=== PATIENT | female | born 1955 | race Caucasian/White ===

== ENCOUNTER → 2018-03-01 10:02 | Outpatient (CLI) | payer OTHER, MEDICAID, SELFPAY ==
--- NOTE | 2018-03-01 10:14 | DI.RAD.S_ITS ---
PROCEDURE: XR THORACIC SPINE 3V INDICATIONS: Pain. TECHNIQUE: AP, lateral, and parasagittal oblique views of the thoracic spine were acquired. COMPARISON: [facility], THORACIC SPINE 3 VIEWS, 09/03/2015, 8:50. FINDINGS: Midline sternotomy wires noted, as are surgical clips along the left cervical spine. There is calcification of the aortic arch. Redemonstrated multilevel mild compression fracture deformity is at the T7, T8, T9, T12, and L1 levels are similar in appearance to comparison exam of 09/03/2015. No new acute fractures are identified. Multilevel Schmorl's nodes are present. IMPRESSION: Multilevel mild compression fractures of the thoracic spine at the levels described above, which are stable in appearance when compared with exam of 09/03/15. Dictated by: Kirby Baum M.D. on 03/01/2018 at 10:57 Approved by: Kirby Baum M.D. on 03/01/2018 at 11:09
[2018-03-01 10:58] LABS: Alanine Aminotransferase 28 IU/L (9-52); Albumin 4.7 g/dL (3.5-5.0); Albumin Globulin Ratio 1.3 (1.0-2.8); Alkaline Phosphatase 94 U/L (38-126); Aspartate Aminotransferase 40 IU/L (14-36); BUN Creatinine Ratio 22.2 (6-22); Bilirubin Total 0.6 mg/dL (0.2-1.3); Blood Urea Nitrogen 20 mg/dL (7-17); Calcium 9.6 mg/dL (8.4-10.2); Carbon Dioxide 29 mmol/L (22-32); Chloride 99 mmol/L (98-107); Estimated Glomerular Filt Rate > 60.0 mL/min (>60); Globulin 3.7 g/dL (1.7-4.1); Glucose 101 mg/dL (80-110); HEMOLYSIS < 15 (0-50); Sodium 136 mmol/L (137-145); Total Protein 8.4 g/dL (6.3-8.2)
[2018-03-01 11:26] LABS: Thyroid Stimulating Hormone 1.38 uIU/mL (0.47-4.68)
== END ==
PROVIDERS: Family Provider Family Medicine; PCP Family Medicine; Visit Provider Family Medicine
DX: I48.91 Unspecified atrial fibrillation (principal); M85.80 Other specified disorders of bone density and structure, unspecified site
CPT/HCPCS: 36415; 72072; 80053; 84443

== ENCOUNTER → 2018-03-09 09:24 | Outpatient (CLI) | payer OTHER, MEDICAID, SELFPAY | PROVIDERS: Family Provider Family Medicine; PCP Family Medicine; Visit Provider Family Medicine | DX: M81.0 Age-related osteoporosis without current pathological fracture (principal); Z78.0 Asymptomatic menopausal state; Z82.62 Family history of osteoporosis; F17.200 Nicotine dependence, unspecified, uncomplicated | CPT/HCPCS: 77080 ==

== ENCOUNTER → 2018-05-25 09:48 | Outpatient (CLI) | payer OTHER, MEDICAID, SELFPAY ==
[2018-05-25 11:31] LABS: BUN Creatinine Ratio 18.6 (6-22); Blood Urea Nitrogen 13 mg/dL (7-17); Calcium 9.9 mg/dL (8.4-10.2); Carbon Dioxide 28 mmol/L (22-32); Chloride 101 mmol/L (98-107); Cholesterol 224 mg/dL (140-199); Estimated Glomerular Filt Rate > 60.0 mL/min (>60); Glucose 96 mg/dL (80-110); HDL Cholesterol 73 mg/dL (40-60); HEMOLYSIS < 15 (0-50); LDL Cholesterol Calculated 129 mg/dL (<100); Potassium 4.8 mmol/L (3.4-5.1); Sodium 142 mmol/L (137-145); Triglycerides 112 mg/dL (35-150)
== END ==
PROVIDERS: PCP Family Medicine; Visit Provider Internal Medicine Cardiovascular Disease
DX: E87.5 Hyperkalemia (principal); E78.2 Mixed hyperlipidemia
CPT/HCPCS: 36415; 80048; 80061; 82306

== ENCOUNTER → 2018-05-31 08:55 | Outpatient (CLI) | payer OTHER, MEDICAID, SELFPAY ==
[2018-05-31 09:13] LABS: INR 1.9 (0.9-1.3); Prothrombin Time 20.8 SECONDS (10.1-12.7)
== END ==
PROVIDERS: PCP Family Medicine; Visit Provider Family Medicine
DX: I48.91 Unspecified atrial fibrillation (principal); Z95.2 Presence of prosthetic heart valve
CPT/HCPCS: 36415; 85610

== ENCOUNTER → 2018-10-25 17:44 | Outpatient (CLI) | payer OTHER, MEDICAID, SELFPAY ==
--- NOTE | 2018-10-25 | DI.MRI.S_ITS ---
PROCEDURE: MR CERVICAL SPINE WO CON INDICATIONS: CERVICAL RADICULOPATHY TECHNIQUE: Noncontrast sagittal T1 spin echo and T2 fast spin echo, sagittal STIR, foraminal oblique sagittal T2 fast spin echo, and axial gradient echo or T2 fast spin echo through the cervical spine. COMPARISON: [facility], CT, PE STUDY (CTA CHEST), 05/09/2011, 9:54. [facility], RG, US THYROID, 08/08/2003, 10:01. [facility], MR, C-SPINE WITHOUT CONTRAST, 07/11/2012, 14:58. [facility] [place], CR, XR CERVICAL SPINE 2 OR 3 VIEWS, 07/19/2018, 16:34. FINDINGS: Image quality: Excellent. Alignment and Curvature: Loss of normal cervical lordosis. There is grade 1 anterolisthesis at C2-C3 and C3-C4, and grade 1 retrolisthesis of C5-C6 and C6-C7. Bone Marrow: Degenerative endplate signal changes are present at C3, C4, C5, C6 and C7. Spinal Cord: Visualized spinal cord has normal size and signal. No cerebellar tonsillar herniation. Paraspinous Soft Tissues: No paravertebral masses. Prevertebral soft tissues are normal in thickness. Enlarged right thyroid lobe with possible thyroid nodules. C2-C3: Preserved disc height. Moderate disc desiccation. There is mild posterior disc bulge. The central canal is patent. Mild bilateral foraminal stenosis. No significant change from last exam. C3-C4: Kavg-rp-thngardm loss of disc height. Moderate disc desiccation. There is diffuse posterior disc bulge and disc osteophyte complex. Bilateral moderate facet arthropathy. The central canal is mildly narrowed. Severe right and moderate left foraminal stenosis, increased from the last exam. C4-C5: Qfswlnhl-ay-pdptcp loss of disc height and disc desiccation. There is diffuse posterior disc bulge and disc osteophyte complex. Uncovertebral hypertrophy. Moderate left and mild right facet arthropathy. The central canal is lnehuhkr-uw-efctguvp narrowed. narrowed. Severe foraminal stenosis bilaterally. Increased central canal and foraminal stenosis impaired to the last exam. C5-C6: Severe loss of disc height and disc desiccation. There is diffuse posterior disc bulge and disc osteophyte complex. Uncovertebral hypertrophy. Mild bilateral facet and arthropathy. The central canal is severely narrowed. narrowed. Severe bilateral foraminal stenosis. Increased central canal and foraminal stenosis impaired to the last exam. C6-C7: Severe loss of disc height and disc desiccation. There is diffuse posterior disc bulge and disc osteophyte complex. Uncovertebral hypertrophy. Mild facet arthropathy bilaterally. The central canal is severely narrowed. narrowed. Severe bilateral foraminal stenosis. Increased central canal and foraminal stenosis impaired to the last exam. C7-T1: Normal appearance. IMPRESSION: 1. Multilevel degenerative disc disease and facet arthropathy in cervical spine as described. 2. Severe central canal stenosis at C5-C6 and C6-C7, faagdkie-ts-afylzv central canal stenosis at C4 and C5. 3. Multilevel foraminal stenoses as described, severe at C4-C5 bilaterally, C5-C6 bilaterally, and C6-C7 bilaterally. 4. Enlarged right thyroid lobe. Thyroid ultrasound is recommended for followup evaluation. Dictated by: Vince Mauro M.D. on 10/26/2018 at 9:34 Approved by: Vince Mauro M.D. on 10/26/2018 at 9:49
== END ==
PROVIDERS: Family Provider Family Medicine; PCP Family Medicine; Visit Provider Physician Assistant
DX: M50.11 Cervical disc disorder with radiculopathy, high cervical region (principal); M47.22 Other spondylosis with radiculopathy, cervical region; M48.02 Spinal stenosis, cervical region; E04.9 Nontoxic goiter, unspecified
CPT/HCPCS: 72141

== ENCOUNTER 2018-10-27 09:45 | Outpatient (RCR) | payer OTHER, MEDICAID, SELFPAY ==
--- NOTE | 2018-09-15 15:00 | PT.OIE ---
Current Diagnoses Stiffness of unspecified joint, not elsewhere classified (09/15/18) Spondylolisthesis, cervical region (09/15/18) Other spondylosis with radiculopathy, cervical region (09/15/18) Cervical disc disorder with myelopathy, unspecified cervical region (09/15/18) Muscle weakness (generalized) (09/15/18) Past Medical History (Last Updated 02/28/18 @ 20:27 by Kaity Thompson) Heart failure (Chronic ~05/18/11) Chicken pox (Resolved ~1958) Scabies (Resolved ~2015) Past Surgical History (Last Updated 02/28/18 @ 20:27 by Kaity Thompson) Anesthesia (Resolved) History of aortic valve replacement (05/18/11) Provider Visit Care Team Role Provider Type Gideon Maddox MD Family Provider Physician Primary Care Provider Specialty: Family Practice Address: [address] [place] [address], [id number] Email: [email or web address] Dorothy Askew MD Attending Provider Physician Specialty: Orthopedic Surgery Address: [address] [place] [address], [address] Email: [email or web address] Physical [facility] Initial Evaluation PT-OP-A Visit Information Start: 09/15/18 11:44 Freq: Status: Active Protocol: Document 09/15/18 10:30 DCW (Rec: 09/15/18 11:57 DC [id number]) Out-Patient Physical Therapy Visit Information Visit Information Visit Type Initial Evaluation Visit Start Time 10:30 Visit Stop Time 11:10 Total Visit Minutes 40 Visit Number 1 Number of CRYSTAL GAZER Visits 0 Evaluation Information Evaluation Date 09/15/18 PT-OP-B Current Condition Start: 09/15/18 11:44 Freq: Status: Active Protocol: Document 09/15/18 10:30 DCW (Rec: 09/15/18 11:57 DCW [id number]) Current Condition History of Current Condition Onset Date Multi-year history Current Complaints Severe cervical pain and stiffness History of Current Condition Pt is a 63 year old female presenting with a multi-year history of cervical spine pain . Pt reports she attempted Physical Therapy years ago, but notes that she was eventually told that there was nothing that they could do. Pt's neck pain results in decreased mobility, weakness, pain along her right medial scapula, near-constant headaches, and limitations to her daily life. Pt has, in the recent past, been treated for multiple stress/compression fractures in her spine, and has been diagnosed with a cervical spondylolisthesis. Additionally, pt reports she has been having recent anterior hip pain, and saw Dr Askew about it, who daniel fluid out of her joint and is requesting an MRI for her hip. Prior Treatments and Tests Treatment for multiple vertebral compression fractures Future Testing and Treatments Planned Upcoming hip MRI Prior Functional Status Baseline Function- ADL's Independent Baseline Function- Mobility Independent Current Functional Impairments (Reported) Functional Limitations- ADL's Pt reports she is only able to do one load of laundry compared to her normal three loads Pt requires assistance taking care of her gas stove, which she reports turns on my itself randomly PT-OP-C Subjective Start: 09/15/18 11:44 Freq: Status: Active Protocol: Document 09/15/18 10:30 DCW (Rec: 09/15/18 11:57 DCW [id number]) OP-PT Subjective Patient Comments Patient Comments My neck pain wakes me up like an alarm every night between 2:30 and 3:00. Patient Reported Progress Worse Patient Questionnaires Neck Disability Index NDI Score 34/50 = 68% Neck Disability Index Impairment 60 to 79% Impaired (Score 30- 39) Quick Dash- Upper Extremity Quick Dash UE Score 61.36 Quick Dash UE Impairment 60 to 79% Impaired (Score 60- 79) OP-PT Pain Assessment Pain Assessment Grid Paper Pain Assessment Grid Completed Yes Location Right Medial Scapula Intensity 8 Scale Used Numeric (1 - 10) Cervical Spine Pain Location Details Cervical Spine Intensity 8 Scale Used Numeric (1 - 10) PT-OP-F Manual Assessment Start: 09/15/18 11:44 Freq: Status: Active Protocol: Document 09/15/18 10:30 DCW (Rec: 09/15/18 14:56 DCW [id number]) Manual Assessments Soft Tissue Assessment Soft Tissue Mobility Assessment Moderate tone Cervical paraspinals and scalenes R>L, R Rhomboids Severe tone Suboccipitals and upper trap, R>L Joint Mobility Assessment Joint Mobility Assessment Hypomobility of P->A glide C3- 6 PT-OP-K Range of Motion Start: 09/15/18 11:44 Freq: Status: Active Protocol: Document 09/15/18 10:30 DCW (Rec: 09/15/18 14:56 DCW [id number]) Cervical Spine Range of Motion Cervical Spine Active Degrees Testing Position Sitting Flexion 25 Extension 13 Rotation Left 36 Rotation Right 44 Lateral Flexion Left 10 Lateral Flexion Right 10 ROM Limitations Soft Tissue Tightness Bony Restriction Muscle Tone Pain PT-OP-L Special Tests Start: 09/15/18 11:44 Freq: Status: Active Protocol: Document 09/15/18 10:30 DCW (Rec: 09/15/18 14:56 DCW [id number]) Special Tests Cervical Spine Special Tests Upper Limb Tension Test Test Results Negative Vertebral Artery Test Results Negative Traction Test Results It almost takes my headache away. Slump Test Results Negative Foraminal Compression Test Results Negative Alar Ligament Test Results Negative PT-OP-M Strength Start: 09/15/18 11:44 Freq: Status: Active Protocol: Document 09/15/18 10:30 DCW (Rec: 09/15/18 14:56 DCW [id number]) Cervical Spine Strength Cervical Spine Manual Muscle Testing Comments Pt able to hold chin tuck/head lift <2 seconds, 3+/5 PT-OP-Q Treatments Start: 09/15/18 11:44 Freq: Status: Active Protocol: Document 09/15/18 10:30 DCW (Rec: 09/15/18 14:56 DCW [id number]) Therapeutic Exercises Supine Exercises Serratus Punch Supine Exercise Name Supine Serratus punch Side bilateral Resistance 0# Chin Tuck/Head lift Supine Exercise Name Chin tuck/head lift Reps/Minutes to fatigue Standing Exercises Corner pec stretch Standing Exercise Name Corner pec stretch Side bilateral Reps/Minutes 35 hold PT-OP-T Assessment and Plan Start: 09/15/18 11:44 Freq: Status: Active Protocol: Document 09/15/18 10:30 DCW (Rec: 09/15/18 14:56 DCW [id number]) Physical Therapy Assessment Rehab Potential Rehabilitation Potential Good Evaluation Complexity Number of Personal Factors/Comorbidities 3 or More Number of Body Systems Impaired 3 Clinical Presentation at Evaluation Unstable Impairments Impairments Activity Tolerance Functional Activities Functional Mobility Pain Posture ROM Soft Tissue Mobility Strength Tone Other Concerns Barriers to Rehabilitation Hx [place] and valve replacement, Dizziness, HTN, Arthritis Goals Five Impairment Hypertonia Short Term Goal (STG) Pt to display moderate tone in bilateral upper traps and suboccipitals STG Duration 10/13/18 Data Manager Goal (LTG) Pt to display mild tone in bilateral upper traps, suboccipitals, scalenes, cervical paraspinals, and right rhomboids LTG Duration 11/13/18 Four Impairment Cervical weakness Short Term Goal (STG) Pt to hold chin tuck/head lift for 5 seconds with no pain STG Duration 10/13/18 Data Manager Goal (LTG) Pt to hold chin tuck/head lift for 15 seconds with no pain LTG Duration 11/13/18 Three Impairment Flexibility Short Term Goal (STG) Cervical flexion to improve from 25? to 40? Cervical Extension to improve from 13? to 25? STG Duration 10/13/18 Retirement Goal (LTG) Cervical Lateral Flexion to improve from 10? to 20? bilaterally LTG Duration 11/13/18 Two Impairment Pt unable to complete more than one load of laundry per day Data Manager Goal (LTG) Pt to return to 3 loads of laundry/day with no increased neck pain LTG Duration 11/13/18 One Impairment Pt does not have an appropriate home exercise program Short Term Goal (STG) Pt to be independent and complaint with an appropriate HEP STG Duration 10/13/18 Assessment Summary Assessment Pt presents with signs and symptoms consistent with cervical hypertonia, stiffness , weakness, and pain associated with cervical DJD/ DDD and Spondylolisthesis. 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 No special testing was able to recreate her ongoing symptoms, however she did display significant tenderness to palpation and hypertonia throughout her paraspinal and parascapular musculature. Pt should benefit from skilled therapy focusing on decreasing muscle tone, improving strength and ROM, STM, and pain-control modalities. Therapy including manual or mechanical traction may also assist in decreasing her headache frequency and severity. Physical Therapy Plan Frequency and Duration Frequency of Treatment 2x/Week Duration of Treatment 12 weeks Plan of Care Start Date 09/15/18 Plan of Care End Date 12/08/18 Therapeutic Interventions Therapeutic Interventions Aquatic Therapy Home Exercise Program Joint Mobilizations Manual Therapy Patient/Caregiver Education Self-Care/Home Management Soft Tissue Mobilization Taping Therapeutic Activities Therapeutic Exercises Modalities Cold Pack/Ice Massage Electric Stimulation Hot Packs Ultrasound Next Visit Focus/Plan Next Note Type Treatment Note Next Visit Plan STM, Cervical strengthening, Flexibility training
--- NOTE | 2018-09-15 15:01 | PT.OPPOC ---
Current Diagnoses Stiffness of unspecified joint, not elsewhere classified (09/15/18) Spondylolisthesis, cervical region (09/15/18) Other spondylosis with radiculopathy, cervical region (09/15/18) Cervical disc disorder with myelopathy, unspecified cervical region (09/15/18) Muscle weakness (generalized) (09/15/18) Provider Visit Care Team Role Provider Type Gideon Maddox MD Family Provider Physician Primary Care Provider Specialty: Family Practice Address: [address] [place] [address], [address] Email: [email or web address] Dorothy Askew MD Attending Provider Physician Specialty: Orthopedic Surgery Address: [address] [place] [address], [address] Email: [email or web address] Plan Of Care PT-OP-T Assessment and Plan Start: 09/15/18 11:44 Freq: Status: Active Protocol: Document 09/15/18 10:30 DCW (Rec: 09/15/18 14:56 DCW [id number]) Physical Therapy Assessment Rehab Potential Rehabilitation Potential Good Evaluation Complexity Number of Personal Factors/Comorbidities 3 or More Number of Body Systems Impaired 3 Clinical Presentation at Evaluation Unstable Impairments Impairments Activity Tolerance Functional Activities Functional Mobility Pain Posture ROM Soft Tissue Mobility Strength Tone Other Concerns Barriers to Rehabilitation Hx [place] and valve replacement, Dizziness, HTN, Arthritis Goals Five Impairment Hypertonia Short Term Goal (STG) Pt to display moderate tone in bilateral upper traps and suboccipitals STG Duration 10/13/18 Store Facility Technician Goal (LTG) Pt to display mild tone in bilateral upper traps, suboccipitals, scalenes, cervical paraspinals, and right rhomboids LTG Duration 11/13/18 Four Impairment Cervical weakness Short Term Goal (STG) Pt to hold chin tuck/head lift for 5 seconds with no pain STG Duration 10/13/18 Store Facility Technician Goal (LTG) Pt to hold chin tuck/head lift for 15 seconds with no pain LTG Duration 11/13/18 Three Impairment Flexibility Short Term Goal (STG) Cervical flexion to improve from 25? to 40? Cervical Extension to improve from 13? to 25? STG Duration 10/13/18 [facility] Goal (LTG) Cervical Lateral Flexion to improve from 10? to 20? bilaterally LTG Duration 11/13/18 Two Impairment Pt unable to complete more than one load of laundry per day Store Facility Technician Goal (LTG) Pt to return to 3 loads of laundry/day with no increased neck pain LTG Duration 11/13/18 One Impairment Pt does not have an appropriate home exercise program Short Term Goal (STG) Pt to be independent and complaint with an appropriate HEP STG Duration 10/13/18 Assessment Summary Assessment Pt presents with signs and symptoms consistent with cervical hypertonia, stiffness , weakness, and pain associated with cervical DJD/ DDD and Spondylolisthesis. 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 No special testing was able to recreate her ongoing symptoms, however she did display significant tenderness to palpation and hypertonia throughout her paraspinal and parascapular musculature. Pt should benefit from skilled therapy focusing on decreasing muscle tone, improving strength and ROM, STM, and pain-control modalities. Therapy including manual or mechanical traction may also assist in decreasing her headache frequency and severity. Physical Therapy Plan Frequency and Duration Frequency of Treatment 2x/Week Duration of Treatment 12 weeks Plan of Care Start Date 09/15/18 Plan of Care End Date 12/08/18 Therapeutic Interventions Therapeutic Interventions Aquatic Therapy Home Exercise Program Joint Mobilizations Manual Therapy Patient/Caregiver Education Self-Care/Home Management Soft Tissue Mobilization Taping Therapeutic Activities Therapeutic Exercises Modalities Cold Pack/Ice Massage Electric Stimulation Hot Packs Ultrasound Next Visit Focus/Plan Next Note Type Treatment Note Next Visit Plan STM, Cervical strengthening, Flexibility training Plan of Care Dates Plan of Care Start Date 09/15/18 Plan of Care End Date 12/08/18 Please Sign and Return: I have reviewed this Plan of Care and certify that the skilled therapy services above are required to meet the patient?s needs. Physician Signature Date Printed Name and Credentials Clinical Instructor Signature Printed Name and Credentials
--- NOTE | 2018-09-19 11:06 | PT.OTN ---
Current Diagnoses Spondylolisthesis, cervical region (09/19/18) Other spondylosis with radiculopathy, cervical region (09/19/18) Physical Therapy Treatment Note PT-OP-A Visit Information Start: 09/15/18 11:44 Freq: Status: Active Protocol: Document 09/19/18 10:30 DCW (Rec: 09/19/18 11:06 DCW [id number]) Out-Patient Physical Therapy Visit Information Visit Information Visit Type Initial Evaluation Visit Start Time 10:30 Visit Stop Time 11:15 Total Visit Minutes 45 Visit Number 2 Number of TAG CLERK Visits 0 Evaluation Information Evaluation Date 09/15/18 PT-OP-B Current Condition Start: 09/15/18 11:44 Freq: Status: Active Protocol: Document 09/15/18 10:30 DCW (Rec: 09/15/18 11:57 DCW [id number]) Current Condition History of Current Condition Onset Date Multi-year history Current Complaints Severe cervical pain and stiffness History of Current Condition Pt is a 63 year old female presenting with a multi-year history of cervical spine pain . Pt reports she attempted Physical Therapy years ago, but notes that she was eventually told that there was nothing that they could do. Pt's neck pain results in decreased mobility, weakness, pain along her right medial scapula, near-constant headaches, and limitations to her daily life. Pt has, in the recent past, been treated for multiple stress/compression fractures in her spine, and has been diagnosed with a cervical spondylolisthesis. Additionally, pt reports she has been having recent anterior hip pain, and saw Dr Askew about it, who daniel fluid out of her joint and is requesting an MRI for her hip. Prior Treatments and Tests Treatment for multiple vertebral compression fractures Future Testing and Treatments Planned Upcoming hip MRI Prior Functional Status Baseline Function- ADL's Independent Baseline Function- Mobility Independent Current Functional Impairments (Reported) Functional Limitations- ADL's Pt reports she is only able to do one load of laundry compared to her normal three loads Pt requires assistance taking care of her gas stove, which she reports turns on my itself randomly PT-OP-C Subjective Start: 09/15/18 11:44 Freq: Status: Active Protocol: Document 09/19/18 10:30 DCW (Rec: 09/19/18 11:06 DCW [id number]) OP-PT Subjective Patient Comments Patient Comments I've been able to do those exercises at home, to a certain point. Pt reports her pain is about a nine today. Patient Reported Progress Same PT-OP-F Manual Assessment Start: 09/15/18 11:44 Freq: Status: Active Protocol: Document 09/15/18 10:30 DCW (Rec: 09/15/18 14:56 DCW [id number]) Manual Assessments Soft Tissue Assessment Soft Tissue Mobility Assessment Moderate tone Cervical paraspinals and scalenes R>L, R Romboids Severe tone Suboccipitals and upper trap, R>L Joint Mobility Assessment Joint Mobility Assessment Hypomobility of P->A glide C3- 6 PT-OP-K Range of Motion Start: 09/15/18 11:44 Freq: Status: Active Protocol: Document 09/15/18 10:30 DCW (Rec: 09/15/18 14:56 DCW [id number]) Cervical Spine Range of Motion Cervical Spine Active Degrees Testing Position Sitting Flexion 25 Extension 13 Rotation Left 36 Rotation Right 44 Lateral Flexion Left 10 Lateral Flexion Right 10 ROM Limitations Soft Tissue Tightness Bony Restriction Muscle Tone Pain PT-OP-L Special Tests Start: 09/15/18 11:44 Freq: Status: Active Protocol: Document 09/15/18 10:30 DCW (Rec: 09/15/18 14:56 DCW [id number]) Special Tests Cervical Spine Special Tests Upper Limb Tension Test Test Results Negative Vertebral Artery Test Results Negative Traction Test Results It almost takes my headache away. Slump Test Results Negative Foraminal Compression Test Results Negative Alar Ligament Test Results Negative PT-OP-M Strength Start: 09/15/18 11:44 Freq: Status: Active Protocol: Document 09/15/18 10:30 DCW (Rec: 09/15/18 14:56 DCW [id number]) Cervical Spine Strength Cervical Spine Manual Muscle Testing Comments Pt able to hold chin tuck/head lift <2 seconds, 3+/5 PT-OP-Q Treatments Start: 09/15/18 11:44 Freq: Status: Active Protocol: Document 09/19/18 10:30 DCW (Rec: 09/19/18 11:06 DCW [id number]) Manual Therapy Treatment Soft Tissue Mobilization Suboccipitals Body Location B Suboccipitals Mobilization Type Strumming Sustained Pressure Trigger Point Release Upper Trap Body Location B Upper Trap Mobilization Type Myofascial Release Strumming Sustained Pressure Manual Traction Cervical Details Gentle Manual Traction Body Position Supine PT-OP-R Modalities Start: 09/15/18 11:44 Freq: Status: Active Protocol: Document 09/19/18 10:30 DCW (Rec: 09/19/18 11:06 DCW [id number]) Electric Stimulation Electric Stimulation Interferential Current (IFC) Body Location Cervical Spine Duration (Minutes) 15 Intensity 7 Patient Position Hooklying PT-OP-T Assessment and Plan Start: 09/15/18 11:44 Freq: Status: Active Protocol: Document 09/19/18 10:30 DCW (Rec: 09/19/18 11:06 DCW [id number]) Physical Therapy Assessment Impairments Impairments Activity Tolerance Functional Activities Functional Mobility Pain Posture ROM Soft Tissue Mobility Strength Tone Goals Five Impairment Hypertonia Short Term Goal (STG) Pt to display moderate tone in bilateral upper traps and suboccipitals STG Duration 10/13/18 Senior Care Goal (LTG) Pt to display mild tone in bilateral upper traps, suboccipitals, scalenes, cervical paraspinals, and right romboids LTG Duration 11/13/18 Four Impairment Cervical weakness Short Term Goal (STG) Pt to hold chin tuck/head lift for 5 seconds with no pain STG Duration 10/13/18 Jewelry Bench Worker Goal (LTG) Pt to hold chin tuck/head lift for 15 seconds with no pain LTG Duration 11/13/18 Three Impairment Flexibility Short Term Goal (STG) Cervical flexion to improve from 25? to 40? Cervical Extension to improve from 13? to 25? STG Duration 10/13/18 Jewelry Bench Worker Goal (LTG) Cervical Lateral Flexion to improve from 10? to 20? bilaterally LTG Duration 11/13/18 Two Impairment Pt unable to complete more than one load of laundry per day Senior Care Goal (LTG) Pt to return to 3 loads of laundry/day with no increased neck pain LTG Duration 11/13/18 One Impairment Pt does not have an appropriate home exercise program Short Term Goal (STG) Pt to be independent and complaint with an appropriate HEP STG Duration 10/13/18 Assessment Summary Assessment Pt was so tender and flared-up today that the focus was on gentle STM and traction, will attempt ROM and strengthening next visit when she is hopefully experiencing less pain. Physical Therapy Plan Frequency and Duration Frequency of Treatment 2x/Week Duration of Treatment 12 weeks Plan of Care Start Date 09/15/18 Plan of Care End Date 12/08/18 Therapeutic Interventions Therapeutic Interventions Aquatic Therapy Home Exercise Program Joint Mobilizations Manual Therapy Patient/Caregiver Education Self-Care/Home Management Soft Tissue Mobilization Taping Therapeutic Activities Therapeutic Exercises Modalities Cold Pack/Ice Massage Electric Stimulation Hot Packs Ultrasound Next Visit Focus/Plan Next Note Type Treatment Note Next Visit Plan STM, Cervical strengthening, Flexibility training
--- NOTE | 2018-09-22 10:29 | PT.OTN ---
Current Diagnoses Spondylolisthesis, cervical region (09/22/18) Other spondylosis with radiculopathy, cervical region (09/22/18) Physical Therapy Treatment Note PT-OP-A Visit Information Start: 09/15/18 11:44 Freq: Status: Active Protocol: Document 09/22/18 08:49 EA (Rec: 09/22/18 08:57 EA [id number]) Out-Patient Physical Therapy Visit Information Visit Information Visit Type Treatment Note Visit Start Time 08:15 Visit Stop Time 09:00 Visit Number 3 Number of IP ATTORNEY Visits 0 PT-OP-B Current Condition Start: 09/15/18 11:44 Freq: Status: Active Protocol: Document 09/15/18 10:30 DCW (Rec: 09/15/18 11:57 DCW [id number]) Current Condition History of Current Condition Onset Date Multi-year history Current Complaints Severe cervical pain and stiffness History of Current Condition Pt is a 63 year old female presenting with a multi-year history of cervical spine pain . Pt reports she attempted Physical Therapy years ago, but notes that she was eventually told that there was nothing that they could do. Pt's neck pain results in decreased mobility, weakness, pain along her right medial scapula, near-constant headaches, and limitations to her daily life. Pt has, in the recent past, been treated for multiple stress/compression fractures in her spine, and has been diagnosed with a cervical spondylolisthesis. Additionally, pt reports she has been having recent anterior hip pain, and saw Dr Askew about it, who daniel fluid out of her joint and is requesting an MRI for her hip. Prior Treatments and Tests Treatment for multiple vertebral compression fractures Future Testing and Treatments Planned Upcoming hip MRI Prior Functional Status Baseline Function- ADL's Independent Baseline Function- Mobility Independent Current Functional Impairments (Reported) Functional Limitations- ADL's Pt reports she is only able to do one load of laundry compared to her normal three loads Pt requires assistance taking care of her gas stove, which she reports turns on my itself randomly PT-OP-C Subjective Start: 09/15/18 11:44 Freq: Status: Active Protocol: Document 09/22/18 08:49 EA (Rec: 09/22/18 08:57 EA [id number]) OP-PT Subjective Patient Comments Patient Comments Pt reports much less pain today; states she would be able to tolerate gentle exercises. PT-OP-F Manual Assessment Start: 09/15/18 11:44 Freq: Status: Active Protocol: Document 09/15/18 10:30 DCW (Rec: 09/15/18 14:56 DCW [id number]) Manual Assessments Soft Tissue Assessment Soft Tissue Mobility Assessment Moderate tone Cervical paraspinals and scalenes R>L, R Romboids Severe tone Suboccipitals and upper trap, R>L Joint Mobility Assessment Joint Mobility Assessment Hypomobility of P->A glide C3- 6 PT-OP-K Range of Motion Start: 09/15/18 11:44 Freq: Status: Active Protocol: Document 09/15/18 10:30 DCW (Rec: 09/15/18 14:56 DCW [id number]) Cervical Spine Range of Motion Cervical Spine Active Degrees Testing Position Sitting Flexion 25 Extension 13 Rotation Left 36 Rotation Right 44 Lateral Flexion Left 10 Lateral Flexion Right 10 ROM Limitations Soft Tissue Tightness Bony Restriction Muscle Tone Pain PT-OP-L Special Tests Start: 09/15/18 11:44 Freq: Status: Active Protocol: Document 09/15/18 10:30 DCW (Rec: 09/15/18 14:56 DCW [id number]) Special Tests Cervical Spine Special Tests Upper Limb Tension Test Test Results Negative Vertebral Artery Test Results Negative Traction Test Results It almost takes my headache away. Slump Test Results Negative Foraminal Compression Test Results Negative Alar Ligament Test Results Negative PT-OP-M Strength Start: 09/15/18 11:44 Freq: Status: Active Protocol: Document 09/15/18 10:30 DCW (Rec: 09/15/18 14:56 DCW [id number]) Cervical Spine Strength Cervical Spine Manual Muscle Testing Comments Pt able to hold chin tuck/head lift <2 seconds, 3+/5 PT-OP-Q Treatments Start: 09/15/18 11:44 Freq: Status: Active Protocol: Document 09/22/18 08:49 EA (Rec: 09/22/18 08:57 EA [id number]) Therapeutic Exercises Supine Exercises 3 Supine Exercise Name Gentle passive stretch Reps/Minutes x 15 SH x 2 reps each sides 2 Supine Exercise Name gentle isometric to flexors, rotators, SF, extensors prior to gentle stretc 1 Supine Exercise Name AROM: cervical flexion, rotation, SF Reps/Minutes x 12 reps Chin Tuck/Head lift Supine Exercise Name Chin tuck/head lift Reps/Minutes to fatigue Manual Therapy Treatment Soft Tissue Mobilization Suboccipitals Body Location B Suboccipitals Mobilization Type Myofascial Release Sustained Pressure Trigger Point Release Upper Trap Body Location B Upper Trap Mobilization Type Myofascial Release Sustained Pressure Manual Traction Cervical Details Gentle Manual Traction Body Position Supine PT-OP-R Modalities Start: 09/15/18 11:44 Freq: Status: Active Protocol: Document 09/22/18 08:49 EA (Rec: 09/22/18 08:57 EA [id number]) Electric Stimulation Electric Stimulation Interferential Current (IFC) Body Location Cervical Spine Duration (Minutes) 15 Intensity 12 Patient Position Hooklying PT-OP-T Assessment and Plan Start: 09/15/18 11:44 Freq: Status: Active Protocol: Document 09/22/18 08:49 EA (Rec: 09/22/18 08:57 EA [id number]) Physical Therapy Assessment Assessment Summary Assessment Pt tolerated therex today with improved AROM and stretch range. Continue with current progression. Patient also recommended to increase hydration as she stated she only driks 2 cups of water a day which headache issue might be from lack of fluid intake. Physical Therapy Plan Next Visit Focus/Plan Next Note Type Treatment Note Next Visit Plan STM, Cervical strengthening, Flexibility training
--- NOTE | 2018-09-27 09:59 | PT.OTN ---
Current Diagnoses Spondylolisthesis, cervical region (09/27/18) Other spondylosis with radiculopathy, cervical region (09/27/18) Physical Therapy Treatment Note PT-OP-A Visit Information Start: 09/15/18 11:44 Freq: Status: Active Protocol: Document 09/27/18 09:00 GGD (Rec: 09/27/18 09:59 GGD [id number]) Out-Patient Physical Therapy Visit Information Visit Information Visit Type Treatment Note Visit Start Time 09:00 Visit Stop Time 09:45 Total Visit Minutes 45 Visit Number [address] INS[address]OR Visits 1 Evaluation Information Evaluation Date 09/15/18 PT-OP-B Current Condition Start: 09/15/18 11:44 Freq: Status: Active Protocol: Document 09/15/18 10:30 DCW (Rec: 09/15/18 11:57 DCW [id number]) Current Condition History of Current Condition Onset Date Multi-year history Current Complaints Severe cervical pain and stiffness History of Current Condition Pt is a 63 year old female presenting with a multi-year history of cervical spine pain . Pt reports she attempted Physical Therapy years ago, but notes that she was eventually told that there was nothing that they could do. Pt's neck pain results in decreased mobility, weakness, pain along her right medial scapula, near-constant headaches, and limitations to her daily life. Pt has, in the recent past, been treated for multiple stress/compression fractures in her spine, and has been diagnosed with a cervical spondylolisthesis. Additionally, pt reports she has been having recent anterior hip pain, and saw Dr Askew about it, who daniel fluid out of her joint and is requesting an MRI for her hip. Prior Treatments and Tests Treatment for multiple vertebral compression fractures Future Testing and Treatments Planned Upcoming hip MRI Prior Functional Status Baseline Function- ADL's Independent Baseline Function- Mobility Independent Current Functional Impairments (Reported) Functional Limitations- ADL's Pt reports she is only able to do one load of laundry compared to her normal three loads Pt requires assistance taking care of her gas stove, which she reports turns on my itself randomly PT-OP-C Subjective Start: 09/15/18 11:44 Freq: Status: Active Protocol: Document 09/27/18 09:00 GGD (Rec: 09/27/18 09:59 GGD [id number]) OP-PT Subjective Patient Comments Patient Comments Pt states that she had less pain and C/O headache after last visit. PT-OP-F Manual Assessment Start: 09/15/18 11:44 Freq: Status: Active Protocol: Document 09/15/18 10:30 DCW (Rec: 09/15/18 14:56 DCW [id number]) Manual Assessments Soft Tissue Assessment Soft Tissue Mobility Assessment Moderate tone Cervical paraspinals and scalenes R>L, R Romboids Severe tone Suboccipitals and upper trap, R>L Joint Mobility Assessment Joint Mobility Assessment Hypomobility of P->A glide C3- 6 PT-OP-K Range of Motion Start: 09/15/18 11:44 Freq: Status: Active Protocol: Document 09/15/18 10:30 DCW (Rec: 09/15/18 14:56 DCW [id number]) Cervical Spine Range of Motion Cervical Spine Active Degrees Testing Position Sitting Flexion 25 Extension 13 Rotation Left 36 Rotation Right 44 Lateral Flexion Left 10 Lateral Flexion Right 10 ROM Limitations Soft Tissue Tightness Bony Restriction Muscle Tone Pain PT-OP-L Special Tests Start: 09/15/18 11:44 Freq: Status: Active Protocol: Document 09/15/18 10:30 DCW (Rec: 09/15/18 14:56 DCW [id number]) Special Tests Cervical Spine Special Tests Upper Limb Tension Test Test Results Negative Vertebral Artery Test Results Negative Traction Test Results It almost takes my headache away. Slump Test Results Negative Foraminal Compression Test Results Negative Alar Ligament Test Results Negative PT-OP-M Strength Start: 09/15/18 11:44 Freq: Status: Active Protocol: Document 09/15/18 10:30 DCW (Rec: 09/15/18 14:56 DCW [id number]) Cervical Spine Strength Cervical Spine Manual Muscle Testing Comments Pt able to hold chin tuck/head lift <2 seconds, 3+/5 PT-OP-Q Treatments Start: 09/15/18 11:44 Freq: Status: Active Protocol: Document 09/27/18 09:00 GGD (Rec: 09/27/18 09:59 GGD [email or web address]) Therapeutic Exercises Supine Exercises 3 Supine Exercise Name Gentle passive stretch Reps/Minutes x 15 SH x 2 reps each sides 2 Supine Exercise Name gentle isometric to flexors, rotators, SF, extensors prior to gentle stretc 1 Supine Exercise Name AROM: cervical flexion, rotation, SF Reps/Minutes x 12 reps Chin Tuck/Head lift Supine Exercise Name Chin tuck/head lift Reps/Minutes to fatigue Manual Therapy Treatment Soft Tissue Mobilization Suboccipitals Body Location B Suboccipitals Mobilization Type Myofascial Release Sustained Pressure Trigger Point Release Upper Trap Body Location B Upper Trap Mobilization Type Myofascial Release Sustained Pressure Manual Traction Cervical Details Gentle Manual Traction Body Position Supine PT-OP-R Modalities Start: 09/15/18 11:44 Freq: Status: Active Protocol: Document 09/27/18 09:00 GGD (Rec: 09/27/18 09:59 GGD [email or web address]) Electric Stimulation Electric Stimulation Interferential Current (IFC) Body Location Cervical Spine Duration (Minutes) 15 Patient Position Hooklying PT-OP-T Assessment and Plan Start: 09/15/18 11:44 Freq: Status: Active Protocol: Document 09/27/18 09:00 GGD (Rec: 09/27/18 09:59 GGD [email or web address]) Physical Therapy Assessment Assessment Summary Assessment Pt need cues for exercise technique. Pt had decrease C/O pain with traction, but tender with STM. Physical Therapy Plan Frequency and Duration Frequency of Treatment 2x/Week Duration of Treatment 12 weeks Plan of Care Start Date 09/15/18 Plan of Care End Date 12/08/18 Next Visit Focus/Plan Next Note Type Treatment Note Next Visit Plan STM, Cervical strengthening, Flexibility training
--- NOTE | 2018-10-04 11:34 | PT.OTN ---
Current Diagnoses Spondylolisthesis, cervical region (10/04/18) Other spondylosis with radiculopathy, cervical region (10/04/18) Physical Therapy Treatment Note PT-OP-A Visit Information Start: 09/15/18 11:44 Freq: Status: Active Protocol: Document 10/04/18 09:45 HH (Rec: 10/04/18 11:34 HH [email or web address]) Out-Patient Physical Therapy Visit Information Visit Information Visit Type Treatment Note Visit Start Time 09:45 Visit Stop Time 10:30 Total Visit Minutes 45 Visit Number 5 Number of IT ACCOUNT MANAGER Visits 0 PT-OP-B Current Condition Start: 09/15/18 11:44 Freq: Status: Active Protocol: Document 09/15/18 10:30 DCW (Rec: 09/15/18 11:57 DCW [id number]) Current Condition History of Current Condition Onset Date Multi-year history Current Complaints Severe cervical pain and stiffness History of Current Condition Pt is a 63 year old female presenting with a multi-year history of cervical spine pain . Pt reports she attempted Physical Therapy years ago, but notes that she was eventually told that there was nothing that they could do. Pt's neck pain results in decreased mobility, weakness, pain along her right medial scapula, near-constant headaches, and limitations to her daily life. Pt has, in the recent past, been treated for multiple stress/compression fractures in her spine, and has been diagnosed with a cervical spondylolisthesis. Additionally, pt reports she has been having recent anterior hip pain, and saw Dr Askew about it, who daniel fluid out of her joint and is requesting an MRI for her hip. Prior Treatments and Tests Treatment for multiple vertebral compression fractures Future Testing and Treatments Planned Upcoming hip MRI Prior Functional Status Baseline Function- ADL's Independent Baseline Function- Mobility Independent Current Functional Impairments (Reported) Functional Limitations- ADL's Pt reports she is only able to do one load of laundry compared to her normal three loads Pt requires assistance taking care of her gas stove, which she reports turns on my itself randomly PT-OP-C Subjective Start: 09/15/18 11:44 Freq: Status: Active Protocol: Document 10/04/18 09:45 HH (Rec: 10/04/18 11:34 HH [email or web address]) OP-PT Subjective Patient Comments Patient Comments My pain has been waking me up at night. Turning my head to R or bending forward will cause pain at my R midback. PT-OP-F Manual Assessment Start: 09/15/18 11:44 Freq: Status: Active Protocol: Document 09/15/18 10:30 DCW (Rec: 09/15/18 14:56 DCW [id number]) Manual Assessments Soft Tissue Assessment Soft Tissue Mobility Assessment Moderate tone Cervical paraspinals and scalenes R>L, R Romboids Severe tone Suboccipitals and upper trap, R>L Joint Mobility Assessment Joint Mobility Assessment Hypomobility of P->A glide C3- 6 PT-OP-K Range of Motion Start: 09/15/18 11:44 Freq: Status: Active Protocol: Document 09/15/18 10:30 DCW (Rec: 09/15/18 14:56 DCW [id number]) Cervical Spine Range of Motion Cervical Spine Active Degrees Testing Position Sitting Flexion 25 Extension 13 Rotation Left 36 Rotation Right 44 Lateral Flexion Left 10 Lateral Flexion Right 10 ROM Limitations Soft Tissue Tightness Bony Restriction Muscle Tone Pain PT-OP-L Special Tests Start: 09/15/18 11:44 Freq: Status: Active Protocol: Document 09/15/18 10:30 DCW (Rec: 09/15/18 14:56 DCW [id number]) Special Tests Cervical Spine Special Tests Upper Limb Tension Test Test Results Negative Vertebral Artery Test Results Negative Traction Test Results It almost takes my headache away. Slump Test Results Negative Foraminal Compression Test Results Negative Alar Ligament Test Results Negative PT-OP-M Strength Start: 09/15/18 11:44 Freq: Status: Active Protocol: Document 09/15/18 10:30 DCW (Rec: 09/15/18 14:56 DCW [id number]) Cervical Spine Strength Cervical Spine Manual Muscle Testing Comments Pt able to hold chin tuck/head lift <2 seconds, 3+/5 PT-OP-Q Treatments Start: 09/15/18 11:44 Freq: Status: Active Protocol: Document 10/04/18 09:45 HH (Rec: 10/04/18 11:34 HH [email or web address]) Therapeutic Exercises Supine Exercises T/S extension on foam Equipment Used on foam Reps/Minutes 20 reps x 2 Comments at upper/ middle/ lower thoracic Sitting Exercises seated spinal distraction with lat pull down Equipment Used lat pull down machine Comments with inhalation and exhalation . scapular roll Comments foward and backward rolling seated t/s extension Equipment Used back against therapy ball Comments and foam roller after seated thoracic rotation Reps/Minutes 10 x2 Manual Therapy Treatment Soft Tissue Mobilization Suboccipitals Body Location B Suboccipitals Mobilization Type Myofascial Release Sustained Pressure Trigger Point Release Upper Trap Body Location B Upper Trap Mobilization Type Myofascial Release Sustained Pressure PT-OP-R Modalities Start: 09/15/18 11:44 Freq: Status: Active Protocol: Document 09/27/18 09:00 GGD (Rec: 09/27/18 09:59 GGD [email or web address]) Electric Stimulation Electric Stimulation Interferential Current (IFC) Body Location Cervical Spine Duration (Minutes) 15 Patient Position Hooklying PT-OP-T Assessment and Plan Start: 09/15/18 11:44 Freq: Status: Active Protocol: Document 10/04/18 09:45 HH (Rec: 10/04/18 11:34 HH [email or web address]) Physical Therapy Assessment Assessment Summary Assessment Pt reports reproduction of R mid pain during active R cervical flexion and rotation upon assessment. Pt denies pain during passive cervical ROM. She cont presents significant loss of thoracic mobility. Today's tx focused on thoracic mobility (ext and rotation) along with breathing techniques. Pt presented decreased R scapular mobility during scapular roll. New HEP given with scapular roll. Physical Therapy Plan Next Visit Focus/Plan Next Note Type Treatment Note Next Visit Plan STM, Cervical strengthening, Flexibility training at thoracic spine, segmental mobility and scapular mobility .
--- NOTE | 2018-10-07 09:58 | PT.OTN ---
Current Diagnoses Spondylolisthesis, cervical region (10/07/18) Other spondylosis with radiculopathy, cervical region (10/07/18) Physical Therapy Treatment Note PT-OP-A Visit Information Start: 09/15/18 11:44 Freq: Status: Active Protocol: Document 10/07/18 09:45 SA (Rec: 10/07/18 09:58 SA [email or web address]) Out-Patient Physical Therapy Visit Information Visit Information Visit Type Treatment Note Visit Start Time 07:30 Visit Stop Time 08:21 Total Visit Minutes 51 Visit Number 6 Number of FACILITY COORDINATOR Visits 1 PT-OP-B Current Condition Start: 09/15/18 11:44 Freq: Status: Active Protocol: Document 09/15/18 10:30 DCW (Rec: 09/15/18 11:57 DCW [id number]) Current Condition History of Current Condition Onset Date Multi-year history Current Complaints Severe cervical pain and stiffness History of Current Condition Pt is a 63 year old female presenting with a multi-year history of cervical spine pain . Pt reports she attempted Physical Therapy years ago, but notes that she was eventually told that there was nothing that they could do. Pt's neck pain results in decreased mobility, weakness, pain along her right medial scapula, near-constant headaches, and limitations to her daily life. Pt has, in the recent past, been treated for multiple stress/compression fractures in her spine, and has been diagnosed with a cervical spondylolisthesis. Additionally, pt reports she has been having recent anterior hip pain, and saw Dr Askew about it, who daniel fluid out of her joint and is requesting an MRI for her hip. Prior Treatments and Tests Treatment for multiple vertebral compression fractures Future Testing and Treatments Planned Upcoming hip MRI Prior Functional Status Baseline Function- ADL's Independent Baseline Function- Mobility Independent Current Functional Impairments (Reported) Functional Limitations- ADL's Pt reports she is only able to do one load of laundry compared to her normal three loads Pt requires assistance taking care of her gas stove, which she reports turns on my itself randomly PT-OP-C Subjective Start: 09/15/18 11:44 Freq: Status: Active Protocol: Document 10/07/18 09:45 SA (Rec: 10/07/18 09:58 SA [email or web address]) OP-PT Subjective Patient Comments Patient Comments Pt reports a muscle spasm in R interscap area that wakes her up at night. Daily chores are still difficult and cause pain. PT-OP-F Manual Assessment Start: 09/15/18 11:44 Freq: Status: Active Protocol: Document 09/15/18 10:30 DCW (Rec: 09/15/18 14:56 DCW [id number]) Manual Assessments Soft Tissue Assessment Soft Tissue Mobility Assessment Moderate tone Cervical paraspinals and scalenes R>L, R Romboids Severe tone Suboccipitals and upper trap, R>L Joint Mobility Assessment Joint Mobility Assessment Hypomobility of P->A glide C3- 6 PT-OP-K Range of Motion Start: 09/15/18 11:44 Freq: Status: Active Protocol: Document 09/15/18 10:30 DCW (Rec: 09/15/18 14:56 DCW [id number]) Cervical Spine Range of Motion Cervical Spine Active Degrees Testing Position Sitting Flexion 25 Extension 13 Rotation Left 36 Rotation Right 44 Lateral Flexion Left 10 Lateral Flexion Right 10 ROM Limitations Soft Tissue Tightness Bony Restriction Muscle Tone Pain PT-OP-L Special Tests Start: 09/15/18 11:44 Freq: Status: Active Protocol: Document 09/15/18 10:30 DCW (Rec: 09/15/18 14:56 DCW [id number]) Special Tests Cervical Spine Special Tests Upper Limb Tension Test Test Results Negative Vertebral Artery Test Results Negative Traction Test Results It almost takes my headache away. Slump Test Results Negative Foraminal Compression Test Results Negative Alar Ligament Test Results Negative PT-OP-M Strength Start: 09/15/18 11:44 Freq: Status: Active Protocol: Document 09/15/18 10:30 DCW (Rec: 09/15/18 14:56 DCW [id number]) Cervical Spine Strength Cervical Spine Manual Muscle Testing Comments Pt able to hold chin tuck/head lift <2 seconds, 3+/5 PT-OP-Q Treatments Start: 09/15/18 11:44 Freq: Status: Active Protocol: Document 10/07/18 09:45 SA (Rec: 10/07/18 09:58 SA [email or web address]) Therapeutic Exercises Supine Exercises T/S extension on foam Equipment Used on foam Reps/Minutes 30 x 2 Comments at upper/ middle/ lower thoracic 3 Supine Exercise Name Gentle passive stretch Reps/Minutes x 15 SH x 2 reps each sides 1 Supine Exercise Name AROM: cervical flexion, rotation, SF Reps/Minutes x 12 reps Chin Tuck/Head lift Supine Exercise Name Chin tuck/head lift Reps/Minutes to fatigue Sitting Exercises seated spinal distraction with lat pull down Resistance 1 plate Equipment Used lat pull down machine Comments with inhalation and exhalation . scapular roll Reps/Minutes 2 min Comments foward and backward rolling seated t/s extension Equipment Used back against therapy ball Comments and foam roller after seated thoracic rotation Reps/Minutes 10 x 2 Manual Therapy Treatment Soft Tissue Mobilization Suboccipitals Body Location B Suboccipitals Mobilization Type Myofascial Release Sustained Pressure Trigger Point Release Intensity/Depth Moderate Body Position Supine Upper Trap Body Location B Upper trap/ R interscap Mobilization Type Myofascial Release Sustained Pressure Intensity/Depth Moderate Body Position Supine Comments L side lying for Interscap work PT-OP-R Modalities Start: 09/15/18 11:44 Freq: Status: Active Protocol: Document 10/07/18 09:45 SA (Rec: 10/07/18 09:58 SA [email or web address]) Hot Pack/Cold Pack Treatment Hot Pack Location c-spine Patient Position Supine Treatment Duration (minutes) 10 PT-OP-T Assessment and Plan Start: 09/15/18 11:44 Freq: Status: Active Protocol: Document 10/07/18 09:45 SA (Rec: 10/07/18 09:58 SA [email or web address]) Physical Therapy Assessment Assessment Summary Assessment Manual release of interscapular muscle spasm on R side. PROM to c-spine with limitation for R rotation and side bend, passive stretching with both. Well tolerated. Physical Therapy Plan Next Visit Focus/Plan Next Note Type Treatment Note Next Visit Plan STM, Cervical strengthening, Flexibility training at thoracic spine, segmental mobility and scapular mobility .
--- NOTE | 2018-10-11 12:54 | PT.OTN ---
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 Pt reports she attempted Physical Therapy years ago, but notes that she was eventually told that there was nothing that they could do. Pt's neck pain results in decreased mobility, weakness, pain along her right medial scapula, near-constant headaches, and limitations to her daily life. Pt has, in the recent past, been treated for multiple stress/compression fractures in her spine, and has been diagnosed with a cervical spondylolisthesis. Additionally, pt reports she has been having recent anterior hip pain, and saw Dr Askew about it, who daniel fluid out of her joint and is requesting an MRI for her hip. Prior Treatments and Tests Treatment for multiple vertebral compression fractures Future Testing and Treatments Planned Upcoming hip MRI Prior Functional Status Baseline Function- ADL's Independent Baseline Function- Mobility Independent Current Functional Impairments (Reported) Functional Limitations- ADL's Pt reports she is only able to do one load of laundry compared to her normal three loads Pt requires assistance taking care of her gas stove, which she reports turns on my itself randomly PT-OP-C Subjective Start: 09/15/18 11:44 Freq: Status: Active Protocol: Document 10/11/18 09:45 HH (Rec: 10/11/18 10:29 HH [email or web address]) OP-PT Subjective Patient Comments Patient Comments Pt states she went to see and was prescribed muscle relaxant. Pt currently takes 2 muscle relaxant and 4 hydrocodone per day. She does not know the exact amount of dosage of hydrocodone. Pt reports her R shoulder pain still there on and off. PT-OP-F Manual Assessment Start: 09/15/18 11:44 Freq: Status: Active Protocol: Document 09/15/18 10:30 DCW (Rec: 09/15/18 14:56 DCW [id number]) Manual Assessments Soft Tissue Assessment Soft Tissue Mobility Assessment Moderate tone Cervical paraspinals and scalenes R>L, R Romboids Severe tone Suboccipitals and upper trap, R>L Joint Mobility Assessment Joint Mobility Assessment Hypomobility of P->A glide C3- 6 PT-OP-K Range of Motion Start: 09/15/18 11:44 Freq: Status: Active Protocol: Document 09/15/18 10:30 DCW (Rec: 09/15/18 14:56 DCW [id number]) Cervical Spine Range of Motion Cervical Spine Active Degrees Testing Position Sitting Flexion 25 Extension 13 Rotation Left 36 Rotation Right 44 Lateral Flexion Left 10 Lateral Flexion Right 10 ROM Limitations Soft Tissue Tightness Bony Restriction Muscle Tone Pain PT-OP-L Special Tests Start: 09/15/18 11:44 Freq: Status: Active Protocol: Document 09/15/18 10:30 DCW (Rec: 09/15/18 14:56 DCW [id number]) Special Tests Cervical Spine Special Tests Upper Limb Tension Test Test Results Negative Vertebral Artery Test Results Negative Traction Test Results It almost takes my headache away. Slump Test Results Negative Foraminal Compression Test Results Negative Alar Ligament Test Results Negative PT-OP-M Strength Start: 09/15/18 11:44 Freq: Status: Active Protocol: Document 09/15/18 10:30 DCW (Rec: 09/15/18 14:56 DCW [id number]) Cervical Spine Strength Cervical Spine Manual Muscle Testing Comments Pt able to hold chin tuck/head lift <2 seconds, 3+/5 PT-OP-Q Treatments Start: 09/15/18 11:44 Freq: Status: Active Protocol: Document 10/11/18 09:45 HH (Rec: 10/11/18 12:54 HH [email or web address]) Cardio Equipment Upper Body Ergometer (UBE) Duration (Minutes) 5 RPM 20 Therapeutic Exercises Standing Exercises CAR with 8 lbs DB hold Side bilateral Comments scap depression with cervical active ROM scap roll with 8 lbs DB Side bilateral standing overear press PVC Side bilateral Equipment Used PVC bar Comments shoulder press with PVC bar over ears standing PVC scap retraction and extension Side bilateral Equipment Used pvC bar standing PVC scap depression Side bilateral Equipment Used PVC bar Manual Therapy Treatment Soft Tissue Mobilization Suboccipitals Body Location B Suboccipitals Mobilization Type Myofascial Release Sustained Pressure Trigger Point Release Intensity/Depth Moderate Body Position Supine Upper Trap Body Location B Upper trap/ R interscap Mobilization Type Myofascial Release Sustained Pressure Intensity/Depth Moderate Body Position Supine PT-OP-R Modalities Start: 09/15/18 11:44 Freq: Status: Active Protocol: Document 10/07/18 09:45 SA (Rec: 10/07/18 09:58 SA [email or web address]) Hot Pack/Cold Pack Treatment Hot Pack Location c-spine Patient Position Supine Treatment Duration (minutes) 10 PT-OP-T Assessment and Plan Start: 09/15/18 11:44 Freq: Status: Active Protocol: Document 10/11/18 09:45 HH (Rec: 10/11/18 12:54 HH [email or web address]) Physical Therapy Assessment Assessment Summary Assessment Pt maximiliano tx very well today without c/o shoulder and neck pain. today's tx focused on cervical active ROM and scap mobility with 8lbs DB hold. pt states I feel loose and relax after tx session. Physical Therapy Plan Next Visit Focus/Plan Next Note Type Treatment Note Next Visit Plan STM, Cervical strengthening, Flexibility training at thoracic spine, segmental mobility and scapular mobility .
--- NOTE | 2018-10-13 17:12 | PT.OTN ---
Current Diagnoses Spondylolisthesis, cervical region (10/13/18) Other spondylosis with radiculopathy, cervical region (10/13/18) Physical Therapy Treatment Note PT-OP-A Visit Information Start: 09/15/18 11:44 Freq: Status: Active Protocol: Document 10/13/18 13:45 HH (Rec: 10/13/18 17:12 HH [email or web address]) Out-Patient Physical Therapy Visit Information Visit Information Visit Type Progress Note Visit Start Time 13:45 Visit Stop Time 14:30 Total Visit Minutes 45 Visit Number [address] COMMISSIONER Visits 0 PT-OP-B Current Condition Start: 09/15/18 11:44 Freq: Status: Active Protocol: Document 09/15/18 10:30 DCW (Rec: 09/15/18 11:57 DCW [id number]) Current Condition History of Current Condition Onset Date Multi-year history Current Complaints Severe cervical pain and stiffness History of Current Condition Pt is a 63 year old female presenting with a multi-year history of cervical spine pain . Pt reports she attempted Physical Therapy years ago, but notes that she was eventually told that there was nothing that they could do. Pt's neck pain results in decreased mobility, weakness, pain along her right medial scapula, near-constant headaches, and limitations to her daily life. Pt has, in the recent past, been treated for multiple stress/compression fractures in her spine, and has been diagnosed with a cervical spondylolisthesis. Additionally, pt reports she has been having recent anterior hip pain, and saw Dr Askew about it, who daniel fluid out of her joint and is requesting an MRI for her hip. Prior Treatments and Tests Treatment for multiple vertebral compression fractures Future Testing and Treatments Planned Upcoming hip MRI Prior Functional Status Baseline Function- ADL's Independent Baseline Function- Mobility Independent Current Functional Impairments (Reported) Functional Limitations- ADL's Pt reports she is only able to do one load of laundry compared to her normal three loads Pt requires assistance taking care of her gas stove, which she reports turns on my itself randomly PT-OP-C Subjective Start: 09/15/18 11:44 Freq: Status: Active Protocol: Document 10/13/18 13:45 HH (Rec: 10/13/18 17:12 HH [email or web address]) OP-PT Subjective Patient Comments Patient Comments Pt took 2 hydrocodone today. Pt stated she feels really good after last visit. But her back pain comes back after she is doing house cleaning yesterday, especially holding a load of laudry today. PT-OP-F Manual Assessment Start: 09/15/18 11:44 Freq: Status: Active Protocol: Document 09/15/18 10:30 DCW (Rec: 09/15/18 14:56 DCW [id number]) Manual Assessments Soft Tissue Assessment Soft Tissue Mobility Assessment Moderate tone Cervical paraspinals and scalenes R>L, R Romboids Severe tone Suboccipitals and upper trap, R>L Joint Mobility Assessment Joint Mobility Assessment Hypomobility of P->A glide C3- 6 PT-OP-K Range of Motion Start: 09/15/18 11:44 Freq: Status: Active Protocol: Document 09/15/18 10:30 DCW (Rec: 09/15/18 14:56 DCW [id number]) Cervical Spine Range of Motion Cervical Spine Active Degrees Testing Position Sitting Flexion 25 Extension 13 Rotation Left 36 Rotation Right 44 Lateral Flexion Left 10 Lateral Flexion Right 10 ROM Limitations Soft Tissue Tightness Bony Restriction Muscle Tone Pain PT-OP-L Special Tests Start: 09/15/18 11:44 Freq: Status: Active Protocol: Document 09/15/18 10:30 DCW (Rec: 09/15/18 14:56 DCW [id number]) Special Tests Cervical Spine Special Tests Upper Limb Tension Test Test Results Negative Vertebral Artery Test Results Negative Traction Test Results It almost takes my headache away. Slump Test Results Negative Foraminal Compression Test Results Negative Alar Ligament Test Results Negative PT-OP-M Strength Start: 09/15/18 11:44 Freq: Status: Active Protocol: Document 09/15/18 10:30 DCW (Rec: 09/15/18 14:56 DCW [id number]) Cervical Spine Strength Cervical Spine Manual Muscle Testing Comments Pt able to hold chin tuck/head lift <2 seconds, 3+/5 PT-OP-Q Treatments Start: 09/15/18 11:44 Freq: Status: Active Protocol: Document 10/13/18 13:45 HH (Rec: 10/13/18 17:12 HH [email or web address]) Therapeutic Exercises Supine Exercises Chin Tuck/Head lift Supine Exercise Name Chin tuck/head lift Reps/Minutes to fatigue Comments 15 secs Standing Exercises goblet squat hold with 10lbs ball Equipment Used 10lbs davidson ball Comments hold 15 secs x 2 DB deadlift Side bilateral Equipment Used 10lbs Comments cues for neutral spine DB bent over row Side bilateral Equipment Used 10lbs Reps/Minutes 10 x2 Comments cues for neutral spine CAR with 8 lbs DB hold Side bilateral Comments scap depression with cervical active ROM scap roll with 8 lbs DB Side bilateral Equipment Used 8lbs Manual Therapy Treatment Soft Tissue Mobilization Suboccipitals Body Location B Suboccipitals Mobilization Type Myofascial Release Sustained Pressure Trigger Point Release Intensity/Depth Moderate Body Position Supine Upper Trap Body Location B Upper trap/ R interscap Mobilization Type Myofascial Release Sustained Pressure Intensity/Depth Moderate Body Position Supine PT-OP-R Modalities Start: 09/15/18 11:44 Freq: Status: Active Protocol: Document 10/07/18 09:45 SA (Rec: 10/07/18 09:58 SA [email or web address]) Hot Pack/Cold Pack Treatment Hot Pack Location c-spine Patient Position Supine Treatment Duration (minutes) 10 PT-OP-T Assessment and Plan Start: 09/15/18 11:44 Freq: Status: Active Protocol: Document 10/13/18 13:45 HH (Rec: 10/13/18 17:12 HH [email or web address]) Physical Therapy Assessment Goals Five Short Term Goal (STG) goal met: reduced tone from upper trap noted 10/13/18 Group Home Goal (LTG) in progress LTG Duration 11/13/18 Four Group Home Goal (LTG) goal met: able to chin tuck hold 15 secs proceed to 30 secs LTG Duration 11/13/18 Three Short Term Goal (STG) goal met ; cervical flexion to 40. 10/13/18 Group Home Goal (LTG) cervical extension at 18 degrees 10/13 Two Tile Grader Goal (LTG) in progress: 1 load on at this point 10/13 LTG Duration 11/13/18 One Group Home Goal (LTG) goal met Progress Towards Goals Progress Towards Goals Slow Progress due to Activity Tolerance Progress Comments Pt currently takes multiple hydrocodone and other pain medication everyday which possibly mask progress result Assessment Summary Assessment Pt showed improvements overall since IE. Pt has improved muscle tone in upper trap and improved deep cervical flexors strength. Pt maximiliano tx very well today. Progressed to loading stage of her shoulders and back. Added bent over rows, deadlift and goblet squat hold to facilitate upper back strength . Physical Therapy Plan Next Visit Focus/Plan Next Note Type Treatment Note Next Visit Plan STM, Cervical strengthening, Flexibility training at thoracic spine, segmental mobility and scapular mobility .
--- NOTE | 2018-10-20 10:28 | PT.OTN ---
Current Diagnoses Spondylolisthesis, cervical region (10/20/18) Other spondylosis with radiculopathy, cervical region (10/20/18) Physical Therapy Treatment Note PT-OP-A Visit Information Start: 09/15/18 11:44 Freq: Status: Active Protocol: Document 10/20/18 09:45 DCW (Rec: 10/20/18 10:28 DCW [id number]) Out-Patient Physical Therapy Visit Information Visit Information Visit Type Treatment Note Visit Start Time 09:45 Visit Stop Time 10:35 Total Visit Minutes 50 Visit Number 9 Number of COMMUNITY RECREATION PROGRAMMER Visits 0 Evaluation Information Evaluation Date 09/15/18 PT-OP-B Current Condition Start: 09/15/18 11:44 Freq: Status: Active Protocol: Document 09/15/18 10:30 DCW (Rec: 09/15/18 11:57 DCW [id number]) Current Condition History of Current Condition Onset Date Multi-year history Current Complaints Severe cervical pain and stiffness History of Current Condition Pt is a 63 year old female presenting with a multi-year history of cervical spine pain . Pt reports she attempted Physical Therapy years ago, but notes that she was eventually told that there was nothing that they could do. Pt's neck pain results in decreased mobility, weakness, pain along her right medial scapula, near-constant headaches, and limitations to her daily life. Pt has, in the recent past, been treated for multiple stress/compression fractures in her spine, and has been diagnosed with a cervical spondylolisthesis. Additionally, pt reports she has been having recent anterior hip pain, and saw Dr Askew about it, who daniel fluid out of her joint and is requesting an MRI for her hip. Prior Treatments and Tests Treatment for multiple vertebral compression fractures Future Testing and Treatments Planned Upcoming hip MRI Prior Functional Status Baseline Function- ADL's Independent Baseline Function- Mobility Independent Current Functional Impairments (Reported) Functional Limitations- ADL's Pt reports she is only able to do one load of laundry compared to her normal three loads Pt requires assistance taking care of her gas stove, which she reports turns on my itself randomly PT-OP-C Subjective Start: 09/15/18 11:44 Freq: Status: Active Protocol: Document 10/20/18 09:45 DCW (Rec: 10/20/18 10:28 DCW [id number]) OP-PT Subjective Patient Comments Patient Comments Pt reports she will have an upcoming MRI for her neck, but thinks they want to wait until after I'm done with therapy. Notes that everything feels about the same, despite objective tests and measures last week showing improvement in strength, ROM, and muscle tone . PT-OP-F Manual Assessment Start: 09/15/18 11:44 Freq: Status: Active Protocol: Document 09/15/18 10:30 DCW (Rec: 09/15/18 14:56 DCW [id number]) Manual Assessments Soft Tissue Assessment Soft Tissue Mobility Assessment Moderate tone Cervical paraspinals and scalenes R>L, R Romboids Severe tone Suboccipitals and upper trap, R>L Joint Mobility Assessment Joint Mobility Assessment Hypomobility of P->A glide C3- 6 PT-OP-K Range of Motion Start: 09/15/18 11:44 Freq: Status: Active Protocol: Document 09/15/18 10:30 DCW (Rec: 09/15/18 14:56 DCW [id number]) Cervical Spine Range of Motion Cervical Spine Active Degrees Testing Position Sitting Flexion 25 Extension 13 Rotation Left 36 Rotation Right 44 Lateral Flexion Left 10 Lateral Flexion Right 10 ROM Limitations Soft Tissue Tightness Bony Restriction Muscle Tone Pain PT-OP-L Special Tests Start: 09/15/18 11:44 Freq: Status: Active Protocol: Document 09/15/18 10:30 DCW (Rec: 09/15/18 14:56 DCW [id number]) Special Tests Cervical Spine Special Tests Upper Limb Tension Test Test Results Negative Vertebral Artery Test Results Negative Traction Test Results It almost takes my headache away. Slump Test Results Negative Foraminal Compression Test Results Negative Alar Ligament Test Results Negative PT-OP-M Strength Start: 09/15/18 11:44 Freq: Status: Active Protocol: Document 09/15/18 10:30 DCW (Rec: 09/15/18 14:56 DCW [id number]) Cervical Spine Strength Cervical Spine Manual Muscle Testing Comments Pt able to hold chin tuck/head lift <2 seconds, 3+/5 PT-OP-Q Treatments Start: 09/15/18 11:44 Freq: Status: Active Protocol: Document 10/20/18 09:45 DCW (Rec: 10/20/18 10:28 DCW [id number]) Cardio Equipment Upper Body Ergometer (UBE) Duration (Minutes) 5 RPM 20 Therapeutic Exercises Supine Exercises 2 Supine Exercise Name Shoulder Flexion /c wand Comments keep c-spine in neutral Chin Tuck/Head lift Supine Exercise Name Chin tuck/head lift Reps/Minutes to fatigue Manual Therapy Treatment Soft Tissue Mobilization Suboccipitals Body Location B Suboccipitals Mobilization Type Myofascial Release Sustained Pressure Trigger Point Release Intensity/Depth Moderate Body Position Supine Upper Trap Body Location B Upper trap/ R interscap Mobilization Type Myofascial Release Sustained Pressure Intensity/Depth Moderate Body Position Supine Manual Traction Cervical Details Gentle Manual Traction Body Position Supine PT-OP-R Modalities Start: 09/15/18 11:44 Freq: Status: Active Protocol: Document 10/20/18 09:45 DCW (Rec: 10/20/18 10:28 DCW [id number]) Hot Pack/Cold Pack Treatment Hot Pack Location c-spine Patient Position Supine Treatment Duration (minutes) 10 PT-OP-T Assessment and Plan Start: 09/15/18 11:44 Freq: Status: Active Protocol: Document 10/20/18 09:45 DCW (Rec: 10/20/18 10:28 DCW [id number]) Physical Therapy Assessment Impairments Impairments Activity Tolerance Functional Activities Functional Mobility Pain Posture ROM Soft Tissue Mobility Strength Tone Assessment Summary Assessment Pt continues to show objective improvement while reporting no subjective improvement. Pain may be caused by inderlying structural issue, which may be better assessed following her upcoming MRI Physical Therapy Plan Next Visit Focus/Plan Next Note Type Treatment Note Next Visit Plan STM, Cervical strengthening, Flexibility training at thoracic spine, segmental mobility and scapular mobility .
--- NOTE | 2018-10-24 11:07 | PT.OTN ---
Current Diagnoses Spondylolisthesis, cervical region (10/24/18) Other spondylosis with radiculopathy, cervical region (10/24/18) Physical Therapy Treatment Note PT-OP-A Visit Information Start: 09/15/18 11:44 Freq: Status: Active Protocol: Document 10/24/18 10:20 EA (Rec: 10/24/18 10:27 EA [id number]) Out-Patient Physical Therapy Visit Information Visit Information Visit Type Treatment Note Visit Start Time 09:45 Visit Stop Time 10:40 Total Visit Minutes 55 Visit Number 10 Number of TUNNELLER Visits 0 PT-OP-B Current Condition Start: 09/15/18 11:44 Freq: Status: Active Protocol: Document 09/15/18 10:30 DCW (Rec: 09/15/18 11:57 DCW [id number]) Current Condition History of Current Condition Onset Date Multi-year history Current Complaints Severe cervical pain and stiffness History of Current Condition Pt is a 63 year old female presenting with a multi-year history of cervical spine pain . Pt reports she attempted Physical Therapy years ago, but notes that she was eventually told that there was nothing that they could do. Pt's neck pain results in decreased mobility, weakness, pain along her right medial scapula, near-constant headaches, and limitations to her daily life. Pt has, in the recent past, been treated for multiple stress/compression fractures in her spine, and has been diagnosed with a cervical spondylolisthesis. Additionally, pt reports she has been having recent anterior hip pain, and saw Dr Askew about it, who daniel fluid out of her joint and is requesting an MRI for her hip. Prior Treatments and Tests Treatment for multiple vertebral compression fractures Future Testing and Treatments Planned Upcoming hip MRI Prior Functional Status Baseline Function- ADL's Independent Baseline Function- Mobility Independent Current Functional Impairments (Reported) Functional Limitations- ADL's Pt reports she is only able to do one load of laundry compared to her normal three loads Pt requires assistance taking care of her gas stove, which she reports turns on my itself randomly PT-OP-C Subjective Start: 09/15/18 11:44 Freq: Status: Active Protocol: Document 10/24/18 10:20 EA (Rec: 10/24/18 10:27 EA [id number]) OP-PT Subjective Patient Comments Patient Comments Patient reports neck is feeling a bit better but mid scapular areas feels tight Is there any nerve running down there?. PT-OP-F Manual Assessment Start: 09/15/18 11:44 Freq: Status: Active Protocol: Document 09/15/18 10:30 DCW (Rec: 09/15/18 14:56 DCW [id number]) Manual Assessments Soft Tissue Assessment Soft Tissue Mobility Assessment Moderate tone Cervical paraspinals and scalenes R>L, R Romboids Severe tone Suboccipitals and upper trap, R>L Joint Mobility Assessment Joint Mobility Assessment Hypomobility of P->A glide C3- 6 PT-OP-K Range of Motion Start: 09/15/18 11:44 Freq: Status: Active Protocol: Document 09/15/18 10:30 DCW (Rec: 09/15/18 14:56 DCW [id number]) Cervical Spine Range of Motion Cervical Spine Active Degrees Testing Position Sitting Flexion 25 Extension 13 Rotation Left 36 Rotation Right 44 Lateral Flexion Left 10 Lateral Flexion Right 10 ROM Limitations Soft Tissue Tightness Bony Restriction Muscle Tone Pain PT-OP-L Special Tests Start: 09/15/18 11:44 Freq: Status: Active Protocol: Document 09/15/18 10:30 DCW (Rec: 09/15/18 14:56 DCW [id number]) Special Tests Cervical Spine Special Tests Upper Limb Tension Test Test Results Negative Vertebral Artery Test Results Negative Traction Test Results It almost takes my headache away. Slump Test Results Negative Foraminal Compression Test Results Negative Alar Ligament Test Results Negative PT-OP-M Strength Start: 09/15/18 11:44 Freq: Status: Active Protocol: Document 09/15/18 10:30 DCW (Rec: 09/15/18 14:56 DCW [id number]) Cervical Spine Strength Cervical Spine Manual Muscle Testing Comments Pt able to hold chin tuck/head lift <2 seconds, 3+/5 PT-OP-Q Treatments Start: 09/15/18 11:44 Freq: Status: Active Protocol: Document 10/24/18 10:20 EA (Rec: 10/24/18 10:27 EA [id number]) Therapeutic Exercises Supine Exercises T/S extension on foam Equipment Used on foam Reps/Minutes 30 x 2 Comments at upper/ middle/ lower thoracic 3 Supine Exercise Name Gentle passive stretch Reps/Minutes x 15 SH x 2 reps each sides 1 Supine Exercise Name AROM: cervical flexion, rotation, SF Reps/Minutes x 12 reps x 2 Chin Tuck/Head lift Supine Exercise Name Chin tuck/head lift Reps/Minutes to fatigue Manual Therapy Treatment Soft Tissue Mobilization Suboccipitals Body Location B Suboccipitals Mobilization Type Myofascial Release Sustained Pressure Trigger Point Release Intensity/Depth Moderate Body Position Supine Upper Trap Body Location B Upper trap/ R interscap Mobilization Type Myofascial Release Sustained Pressure Intensity/Depth Moderate Body Position Supine PT-OP-R Modalities Start: 09/15/18 11:44 Freq: Status: Active Protocol: Document 10/24/18 10:28 EA (Rec: 10/24/18 10:28 EA [id number]) Electric Stimulation Electric Stimulation Interferential Current (IFC) Body Location Cervical Spine Duration (Minutes) 15 Patient Position Hooklying PT-OP-T Assessment and Plan Start: 09/15/18 11:44 Freq: Status: Active Protocol: Document 10/24/18 10:20 EA (Rec: 10/24/18 10:27 EA [id number]) Physical Therapy Assessment Assessment Summary Assessment Patient shows near to full functional cervical ROM all planes in supine with little to no discomfort. Patient cont . progress. Physical Therapy Plan Next Visit Focus/Plan Next Note Type Treatment Note Next Visit Plan STM, Cervical strengthening, Flexibility training at thoracic spine, segmental mobility and scapular mobility .
--- NOTE | 2018-10-27 10:25 | PT.OTN ---
Current Diagnoses Spondylolisthesis, cervical region (10/27/18) Other spondylosis with radiculopathy, cervical region (10/27/18) Physical Therapy Treatment Note PT-OP-A Visit Information Start: 09/15/18 11:44 Freq: Status: Active Protocol: Document 10/27/18 09:45 DCW (Rec: 10/27/18 10:25 DCW [id number]) Out-Patient Physical Therapy Visit Information Visit Information Visit Type Treatment Note Visit Start Time 09:45 Visit Stop Time 10:35 Total Visit Minutes 50 Visit Number 11 Number of DRY WALL APPLICATOR Visits 0 Evaluation Information Evaluation Date 09/15/18 PT-OP-B Current Condition Start: 09/15/18 11:44 Freq: Status: Active Protocol: Document 09/15/18 10:30 DCW (Rec: 09/15/18 11:57 DCW [id number]) Current Condition History of Current Condition Onset Date Multi-year history Current Complaints Severe cervical pain and stiffness History of Current Condition Pt is a 63 year old female presenting with a multi-year history of cervical spine pain . Pt reports she attempted Physical Therapy years ago, but notes that she was eventually told that there was nothing that they could do. Pt's neck pain results in decreased mobility, weakness, pain along her right medial scapula, near-constant headaches, and limitations to her daily life. Pt has, in the recent past, been treated for multiple stress/compression fractures in her spine, and has been diagnosed with a cervical spondylolisthesis. Additionally, pt reports she has been having recent anterior hip pain, and saw Dr Askew about it, who daniel fluid out of her joint and is requesting an MRI for her hip. Prior Treatments and Tests Treatment for multiple vertebral compression fractures Future Testing and Treatments Planned Upcoming hip MRI Prior Functional Status Baseline Function- ADL's Independent Baseline Function- Mobility Independent Current Functional Impairments (Reported) Functional Limitations- ADL's Pt reports she is only able to do one load of laundry compared to her normal three loads Pt requires assistance taking care of her gas stove, which she reports turns on my itself randomly PT-OP-C Subjective Start: 09/15/18 11:44 Freq: Status: Active Protocol: Document 10/27/18 09:45 DCW (Rec: 10/27/18 10:25 DCW [id number]) OP-PT Subjective Patient Comments Patient Comments Pt reports that she feels a little better, but not much. PT-OP-F Manual Assessment Start: 09/15/18 11:44 Freq: Status: Active Protocol: Document 09/15/18 10:30 DCW (Rec: 09/15/18 14:56 DCW [id number]) Manual Assessments Soft Tissue Assessment Soft Tissue Mobility Assessment Moderate tone Cervical paraspinals and scalenes R>L, R Romboids Severe tone Suboccipitals and upper trap, R>L Joint Mobility Assessment Joint Mobility Assessment Hypomobility of P->A glide C3- 6 PT-OP-K Range of Motion Start: 09/15/18 11:44 Freq: Status: Active Protocol: Document 09/15/18 10:30 DCW (Rec: 09/15/18 14:56 DCW [id number]) Cervical Spine Range of Motion Cervical Spine Active Degrees Testing Position Sitting Flexion 25 Extension 13 Rotation Left 36 Rotation Right 44 Lateral Flexion Left 10 Lateral Flexion Right 10 ROM Limitations Soft Tissue Tightness Bony Restriction Muscle Tone Pain PT-OP-L Special Tests Start: 09/15/18 11:44 Freq: Status: Active Protocol: Document 09/15/18 10:30 DCW (Rec: 09/15/18 14:56 DCW [id number]) Special Tests Cervical Spine Special Tests Upper Limb Tension Test Test Results Negative Vertebral Artery Test Results Negative Traction Test Results It almost takes my headache away. Slump Test Results Negative Foraminal Compression Test Results Negative Alar Ligament Test Results Negative PT-OP-M Strength Start: 09/15/18 11:44 Freq: Status: Active Protocol: Document 09/15/18 10:30 DCW (Rec: 09/15/18 14:56 DCW [id number]) Cervical Spine Strength Cervical Spine Manual Muscle Testing Comments Pt able to hold chin tuck/head lift <2 seconds, 3+/5 PT-OP-Q Treatments Start: 09/15/18 11:44 Freq: Status: Active Protocol: Document 10/27/18 09:45 DCW (Rec: 10/27/18 10:25 DCW [id number]) Therapeutic Exercises Supine Exercises 2 Supine Exercise Name Shoulder Flexion /c wand Comments keep c-spine in neutral Chin Tuck/Head lift Supine Exercise Name Chin tuck/head lift Reps/Minutes to fatigue Manual Therapy Treatment Soft Tissue Mobilization Suboccipitals Body Location B Suboccipitals Mobilization Type Myofascial Release Sustained Pressure Trigger Point Release Intensity/Depth Moderate Body Position Supine Upper Trap Body Location B Upper trap/ R interscap Mobilization Type Myofascial Release Sustained Pressure Intensity/Depth Moderate Body Position Supine Manual Traction Cervical Details Gentle Manual Traction Body Position Supine PT-OP-R Modalities Start: 09/15/18 11:44 Freq: Status: Active Protocol: Document 10/27/18 09:45 DCW (Rec: 10/27/18 10:25 DCW [id number]) Electric Stimulation Electric Stimulation Interferential Current (IFC) Body Location Cervical Spine Duration (Minutes) 15 Patient Position Hooklying PT-OP-T Assessment and Plan Start: 09/15/18 11:44 Freq: Status: Active Protocol: Document 10/27/18 09:45 DCW (Rec: 10/27/18 10:25 DCW [id number]) Physical Therapy Assessment Impairments Impairments Activity Tolerance Functional Activities Functional Mobility Pain Posture ROM Soft Tissue Mobility Strength Tone Assessment Summary Assessment Pt reports she would like to hold further therapy until she is able to get into her PCP next week to discuss her recent cervical MRI, and also go to her visit with Dr Askew. Pt will call later to schedule more appointments as indicated. Physical Therapy Plan Next Visit Focus/Plan Next Note Type Treatment Note Next Visit Plan STM, Cervical strengthening, Flexibility training at thoracic spine, segmental mobility and scapular mobility .
--- NOTE | 2019-02-13 11:31 | PT.OPDS ---
Current Diagnoses Spondylolisthesis, cervical region (10/27/18) Other spondylosis with radiculopathy, cervical region (10/27/18) Provider Visit Care Team Role Provider Type Gideon Maddox MD Family Provider Physician Primary Care Provider Specialty: Family Practice Address: [address] [place] [address], [id number] Email: [email or web address] Dorothy Askew MD Attending Provider Physician Specialty: Orthopedic Surgery Address: [address] [place] [address], [id number] Email: [email or web address] Visit Number Visit Number 11 Discharge Summary PT-OP-B Current Condition Start: 09/15/18 11:44 Freq: Status: Active Protocol: Document 09/15/18 10:30 DCW (Rec: 09/15/18 11:57 DCW [id number]) Current Condition History of Current Condition Onset Date Multi-year history Current Complaints Severe cervical pain and stiffness History of Current Condition Pt is a 63 year old female presenting with a multi-year history of cervical spine pain . Pt reports she attempted Physical Therapy years ago, but notes that she was eventually told that there was nothing that they could do. Pt's neck pain results in decreased mobility, weakness, pain along her right medial scapula, near-constant headaches, and limitations to her daily life. Pt has, in the recent past, been treated for multiple stress/compression fractures in her spine, and has been diagnosed with a cervical spondylolisthesis. Additionally, pt reports she has been having recent anterior hip pain, and saw Dr Askew about it, who daniel fluid out of her joint and is requesting an MRI for her hip. Prior Treatments and Tests Treatment for multiple vertebral compression fractures Future Testing and Treatments Planned Upcoming hip MRI Prior Functional Status Baseline Function- ADL's Independent Baseline Function- Mobility Independent Current Functional Impairments (Reported) Functional Limitations- ADL's Pt reports she is only able to do one load of laundry compared to her normal three loads Pt requires assistance taking care of her gas stove, which she reports turns on my itself randomly PT-OP-C Subjective Start: 09/15/18 11:44 Freq: Status: Active Protocol: Document 10/27/18 09:45 DCW (Rec: 10/27/18 10:25 DCW [id number]) OP-PT Subjective Patient Comments Patient Comments Pt reports that she feels a little better, but not much. PT-OP-F Manual Assessment Start: 09/15/18 11:44 Freq: Status: Active Protocol: Document 09/15/18 10:30 DCW (Rec: 09/15/18 14:56 DCW [id number]) Manual Assessments Soft Tissue Assessment Soft Tissue Mobility Assessment Moderate tone Cervical paraspinals and scalenes R>L, R Romboids Severe tone Suboccipitals and upper trap, R>L Joint Mobility Assessment Joint Mobility Assessment Hypomobility of P->A glide C3- 6 PT-OP-K Range of Motion Start: 09/15/18 11:44 Freq: Status: Active Protocol: Document 09/15/18 10:30 DCW (Rec: 09/15/18 14:56 DCW [id number]) Cervical Spine Range of Motion Cervical Spine Active Degrees Testing Position Sitting Flexion 25 Extension 13 Rotation Left 36 Rotation Right 44 Lateral Flexion Left 10 Lateral Flexion Right 10 ROM Limitations Soft Tissue Tightness Bony Restriction Muscle Tone Pain PT-OP-L Special Tests Start: 09/15/18 11:44 Freq: Status: Active Protocol: Document 09/15/18 10:30 DCW (Rec: 09/15/18 14:56 DCW [id number]) Special Tests Cervical Spine Special Tests Upper Limb Tension Test Test Results Negative Vertebral Artery Test Results Negative Traction Test Results It almost takes my headache away. Slump Test Results Negative Foraminal Compression Test Results Negative Alar Ligament Test Results Negative PT-OP-M Strength Start: 09/15/18 11:44 Freq: Status: Active Protocol: Document 09/15/18 10:30 DCW (Rec: 09/15/18 14:56 DCW [id number]) Cervical Spine Strength Cervical Spine Manual Muscle Testing Comments Pt able to hold chin tuck/head lift <2 seconds, 3+/5 PT-OP-T Assessment and Plan Start: 09/15/18 11:44 Freq: Status: Active Protocol: Document 02/13/19 11:28 DCW (Rec: 02/13/19 11:31 DCW [id number]) Physical Therapy Assessment Impairments Impairments Activity Tolerance Functional Activities Functional Mobility Pain Posture ROM Soft Tissue Mobility Strength Tone Goals Five Short Term Goal (STG) goal met: reduced tone from upper trap noted 10/13/18 Gaming Associate Goal (LTG) in progress LTG Duration 11/13/18 Four Gaming Associate Goal (LTG) goal met: able to chin tuck hold 15 secs proceed to 30 secs LTG Duration 11/13/18 Three Short Term Goal (STG) goal met ; cervical flexion to 40. 10/13/18 Gaming Associate Goal (LTG) cervical extension at 18 degrees 10/13 Two Long-Term Goal (LTG) in progress: 1 load on at this point 10/13 LTG Duration 11/13/18 One Long-Term Goal (LTG) goal met Assessment Summary Assessment Pt had planned to see her physician following her last visit, and planned to call for more appointments if needed. Pt has not reached out for future visits, and has now not been seen in more than two months. Pt will be discharged from skilled therapy at this time. Physical Therapy Plan Discharge Physical Therapy Discharge Reasons No Longer Attending PT Next Visit Focus/Plan Next Note Type Discharge Summary
== END 2019-02-14 13:13 | disposition home or self-care (01) ==
LOC: PHYS 09:45
PROVIDERS: Family Provider Family Medicine; PCP Family Medicine; Visit Provider Orthopaedic Surgery
DX: M43.12 Spondylolisthesis, cervical region (principal); M47.22 Other spondylosis with radiculopathy, cervical region
CPT/HCPCS: 97014; 97032; 97110; 97140; 97162; 97530; G0283

== ENCOUNTER → 2018-10-31 07:49 | Outpatient (CLI) | payer OTHER, MEDICAID, SELFPAY ==
--- NOTE | 2018-10-31 | DI.MG.S_ITS ---
BILATERAL DIGITAL SCREENING MAMMOGRAM 3D/2D WITH CAD: 10/31/2018 CLINICAL: Routine screening. Comparison is made to exams dated: 08/25/2017 mammogram, 08/21/2015 mammogram, and 11/19/2010 mammogram - [facility]. The tissue of both breasts is heterogeneously dense. This may lower the sensitivity of mammography. Current study was also evaluated with a Computer Aided Detection (CAD) system. There are benign vascular calcifications in both breasts. No significant masses, calcifications, or other findings are seen in either breast. There has been no significant interval change. IMPRESSION: There is no mammographic evidence of malignancy. A 1 year screening mammogram is recommended. This exam was interpreted at Station ID: [id number]. NOTE: For mammograms, a report in lay terms will be sent to the patient. Approximately 15% of breast malignancies will not be visualized mammographically. In the management of a palpable breast mass, a negative mammogram must not discourage biopsy of a clinically suspicious lesion. Electronically Signed By: Kirby jhaveri/koko:10/31/2018 17:09:07 letter sent: Normal Exam ACR BI-RADS Category 2: Benign Finding(s) [id number]
== END ==
PROVIDERS: PCP Family Medicine; Visit Provider Family Medicine
DX: Z12.31 Encounter for screening mammogram for malignant neoplasm of breast (principal)
CPT/HCPCS: 77063; 77067

== ENCOUNTER → 2019-04-26 09:05 | Outpatient (CLI) | payer OTHER, MEDICAID, SELFPAY ==
--- NOTE | 2019-04-26 | DI.ECHO.S_ITS ---
[facility]---------+ [facility] +---------+ : : [address] : : : : [id number] : : : : Phone: [phone]+ Echocardiogram Report + + :Name: JUDY CELESTE Study Date: 04/26/2019 Height: 66 in : :[facility] Exam Location: [facility] Weight: 132 lb : : Gender: Female BSA: 1.7 m2 : :: 1955 Age: 64 yrs BP: 110/65 mmHg: :Reason For Study: MR : : Performed By: Stoney Jorgensen : :Referring: BELLA FLORES : + + Interpretation Summary The left ventricle is normal in size. The ejection fraction is estimated to be 60-65%. The right ventricle is normal size. Right ventricular systolic function is mild to moderately reduced. There is moderate to severe mitral regurgitation. Compared to the prior echo study, there has been an increase in the severity of mitral regurgitation. There is a mechanical aortic valve. The prosthetic aortic valve is well-seated. There is probable normal prosthetic aortic valve function. There is moderate tricuspid regurgitation. Compared to the prior echo exam, there has been an increase in TR severity. The right ventricular systolic pressure is estimated to be at least 32 mmHg based on an estimated right atrial pressure of 3 mm Hg. Moderate atherosclerotic plaque(s) in the aortic arch. Procedure: A two-dimensional transthoracic echocardiogram with color flow and Doppler was performed. The study quality was technically good. Comparison is made with the echocardiogram of 01/29/16. The patient was in atrial fibrillation with heart rates between 78-119 bpm during the exam. Left Ventricle: The left ventricle is normal in size. There is normal left ventricular wall thickness. There is no thrombus. The ejection fraction is estimated to be 60-65%. There are no focal wall motion abnormalities. E/E' med: 18.8. Right Ventricle: The right ventricle is normal size. Right ventricular systolic function is mild to moderately reduced. There has been no significant change since the previous study. Atria: Both atria are severely dilated. The left atrium has remained unchanged in size since the prior echo exam. The right atrium has mildly increased in size since the prior echo exam. The interatrial septum is intact with no evidence for an atrial septal defect. Mitral Valve: There is mild mitral annular calcification. The mitral valve leaflets are mildly calcified. There is a flat closure plane of the the mitral valve leaflets. There is moderate to severe mitral regurgitation. The mitral regurgitant jet is eccentrically directed. Compared to the prior echo study, there has been an increase in the severity of mitral regurgitation. Aortic Valve: There is a mechanical aortic valve. The prosthetic aortic valve is well-seated. There is probable normal prosthetic aortic valve function. There is trace aortic regurgitation. Tricuspid Valve: The tricuspid valve is normal. There is moderate tricuspid regurgitation. The right ventricular systolic pressure is estimated to be at least 32 mmHg based on an estimated right atrial pressure of 3 mm Hg. Compared to the prior echo exam, there has been an increase in TR severity. Pulmonic Valve: The pulmonic valve is not well seen, but is grossly normal. There is trace pulmonic regurgitation. Great Vessels: The aortic root is normal size. The dimensions of the ascending aorta are normal. Moderate atherosclerotic plaque(s) in the aortic arch. The pulmonary artery is normal size. The IVC is of normal diameter and collapses greater than 50% with a sniff. This suggests a low right atrial pressure of 3 mm Hg. Pericardium/ Pleura There is no pericardial effusion. There is no pleural effusion. MMode/2D Measurements & Calculations LVIDd: 4.9 cm LVOT diam: 2.1 cm LVIDs: 3.5 cm Ao root diam: 2.9 cm FS: 28.7 % asc Aorta Diam: 3.1 cm EPSS: 0.87 cm Ao Arch Diam (Prox Trans): 2.2 cm IVSd: 0.84 cm LVPWd: 0.83 cm LV ledbetter. diameter/BSA (cm/m^2): 2.9 LV sys. diameter/BSA (cm/m^2): 2.1 LA A2 area: 36.0 cm2 RA long axis: 6.0 cm LA A4 area: 27.4 cm2 RA area: 26.3 cm2 LA length (vol): 6.8 cm RA vol: 98.8 ml LA vol: 122.6 ml RA : 58.9 ml/m2 LA vol index: 73.1 ml/m2 IVC diam: 1.3 cm Doppler Measurements & Calculations Ao V2 max: 160.0 cm/sec LVOT Max Jose: 82.6 cm/sec Ao V2 mean: 118.2 cm/sec LV V1 max P.7 mmHg Ao max P.3 mmHg LV V1 VTI: 15.4 cm Ao mean P.1 mmHg GEOVANNY(I,D): 1.8 cm2 Ao V2 VTI: 29.1 cm GEOVANNY(V,D): 1.7 cm2 sev ratio: 0.53 GEOVANNY indexed to BSA (cm^2/m^2): 1.1 MV E max jose: 108.5 cm/sec TR max jose: 266.6 cm/sec MV A max jose: 2.8 cm/sec TR max P.5 mmHg MV E/A: 38.3 PA V2 max: 62.0 cm/sec Med Peak E' Jose: 5.8 cm/sec PA V2 mean: 45.1 cm/sec E/E' med: 18.8 PA mean P.89 mmHg Lat Peak E' Jose: 12.0 cm/sec PA pr(Accel): 54.0 mmHg E/E' lat: 9.0 PA Accel Time: 0.05 sec E/e' average: 13.9 MV dec time: 0.12 sec SV(LVOT): 51.9 ml Reading Physician:05:22 PM
[2019-04-26 10:49] LABS: Add Manual Diff / Slide Review NO; Basophils Absolute Auto 0 /uL (0-100); Basophils Percent Auto 0.9 % (0-2); Eosinophils Absolute Auto 0 /uL (0-450); Eosinophils Percent Auto 1.1 % (2-4); Hematocrit 34.6 % (36-46); Hemoglobin 11.7 g/dL (12.0-16.0); Lymphocytes Absolute Auto 800 /uL (1100-4500); Lymphocytes Percent Auto 23.7 % (25-40); Mean Corpuscular HGB Conc 33.9 % (30-36); Mean Corpuscular Hemoglobin 33.4 PG (26-34); Mean Corpuscular Volume 98.4 fL (80-100); Monocytes Absolute Auto 400 /uL (0-900); Monocytes Percent Auto 10.7 % (3-14); Neutrophils Absolute Auto 2200 /uL (1500-7000); Neutrophils Percent Auto 63.6 % (50-75); Platelet Count 219 X10^3/uL (150-400); Red Blood Cell Count 3.52 X10^6/uL (4.0-5.2); Red Cell Distribution Width 13.9 % (11.6-14.8); White Blood Cell Count 3.4 X10^3/uL (4.5-11.0)
[2019-04-26 11:03] LABS: Appearance Urine UA CLEAR; Bilirubin Urine UA NEGATIVE (NEGATIVE); Color Urine UA YELLOW; Glucose Urine UA NEGATIVE (Negative); Ketones Urine UA NEGATIVE (NEGATIVE); Leukocyte Esterase Urine UA NEGATIVE (NEGATIVE); Nitrite Urine UA NEGATIVE (Negative); Occult Blood Urine UA TRACE-LYSED (Negative); Protein Urine UA TRACE (Negative); Urobilinogen Urine UA 0.2 E.U./dL (0.2)
[2019-04-26 11:06] LABS: INR 2.6 (0.9-1.3)
[2019-04-26 11:24] LABS: Alanine Aminotransferase 19 IU/L (9-52); Albumin 4.6 g/dL (3.5-5.0); Albumin Globulin Ratio 1.2 (1.0-2.8); Alkaline Phosphatase 98 U/L (38-126); Aspartate Aminotransferase 48 IU/L (14-36); Bilirubin Total 0.6 mg/dL (0.2-1.3); Blood Urea Nitrogen 22 mg/dL (7-17); Calcium 9.6 mg/dL (8.4-10.2); Carbon Dioxide 27 mmol/L (22-32); Chloride 102 mmol/L (98-107); Cholesterol 256 mg/dL (140-199); Estimated Glomerular Filt Rate 50.2 mL/min (>60); Glucose 96 mg/dL (80-110); HDL Cholesterol 61 mg/dL (40-60); HEMOLYSIS < 15 (0-50); LDL Cholesterol Calculated 163 mg/dL (<100); Potassium 5.1 mmol/L (3.4-5.1); Sodium 137 mmol/L (137-145); Total Protein 8.6 g/dL (6.3-8.2); Triglycerides 158 mg/dL (35-150)
[2019-04-26 11:53] LABS: Thyroid Stimulating Hormone 0.69 uIU/mL (0.47-4.68)
[2019-04-26 12:00] LABS: RBC Urine 0-1/HPF (0-5/HPF); WBC Urine 1-5/HPF (0-5/HPF)
[2019-04-26 12:01] LABS: Bacteria Urine Occasional (0-1); Culture Indicated Urine Cult Not Indicated; Hyaline Casts Urine 0-1/LPF; Squamous Epithelial Cell Urine 5-10 /HPF (0-5/HPF)
[2019-04-26 12:44] LABS: Hemoglobin A1C% w Est Avg Glu 5.5 % (4.0-6.0)
== END ==
PROVIDERS: Family Provider Orthopaedic Surgery; PCP Family Medicine; Visit Provider Internal Medicine Cardiovascular Disease
DX: I08.1 Rheumatic disorders of both mitral and tricuspid valves (principal); I70.0 Atherosclerosis of aorta; I48.91 Unspecified atrial fibrillation; Z01.812 Encounter for preprocedural laboratory examination; Z95.2 Presence of prosthetic heart valve
CPT/HCPCS: 36415; 80053; 80061; 81001; 83036; 84443; 85025; 85610; 93306

== ENCOUNTER → 2019-05-19 08:00 | Outpatient (CLI) | payer OTHER, MEDICAID, SELFPAY ==
--- NOTE | 2019-05-19 08:02 | DI.RAD.S_ITS ---
PROCEDURE: FL BARIUM SWALLOW INDICATIONS: painful swollowing.cervical dysphagia.Hx stricture esophagus COMPARISON: None. FINDINGS: Function: There is akjy-xf-xdpytjln esophageal dysmotility with disloca tertiary contractions. Severe gastroesophageal reflux was elicited during examination. There is normal transit of a calibrated barium tablet through the esophagus into the stomach. Morphology: Air-contrast images demonstrate normal mucosal morphology. Single contrast views show no esophageal strictures, extrinsic mass effects, or diverticula. There is a small hernia. Limited images of the stomach demonstrate normal appearance. Note is made of sternotomy in the cardiac valve prosthesis. IMPRESSION: 1. Severe gastroesophageal reflux. 2. Icuq-zp-cjykxfwp esophageal dysmotility. 3. Small hiatal hernia. Dictated by: Vince Mauro M.D. on 05/19/2019 at 10:41 Approved by: Vince Mauro M.D. on 05/19/2019 at 10:43
== END ==
PROVIDERS: Family Provider Orthopaedic Surgery; PCP Family Medicine; Visit Provider Specialist
DX: R13.10 Dysphagia, unspecified (principal); K44.9 Diaphragmatic hernia without obstruction or gangrene; K21.9 Gastro-esophageal reflux disease without esophagitis; K22.8 Other specified diseases of esophagus
CPT/HCPCS: 74220

== ENCOUNTER 2019-06-08 06:50 | Day surgery (SDC) | payer OTHER, MEDICAID, SELFPAY ==
--- NOTE | 2019-06-08 | PATH_ITS ---
[facility] Accession Number: [id number] . 01 Material submitted: . PART A: gastrointestinal site - PROXIMAL STOMACH BIOPSY PART B: esophagus, E-G Junction - GE JUNCTION BIOPSY . 01 Clinical history: . EGD . 02 Diagnosis: A. Proximal Stomach Biopsy: Portions of gastric antral and body-type mucosa with chronic active gastritis. Intestinal metaplasia is present. Rare H. pylori organisms present by immunohistochemistry studies. Negative for dysplasia or malignancy. . B. GE Junction Biopsy: Squamocolumnar junctional mucosa with no diagnostic abnormality. Negative for intestinal metaplasia by Alcian blue stain; the control tissue stained appropriately. Negative for dysplasia or malignancy. MRV 06/14/2019 1016 Local . 02 Electronically signed: . Radha Durand MD, Pathologist NPI- [id number] . 01 Gross description: . Part A: PROXIMAL STOMACH BIOPSY: Received in formalin are 3 fragment(s) of li, soft tissue measuring 0.1 x 0.1 x 0.1 cm to 0.2 x 0.2 x 0.2 cm submitted entirely in 1 cassette(s) Part B: GE JUNCTION BIOPSY: Received in formalin are 3 fragment(s) of li, soft tissue measuring 0.1 x 0.1 x 0.1 cm to 0.3 x 0.2 x 0.2 cm submitted entirely in 1 cassette(s) /[facility] [place] 06/08/2019 1937 Local . 02 Pathologist provided ICD-10: K29.70 . 02 CPT . 235496, 102934, [id number], 488153 Performed at: [address], [place], [place] [id number] MD Gabe German MD Phone: [phone] Performed at: 02 [facility] [place] [address] [place] [id number] MD Mari Perez MD Phone: [phone]
[2019-06-08 07:16] VITALS: BP 122/89; PULSE 114; RESP 15; TEMP 36.3; O2SAT 98; BMI 22.1
--- NOTE | 2019-06-08 08:18 | PM.PREOP ---
Pre-operative Note Interval Note History & Physical reviewed/Exam performed by Physician: Yes Changes to H&P: No ASA Class (for procedural sedation): III
[2019-06-08] MEDS: METOPROLOL TARTRATE 5 MG/5 ML INJ IV (08:19)
[2019-06-08] MEDS: LIDOCAINE 4% SOLN 50 ML 20 ML TOP (08:22)
[2019-06-08] MEDS: MIDAZOLAM 5 MG/5 ML VIAL IV (08:28)
[2019-06-08] MEDS: fentaNYL 250 MCG/5 ML INJ IV (08:29)
--- NOTE | 2019-06-08 08:42 | PM.OP.ENDO ---
Operative Date/Time/Diagnoses Date of procedure: 06/08/19 Time of procedure: 08:42 Pre-op diagnosis: Dysphagia Post-op diagnosis: same (Small hiatal hernia. Schatzki ring. Cobblestoning of the proximal stomach) Procedure & Clinicians Study performed: EGD with cold biopsies Same procedure as scheduled: Yes Indications: Determine cause of dysphagia Surgeon: Carlos Eubanks Procedure Notes SCOAP/Timeout: Performed Procedure in detail: The patient had topical anesthetic applied to oropharynx. She was placed in left lateral decubitus position and underwent IV sedation directed by the surgeon consisting of fentanyl and Versed. A bite block was inserted and the scope was advanced through it into the esophagus. The esophagus was unremarkable. GE junction was noted at 35 cm from the incisors. The patient was noted to have a small hiatal hernia. There was also a Schatzki ring at but it did not appear to be causing significant narrowing.. The stomach insufflated well. There were no lesions seen in the body, antrum or at the incisura. The pyloric channel was widely patent. The duodenum was unremarkable to the 3rd part. The scope was brought back into the stomach and retroflexed. The proximal stomach remarkable for cobblestoning and thinning of the mucosa. Biopsies were taken of that area. It was a fairly broad band just beyond the GE junction extending toward the incisura. The scope was straightened and brought out through the esophagus again. Biopsies were taken of the Schatzki ring. No other lesions were seen. The scope was removed and the patient tolerated the procedure well. Scope withdrawal time: Not applicable Sedation minutes: 15 Findings: gastritis, hiatal hernia and other findings (Schatzki ring without narrowing) Specimen(s): other (Stomach and GE junction) Complications: none Post-procedure Recommendations: Start medication(s) (Proton pump inhibitor) Follow up: as needed Disposition: PACU
[2019-06-08 08:44] VITALS: BP 108/78; PULSE 100; RESP 20; TEMP 37.4; O2SAT 93
[2019-06-08 08:49] VITALS: BP 108/76; PULSE 108; RESP 19; O2SAT 93
[2019-06-08 08:57] VITALS: BP 133/94; PULSE 80; RESP 21; O2SAT 96
[2019-06-08 09:00] VITALS: BP 105/79; PULSE 69; RESP 16; TEMP 36.2; O2SAT 97
[2019-06-08 09:17] VITALS: BP 131/87; PULSE 116; RESP 17; TEMP 36.7; O2SAT 97
--- NOTE | 2019-06-08 09:25 | SUR.PHASEII ---
Patient brought to Phase II by Velasquez Ruvalcaba RN in stable condition after EGD procedure. Tolerated oral intake well. Pt instructed to resume her atenolol and coumadin today as she is in Afib with a HR in the 1 teens. All other VS stable. She was D/C'd to ED entrance via [facility] by volunteer
== END 2019-06-08 09:24 | disposition home or self-care (01) ==
PROVIDERS: Family Provider Orthopaedic Surgery; PCP Family Medicine; Visit Provider Specialist
PROC: 0DJ08ZZ Inspection of Upper Intestinal Tract, Via Natural or Artificial Opening Endoscopic (ICD-10-PCS; CPT 43235; principal; 2019-06-08 07:45)
DX: K29.50 Unspecified chronic gastritis without bleeding (principal); K44.9 Diaphragmatic hernia without obstruction or gangrene; K22.2 Esophageal obstruction; Z87.891 Personal history of nicotine dependence
CPT/HCPCS: 43239; 99152; J2250; J3010

== ENCOUNTER → 2019-08-05 10:11 | Outpatient (CLI) | payer OTHER, MEDICAID, SELFPAY ==
--- NOTE | 2019-08-05 10:14 | DI.RAD.S_ITS ---
PROCEDURE: XR WRIST RT MIN 3V INDICATIONS: Pain TECHNIQUE: 4 views of the wrist were acquired. COMPARISON: [facility], RG, XR WRIST 4V RIGHT, 02/15/2006, 9:56. [facility], CR, XR WRIST LT MIN 3V, 08/05/2019, 10:19. [facility], RG, XR WRIST 3V RIGHT, 06/04/2005, 10:14. FINDINGS: Bones: No fractures or dislocations. No suspicious bony lesions. Degenerative changes are seen throughout, which are most prominent involving the radial aspect of the carpus, particularly involving the 1st carpometacarpal joint. Mild widening of the scapholunate interspace is noted. Scaphoid view: No navicular fractures are seen. Soft tissues: No suspicious soft tissue calcifications. IMPRESSION: No acute abnormalities are seen. Degenerative changes are seen, particularly involving the 1st metacarpal joint. There is widening of the scapholunate interspace. A scapholunate ligament tear is suspected. If it would be helpful for clinical management decision making, please consider a dedicated wrist arthrogram for further evaluation (assuming that there is no contraindication). Dictated by: Cheko Barahona M.D. on 08/05/2019 at 10:57 Approved by: Cheko Barahona M.D. on 08/05/2019 at 10:59
--- NOTE | 2019-08-05 10:14 | DI.RAD.S_ITS ---
PROCEDURE: XR WRIST LT MIN 3V INDICATIONS: Pain TECHNIQUE: 4 views of the wrist were acquired. COMPARISON: [facility], CR, XR WRIST RT MIN 3V, 08/05/2019, 10:19. [facility], RG, XR WRIST 3V LEFT, 06/04/2005, 10:15. FINDINGS: Bones: No fractures or dislocations. No suspicious bony lesions. There are degenerative changes seen. These are most prominent involving the radial aspect of the carpus, with particular narrowing of the 1st metacarpal phalangeal joint, with subchondral sclerosis and osteophyte formation. Scaphoid view: No navicular fractures are seen. Soft tissues: No suspicious soft tissue calcifications. IMPRESSION: Degenerative changes are seen, which are most prominent involving the 1st carpometacarpal joint. Dictated by: Cheko Barahona M.D. on 08/05/2019 at 10:59 Approved by: Cheko Barahona M.D. on 08/05/2019 at 11:01
[2019-08-05 10:35] LABS: Add Manual Diff / Slide Review NO; Basophils Absolute Auto 100 /uL (0-100); Basophils Percent Auto 1.1 % (0-2); Eosinophils Absolute Auto 200 /uL (0-450); Eosinophils Percent Auto 3.5 % (2-4); Hematocrit 38.8 % (36-46); Hemoglobin 13.3 g/dL (12.0-16.0); Lymphocytes Absolute Auto 1200 /uL (1100-4500); Lymphocytes Percent Auto 25.2 % (25-40); Mean Corpuscular HGB Conc 34.2 % (30-36); Mean Corpuscular Hemoglobin 33.9 PG (26-34); Mean Corpuscular Volume 99.1 fL (80-100); Monocytes Absolute Auto 700 /uL (0-900); Neutrophils Absolute Auto 2600 /uL (1500-7000); Neutrophils Percent Auto 56.2 % (50-75); Platelet Count 245 X10^3/uL (150-400); Red Blood Cell Count 3.91 X10^6/uL (4.0-5.2); Red Cell Distribution Width 13.5 % (11.6-14.8); White Blood Cell Count 4.7 X10^3/uL (4.5-11.0)
[2019-08-05 10:56] LABS: Alanine Aminotransferase 24 IU/L (<35); Albumin 4.8 g/dL (3.5-5.0); Albumin Globulin Ratio 1.3 (1.0-2.8); Alkaline Phosphatase 99 U/L (38-126); Aspartate Aminotransferase 47 IU/L (14-36); BUN Creatinine Ratio 21.1 (6-22); Bilirubin Total 0.6 mg/dL (0.2-1.3); Blood Urea Nitrogen 19 mg/dL (7-17); Calcium 9.9 mg/dL (8.4-10.2); Carbon Dioxide 28 mmol/L (22-32); Chloride 103 mmol/L (98-107); Cholesterol 266 mg/dL (140-199); Estimated Glomerular Filt Rate > 60.0 mL/min (>60); Globulin 3.7 g/dL (1.7-4.1); Glucose 113 mg/dL (80-110); HDL Cholesterol 47 mg/dL (40-60); HEMOLYSIS < 15 (0-50); LDL Cholesterol Calculated 188 mg/dL (<100); Potassium 4.9 mmol/L (3.4-5.1); Sodium 139 mmol/L (137-145); Total Protein 8.5 g/dL (6.3-8.2); Triglycerides 156 mg/dL (35-150)
== END ==
PROVIDERS: Family Provider Orthopaedic Surgery; PCP Family Medicine; Visit Provider Orthopaedic Surgery
DX: Z01.812 Encounter for preprocedural laboratory examination (principal); R73.9 Hyperglycemia, unspecified; Z51.81 Encounter for therapeutic drug level monitoring; N39.0 Urinary tract infection, site not specified; M25.539 Pain in unspecified wrist; E78.2 Mixed hyperlipidemia
CPT/HCPCS: 36415; 73110; 80053; 80061; 85025

== ENCOUNTER 2019-09-22 11:44 | Day surgery (SDC) | payer OTHER, MEDICAID, SELFPAY ==
--- NOTE | 2019-09-22 13:04 | SUR.PREOP ---
1209 late entry Pt INR 3.4; Dr. Mccormack notified, said not to admit the patient and that he would come in and talk with her. [address] Mccormack spoke with patient/spouse and explained that the INR was too high and not worth the risk of injury to her. He explained also that the INR exposes her to risk of a cerebral bleed and that she needs to be seen to adjust it today. I called the PCP, he is not in the office today. Message left for the triage nurse and they asked that patient go to their waiting room for them to see her. Pt clothing returned. She was dressed and I made sure that she knew how to get to the dr office from here. Pt seems to understand the risk and need for follow-up.
== END 2019-09-22 12:40 | disposition home or self-care (01) ==
PROVIDERS: Family Provider Orthopaedic Surgery; PCP Family Medicine; Referring Provider Family Medicine; Visit Provider Surgery
DX: Z12.11 Encounter for screening for malignant neoplasm of colon (principal); Z53.09 Procedure and treatment not carried out because of other contraindication; R79.9 Abnormal finding of blood chemistry, unspecified
CPT/HCPCS: 45378

== ENCOUNTER → 2019-09-25 09:06 | Outpatient (CLI) | payer OTHER, MEDICAID, SELFPAY ==
[2019-09-25 09:52] LABS: Add Manual Diff / Slide Review NO; Basophils Absolute Auto 100 /uL (0-100); Basophils Percent Auto 1.1 % (0-2); Eosinophils Absolute Auto 0 /uL (0-450); Hematocrit 39.3 % (36-46); Hemoglobin 13.2 g/dL (12.0-16.0); Lymphocytes Absolute Auto 1000 /uL (1100-4500); Lymphocytes Percent Auto 21.8 % (25-40); Mean Corpuscular HGB Conc 33.7 % (30-36); Mean Corpuscular Hemoglobin 33.2 PG (26-34); Mean Corpuscular Volume 98.7 fL (80-100); Monocytes Absolute Auto 500 /uL (0-900); Monocytes Percent Auto 9.7 % (3-14); Neutrophils Absolute Auto 3100 /uL (1500-7000); Neutrophils Percent Auto 66.4 % (50-75); Platelet Count 250 X10^3/uL (150-400); Red Blood Cell Count 3.98 X10^6/uL (4.0-5.2); Red Cell Distribution Width 13.3 % (11.6-14.8); White Blood Cell Count 4.7 X10^3/uL (4.5-11.0)
[2019-09-25 10:11] LABS: Blood Urea Nitrogen 24 mg/dL (7-17); Calcium 10.2 mg/dL (8.4-10.2); Carbon Dioxide 29 mmol/L (22-32); Chloride 102 mmol/L (98-107); Cholesterol 208 mg/dL (140-199); Glucose 121 mg/dL (80-110); HDL Cholesterol 46 mg/dL (40-60); HEMOLYSIS < 15 (0-50); LDL Cholesterol Calculated 131 mg/dL (<100); Potassium 4.7 mmol/L (3.4-5.1); Sodium 140 mmol/L (137-145); Triglycerides 156 mg/dL (35-150)
== END ==
PROVIDERS: Family Provider Orthopaedic Surgery; PCP Family Medicine; Referring Provider Internal Medicine Cardiovascular Disease; Visit Provider Internal Medicine Cardiovascular Disease
DX: E78.5 Hyperlipidemia, unspecified (principal); M25.559 Pain in unspecified hip
CPT/HCPCS: 36415; 80048; 80061; 85025

== ENCOUNTER → 2019-09-26 10:57 | Outpatient (CLI) | payer OTHER, MEDICAID, SELFPAY ==
--- NOTE | 2019-09-26 10:58 | DI.US.S_ITS ---
PROCEDURE: US ABDOMEN COMPLETE INDICATIONS: SEVERE PAIN RLQ TECHNIQUE: Real-time scanning was performed of the abdominal and retroperitoneal organs, with image documentation. COMPARISON: [facility], CT, CT-IVP, 07/24/2011, 13:03. FINDINGS: Liver: Liver is normal in size and homogeneous in echotexture except at the fundus portion of the gallbladder where what appears to be a masslike structure is positioned measuring up to 1.6 x 1.4 x 2.2 cm.. Gallbladder: The gallbladder wall measures only 1.4 cm in thickness in the gallbladder appears mildly distorted by adjacent mass effect from what may be a peritoneal mass at the gallbladder fossa or a liver mass immediately adjacent. On review of a prior CT from 07/24/11 similar structure can be seen in that area, suggestive of this representing a benign process, etiology uncertain. Biliary ducts: Intrahepatic bile ducts are non-dilated. Extrahepatic bile duct caliber measures 5.5 mm. Normal is 6-7 mm or less in diameter, or 10 mm or less post-cholecystectomy. Pancreas: Visualized portions of the pancreas are sonographically normal. Spleen: Spleen is normal in size and homogeneous in echotexture. Kidneys: Kidneys are normal in size and echotexture. Right kidney measures 9.7 cm long; left kidney measures 9.6 cm long. No hydronephrosis or nephrolithiasis. No solid masses. Aorta: Visualized aorta is normal in caliber at less than 3 cm. Iliacs: Proximal common iliac arteries are normal in caliber at less than 2.5 cm. IVC: Intrahepatic inferior vena cava is patent. Miscellaneous: No free abdominal fluid. A normal or abnormal appendix could not be located. IMPRESSION: At the far anterior tip of the gallbladder margin there is a rounded mildly heterogeneous structure which appears to have been present on prior CT scanning on 07/24/11. This would argue towards benign etiology. If clinically desired this area could be further assessed by dedicated CT scanning to compare to the prior CT from 2010. Alternatively, this area could be further assessed in 3, 6 and 12 months by targeted single organ ultrasound to confirm stability of appearance over time. Dictated by: Nikos Reed M.D. on 09/26/2019 at 13:27 Approved by: Nikos Reed M.D. on 09/26/2019 at 13:35
--- NOTE | 2019-09-26 10:58 | DI.US.S_ITS ---
PROCEDURE: US PELVIC COMPLETE INDICATIONS: SEVERE PAIN RLQ TECHNIQUE: Real-time scanning was performed of the pelvic organs, with image documentation. Additional endovaginal scanning was necessary due to incomplete visualization of the adnexal and endometrial structures by transabdominal scanning. COMPARISON: None. FINDINGS: Transabdominal scanning: Limited scanning through the kidneys shows no hydronephrosis. No pathologic free abdominal or pelvic fluid. Endovaginal scanning: Uterus: Uterus is normal in size at 3.6 x 4.6 x 8.4 cm, anteverted. The endometrium measures 2.7 mm in combined thickness. Ovaries: Not seen IMPRESSION: Source of pelvic pain is not identified by ultrasound. Depending on the clinical status followup by CT scanning may become necessary. Dictated by: Nikos Reed M.D. on 09/26/2019 at 13:35 Approved by: Nikos Reed M.D. on 09/26/2019 at 13:36
== END ==
PROVIDERS: Family Provider Orthopaedic Surgery; PCP Family Medicine; Referring Provider Family Medicine; Visit Provider Family Medicine
DX: R10.31 Right lower quadrant pain; R10.2 Pelvic and perineal pain
CPT/HCPCS: 76700; 76830; 76856

== ENCOUNTER 2019-10-16 11:59 | Day surgery (SDC) | payer OTHER, MEDICAID, SELFPAY ==
--- NOTE | 2019-10-16 12:58 | P.HP_ITS ---
History of Present Illness History of Present Illness Date Patient Seen: 10/16/19 Time Patient Seen: 12:58 Chief complaint: [id number] SCREENING COLONOSCOPY Narrative: 64-year-old white female patient here for a screening colonoscopy she has chronic atrial fibrillation and has had a cardiac valve replacement and is on Coumadin we are rechecking her INR although several days ago was 1.4 and she is being bridged with Lovenox at this time she has no symptoms referable to colonic pathology no bleeding or melena Patient History Medical History Chicken pox (Resolved ~1958) Depression (Acute) Esophageal stricture (Acute) Heart failure (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 ~05/18/11) 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) Scabies (Resolved ~2015) Status post aortic valve replacement (Chronic) Surgical History Anesthesia (Resolved) History of aortic valve replacement (05/18/11) History of esophagogastroduodenoscopy (EGD) (Acute ~2019) Hx of tonsillectomy (Acute) Family & Social History Family History Father Cancer Mother Heart disease Hypertension High cholesterol Social History: household members significant other Tobacco & Substance use: Smoking Status Former smoker alcohol intake current alcohol intake frequency 0-2 drinks per day Substance Use Type does not use Meds Home Medications and Allergies Home Medications Medication Instructions Recorded Confirmed Type epinephrine 0.3 mg/0.3 mL 0.3 mg IM SEE INSTRUCTIONS #1 kit 03/01/18 10/05/19 Rx injection, auto-injector albuterol sulfate 90 mcg/actuation 1 puff INHALATION Q4-6H PRN #8 gram 12/22/18 10/05/19 Rx aerosol inhaler rosuvastatin 40 mg tablet 40 mg PO QDAY #90 tab 02/06/19 10/05/19 Rx lisinopril 10 mg tablet 5 mg PO BID #90 tab 02/14/19 10/05/19 Rx warfarin 2.5 mg tablet 2.5 mg PO DAILY #90 tab 04/06/19 10/05/19 Rx alendronate 70 mg tablet 70 mg PO QWEEK #14 tab 05/01/19 10/05/19 Rx atenolol 50 mg tablet See Rx Instructions .ROUTE 08/04/19 10/05/19 Rx .COMPLEX #180 tablet citalopram 20 mg tablet 40 mg PO DAILY #180 tab 09/13/19 10/05/19 Rx enoxaparin 60 mg/0.6 mL 60 mg SUBCUT Q12H #18 ml 09/13/19 10/05/19 Rx subcutaneous syringe cyclobenzaprine 10 mg tablet See Rx Instructions .ROUTE 09/28/19 10/05/19 Rx .COMPLEX #20 tablet oxycodone-acetaminophen 5 mg-325 See Rx Instructions .ROUTE 10/02/19 10/05/19 Rx mg tablet .COMPLEX #40 tablet aspirin 81 mg PO DAILY 10/11/19 10/11/19 History lorazepam 1 mg tablet See Rx Instructions .ROUTE 10/13/19 Rx .COMPLEX #90 tablet Allergies Allergy/AdvReac Type Severity Reaction Status Date / Time venom-honey bee Allergy Severe anaphlaxs Verified 10/16/19 12:47 [BEE VENOM (HONEY BEE)] Review of Systems Review of Systems ROS: Yes All systems reviewed with the patient and are negative except as otherwise documented Exam Narrative Exam Narrative: Asymptomatic female lying in bed with no complaints she is alert and oriented. Neck is without adenopathy Lungs are clear with no rales or wheezes Heart very irregular rhythm with a click at the aortic valve consistent with aortic valve replacement. Abdomen is soft with no organomegaly or tenderness no masses Rectal will be done at colonoscopy Assessment & Plan Assessment & Plan narrative: 64-year-old female asymptomatic here for a screening colonoscopy is on long-term Coumadin therapy which was stopped and she is bridged now with Lovenox. We will repeat her INR today prior to this procedure. She is also due to have a hip replacement next few days. She has no unanswered questions.
[2019-10-16 13:16] VITALS: BP 134/76; PULSE 103; RESP 18; TEMP 36.7; O2SAT 97; BMI 22.3
[2019-10-16] MEDS: SODIUM CHLORIDE 0.9% 1,000 ML 200 ML IV (13:35)
--- NOTE | 2019-10-16 15:09 | PM.OP.ENDO ---
Operative Date/Time/Diagnoses Date of procedure: 10/16/19 Time of procedure: 15:09 Pre-op diagnosis: Screening colonoscopy Post-op diagnosis: same Procedure & Clinicians Study performed: Colonoscopy was accomplished to the hepatic flexure and was discontinued because of patient hypotension Same procedure as scheduled: No (Normal colonoscopy was carried out to the hepatic flexure. ) Surgeon: Blaine Mccormack Procedure Notes SCOAP/Timeout: This was done Procedure in detail: The patient was properly identified during surgical pause the flexible fiberoptic colonoscope inserted transanally to the hepatic flexure. This patient has significant cardiac morbidities with an aortic valve and is on beta-blockers as well. She is being bridged with Lovenox as her Coumadin therapy was discontinued. She received a total of 4 mg of Versed and 150 micro g of fentanyl throughout the procedure. She became hypotensive and I was fearful of giving more medication as we approached the hepatic flexure. The exam to that point is entirely normal. She did require more medication but again I did not give more narcotic or Versed because of hypotension and 1 episode of desaturation to 84%. Given her cardiac history I abandoned the procedure at that point. Patient had no polyps no tumors no ulcerations from the anus to the hepatic flexure. Any for future endoscopy attempt should be done with the aid of an anesthesiologist. Scope withdrawal time: 8 Sedation minutes: 20 Specimen(s): none sent Complications: other (Hypotension) Impression: Normal colon to the hepatic flexure. If clinically indicated examination of the right colon should be done with the aid of an anesthesiologist. This patient has significant cardiac disabilities. Post-procedure Recommendations: Colonscopy in 10 years Disposition: PACU
[2019-10-16] MEDS: MIDAZOLAM 5 MG/5 ML VIAL IV (15:10)
[2019-10-16] MEDS: fentaNYL 250 MCG/5 ML INJ IV (15:11)
[2019-10-16 15:12] VITALS: BP 105/78; PULSE 97; RESP 20; TEMP 36.2; O2SAT 100
[2019-10-16 15:17] VITALS: BP 105/74; PULSE 99; RESP 16; O2SAT 100
[2019-10-16 15:23] VITALS: BP 104/74; PULSE 102; RESP 16; TEMP 36.7; O2SAT 99
[2019-10-16 15:30] VITALS: BP 120/87; PULSE 91; RESP 16; TEMP 36.6; O2SAT 97
--- NOTE | 2019-10-16 15:50 | SUR.PHASEII ---
1545 Stable, anxious to go home, denies light headedness, asymptomatic. Pleasant, no questions.
== END 2019-10-16 15:45 | disposition home or self-care (01) ==
PROVIDERS: Family Provider Orthopaedic Surgery; PCP Family Medicine; Referring Provider Surgery; Visit Provider Surgery
PROC: 0DJD8ZZ Inspection of Lower Intestinal Tract, Via Natural or Artificial Opening Endoscopic (ICD-10-PCS; CPT 45378; principal; 2019-10-16 13:45)
DX: Z12.11 Encounter for screening for malignant neoplasm of colon (principal); I95.9 Hypotension, unspecified; Z53.09 Procedure and treatment not carried out because of other contraindication
CPT/HCPCS: 45378; 99152; J2250; J3010

== ENCOUNTER 2019-10-19 05:52 | Inpatient (IN) | payer MEDICAID, SELFPAY ==
[2019-10-05 10:00] VITALS: BMI 23.7
[2019-10-19] VITALS (17 sets, daily range): BP systolic 97–147; BP diastolic 60–116; PULSE 84–115; RESP 12–20; TEMP 35.8–36.9; O2SAT 94–100; BMI 22.5
--- NOTE | 2019-10-19 | DI.RAD.S_ITS ---
PROCEDURE: XR HIP W PEL IF DONE RT 2V INDICATIONS: Total Hip TECHNIQUE: 3 intraoperative fluoroscopy images obtained. COMPARISON: [facility] [place], [place], XR PELVIS WITH LATERAL HIP RIGHT, 10/09/2019, 16:01. FINDINGS: Patient is status post right hip arthroplasty, with intraoperative device and subsequent hip prosthesis in expected positions. IMPRESSION: Right hip prosthesis in anatomic alignment. Dictated by: Vince Mauro M.D. on 10/19/2019 at 13:59 Approved by: Vince Mauro M.D. on 10/19/2019 at 14:00
--- NOTE | 2019-10-19 06:00 | DI.RAD.S_ITS ---
PROCEDURE: XR HIP W PEL IF DONE RT 2V INDICATIONS: post op right FABIAN TECHNIQUE: AP pelvis and lateral view of the right hip acquired. COMPARISON: [facility], [place], XR PELVIS WITH LATERAL HIP RIGHT, 10/09/2019, 16:01. [facility], CR, XR HIP W PEL IF DONE RT 2V, 10/19/2019, 10:22. FINDINGS: Bones: Patient is status post right hip arthroplasty, with hardware components in expected positions. The hip joint appears congruent. The visualized bony structures appear intact. There is [id number] left hip joint degeneration. Soft tissues: Overlying postoperative changes are noted. No suspicious soft tissue densities. IMPRESSION: Right hip prosthesis in anatomic alignment. Dictated by: Vince Mauro M.D. on 10/19/2019 at 13:57 Approved by: Vince Mauro M.D. on 10/19/2019 at 13:58
[2019-10-19] MEDS: VANCOMYCIN 1,000 MG/200 ML PIGGYBACK 200 MG IV ×2 (07:10→08:48)
[2019-10-19] MEDS: LACTATED RINGERS 1,000 ML 42 ML IV ×2 (07:10→10:33)
[2019-10-19] MEDS: PREGABALIN 75 MG CAPSULE PO (07:29)
[2019-10-19] MEDS: ACETAMINOPHEN 325 MG TABLET 975 MG PO (07:29)
[2019-10-19] MEDS: CELECOXIB 200 MG CAPSULE PO (07:29)
--- NOTE | 2019-10-19 07:44 | P.OP_ITS ---
Operative Date/Time/Diagnoses Date of procedure: 10/19/19 Time of procedure: 07:56 Pre-op diagnosis: right hip OA Post-op diagnosis: same Procedure & Clinicians Procedure: Right total hip arthroplasty anterior approach Same procedure as scheduled: Yes Indications: The patient has had progressively worsening right hip pain with radiographic changes consistent with arthritis. Non-operative management has failed and the patient has requested total hip replacement. The risks, benefits and alternatives to surgery were discussed with the patient prior to proceeding. Risks discussed included, but were not limited to, failure to relieve pain, leg length discrepancy, dislocation, stiffness, infection, nerve damage, deep venous thrombosis, pulmonary embolism, stroke, coma, heart attack, permanent paralysis and , as well as the potential need for eventual revision of the prosthetic. Surgeon: Dorothy Askew Rock Drill Operator: Esme Page Anesthesia Type: General and Spinal Operative Notes Findings: Severe right hip osteoarthritis, good stability, soft bone Closure Type: primary Specimen(s): none sent Prosthetic devices, grafts, tissues, transplants, or devices: Askew and Nephew 52 R3, size 7 anthology standard offset, -3 by 36 oxinium Estimated Blood Loss (mL): 250 Blood products transfused: none Procedure in detail: The patient was brought to the operating room. Patient was carefully positioned in the supine position. Time-out was performed and antibiotics were given. Anesthesia was induced. She was positioned in the on the table in order to allow hyperextension of the hip. The right lower extremity was prepped and draped in a standard sterile fashion. An anterior right hip incision was made 1 fingerbreadth lateral to the anterior superior iliac spine and extended distally towards the greater trochanter. Dissection was carried out through skin and subcutaneous tissues. The skin and subcutaneous tissues were carefully injected with Lidocaine with epi. Superficial hemostasis was achieved. The fascia over the tensor fascia federico was defined and incised with a knife. Two Allis clamps were used to grasp the fascia. Tensor fascia federico was retracted laterally. A gelpi retractor was placed. Dissection was carried out down along the neck. The circumflex vessels were carefully identified and cauterized with the Aqua Mantis. There was good visualization of the femoral neck. A Cobra was placed superior to the neck and the gluteus fibers were carefully stripped from that superior aspect of the capsule. A 2nd retractor was placed along the inferior aspect of the neck. The rectus insertion along the capsule was partially released. A 3rd retractor that was then gently placed over the rim of the acetabulum under the rectus. Capsule was carefully incised and released from the intertrochanteric line circumferentially superior to the mid sagittal line and inferiorly to the mid sagittal line until the lesser trochanter was palpable. A tag stitch was placed both in the superior and inferior limb of the capsular insertion. Along the acetabulum capsule was also released up to the mid sagittal 12:00 position. A portion of the labrum was resected. A saw was used to perform an osteotomy at the level of the intertrochanteric line and the junction of the superior femoral neck leaving approximately 1 finger breath of residual inferior neck above the lesser trochanter. A 2nd cut was made along the femoral neck at the base of the head and a napkin ring of neck was removed. Corkscrew was placed in the femoral head and the head was removed without difficulty. Retractors were then repositioned around the acetabulum. Residual labrum was resected and additional osteophytes were removed. A reamer that was 4 mm below the templated size was placed by hand in the acetabulum and it was reamed to centralize the acetabulum. It was then reamed up to 2 under the templated size and fluoroscopy was brought in to confirm the position of the reaming and depth of reaming. I reamed 1 under the anticipated size and touched the rim with line to line reaming. A trial cup was placed and noted that it was appropriately sized and fluoroscopy confirmed position and depth. The component was open and inserted without difficulty fluoroscopic imaging was used to confirm that the cup had been adequately seated and was well positioned. It was further stabilized with a single 6.5 mm screw. Neutral poly liner was placed. The cup was tested and noted to be stable. Attention was then directed to the femur. The femur was gently hyperextended additional capsular release was performed as needed in order to allow adequate visualization of the proximal femur with elevation of the femur. Patient was placed in a hyperextended slightly adducted position with maximum external rot ation. Box osteotome was used to check for any residual neck as well as sclerotic bone along the trochanter. Trout pepper was placed in the femur. Additional broaching was performed. Canal finder was used to determine the alignment of the canal and position. Size 1 broach was placed. The canal was then appropriately broached up to the templated size as long as there was adequate stability of the broach and serial advancement of the broach without excessive impingement. Specific attention was directed at avoiding varus attempting to direct the distal aspect of the broach more anteriorly and av oiding excessive anteversion. Trial reduction showed acceptable range of motion, good stability, no posterior impingement, catholic of leg length and appropriate lateral shuck. I also hyperflexed the hip and checked that there was no impingement anteriorly and there was good stability with flexion, adduction and internal rotation. Marcaine and Exparel were injected. The stem was placed without difficulty. Repeat trial reduction and x-ray showed acceptable overall position, length, and no evidence of the femoral fracture. Final head was placed. Wound was meticulously irrigated with normal saline. The hip was reduced and additional Exparel and Marcaine were injected. The capsule was closed with interrupted nonabsorbable sutures. The fascia of the tensor was closed with interrupted and running Vicryl. No drain was placed. Any tensor fascia federico muscle that appeared to be contused or injured which was a minimal amount was carefully resected. Capsule around the tensor was injected with Exparel and Marcaine. The skin was closed with barbed stitches for the subcutaneous tissue and skin. We also used surgical glue. The wound was dressed sterilely. Brief Betadine soak was also used and was meticulously irrigated with normal saline. Patient was transferred to recovery room in satisfactory condition. Complications: none Post-operative Condition: stable Disposition: Acute Care Plan for aftercare: The patient will be maintained on a standard total hip replacement protocol with weight bearing as tolerated and anterior hip precautions. The patient will receive Aspirin and sequential compression devices for DVT prophylaxis. The patient will be discharged home when safe for the home environment.
--- NOTE | 2019-10-19 07:44 | PM.PREOP ---
Pre-operative Note Interval Note History & Physical reviewed/Exam performed by Physician: Yes Changes to H&P: No
[2019-10-19] MEDS: CEFAZOLIN 2 GM/100 ML FROZ.PIGGY IV ×2 (08:08→17:03)
[2019-10-19] MEDS: TRANEXAMIC ACID 1,000 MG VIAL 1000 MG IV ×2 (08:35→10:51)
--- NOTE | 2019-10-19 08:43 | SUR.OPER ---
Supine on padded [place] table with bilateral legs secured in padded positioning boots and suspended in positioning spars, operative leg in traction per surgeon. Head on one pillow. Arm on non-operative side secured on padded armboard <90 degrees abduction. Arm on operative side padded and resting across chest then secured with tape over sheet. Padded perineal post in place per surgeon.
[2019-10-19] MEDS: BUPIVACAINE LIPOSOME 266 MG/20 ML VIAL INJ (10:54)
[2019-10-19] MEDS: BUPIVACAINE 0.25% W/ EPI 30 ML VIAL 60 ML INJ (10:54)
--- NOTE | 2019-10-19 11:59 | SUR.PHASEI ---
Report called to Constantine.
--- NOTE | 2019-10-19 12:21 | SUR.PHASEI ---
Patient transferred to the floor. VS stable. IV saline locked. RT hip dressing CDI. Spinal level at L5. +PP x2, toes pink, duskiness improved. Report given to Constantine. Belongings bag, glasses, walker with patient.
[2019-10-19] MEDS: LACTATED RINGERS 1,000 ML 125 ML IV ×2 (13:24→21:51)
[2019-10-19] MEDS: ACETAMINOPHEN 325 MG TABLET 650 MG PO ×2 (15:08→21:43)
--- NOTE | 2019-10-19 17:24 | PT.IIE ---
Current Diagnoses Unilateral primary osteoarthritis, right hip (10/19/19) Surgery Performed Operation Date: 10/19/19 07:45 Actual Procedures p Total Hip Arthroplasty/Anterior Approach(Right) - Dorothy Askew MD Surgical History (Last Reviewed 10/16/19 @ 12:59 by Blaine Mccormack MD) Anesthesia (Resolved) History of aortic valve replacement (05/18/11) History of esophagogastroduodenoscopy (EGD) (Acute ~2019) Hx of tonsillectomy (Acute) Medical History (Last Updated 10/19/19 @ 11:55 by Murray Ruvalcaba) Chicken pox (Resolved ~1958) COPD (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 disease) (Acute) Depression (Acute) Esophageal stricture (Acute) Heart failure (Chronic ~05/18/11) 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 able to make needs known. Mobility and Gait Indepdent with mobility at home and community. Pt has difficulty amb more than half a block before taking a rest break d/t hip pain. She also amb with an antalgic gait as well. Activities of Daily Living and IADL's independent for ADLs and mod I for IADLs. Pt's significant other Kenneth does driving for her. Social History Household Members significant other Living Arrangements House Number of Floors (Floors) One Floor Number of Stairs To Enter/Railing? 3 + 3 JAKI with L rail Home Environment Standard Height Toilet,Walk in Shower Home Equipment Front Wheel Walker,Straight Cane,Bedside Commode,Raised Toilet Seat Without Armrests Employment Status Unemployed Additional Social History Comment Pt lives with her significant other Kenneth and a medium sized dog in [place]. Kenneth is independent with mobility using a SPC but he has been assisting pt as needed such as driving her to grocery shopping and doctor appointment. Pt is scheduled to have outpatient PT at [facility]. M2 PT-IP Current Condition Start: 10/19/19 16:56 Freq: NEEDED Status: Active Protocol: Document 10/19/19 14:44 HH (Rec: 10/19/19 17:24 [email or web address]) Physical Therapy Current Condition Current Condition Evaluation Date 10/19/19 Treatment Diagnosis R FABIAN (anterior approach), difficulty in walking Onset Date 10/19/19 Precautions Anterior Hip Precautions No Hip Extension,No Hip External Rotation Weight Bearing Status Weight Bearing Status Weight Bear as Tolerated M3 PT-IP Subjective Start: 10/19/19 16:56 Freq: NEEDED Status: Active Protocol: Document 10/19/19 14:44 HH (Rec: 10/19/19 17:24 [email or web address]) Subjective Physical Therapy Visit Type Type Initial Evaluation Visit Start Time 14:44 Visit Stop Time 15:00 Total Visit Minutes 16 Notes Kenneth was at bedside upon PT arrival but left at the begining of the session Number of DRUM SAW OPERATOR Visits 0 Physical Therapy Visit Comments Patient Comments Im feeling pretty good Patient Goals To return home with Kenneth and participate outpatient PT Therapy Pain Assessment Pain When Pain Assessed During Mobility Pain Present Pain Present Pain Reported Location R hip Intensity 2 Scale Used Numeric (1 - 10) Description Aching Pain Management Techniques Timing of Activity with Medications M4 PT-IP Mobility and Gait Start: 10/19/19 16:56 Freq: NEEDED Status: Active Protocol: Document 10/19/19 14:44 HH (Rec: 10/19/19 17:24 [email or web address]) PT-Bed Mobility Assessment Supine to Sit Supine to Sit Contact Guard Assistance, Bedrails Scooting Scooting to Edge of Bed Standby Assistance PT-Transfer Assessment Sit to and From Stand Sit to and from Stand Contact Guard Assistance,Use of Upper Extremities Equipment Transfer Assistive Device Gait Belt,Front Wheeled Walker Orthotic/Prosthetic Devices or Brace: No Transfers Transfer Destination Bed,Chair Transfer Technique amb with FWW Transfer Ability Level of Assist Contact Guard Assistance,Use of Upper Extremities Comments Mobility Comments Pt was in bed upon PT arrival. Kenneth at bedside but he left right after PT session started . Pt's BP at 110s/ 60s and denied pain/ discomfort. Reviewed post op precautions prior to mobility. Able to perform ankle circles/ wiggle toes and leg press on R side with minmal discomfort. Pt completed supine to long sit by using L bedrail to pull up. She then pivot her RLE with LLE towards R side EOB. She c/ o slightly dizzy but symptoms resolved within 1 minute. She then stood up with mod B knee valgus from EOB with CGA and FWW. Pt was able to perform lateral weight shift with UE support on FWW. Pt then returned to chair safely with proper hand placements on chair armrests after amb in the hallway. she was able to recall post op precautions after. Call light placed within reach. Gait Assessment Gait Gait Assistance Required: Contact Guard Assist Distance (Feet) 130 Able to Maintain Weight Bearing Status Yes During Gait Assistive Devices Assistive Device Gait Belt,Front Wheeled Walker Orthotic/Prosthetic Devices or Brace: No Gait Deviations General Gait Pattern Antalgic,Decreased Stride Length,Decreased Feet Clearance,Step-to Gait Factors Limiting Gait Function Factors Limiting Gait Function Decreased Activity Tolerance, Decreased Strength,Limited Range of Motion,Pain,Poor Balance,Poor Safety Awareness Comments Gait Comments Pt amb from her bed to hallway and returned to chair for a total of approx. 130 ft with FWW and CGA. Pt tends to be quite impulsive and likes to just walk without following command. Pt was easily distracted and often kept her walker out of EDILBERTO and needed frequent reminders to keep it close. Educated pt to slow down her gait and focus on WB on RLE to facilitate proprioception. Stair Climbing Assessment Comments Stair Climbing Comments not assessed yet. PT-Balance Assessment Sitting Balance and Reactions Static Sitting Balance Ability Normal Dynamic Sitting Balance Ability Normal Standing Balance and Reactions Static Standing Balance Ability Normal Dynamic Standing Balance Ability Good Device Used FWW M5 PT-IP Objective Assessments Start: 10/19/19 16:56 Freq: NEEDED Status: Active Protocol: Document 10/19/19 14:44 (Rec: 10/19/19 17:24 [email or web address]) Orientation Orientation/Cognition Level of Alertness Alert Orientation Name,Age,Birthday,Month,Date, Year,Day of Week,Place, Situation Language Function Ability No Deficits Noted Safety Awareness Decreased Safety Awareness Memory Description No Deficits Noted Gross Range of Motion Upper Extremity ROM Assessment Within Functional Limits Lower Extremity ROM Assessment Right Impaired Strength Upper Extremity Strength Assessment Within Functional Limits Lower Extremity Strength Assessment Within Functional Limits Hip 4/5 Knee 4+/5 Sensation Assessment Sensation Gross Sensation WNL Light Touch Intact Proprioception (Position) Intact Muscle Tone Muscle Tone WNL Yes M6 PT-IP Treatment Start: 10/19/19 16:56 Freq: NEEDED Status: Active Protocol: Document 10/19/19 14:44 HH (Rec: 10/19/19 17:24 [email or web address]) Physical Therapy Treatment Exercises Exercises Quad Sets,Heel Slides Education Education Provided Precautions,Weight Bearing Status,Post-Op Packet,Safety M7 PT-IP Assessment and Plan Start: 10/19/19 16:56 Freq: NEEDED Status: Active Protocol: Document 10/19/19 14:44 HH (Rec: 10/19/19 17:24 [email or web address]) PT Summary Assessment and Plan Potential Rehabilitation Potential Excellent Status of Condition at Evaluation Stable Summary Impairments Pain,ROM,Strength,Balance,Bed Mobility,Transfers,Gait, Activity Tolerance Assessment Summary This is a low complexity evaluation for this 64yo female s/p POD #0 R FABIAN ( anterior approach) PLOF: independent without AD but unable to amb > 1/2 block due to R hip pain. independent with ADLs and modified independent for IADLs. CLOF: pt did fairly well with mobility with CGA and FWW, but she is somewhat impulsive and has decreased safety awareness and needed frequent reminder for walker management and post op precautions. However, will expect pt to be able to d/c home with significant other's Kenneth assistance and partipate outpatient PT to improve mobility and strength. Goals Bed Mobility Goal Standby Assistance Transfer Goal Standby Assistance,Front Wheeled Walker Gait Goal Standby Assistance,Front Wheel Walker Gait Distance 200 Other Goals 6 JAKI with L rail Days to Meet Goals 3 Frequency of Treatment Frequency Of Treatment Twice a Day Treatment Plan Physical Therapy Treatment Plan Bed Mobility Training,Transfer Training,Gait Training, Therapeutic Exercise,Balance Retraining,Post Op Education, Discharge Planning,Hot or Cold Pack,Neuromuscular Re-ed Other Recommendations and Next Treatment review precautions Focus mobility as need stair climbing Recommendations To Nursing Amount of Assist Needed 1 Person Assist Discharge Recommendations PT Discharge Recommendations Home with Assistance, Outpatient PT Transportation Needs at Discharge Private Vehicle
[2019-10-19] MEDS: DOCUSATE 100 MG CAPSULE PO (21:43)
[2019-10-19] MEDS: ASPIRIN EC 81 MG TABLET PO (21:44)
[2019-10-19] MEDS: LORazepam 1 MG TABLET 2 MG PO (21:47)
[2019-10-19] MEDS: atenoloL 50 MG TABLET PO (21:50)
[2019-10-20] MEDS: CEFAZOLIN 2 GM/100 ML FROZ.PIGGY IV (00:01)
[2019-10-20 05:00] VITALS: BP 122/53; PULSE 98; RESP 16; TEMP 36.3; O2SAT 97
[2019-10-20] MEDS: OXYCODONE IR 5 MG TABLET 10 MG PO ×3 (05:22→14:04)
[2019-10-20 06:07] LABS: Hematocrit 26.5 % (36-46); Hemoglobin 8.8 g/dL (12.0-16.0)
[2019-10-20 08:10] VITALS: BP 130/79; PULSE 111; RESP 16; TEMP 36.6; O2SAT 96
--- NOTE | 2019-10-20 08:48 | PM.PNPO.1 ---
Subjective Subjective Date Patient Seen: 10/20/19 Time Patient Seen: 08:30 Interval history: POD #1 s/p RTHA w Dr. Askew. H/H 8.8/26.5 BP 93/66 BP 116 (during my assessment of vitals). No acute events overnight. Patient complains of moderate pain in R hip. Voiding without difficulty or assistance. Has not mobilized with PT. Denies fever, chills, shortness of breath, dry cough, chest pain, dizziness, nausea, vomiting. Exam Vital Signs (past 8 hours): - 10/20/19 05:00 Temperature 97.3 F L Pulse Rate 98 H Respiratory Rate 16 Blood Pressure 122/53 L Pulse Oximetry 97 Oxygen Delivery Method Room Air Oxygen Flow Rate 0 Narrative Exam Narrative: 64 year old female is sitting comfortably in chair, in no apparent distress. A&Ox3. Dressing CDI. Able to actively dorsiflex/plantar flex BL. Calves warm, soft, compressible, non tender to palpation BL. Sensory function grossly intact to light touch in LE BL. Dorsalis pedis 2+ BL. Objective Labs Result Diagrams: 10/20/19 05:44 Labs: Laboratory Results - last 24 hr 10/20/19 05:44 Hgb 8.8 L Hct 26.5 L Assessment & Plan Post-op Postoperative Procedures: Procedures Operation Date: 10/19/19 07:45 Actual Procedures Side Surgeon p Total Hip Arthroplasty/Anterior Approach Right Dorothy Vernell Askew MD Postoperative day: 1 Postoperative status: doing well Postoperative plan: routine post-op care Postoperative plan narrative: DVT Prophylaxis - per self propelled hot mix roller operator, restart lovenox 1mg per kg with coumadin once patient is surgically stable. monitor hemodynamics. avoid major fluid shift. Discontinue lovenox when INR >2.0. Continue ASA and SCDs H/H 8.8/26.5 BP 93/66 BP 116 - have not restarted lovenox and coumadin If patient is symptomatic and hypotensive with PT - initiate 500 mL bolus. If BP non-responsive, initiate second 500 mL bolus Continue current pain management Mobilize with PT Discharge home likely in next 24-48 hours Time Spent With Patient Time with patient: less than 15 minutes Quality VTE Deep Vein Thrombosis/Pulmonary Embolism Present on Admission: No
--- NOTE | 2019-10-20 09:17 | CM.DANOTE ---
DCP Assessment: EMR reviewed: Patient is a 64 yr old female who was admitted for Rt FABIAN preformed by Dr. Askew. Patients PCP is Dr. Maddox. CM/RN met with patient at the bedside and explained role. patient was alert and oriented at time of CM/RN visit. Patient at base line is Independent with all ADL's but significant other Kenneth does the driving and most of the grocery shopping. patient lives with her significant other Kenneth in a single level home with 3 stairs to get into the home. Patient has FWW, Cane and an elevated toilet seat at home. I: [facility] and Medicaid Plan: D/C home with significant other with OP PT. No identified D/C planning needs noted at this time. Cm department will follow to assist with any new D/C planning needs that may arise. Meghana Askew RN Discharge Planning/Care Management CM Discharge Assessment Start: 10/20/19 09:15 Freq: Status: Active Protocol: Document 10/20/19 09:16 HS (Rec: 10/20/19 09:17 HS [id number]) Discharge Planning Assessment Assigned Costume Cutter Meghana Askew RN DPOA/Assigned Designee Name Kenneth Jurado (significant other ) Contact Information [phone] Advance Directives? No History Provided By Patient,Medical Record Has Patient been admitted in last 30 No days? Prior Living Arrangements House Household Members significant other Type of transporation used prior to Relies on Others admit Independent with ADL's Yes Is patient alert and oriented? Yes Caregiver for Another No DME Already Rented / Owned Bath Bench,Elevated Toilet Seat,FWW / Walker,Cane Patient/Family Preference OP PT Therapy Barriers to Discharge No Discharge Plan Home Referrals Initiated None needed Whiteboard Updated in Patient Room with Yes name and ext. # of Costume Cutter Review Status In Process Next Review Type Continued Stay Review Pre-Anesthesia Assessment Start: 10/05/19 10:00 Freq: Status: Complete Protocol: Document 10/05/19 10:00 CAB (Rec: 10/05/19 10:18 CAB [id number]) Pre-Anesthesia Assessment PAC Comment 10/18/19-Pt called with medication questions, voice slight slurred, required repeated instructions (hx of etoh abuse). Advised to take atenolol, citalopram, inhaler only dos. Pt states she stopped warfarin, asa 8 days ago and started lovenox injections. Patient Information Reviewed Via Phone Assessment Assessment Completed With Patient Diagnostic Results BMP/CMP,CBC,EKG,Urinalysis Comment Labs @ [facility] 09/25/19, EKG @ PCP office scanned to record Primary Care Provider Gideon Maddox Medical Clearance Received Yes Seen Specialist in Last 12 Months Yes Specialist Seen Vehicle Fare Collector,Orthopedist Comment PCP clearance scanned to record Primary Language Nepali Patient Advocate Required No Height 166.37 cm Weight 65.771 kg Body Mass Index (BMI) 23.7 Dentition Type Full- Upper & Lower Barriers to Learning None Hx Anesthesia Reactions No Hx Family Anesthesia Reaction No Hx Malignant Hyperthermia No Hx Blood Transfusions No Hx Blood Transfusion Reaction No Anesthesia Review Requested Yes: Previously reviewed by Anesthesia, ok to proceed alcohol intake current alcohol intake frequency 0-2 drinks per day Smoking Status Former smoker Has it been 2 weeks or less since No patient quit smoking how long ago did patient quit smoking Quit 2 months, pt denies need for nicotine patch during inpt stay Substance Use Type does not use Pain Present Pain Reported Musculoskeletal Symptoms Abnormal Gait,Back Pain, Difficulty Walking,Joint Pain, Joint Stiffness History of Falling (Recent or History of Yes ) Patient is completely paralyzed or No completely immobile Prosthesis or Orthotic Device Front Wheel Walker Mental Status Oriented to own ability Is patient on oxygen? No Does patient have RIGGS/SOB Yes Hx Sleep Apnea No CPAP/BIPAP use not prescribed Currently Taking a Beta Faviola Yes: Atenolol Hx Chest Pain Yes Hx SOB Yes Hx Syncope or Dizziness Yes Anti-Coagulant Therapy Yes: Warfarin-PCP note 09/13/19 advises to hold 7 days prior, Lovenox bridge Has a Vehicle Fare Collector Yes: Dr. [id number] Cardiac Testing Echo @ 04/26/19 EF 60-65% Hx Pacemaker/ICD No Pacemaker Rep Required? No Cardiac Clearance Received Yes Comment Cardiac records scanned to record Diet Type At Home Regular dysphagia No Urinary Catheter Present No Hx Urinary Self Catheterization No Diabetes No HgbA1C 5.5 Date 04/26/19 Patient No Lactating No Hx Drug Resistant Organism No Presence of External or Internal Medical Yes: mechanical aortic valve Devices Earl exposure No Have you had any close contact with No someone diagnosed with NOVEL CORONAVIRUS ? Have you traveled outside the [facility] in the last 30 days? Marital Status Lives With significant other Prior Living Arrangements House Number of Floors (Floors) One Floor Support System Child/Children,Significant Other Does the Patient Have Assistance After Yes Surgery Patient Discharge Plan Description Return Home Comment Pt advised 1 night length of stay per surgeon Feels Safe in Current Environment Yes Been Physically Hurt or Threatened By a No Person in Current Environment Do you have thoughts of harming yourself None or others? Are you currently considering suicide? No Do you have a plan to hurt yourself or No Plan others? Do You Have Any Spiritual Beliefs That No May Affect Your HC Choices? Do You Have Any Cultural Practices That No May Affect Your HC Choices? Comment Anabaptism Who Can We Speak to About Patient's Care Family, friends Identifying Code for Release of Patient Declines to issue Information Health Care Proxy/Next of Kin Kenneth Jurado (S.O.) Health Care Proxy Emergency Contact Name Kenneth Jurado (S.O.) Emergency Contact Advance Directives? No Power of Tools Administrator No PAC Instructions Do not shave/clip surgical site,Durable medical equipment ,Medications to take/avoid, Nasal antibiotic,No ETOH/ petroleum product on skin DOS, NPO,Post-op transportation,Pre -surgical wash,Sensory aids, Sturdy shoes/comfortable clothes,Do not bring valuables and remove jewelry
[2019-10-20] MEDS: atenoloL 50 MG TABLET PO (09:54)
[2019-10-20] MEDS: ASPIRIN EC 81 MG TABLET PO (09:54)
[2019-10-20] MEDS: ACETAMINOPHEN 325 MG TABLET 650 MG PO ×2 (09:54→14:04)
[2019-10-20] MEDS: CITALOPRAM 20 MG TABLET 40 MG PO (09:55)
[2019-10-20 10:00] VITALS: BP 103/55; PULSE 108
[2019-10-20] MEDS: DOCUSATE 100 MG CAPSULE PO (10:00)
[2019-10-20] MEDS: LORazepam 1 MG TABLET PO (10:04)
--- NOTE | 2019-10-20 10:21 | PT.IPTN ---
Current Diagnoses Unilateral primary osteoarthritis, right hip (10/19/19) Surgery Performed Operation Date: 10/19/19 07:45 Actual Procedures p Total Hip Arthroplasty/Anterior Approach(Right) - Dorothy Askew MD Physical Therapy Treatment Note M2 PT-IP Current Condition Start: 10/19/19 16:56 Freq: NEEDED Status: Active Protocol: Document 10/19/19 14:44 HH (Rec: 10/19/19 17:24 [email or web address]) Physical Therapy Current Condition Current Condition Evaluation Date 10/19/19 Treatment Diagnosis R FABIAN (anterior approach), difficulty in walking Onset Date 10/19/19 Precautions Anterior Hip Precautions No Hip Extension,No Hip External Rotation Weight Bearing Status Weight Bearing Status Weight Bear as Tolerated M3 PT-IP Subjective Start: 10/19/19 16:56 Freq: NEEDED Status: Active Protocol: Document 10/20/19 09:06 HH (Rec: 10/20/19 10:21 [id number]) Subjective Physical Therapy Visit Type Type Treatment Note Visit Start Time 09:06 Visit Stop Time 09:30 Total Visit Minutes 24 Notes Per RN, pt experiencing symptomatic hypotension at 90s /50s. Proceed with PT with cautious Number of OPERATOR AND TRUCK DRIVER Visits 0 Physical Therapy Visit Comments Patient Comments My hip is sore today. Therapy Pain Assessment Pain When Pain Assessed During Mobility Pain Present Pain Present Pain Reported Location R hip Intensity 4 Scale Used Numeric (1 - 10) Description Aching Pain Management Techniques Timing of Activity with Medications M4 PT-IP Mobility and Gait Start: 10/19/19 16:56 Freq: NEEDED Status: Active Protocol: Document 10/20/19 09:06 HH (Rec: 10/20/19 10:21 [id number]) PT-Transfer Assessment Sit to and From Stand Sit to and from Stand Standby Assistance,Use of Upper Extremities Equipment Transfer Assistive Device Gait Belt,Front Wheeled Walker Orthotic/Prosthetic Devices or Brace: No Transfers Transfer Destination Chair Transfer Technique amb with FWW Transfer Ability Level of Assist Standby Assistance,Use of Upper Extremities Comments Mobility Comments Pt was up in chair upon PT arrival. BP at 102/ 59. Pt reports increased R hip pain since last night but agreeable to mobilize with PT. Pt recalled 1/2 post op precautions. Pt then stood up with SBA and FWW. She then amb to the end of [employer] for stair climbing and returned to chair. She was able to sit down with good descend control. BP at 142/76 possibly d/t increase in hip pain but tolerable as she stated. Pt rested in chair comfortably with legs elevated and call light placed within reach. Gait Assessment Gait Gait Assistance Required: Standby Assistance Distance (Feet) 280 Able to Maintain Weight Bearing Status Yes During Gait Assistive Devices Assistive Device Gait Belt,Front Wheeled Walker Orthotic/Prosthetic Devices or Brace: No Gait Deviations General Gait Pattern Antalgic,Decreased Stride Length,Decreased Feet Clearance,Step-to Gait Factors Limiting Gait Function Factors Limiting Gait Function Decreased Activity Tolerance, Decreased Strength,Limited Range of Motion,Pain,Poor Balance,Poor Safety Awareness Comments Gait Comments Pt amb approx 280 ft in the hallway with SBA FWW. Noticed pt amb with mild R circumduction who stated she feels like R leg is longer than left. Explained to pt that it is possible since her chronic compensatory gait pattern prior to sx. Pt overall did well for amb but she does need cues to slowdown for turns since she tends to unable to keep her walker close. Pt did not show any signs of LOB. Stair Climbing Assessment Evaluation Level of Assist On Stairs Standby Assistance Devices Stair Climbing Assistive Devices Front Wheel Walker,Left Railing Technique/Endurance Stair Climbing Direction Ascend and Descend Stair Climbing Technique Step to Step Number of Steps Climbed 3 Stair Climbing Set # Repetitions (reps) 2 Comments Stair Climbing Comments pt led with LLE for descend and RLE for descend. Overall safely demonstrated the use of L rail. PT-Balance Assessment Sitting Balance and Reactions Static Sitting Balance Ability Normal Dynamic Sitting Balance Ability Normal Standing Balance and Reactions Static Standing Balance Ability Normal Dynamic Standing Balance Ability Good Device Used FWW M5 PT-IP Objective Assessments Start: 10/19/19 16:56 Freq: NEEDED Status: Active Protocol: Document 10/19/19 14:44 HH (Rec: 10/19/19 17:24 HH [email or web address]) Orientation Orientation/Cognition Level of Alertness Alert Orientation Name,Age,Birthday,Month,Date, Year,Day of Week,Place, Situation Language Function Ability No Deficits Noted Safety Awareness Decreased Safety Awareness Memory Description No Deficits Noted Gross Range of Motion Upper Extremity ROM Assessment Within Functional Limits Lower Extremity ROM Assessment Right Impaired Strength Upper Extremity Strength Assessment Within Functional Limits Lower Extremity Strength Assessment Within Functional Limits Hip 4/5 Knee 4+/5 Sensation Assessment Sensation Gross Sensation WNL Light Touch Intact Proprioception (Position) Intact Muscle Tone Muscle Tone WNL Yes M6 PT-IP Treatment Start: 10/19/19 16:56 Freq: NEEDED Status: Active Protocol: Document 10/19/19 14:44 HH (Rec: 10/19/19 17:24 HH [email or web address]) Physical Therapy Treatment Exercises Exercises Quad Sets,Heel Slides Education Education Provided Precautions,Weight Bearing Status,Post-Op Packet,Safety M7 PT-IP Assessment and Plan Start: 10/19/19 16:56 Freq: NEEDED Status: Active Protocol: Document 10/20/19 09:06 HH (Rec: 10/20/19 10:21 HH [id number]) PT Summary Assessment and Plan Potential Rehabilitation Potential Excellent Status of Condition at Evaluation Stable Summary Impairments Pain,ROM,Strength,Balance,Bed Mobility,Transfers,Gait, Activity Tolerance Assessment Summary Pt shows improved amb distance , ability to climb stairs and overall transfers ability. She does need cues to slow down occasionally. Provided written handout for postop instructions. Pt does have elevated BP after amb and will cont monitor. Pt's mobility is safe to d/c home at this point but pt will cont to benefit from skilled therapy to improve her activity tolerance and strength. Goals Bed Mobility Goal Standby Assistance Transfer Goal Standby Assistance,Front Wheeled Walker Gait Goal Standby Assistance,Front Wheel Walker Gait Distance 200 Other Goals 6 JAKI with L rail SBA/CGA Days to Meet Goals 3 Frequency of Treatment Frequency Of Treatment Twice a Day Treatment Plan Physical Therapy Treatment Plan Bed Mobility Training,Transfer Training,Gait Training, Therapeutic Exercise,Balance Retraining,Post Op Education, Discharge Planning,Hot or Cold Pack,Neuromuscular Re-ed Other Recommendations and Next Treatment cont review precautions Focus remind pt to slow down mobility as need stair climbing Recommendations To Nursing Amount of Assist Needed Standby Assistance Discharge Recommendations PT Discharge Recommendations Home with Assistance, Outpatient PT Transportation Needs at Discharge Private Vehicle
--- NOTE | 2019-10-20 11:05 | PC.NURSE ---
Patient up to chair and working with PT. A/Ox3, saline locked, right hip dsg is CDI, no redness streaking or heat noted, sensation intact in the RLE, pulses noted equal bilaterally, cap refil <2, pain controlled with PRN oxy 10mg. Patient is hypotensive but asymptomatic. Denies dizziness, nausea, lightheadedness, or change in vision. Lung sounds diminished bilaterally, patient denies feeling SOB, or increased WOB, RR is WNL at rest. Patient instructed to continue using her IS, patient demonstrated use at this time. Patient requested that her prescribed Coumadin be schedule for 1600, this RN called pharmacy to confirm change. Encouraged patient to continue drinking water, patient is receptive. Will continue to monitor BP and monitor for s/s of hypotension.
[2019-10-20 11:25] VITALS: BP 94/72; PULSE 104; RESP 16; TEMP 36.9; O2SAT 97
[2019-10-20] MEDS: SODIUM CHLORIDE 0.9% 500 ML 1000 ML IV (11:30)
--- NOTE | 2019-10-20 14:19 | PC.NURSE ---
Addendum entered by Janae Liang R.N. 10/20/19 14:25: Patient instructed on Lovenox 60 mg BID starting 10/20 for two days. Patient receptive to teaching. Called prescribed Lovenox order into [place] pharmacy. Spoke with pharmacist, patient should have doses of previously prescribed 30 mg per pharmacist. Pharmacist will fill the 60mg prescription. Original Note: Patient tolerated earlier 500ml NS bolus well. Blood pressure returned to 113/74. Patient denies dizziness, fatigue, lightheadedness. Patient eager to discharge. Patient given discharge instructions with significant other bedside. Patient verbalized understanding of given material. Patient wheeled out via wheelchair with the assistance of the INCOME TAX ADMINISTRATOR.
== END 2019-10-20 14:22 | disposition home or self-care (01) | DRG 470 ==
PROVIDERS: Admitting Provider Orthopaedic Surgery; Family Provider Orthopaedic Surgery; PCP Family Medicine; Referring Provider Orthopaedic Surgery; Visit Provider Orthopaedic Surgery
PROC: 0SR906Z Replacement of Right Hip Joint with Oxidized Zirconium on Polyethylene Synthetic Substitute, Open Approach (ICD-10-PCS; CPT 27130; principal; 2019-10-19 07:45)
DX: M16.11 Unilateral primary osteoarthritis, right hip (principal); I48.20 Chronic atrial fibrillation, unspecified; I95.9 Hypotension, unspecified; J44.9 Chronic obstructive pulmonary disease, unspecified; Z79.01 Long term (current) use of anticoagulants; F32.9 Major depressive disorder, single episode, unspecified; Z95.2 Presence of prosthetic heart valve; E78.5 Hyperlipidemia, unspecified; Z87.891 Personal history of nicotine dependence
CPT/HCPCS: 36415; 73502; 76000; 85014; 85018; 94760; 94762; 97116; 97161; 97530; C1776; C9290; J0690; J1100; J2250; J2274; J2405; J2704; J3010

== ENCOUNTER 2019-10-31 13:45 | Outpatient (RCR) | payer OTHER, MEDICAID, SELFPAY ==
--- NOTE | 2019-10-17 16:27 | PT.OIE ---
Past Medical History (Last Updated 10/16/19 @ 14:02 by Lolly Trammell RN) Chicken pox (Resolved ~1958) COPD (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 disease) (Acute) Depression (Acute) Esophageal stricture (Acute) Heart failure (Chronic ~05/18/11) long-term current use of anticoagulant therapy (Acute) Scabies (Resolved ~2015) Status post aortic valve replacement (Chronic) Past Surgical History (Last Reviewed 10/16/19 @ 12:59 by Blaine Mccormack MD) Anesthesia (Resolved) History of aortic valve replacement (05/18/11) History of esophagogastroduodenoscopy (EGD) (Acute ~2019) Hx of tonsillectomy (Acute) Visit Care Team Role Provider Type Gideon Maddox MD Primary Care Provider Physician Specialty: Family Practice Address: [address] [place] [address], [id number] Email: [email or web address] Dorothy Askew MD Attending Provider Physician Family Provider Referring Provider Specialty: Orthopedic Surgery Address: [address] [place] [address], [id number] Email: [email or web address] Initial Evaluation PT-OP-A Visit Information Start: 10/17/19 12:56 Freq: Status: Active Protocol: Document 10/17/19 15:20 HH (Rec: 10/17/19 16:27 [email or web address]) Out-Patient Physical Therapy Visit Information Visit Information Visit Type Initial Evaluation Visit Start Time 15:20 Visit Stop Time 16:00 Total Visit Minutes 40 Visit Number 09/01 Number of STAND UP COMEDIAN Visits 0 Evaluation Information Evaluation Date 10/17/19 Precautions Precautions bruise easily CHF PT-OP-B Current Condition Start: 10/17/19 12:56 Freq: Status: Active Protocol: Document 10/17/19 15:20 HH (Rec: 10/17/19 16:27 [email or web address]) Current Condition History of Current Condition Onset Date many years ago Current Complaints B hip pain R>L, scheduled for RTHA (ant approach) History of Current Condition Pt is a 64 yo female scheduled for R FABIAN (anterior approach) at [facility] on [address] Dorothy Askew. Pt reports she has chronic hip pain bilaterally R>L. She primarily has difficulty in walking and stair climbing. She could only tolerate no more than half a block and climbing stairs tends to increase her pinching pain. She stated walking with her foot turned out tends to decrease her symptoms. Pt has 3 + 3 JAKI with L rail to enter front home entrance and her will be able to assist as tolerate upon d/c from hospital. Prior Treatments and Tests Pt had physical therapy for her low back. Treatment Goals Patient/Caregiver Goals 1. to understand post op precautions 2. to be able to walk >3 blocks without discomfort 3. to climb stairs with step over pattern Current Functional Impairments (Reported) Functional Limitations- Mobility/Gait increased time taken for sit to stand limited amb distance up to 1/2 block Functional Limitations- Other Pt has shower seat, BSC and raised toilet seat at home. PT-OP-C Subjective Start: 10/17/19 12:56 Freq: Status: Active Protocol: Document 10/17/19 15:20 (Rec: 10/17/19 16:27 [email or web address]) OP-PT Subjective Patient Comments Patient Comments 'I cant wait to have my surgery done. Patient Questionnaires Lower Extremity Functional Scale LEFS Score 16 LEFS Impairment 80 to 99% Impaired (Score 1-16 ) PT-OP-D Balance Start: 10/17/19 12:56 Freq: Status: Active Protocol: Document 10/17/19 15:20 (Rec: 10/17/19 16:27 [email or web address]) Balance Tests Single Limb Standing Single Limb- Right 0 Single Limb- Left 5 PT-OP-E Functional Tests Start: 10/17/19 12:56 Freq: Status: Active Protocol: Document 10/17/19 15:20 HH (Rec: 10/17/19 16:27 [email or web address]) Functional Tests Five Times Sit to Stand Test Score 26 Comments seconds PT-OP-G Mobility & Gait Start: 10/17/19 12:56 Freq: Status: Active Protocol: Document 10/17/19 15:20 (Rec: 10/17/19 16:27 [email or web address]) OP Gait Assessment Gait Deviations General Gait Pattern Antalgic,Decreased Stride Length,Decreased Feet Clearance Factors Limiting Gait Function Factors Limiting Gait Function Decreased Activity Tolerance, Decreased Strength,Limited Range of Motion,Pain,Poor Balance Comments Gait Comments decreased time taken spent on loading response on RLE and early heel raise noted during preswing. Stair Climbing Evaluation Devices Stair Climbing Assistive Devices Left Railing Technique/Endurance Stair Climbing Direction Ascend and Descend Stair Climbing Technique Step to Step PT-OP-H Neuro Start: 10/17/19 12:56 Freq: Status: Active Protocol: Document 10/17/19 15:20 HH (Rec: 10/17/19 16:27 [email or web address]) Deep Tendon Reflex & Clonus Assessment Deep Tendon Reflex Bilateral Achilles Deep Tendon Reflex 2+ Normal Bilateral Patellar Deep Tendon Reflex 2+ Normal PT-OP-K Range of Motion Start: 10/17/19 12:56 Freq: Status: Active Protocol: Document 10/17/19 15:20 HH (Rec: 10/17/19 16:27 [email or web address]) Hip Goniometric Range of Motion Hip Right Active Hip ROM WFL No Testing Position Supine Flexion w/Knee Flexed 100 Extension 0 Abduction 20 Internal Rotation 25 External Rotation 15 Left Active Hip ROM WFL Yes Testing Position Supine Flexion w/Knee Flexed 100 Extension 5 Abduction 25 Internal Rotation 30 External Rotation 45 Hip ROM Limitations Hip ROM Limitations Pain Comments pain noted with hip ER and IR and end range of hip flexion PT-OP-M Strength Start: 10/17/19 12:56 Freq: Status: Active Protocol: Document 10/17/19 15:20 HH (Rec: 10/17/19 16:27 [email or web address]) Hip Strength Hip Manual Muscle Testing Left Flexion (L2) 4+ Good+ Extension (S1) 4+ Good+ Abduction 4+ Good+ Adduction 4+ Good+ External Rotation 4+ Good+ Internal Rotation 4+ Good+ Right Flexion (L2) 4 Good Extension (S1) 4 Good Abduction 4- Good- Adduction 4 Good External Rotation 4- Good- Internal Rotation 4- Good- Reason Not Measured Pain PT-OP-Q Treatments Start: 10/17/19 12:56 Freq: Status: Active Protocol: Document 10/17/19 15:20 HH (Rec: 10/17/19 16:27 [email or web address]) Self-Care/Home Management Treatment Education Patient Education Body Mechanics,Safety Other Education Adjusted pt's handles of the personal FWW up to wrist level step to pattern with R LE while using FWW step to pattern by leading with L LE for ascend; leading with RLE for descend. education of post op precautions (avoid hip extension and external rotation) using gait belt to pivot RLE for getting OOB PT-OP-T Assessment and Plan Start: 10/17/19 12:56 Freq: Status: Active Protocol: Document 10/17/19 15:20 HH (Rec: 10/17/19 16:27 HH [email or web address]) Physical Therapy Assessment Goals 5 STS Impairment 5 times STS =26s Short Term Goal (STG) Pt will improve her B hip strength so she could finish 5 times STS to <20 seconds STG Duration 4 weeks Fpc Goal (LTG) Pt will improve her B hip strength so she could finish 5 times STS to <15 seconds LTG Duration 8 weeks activity tolerance Impairment unable to maximiliano walking > half of a block Short Term Goal (STG) Pt will be able to amb > 2 blocks before taking a rest break. STG Duration 4 weeks Fpc Goal (LTG) pt will be able to amb >4 blocks with pain no more than 2/10 so she could tolerate grocery shopping/ walking in community with . LTG Duration 8 weeks LEFS Impairment pt scores 16 for LEFS Short Term Goal (STG) Pt will score >32 (40-59% impairment) on LEFS to improve her quality of life STG Duration 4 weeks Microstrategy Bi Developer Goal (LTG) Pt will score >48 (20-39% impairment) on LEFS to improve her quality of life with minimal pain LTG Duration 8 weeks Assessment Summary Assessment This is a low complexity evaluation for this 64yo female who presented to clinic today for pre-op rehab. Pt is scheduled to have R FABIAN ( anterior approach) on 10/19/19. Pt has significant limited R hip ROM, strength which affect her gait mechanics and stair climbing ability. Pt's 5 times STS = 26 s which is below average. This session focused on education on postop precautions, gait training with FWW and stair climbing with L rail to maixmize her post op outcome. Pt will benefit from skilled therapy after her hip replacement to improve her overall mobility and strength, so she could return to her walking routine with minimal discomfort. Physical Therapy Plan Frequency and Duration Frequency of Treatment 2x/Week Duration of Treatment 8 weeks Plan of Care Start Date 10/17/19 Plan of Care End Date 12/16/19 Therapeutic Interventions Therapeutic Interventions Balance Training,Gait Training ,Home Exercise Program,Joint Mobilizations,Manual Therapy, Neuromuscular Re-education, Patient/Caregiver Education, Self-Care/Home Management,Soft Tissue Mobilization,Taping, Therapeutic Activities, Therapeutic Exercises Modalities Cold Pack/Ice Massage,Electric Stimulation,Hot Packs Next Visit Focus/Plan Next Note Type Re-Evaluation Next Visit Plan check ROM, strength, gait mechanics post op precautions print out home exercises.
--- NOTE | 2019-10-17 16:28 | PT.OPPOC ---
Physical, Occupational & Speech Therapy At [facility] Visit Care Team Role Provider Type Gideon aMddox MD Primary Care Provider Physician Specialty: Family Practice Address: [address] [place] [address], [phone] Email: [email or web address] Dorothy Askew MD Attending Provider Physician Family Provider Referring Provider Specialty: Orthopedic Surgery Address: [address] [place] [address], [address] Email: [email or web address] Plan Of Care PT-OP-T Assessment and Plan Start: 10/17/19 12:56 Freq: Status: Active Protocol: Document 10/17/19 15:20 HH (Rec: 10/17/19 16:27 HH [email or web address]) Physical Therapy Assessment Goals 5 STS Impairment 5 times STS =26s Short Term Goal (STG) Pt will improve her B hip strength so she could finish 5 times STS to <20 seconds STG Duration 4 weeks Entertainment Manager Goal (LTG) Pt will improve her B hip strength so she could finish 5 times STS to <15 seconds LTG Duration 8 weeks activity tolerance Impairment unable to maximiliano walking > half of a block Short Term Goal (STG) Pt will be able to amb > 2 blocks before taking a rest break. STG Duration 4 weeks Entertainment Manager Goal (LTG) pt will be able to amb >4 blocks with pain no more than 2/10 so she could tolerate grocery shopping/ walking in community with . LTG Duration 8 weeks LEFS Impairment pt scores 16 for LEFS Short Term Goal (STG) Pt will score >32 (40-59% impairment) on LEFS to improve her quality of life STG Duration 4 weeks Care Home Goal (LTG) Pt will score >48 (20-39% impairment) on LEFS to improve her quality of life with minimal pain LTG Duration 8 weeks Assessment Summary Assessment This is a low complexity evaluation for this 64yo female who presented to clinic today for pre-op rehab. Pt is scheduled to have R FABIAN ( anterior approach) on 10/19/19. Pt has significant limited R hip ROM, strength which affect her gait mechanics and stair climbing ability. Pt's 5 times STS = 26 s which is below average. This session focused on education on postop precautions, gait training with FWW and stair climbing with L kirstin to maixmize her post op outcome. Pt will benefit from skilled therapy after her hip replacement to improve her overall mobility and strength, so she could return to her walking routine with minimal discomfort. Physical Therapy Plan Frequency and Duration Frequency of Treatment 2x/Week Duration of Treatment 8 weeks Plan of Care Start Date 10/17/19 Plan of Care End Date 12/16/19 Therapeutic Interventions Therapeutic Interventions Balance Training,Gait Training ,Home Exercise Program,Joint Mobilizations,Manual Therapy, Neuromuscular Re-education, Patient/Caregiver Education, Self-Care/Home Management,Soft Tissue Mobilization,Taping, Therapeutic Activities, Therapeutic Exercises Modalities Cold Pack/Ice Massage,Electric Stimulation,Hot Packs Next Visit Focus/Plan Next Note Type Re-Evaluation Next Visit Plan check ROM, strength, gait mechanics post op precautions print out home exercises. Plan of Care Dates Plan of Care Start Date 10/17/19 Plan of Care End Date 12/16/19 Electronically Signed by: Orlando Jang PT 10/17/19 8026 Please Sign and Return: I have reviewed this Plan of Care and certify that the skilled therapy services above are required to meet the patient?s needs. Physician Signature Date Printed Name and Credentials Clinical Instructor Signature Printed Name and Credentials
--- NOTE | 2019-10-24 16:16 | PT.OTRE ---
Past Medical History (Last Updated 10/19/19 @ 11:55 by Murray Ruvalcaba) Chicken pox (Resolved ~1958) COPD (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 disease) (Acute) Depression (Acute) Esophageal stricture (Acute) Heart failure (Chronic ~05/18/11) FPC current use of anticoagulant therapy (Acute) Scabies (Resolved ~2015) Status post aortic valve replacement (Chronic) Surgical History (Last Reviewed 10/16/19 @ 12:59 by Blaine Mccormack MD) Anesthesia (Resolved) History of aortic valve replacement (05/18/11) History of esophagogastroduodenoscopy (EGD) (Acute ~2019) Hx of tonsillectomy (Acute) Visit Care Team Role Provider Type Gideon Maddox MD Primary Care Provider Physician Specialty: Family Practice Address: [address] [place] [address], [id number] Email: [email or web address] Dorothy Askew MD Attending Provider Physician Family Provider Referring Provider Specialty: Orthopedic Surgery Address: [address] [place] [address], [id number] Email: [email or web address] Physical Therapy Re-Evaluation PT-OP-A Visit Information Start: 10/17/19 12:56 Freq: Status: Active Protocol: Document 10/24/19 15:15 HH (Rec: 10/24/19 16:15 HH [email or web address]) Out-Patient Physical Therapy Visit Information Visit Information Visit Type Re-Evaluation Visit Start Time 15:15 Visit Stop Time 15:58 Total Visit Minutes 43 Visit Number 2 Number of SKIN DRIER Visits 0 PT-OP-B Current Condition Start: 10/17/19 12:56 Freq: Status: Active Protocol: Document 10/17/19 15:20 HH (Rec: 10/17/19 16:27 HH [email or web address]) Current Condition History of Current Condition Onset Date many years ago Current Complaints B hip pain R>L, scheduled for RTHA (ant approach) History of Current Condition Pt is a 64 yo female scheduled for R FABIAN (anterior approach) at [facility] on [address] Dorothy Askew. Pt reports she has chronic hip pain bilaterally R>L. She primarily has difficulty in walking and stair climbing. She could only tolerate no more than half a block and climbing stairs tends to increase her pinching pain. She stated walking with her foot turned out tends to decrease her symptoms. Pt has 3 + 3 JAKI with L rail to enter front home entrance and her will be able to assist as tolerate upon d/c from hospital. Prior Treatments and Tests Pt had physical therapy for her low back. Treatment Goals Patient/Caregiver Goals 1. to understand post op precautions 2. to be able to walk >3 blocks without discomfort 3. to climb stairs with step over pattern Current Functional Impairments (Reported) Functional Limitations- Mobility/Gait increased time taken for sit to stand limited amb distance up to 1/2 block Functional Limitations- Other Pt has shower seat, BSC and raised toilet seat at home. PT-OP-C Subjective Start: 10/17/19 12:56 Freq: Status: Active Protocol: Document 10/24/19 15:15 HH (Rec: 10/24/19 16:15 [email or web address]) OP-PT Subjective Patient Comments Patient Comments Im getting better and i almost forgot to use my walker this morning. Patient Reported Progress Improving PT-OP-D Balance Start: 10/17/19 12:56 Freq: Status: Active Protocol: Document 10/17/19 15:20 HH (Rec: 10/17/19 16:27 [email or web address]) Balance Tests Single Limb Standing Single Limb- Right 0 Single Limb- Left 5 PT-OP-E Functional Tests Start: 10/17/19 12:56 Freq: Status: Active Protocol: Document 10/17/19 15:20 HH (Rec: 10/17/19 16:27 [email or web address]) Functional Tests Five Times Sit to Stand Test Score 26 Comments seconds PT-OP-G Mobility & Gait Start: 10/17/19 12:56 Freq: Status: Active Protocol: Document 10/24/19 15:15 HH (Rec: 10/24/19 16:15 [email or web address]) OP Mobility Evaluation Transfers Sit to Stand pt uses staggered stance with extended R leg and trunk lean to left for transfers. OP Gait Assessment Gait Gait Assistance Required: Independent Assistive Devices Assistive Device Front Wheeled Walker Gait Deviations General Gait Pattern Antalgic,Decreased Stride Length,Decreased Feet Clearance Factors Limiting Gait Function Factors Limiting Gait Function Decreased Activity Tolerance, Limited Range of Motion,Pain, Poor Balance Comments Gait Comments Pt amb with stiff R leg during swing phase which lacks of knee flexion and noticed R early heel rise for preswing. PT-OP-H Neuro Start: 10/17/19 12:56 Freq: Status: Active Protocol: Document 10/17/19 15:20 HH (Rec: 10/17/19 16:27 HH [email or web address]) Deep Tendon Reflex & Clonus Assessment Deep Tendon Reflex Bilateral Achilles Deep Tendon Reflex 2+ Normal Bilateral Patellar Deep Tendon Reflex 2+ Normal PT-OP-K Range of Motion Start: 10/17/19 12:56 Freq: Status: Active Protocol: Document 10/24/19 15:15 HH (Rec: 10/24/19 16:15 HH [email or web address]) Hip Goniometric Range of Motion Hip Measured in Degrees Right Active Hip ROM WFL No Testing Position Supine Flexion w/Knee Flexed 107 Extension 0 Abduction 25 Internal Rotation 30 External Rotation 25 Hip ROM Limitations Hip ROM Limitations Muscle Weakness,Pain Comments muscle guarding also noted with passive ROM PT-OP-M Strength Start: 10/17/19 12:56 Freq: Status: Active Protocol: Document 10/24/19 15:15 HH (Rec: 10/24/19 16:15 HH [email or web address]) Hip Strength Hip Manual Muscle Testing Right Flexion (L2) 4- Good- Extension (S1) 4 Good Abduction 4- Good- Adduction 4 Good External Rotation 4- Good- Internal Rotation 4- Good- Reason Not Measured Pain PT-OP-Q Treatments Start: 10/17/19 12:56 Freq: Status: Active Protocol: Document 10/24/19 15:15 HH (Rec: 10/24/19 16:15 HH [email or web address]) Cardio Equipment Recumbent Stepper (Sci-Fit) Duration (Minutes) 6 Resistance 1 Therapeutic Exercises Sitting Exercises sit to stand Side bilateral Equipment Used grab bar Reps/Minutes 5 x 2 Comments cues to prevent staggered stance from RLE Standing Exercises hurdles Standing Exercise Name focused on R swing phase with knee flexion Side bilateral Equipment Used hurdles in flattened position Reps/Minutes 8 mins high knee walk Standing Exercise Name 2 UE support on //bar if needed Side bilateral Reps/Minutes 6 mins Comments no pain noted marching in place Standing Exercise Name 1UE support on grab bar Side bilateral Reps/Minutes 6 mins Manual Therapy Treatment Soft Tissue Mobilization R hip abds\ Mobilization Type Rolling,Sustained Pressure, Trigger Point Release Intensity/Depth Moderate Body Position Sidelying Comments with rolling pin. Noted tenderness PT-OP-T Assessment and Plan Start: 10/17/19 12:56 Freq: Status: Active Protocol: Document 10/24/19 15:15 HH (Rec: 10/24/19 16:15 HH [email or web address]) Physical Therapy Assessment Goals 5 STS Impairment 5 times STS =26s Short Term Goal (STG) Pt will improve her B hip strength so she could finish 5 times STS to <20 seconds STG Duration 4 weeks Concrete Saw Operator Goal (LTG) Pt will improve her B hip strength so she could finish 5 times STS to <15 seconds LTG Duration 8 weeks activity tolerance Impairment unable to maximiliano walking > half of a block Short Term Goal (STG) Pt will be able to amb > 2 blocks before taking a rest break. STG Duration 4 weeks Concrete Saw Operator Goal (LTG) pt will be able to amb >4 blocks with pain no more than 2/10 so she could tolerate grocery shopping/ walking in community with . LTG Duration 8 weeks LEFS Impairment pt scores 16 for LEFS Short Term Goal (STG) Pt will score >32 (40-59% impairment) on LEFS to improve her quality of life STG Duration 4 weeks Mcfp Goal (LTG) Pt will score >48 (20-39% impairment) on LEFS to improve her quality of life with minimal pain LTG Duration 8 weeks Assessment Summary Assessment Reassessment today after her R FABIAN on 10/19/19. Pt improves very well but cont to have difficulty remembering post precautions. Reviewed with her again today. Pt does has R leg weakness who tends to use staggered stance for transfers . Tx focused on gait training since pt amb with a stiff R leg with decreased knee flexion during swing phase. added marching in place and sit to stand for HEP today. Physical Therapy Plan Next Visit Focus/Plan Next Note Type Treatment Note Next Visit Plan leg press hip stabilization biking/ stepper as maximiliano single leg balance ex and gait training
--- NOTE | 2019-10-24 16:21 | PT.OTN ---
Physical Therapy Treatment Note PT-OP-A Visit Information Start: 10/17/19 12:56 Freq: Status: Active Protocol: Document 10/24/19 15:15 HH (Rec: 10/24/19 16:15 [email or web address]) Out-Patient Physical Therapy Visit Information Visit Information Visit Type Progress Note Visit Note post op reassessment today Visit Start Time 15:15 Visit Stop Time 15:58 Total Visit Minutes 43 Visit Number 10/02 Number of TIRE VULCANIZER Visits 0 PT-OP-B Current Condition Start: 10/17/19 12:56 Freq: Status: Active Protocol: Document 10/17/19 15:20 HH (Rec: 10/17/19 16:27 [email or web address]) Current Condition History of Current Condition Onset Date many years ago Current Complaints B hip pain R>L, scheduled for RTHA (ant approach) History of Current Condition Pt is a 64 yo female scheduled for R FABIAN (anterior approach) at [facility] on [address] Dorothy Askew. Pt reports she has chronic hip pain bilaterally R>L. She primarily has difficulty in walking and stair climbing. She could only tolerate no more than half a block and climbing stairs tends to increase her pinching pain. She stated walking with her foot turned out tends to decrease her symptoms. Pt has 3 + 3 JAKI with L rail to enter front home entrance and her will be able to assist as tolerate upon d/c from hospital. Prior Treatments and Tests Pt had physical therapy for her low back. Treatment Goals Patient/Caregiver Goals 1. to understand post op precautions 2. to be able to walk >3 blocks without discomfort 3. to climb stairs with step over pattern Current Functional Impairments (Reported) Functional Limitations- Mobility/Gait increased time taken for sit to stand limited amb distance up to 1/2 block Functional Limitations- Other Pt has shower seat, BSC and raised toilet seat at home. PT-OP-C Subjective Start: 10/17/19 12:56 Freq: Status: Active Protocol: Document 10/24/19 15:15 HH (Rec: 10/24/19 16:15 [email or web address]) OP-PT Subjective Patient Comments Patient Comments Im getting better and i almost forgot to use my walker this morning. Patient Reported Progress Improving PT-OP-D Balance Start: 10/17/19 12:56 Freq: Status: Active Protocol: Document 10/17/19 15:20 HH (Rec: 10/17/19 16:27 [email or web address]) Balance Tests Single Limb Standing Single Limb- Right 0 Single Limb- Left 5 PT-OP-E Functional Tests Start: 10/17/19 12:56 Freq: Status: Active Protocol: Document 10/17/19 15:20 HH (Rec: 10/17/19 16:27 [email or web address]) Functional Tests Five Times Sit to Stand Test Score 26 Comments seconds PT-OP-G Mobility & Gait Start: 10/17/19 12:56 Freq: Status: Active Protocol: Document 10/24/19 15:15 HH (Rec: 10/24/19 16:15 [email or web address]) OP Mobility Evaluation Transfers Sit to Stand pt uses staggered stance with extended R leg and trunk lean to left for transfers. OP Gait Assessment Gait Gait Assistance Required: Independent Assistive Devices Assistive Device Front Wheeled Walker Gait Deviations General Gait Pattern Antalgic,Decreased Stride Length,Decreased Feet Clearance Factors Limiting Gait Function Factors Limiting Gait Function Decreased Activity Tolerance, Limited Range of Motion,Pain, Poor Balance Comments Gait Comments Pt amb with stiff R leg during swing phase which lacks of knee flexion and noticed R early heel rise for preswing. PT-OP-H Neuro Start: 10/17/19 12:56 Freq: Status: Active Protocol: Document 10/17/19 15:20 HH (Rec: 10/17/19 16:27 [email or web address]) Deep Tendon Reflex & Clonus Assessment Deep Tendon Reflex Bilateral Achilles Deep Tendon Reflex 2+ Normal Bilateral Patellar Deep Tendon Reflex 2+ Normal PT-OP-K Range of Motion Start: 10/17/19 12:56 Freq: Status: Active Protocol: Document 10/24/19 15:15 HH (Rec: 10/24/19 16:15 HH [email or web address]) Hip Goniometric Range of Motion Hip Right Active Hip ROM WFL No Testing Position Supine Flexion w/Knee Flexed 107 Extension 0 Abduction 25 Internal Rotation 30 External Rotation 25 Hip ROM Limitations Hip ROM Limitations Muscle Weakness,Pain Comments muscle guarding also noted with passive ROM PT-OP-M Strength Start: 10/17/19 12:56 Freq: Status: Active Protocol: Document 10/24/19 15:15 HH (Rec: 10/24/19 16:15 [email or web address]) Hip Strength Hip Manual Muscle Testing Right Flexion (L2) 4- Good- Extension (S1) 4 Good Abduction 4- Good- Adduction 4 Good External Rotation 4- Good- Internal Rotation 4- Good- Reason Not Measured Pain PT-OP-Q Treatments Start: 10/17/19 12:56 Freq: Status: Active Protocol: Document 10/24/19 15:15 (Rec: 10/24/19 16:15 [email or web address]) Cardio Equipment Recumbent Stepper (Sci-Fit) Duration (Minutes) 6 Resistance 1 Therapeutic Exercises Sitting Exercises sit to stand Side bilateral Equipment Used grab bar Reps/Minutes 5 x 2 Comments cues to prevent staggered stance from RLE Standing Exercises hurdles Standing Exercise Name focused on R swing phase with knee flexion Side bilateral Equipment Used hurdles in flattened position Reps/Minutes 8 mins high knee walk Standing Exercise Name 2 UE support on //bar if needed Side bilateral Reps/Minutes 6 mins Comments no pain noted marching in place Standing Exercise Name 1UE support on grab bar Side bilateral Reps/Minutes 6 mins Manual Therapy Treatment Soft Tissue Mobilization R hip abds\ Mobilization Type Rolling,Sustained Pressure, Trigger Point Release Intensity/Depth Moderate Body Position Sidelying Comments with rolling pin. Noted tenderness PT-OP-T Assessment and Plan Start: 10/17/19 12:56 Freq: Status: Active Protocol: Document 10/24/19 15:15 (Rec: 10/24/19 16:15 [email or web address]) Physical Therapy Assessment Goals 5 STS Impairment 5 times STS =26s Short Term Goal (STG) Pt will improve her B hip strength so she could finish 5 times STS to <20 seconds STG Duration 4 weeks Sales Manager [employer] Goal (LTG) Pt will improve her B hip strength so she could finish 5 times STS to <15 seconds LTG Duration 8 weeks activity tolerance Impairment unable to maximiliano walking > half of a block Short Term Goal (STG) Pt will be able to amb > 2 blocks before taking a rest break. STG Duration 4 weeks Senior Living Goal (LTG) pt will be able to amb >4 blocks with pain no more than 2/10 so she could tolerate grocery shopping/ walking in community with . LTG Duration 8 weeks LEFS Impairment pt scores 16 for LEFS Short Term Goal (STG) Pt will score >32 (40-59% impairment) on LEFS to improve her quality of life STG Duration 4 weeks Senior Living Goal (LTG) Pt will score >48 (20-39% impairment) on LEFS to improve her quality of life with minimal pain LTG Duration 8 weeks Assessment Summary Assessment Post op reassessment today after her R FABIAN on 10/19/19. Pt improves very well especially ROM but cont to have difficulty remembering post op precautions. Reviewed with her again today. Pt does has R leg weakness who tends to use staggered stance for transfers. Tx focused on gait training since pt amb with a stiff R leg with decreased knee flexion during swing phase. Added marching in place and sit to stand for HEP today. Physical Therapy Plan Next Visit Focus/Plan Next Note Type Treatment Note Next Visit Plan leg press hip stabilization biking/ stepper as maximiliano single leg balance ex and gait training
--- NOTE | 2019-10-26 15:52 | PT.OTN ---
Physical Therapy Treatment Note PT-OP-A Visit Information Start: 10/17/19 12:56 Freq: Status: Active Protocol: Document 10/26/19 15:05 (Rec: 10/26/19 15:52 [id number]) Out-Patient Physical Therapy Visit Information Visit Information Visit Type Treatment Note Visit Start Time 15:06 Visit Stop Time 15:50 Total Visit Minutes 44 Visit Number 10/30 Number of KENNEL MANAGER DOG TRACK Visits 0 PT-OP-B Current Condition Start: 10/17/19 12:56 Freq: Status: Active Protocol: Document 10/17/19 15:20 HH (Rec: 10/17/19 16:27 [email or web address]) Current Condition History of Current Condition Onset Date many years ago Current Complaints B hip pain R>L, scheduled for RTHA (ant approach) History of Current Condition Pt is a 64 yo female scheduled for R FABIAN (anterior approach) at [facility] on [address] Dorothy Askew. Pt reports she has chronic hip pain bilaterally R>L. She primarily has difficulty in walking and stair climbing. She could only tolerate no more than half a block and climbing stairs tends to increase her pinching pain. She stated walking with her foot turned out tends to decrease her symptoms. Pt has 3 + 3 JAKI with L rail to enter front home entrance and her will be able to assist as tolerate upon d/c from hospital. Prior Treatments and Tests Pt had physical therapy for her low back. Treatment Goals Patient/Caregiver Goals 1. to understand post op precautions 2. to be able to walk >3 blocks without discomfort 3. to climb stairs with step over pattern Current Functional Impairments (Reported) Functional Limitations- Mobility/Gait increased time taken for sit to stand limited amb distance up to 1/2 block Functional Limitations- Other Pt has shower seat, BSC and raised toilet seat at home. PT-OP-C Subjective Start: 10/17/19 12:56 Freq: Status: Active Protocol: Document 10/26/19 15:05 (Rec: 10/26/19 15:52 [id number]) OP-PT Subjective Patient Comments Patient Comments I walked a lot today with my walker and i got quite tired. PT-OP-D Balance Start: 10/17/19 12:56 Freq: Status: Active Protocol: Document 10/17/19 15:20 HH (Rec: 10/17/19 16:27 [email or web address]) Balance Tests Single Limb Standing Single Limb- Right 0 Single Limb- Left 5 PT-OP-E Functional Tests Start: 10/17/19 12:56 Freq: Status: Active Protocol: Document 10/17/19 15:20 HH (Rec: 10/17/19 16:27 [email or web address]) Functional Tests Five Times Sit to Stand Test Score 26 Comments seconds PT-OP-G Mobility & Gait Start: 10/17/19 12:56 Freq: Status: Active Protocol: Document 10/24/19 15:15 HH (Rec: 10/24/19 16:15 [email or web address]) OP Mobility Evaluation Transfers Sit to Stand pt uses staggered stance with extended R leg and trunk lean to left for transfers. OP Gait Assessment Gait Gait Assistance Required: Independent Assistive Devices Assistive Device Front Wheeled Walker Gait Deviations General Gait Pattern Antalgic,Decreased Stride Length,Decreased Feet Clearance Factors Limiting Gait Function Factors Limiting Gait Function Decreased Activity Tolerance, Limited Range of Motion,Pain, Poor Balance Comments Gait Comments Pt amb with stiff R leg during swing phase which lacks of knee flexion and noticed R early heel rise for preswing. PT-OP-H Neuro Start: 10/17/19 12:56 Freq: Status: Active Protocol: Document 10/17/19 15:20 HH (Rec: 10/17/19 16:27 [email or web address]) Deep Tendon Reflex & Clonus Assessment Deep Tendon Reflex Bilateral Achilles Deep Tendon Reflex 2+ Normal Bilateral Patellar Deep Tendon Reflex 2+ Normal PT-OP-K Range of Motion Start: 10/17/19 12:56 Freq: Status: Active Protocol: Document 10/24/19 15:15 HH (Rec: 10/24/19 16:15 [email or web address]) Hip Goniometric Range of Motion Hip Right Active Hip ROM WFL No Testing Position Supine Flexion w/Knee Flexed 107 Extension 0 Abduction 25 Internal Rotation 30 External Rotation 25 Hip ROM Limitations Hip ROM Limitations Muscle Weakness,Pain Comments muscle guarding also noted with passive ROM PT-OP-M Strength Start: 10/17/19 12:56 Freq: Status: Active Protocol: Document 10/24/19 15:15 HH (Rec: 10/24/19 16:15 [email or web address]) Hip Strength Hip Manual Muscle Testing Right Flexion (L2) 4- Good- Extension (S1) 4 Good Abduction 4- Good- Adduction 4 Good External Rotation 4- Good- Internal Rotation 4- Good- Reason Not Measured Pain PT-OP-Q Treatments Start: 10/17/19 12:56 Freq: Status: Active Protocol: Document 10/26/19 15:05 (Rec: 10/26/19 15:52 [id number]) Cardio Equipment Recumbent Stepper (Sci-Fit) Duration (Minutes) 6 Resistance 1 Therapeutic Exercises Supine Exercises bridging Side bilateral Reps/Minutes 8 x 2 supine heel slide Supine Exercise Name with towel underneath Side right Reps/Minutes 15 r x2 Comments cues on preventing valgus moement Sitting Exercises sit to stand Side bilateral Equipment Used grab bar Reps/Minutes 6 x 3 Comments cues to prevent staggered stance from RLE Standing Exercises high knee walk Standing Exercise Name 2 UE support on //bar if needed Side bilateral Reps/Minutes 6 mins Comments no pain noted Gait Training Gait Activity ground level Description high knee walking Device Used none but gait belt Level of Assistance CGA Surface ground level Comments 1 loop of clinic facilitate feet clearance and knee flexion Manual Therapy Treatment Soft Tissue Mobilization R hip abds\ Mobilization Type Rolling,Sustained Pressure, Trigger Point Release Intensity/Depth Moderate Body Position Sidelying Comments with rolling pin. Noted tenderness PT-OP-T Assessment and Plan Start: 10/17/19 12:56 Freq: Status: Active Protocol: Document 10/26/19 15:05 (Rec: 10/26/19 15:52 [id number]) Physical Therapy Assessment Goals 5 STS Impairment 5 times STS =26s Short Term Goal (STG) Pt will improve her B hip strength so she could finish 5 times STS to <20 seconds STG Duration 4 weeks Sex Offender Treatment Professional Goal (LTG) Pt will improve her B hip strength so she could finish 5 times STS to <15 seconds LTG Duration 8 weeks activity tolerance Impairment unable to maximiliano walking > half of a block Short Term Goal (STG) Pt will be able to amb > 2 blocks before taking a rest break. STG Duration 4 weeks Sex Offender Treatment Professional Goal (LTG) pt will be able to amb >4 blocks with pain no more than 2/10 so she could tolerate grocery shopping/ walking in community with . LTG Duration 8 weeks LEFS Impairment pt scores 16 for LEFS Short Term Goal (STG) Pt will score >32 (40-59% impairment) on LEFS to improve her quality of life STG Duration 4 weeks Sex Offender Treatment Professional Goal (LTG) Pt will score >48 (20-39% impairment) on LEFS to improve her quality of life with minimal pain LTG Duration 8 weeks Assessment Summary Assessment Pt reports of fatigue today after long walk but She did maximiliano tx well today which focused on light strengthening , ROM Ex and gait training. Educated pt to focus on high knee walking at home to facilitate feet clearance and knee flexion.
--- NOTE | 2019-10-31 14:29 | PT.OTN ---
Current Diagnoses Unilateral primary osteoarthritis, right hip (10/31/19) Physical Therapy Treatment Note PT-OP-A Visit Information Start: 10/17/19 12:56 Freq: Status: Active Protocol: Document 10/31/19 14:15 HH (Rec: 10/31/19 14:29 [email or web address]) Out-Patient Physical Therapy Visit Information Visit Information Visit Type Treatment Note Visit Start Time 13:16 Visit Stop Time 14:00 Total Visit Minutes 44 Visit Number 11/30 Number of MANUFACTURERS SERVICE REPRESENTATIVE Visits 0 PT-OP-B Current Condition Start: 10/17/19 12:56 Freq: Status: Active Protocol: Document 10/17/19 15:20 HH (Rec: 10/17/19 16:27 HH [email or web address]) Current Condition History of Current Condition Onset Date many years ago Current Complaints B hip pain R>L, scheduled for RTHA (ant approach) History of Current Condition Pt is a 64 yo female scheduled for R FABIAN (anterior approach) at [facility] on [address] Dorothy Askew. Pt reports she has chronic hip pain bilaterally R>L. She primarily has difficulty in walking and stair climbing. She could only tolerate no more than half a block and climbing stairs tends to increase her pinching pain. She stated walking with her foot turned out tends to decrease her symptoms. Pt has 3 + 3 JAKI with L rail to enter front home entrance and her will be able to assist as tolerate upon d/c from hospital. Prior Treatments and Tests Pt had physical therapy for her low back. Treatment Goals Patient/Caregiver Goals 1. to understand post op precautions 2. to be able to walk >3 blocks without discomfort 3. to climb stairs with step over pattern Current Functional Impairments (Reported) Functional Limitations- Mobility/Gait increased time taken for sit to stand limited amb distance up to 1/2 block Functional Limitations- Other Pt has shower seat, BSC and raised toilet seat at home. PT-OP-C Subjective Start: 10/17/19 12:56 Freq: Status: Active Protocol: Document 10/31/19 14:15 HH (Rec: 10/31/19 14:29 HH [email or web address]) OP-PT Subjective Patient Comments Patient Comments Im doing a lot better but rolling in bed is still difficult for me. Patient Reported Progress Improving PT-OP-D Balance Start: 10/17/19 12:56 Freq: Status: Active Protocol: Document 10/17/19 15:20 HH (Rec: 10/17/19 16:27 [email or web address]) Balance Tests Single Limb Standing Single Limb- Right 0 Single Limb- Left 5 PT-OP-E Functional Tests Start: 10/17/19 12:56 Freq: Status: Active Protocol: Document 10/17/19 15:20 HH (Rec: 10/17/19 16:27 [email or web address]) Functional Tests Five Times Sit to Stand Test Score 26 Comments seconds PT-OP-G Mobility & Gait Start: 10/17/19 12:56 Freq: Status: Active Protocol: Document 10/24/19 15:15 HH (Rec: 10/24/19 16:15 [email or web address]) OP Mobility Evaluation Transfers Sit to Stand pt uses staggered stance with extended R leg and trunk lean to left for transfers. OP Gait Assessment Gait Gait Assistance Required: Independent Assistive Devices Assistive Device Front Wheeled Walker Gait Deviations General Gait Pattern Antalgic,Decreased Stride Length,Decreased Feet Clearance Factors Limiting Gait Function Factors Limiting Gait Function Decreased Activity Tolerance, Limited Range of Motion,Pain, Poor Balance Comments Gait Comments Pt amb with stiff R leg during swing phase which lacks of knee flexion and noticed R early heel rise for preswing. PT-OP-H Neuro Start: 10/17/19 12:56 Freq: Status: Active Protocol: Document 10/17/19 15:20 HH (Rec: 10/17/19 16:27 [email or web address]) Deep Tendon Reflex & Clonus Assessment Deep Tendon Reflex Bilateral Achilles Deep Tendon Reflex 2+ Normal Bilateral Patellar Deep Tendon Reflex 2+ Normal PT-OP-K Range of Motion Start: 10/17/19 12:56 Freq: Status: Active Protocol: Document 10/24/19 15:15 HH (Rec: 10/24/19 16:15 [email or web address]) Hip Goniometric Range of Motion Hip Right Active Hip ROM WFL No Testing Position Supine Flexion w/Knee Flexed 107 Extension 0 Abduction 25 Internal Rotation 30 External Rotation 25 Hip ROM Limitations Hip ROM Limitations Muscle Weakness,Pain Comments muscle guarding also noted with passive ROM PT-OP-M Strength Start: 10/17/19 12:56 Freq: Status: Active Protocol: Document 10/24/19 15:15 HH (Rec: 10/24/19 16:15 [email or web address]) Hip Strength Hip Manual Muscle Testing Right Flexion (L2) 4- Good- Extension (S1) 4 Good Abduction 4- Good- Adduction 4 Good External Rotation 4- Good- Internal Rotation 4- Good- Reason Not Measured Pain PT-OP-Q Treatments Start: 10/17/19 12:56 Freq: Status: Active Protocol: Document 10/31/19 14:15 (Rec: 10/31/19 14:29 [email or web address]) Cardio Equipment Recumbent Stepper (Sci-Fit) Duration (Minutes) 8 Resistance 5 Other 2 30 secs break in between Therapeutic Exercises Supine Exercises supine hip abduction Side right Reps/Minutes 10x2 Comments towel underneath ankle SLR Side bilateral Reps/Minutes 8 x2 supine heel slide Supine Exercise Name with towel underneath Side right Reps/Minutes 15 r x2 Comments cues on preventing valgus moement Sidelying Exercises clamshell Side right Reps/Minutes 8 x2 Sitting Exercises sit to stand Side bilateral Equipment Used grab bar Reps/Minutes 6 x 3 Comments cues to prevent staggered stance from RLE Standing Exercises step up Side right Equipment Used 1 UE on rail Reps/Minutes 8 x2 tandem walk Standing Exercise Name focus on heel toe gait Side bilateral Equipment Used 1 UE on grab bar Reps/Minutes 10 ft x 8 high knee walk Standing Exercise Name 2 UE support on //bar if needed Side bilateral Reps/Minutes 6 mins Comments no pain noted marching in place Standing Exercise Name 1UE support on grab bar Side bilateral Reps/Minutes 6 mins PT-OP-T Assessment and Plan Start: 10/17/19 12:56 Freq: Status: Active Protocol: Document 10/31/19 14:15 (Rec: 10/31/19 14:29 [email or web address]) Physical Therapy Assessment Goals 5 STS Impairment 5 times STS =26s Short Term Goal (STG) Pt will improve her B hip strength so she could finish 5 times STS to <20 seconds STG Duration 4 weeks Preparation Department Supervisor Goal (LTG) Pt will improve her B hip strength so she could finish 5 times STS to <15 seconds LTG Duration 8 weeks activity tolerance Impairment unable to maximiliano walking > half of a block Short Term Goal (STG) Pt will be able to amb > 2 blocks before taking a rest break. STG Duration 4 weeks Preparation Department Supervisor Goal (LTG) pt will be able to amb >4 blocks with pain no more than 2/10 so she could tolerate grocery shopping/ walking in community with . LTG Duration 8 weeks LEFS Impairment pt scores 16 for LEFS Short Term Goal (STG) Pt will score >32 (40-59% impairment) on LEFS to improve her quality of life STG Duration 4 weeks Preparation Department Supervisor Goal (LTG) Pt will score >48 (20-39% impairment) on LEFS to improve her quality of life with minimal pain LTG Duration 8 weeks Assessment Summary Assessment Pt cont to improve with improved gait pattern without using AD. However, this clinic will be closed from 10/31 until further notice d/t outbreak of coronavirus. Spent most of this session to educate new HEP and exercise progression. Her HEP involves supine hip ROM, sit to stand, SLS, heel toe walk and high knee walk, along with step up. Dis with pt to progress her ex as maximiliano. Will f/u with pt in 2-4 weeks. Physical Therapy Plan Hold Physical Therapy Reason For Hold this clinic will be closed from 10/31 until further notice d/t outbreak of coronavirus. Next Visit Focus/Plan Next Note Type Treatment Note Next Visit Plan leg press hip stabilization biking/ stepper as maximiliano single leg balance ex and gait training
--- NOTE | 2019-12-11 15:19 | PT-OP ANOTE ---
This PT clinic has been closed since 10/31 d/t coronavirus pademic. Contacted pt via phone 12/06/19, pt would like to continue therapy service to strengthen her hip and optimize her gait patten since pt reports she cont to have hip instability during amb. Reminded pt will have to follow CDC guidelines to wear mask, wash hands frequently and maintain social distancing during visits.
--- NOTE | 2020-04-11 15:53 | PT.OPDS ---
Current Diagnoses Unilateral primary osteoarthritis, right hip (10/31/19) Visit Care Team Role Provider Type Gideon Maddox MD Primary Care Provider Physician Specialty: Family Practice Address: [address] [place] [address], [id number] Email: [email or web address] Dorothy Askew MD Attending Provider Physician Family Provider Referring Provider Specialty: Orthopedic Surgery Address: [address] [place] [address], [id number] Email: [email or web address] Visit Number Visit Number 11/30 PT-OP-T Assessment and Plan Start: 10/17/19 12:56 Freq: Status: Active Protocol: Document 04/11/20 15:53 (Rec: 04/11/20 15:53 [id number]) Physical Therapy Plan Discharge Physical Therapy Discharge Reasons Patient Request Discharge Comments Pt called in in December and stated that she was moving out of town and requested to d/c from PT
== END 2020-04-16 10:47 ==
LOC: PHYS 13:45
PROVIDERS: Family Provider Orthopaedic Surgery; PCP Family Medicine; Referring Provider Orthopaedic Surgery; Visit Provider Orthopaedic Surgery
DX: M16.11 Unilateral primary osteoarthritis, right hip (principal)
CPT/HCPCS: 97110; 97116; 97140; 97161; 97535

== ENCOUNTER 2019-11-19 08:34 | Emergency (ER) | payer OTHER, MEDICAID, SELFPAY ==
[2019-10-19 12:05] VITALS: BMI 22.5
[2019-11-19 08:44] VITALS: BP 144/93; PULSE 98; RESP 16; TEMP 37.1; O2SAT 99; BMI 22.6
--- NOTE | 2019-11-19 08:46 | DI.RAD.S_ITS ---
PROCEDURE: XR FEMUR RT MIN 2V INDICATIONS: felt/heard a snap TECHNIQUE: 2 views of the femur were acquired. COMPARISON: [facility], CR, XR HIP W PEL IF DONE RT 2V, 11/19/2019, 8:41. [facility], CR, XR HIP W PEL IF DONE RT 2V, 10/19/2019, 11:34. [facility], CR, XR HIP W PEL IF DONE RT 2V, 10/19/2019, 10:22. FINDINGS: Bones: No fractures or dislocations. No suspicious bony lesions. Right hip arthroplasty hardware is seen. No findings of hardware failure or hardware loosening are seen. Soft tissues: No suspicious soft tissue calcifications or masses. Atherosclerotic calcification is noted. IMPRESSION: Normal plain films, without findings of hardware failure, fractures, or dislocations. Dictated by: Cheko Barahona M.D. on 11/19/2019 at 8:03 Approved by: Cheko Barahona M.D. on 11/19/2019 at 8:04
--- NOTE | 2019-11-19 08:47 | DI.RAD.S_ITS ---
PROCEDURE: XR HIP W PEL IF DONE RT 2V INDICATIONS: felt heard a snap TECHNIQUE: AP pelvis with lateral view(s) of the right hip(s). COMPARISON: [facility], CR, XR HIP W PEL IF DONE RT 2V, 10/19/2019, 10:22. [facility], CR, XR FEMUR RT MIN 2V, 11/19/2019, 8:41. [facility], CR, XR HIP W PEL IF DONE RT 2V, 10/19/2019, 11:34. FINDINGS: Bones: Right hip arthroplasty hardware is seen. The arthroplasty hardware is unchanged in configuration and appearance compared to the prior examination. No findings of hardware failure or hardware loosening are seen. No fractures or dislocations can be seen. Moderate degenerative change is seen the contralateral left hip. Note is made of osteitis pubis, which is not considered to be frankly abnormal in a woman of this age. Soft tissues: The visualized bowel gas pattern is normal. No suspicious soft tissue calcifications. IMPRESSION: No acute abnormality is seen by plain film. Unremarkable right hip arthroplasty. Dictated by: Cheko Barahona M.D. on 11/19/2019 at 8:01 Approved by: Cheko Barahona M.D. on 11/19/2019 at 8:03
--- NOTE | 2019-11-19 08:59 | ED_ITS ---
HPI - Extremity Injury (Lower) General Chief Complaint: Extremity Injury, Lower Stated Complaint: rt hip replaced 10/18/rt thigh pain x2 days Time Seen by Provider: 11/19/19 08:46 Source: patient Mode of arrival: Wheelchair Limitations: no limitations History of Present Illness HPI Narrative: 64-year-old female proximally 4 weeks ago underwent a right total hip arthroplasty. States she has been using a walker. Yesterday she started use a cane. As she was walking with a cane she felt/heard a ?pop? in her right leg down towards her knee. Since then she has had increasing pain. Has been able to walk however has been very difficult for her. She came in today because she was concerned about fracture Related Data Home Medications Medication Instructions Recorded Confirmed aspirin 81 mg PO DAILY 10/11/19 10/26/19 rosuvastatin [Crestor] 40 mg PO BEDTIME 10/16/19 10/26/19 Previous Rx's Medication Instructions Recorded epinephrine 0.3 mg/0.3 mL 0.3 mg IM SEE INSTRUCTIONS #1 kit 03/01/18 injection, auto-injector albuterol sulfate 90 mcg/actuation 1 puff INHALATION Q4-6H PRN #8 gram 12/22/18 aerosol inhaler lisinopril 10 mg tablet 5 mg PO BID #90 tab 02/14/19 warfarin 2.5 mg tablet 2.5 mg PO DAILY #90 tab 04/06/19 alendronate 70 mg tablet 70 mg PO QWEEK #14 tab 05/01/19 citalopram 20 mg tablet 40 mg PO DAILY #180 tab 09/13/19 lorazepam 1 mg tablet See Rx Instructions .ROUTE 10/13/19 .COMPLEX #90 tablet cyclobenzaprine 10 mg tablet See Rx Instructions .ROUTE 10/16/19 .COMPLEX #40 tab enoxaparin [Lovenox] 60 mg SUBCUT Q12H #2.4 ml 10/20/19 oxycodone-acetaminophen 5 mg-325 1 - 2 tab PO Q6H PRN #40 tab 11/10/19 mg tablet atenolol 50 mg tablet 50 mg PO BID #180 tab 11/13/19 Allergies Allergy/AdvReac Type Severity Reaction Status Date / Time venom-honey bee Allergy Severe anaphlaxs Verified 11/19/19 08:44 [BEE VENOM (HONEY BEE)] Review of Systems Constitutional Constitutional: Denies fever(s) and Denies frequent falls Musculoskeletal Musculoskeletal: Denies tingling Comments: Right leg pain Integumentary/Breasts Skin/Breast: Denies lesions and Denies rash Neurologic Neurologic: Denies frequent falls and Denies tingling Hematologic/Lymphatic Hematologic/Lymphatic: Denies easy bleeding and Denies easy bruising Patient History Medical History Chicken pox (Resolved ~1958) COPD (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 disease) (Acute) Depression (Acute) Esophageal stricture (Acute) Heart failure (Chronic ~05/18/11) 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 (Acute) Scabies (Resolved ~2015) Status post aortic valve replacement (Chronic) Surgical History Anesthesia (Resolved) History of aortic valve replacement (05/18/11) History of esophagogastroduodenoscopy (EGD) (Acute ~2019) Hx of tonsillectomy (Acute) Social History household members: significant other Smoking Status: Former smoker alcohol intake: current substance use type: does not use Smoking Status: Former smoker alcohol intake frequency: 0-2 drinks per day Substance Use Type: does not use Exam Initial Vital Signs Initial Vital Signs: Vital Signs Temperature 98.7 F 11/19/19 08:44 Pulse Rate 98 H 11/19/19 08:44 Respiratory Rate 16 11/19/19 08:44 Blood Pressure 144/93 H 11/19/19 08:44 Pulse Oximetry 99 11/19/19 08:44 Const General: cooperative and comfortable Limitations: mental status not altered HENHI Head: normal to inspection and normocephalic Resp Effort & Inspection: normal respiratory effort Skin Lesions: no lesions Rashes: no rashes Neuro General: alert and awake Cognition: normal cognition Speech: speech normal Extrem Other: Patient able do a straight leg raise. ACL MCL PCL and LCL all intact with functional testing. She is tender to palpation on bilateral hamstrings which she states reproduces the pain which brought her in to the emergency department right hip unremarkable. Right ankle unremarkable. Course Orders Ordered: ED Orders 11/19/19 08:46 XR femur RT min 2V Stat 11/19/19 08:47 XR hip w pel if done RT 2V Stat Vital Signs Vital signs: Vital Signs - 8 hr 11/19/19 08:44 Temperature 98.7 F Pulse Rate 98 H Respiratory Rate 16 Blood Pressure 144/93 H Pulse Oximetry 99 MDM - Extremity Injury (Lower) Imaging Data Extremity x-ray #1: Radiologist's Impression: [address] [address] XRay Report Signed Patient: Vonnie Conklin [facility]#: [id number] : [id number]:[id number] Age/Sex: 64 / FDate of Service: 11/19/19 Loc: ED Accession Number: [id number] Procedure: XR hip w pel if done RT 2V Ordering Provider: Bill Haro D.O. PROCEDURE: XR HIP W PEL IF DONE RT 2V INDICATIONS: felt heard a snap TECHNIQUE: AP pelvis with lateral view(s) of the right hip(s). COMPARISON: [facility], CR, XR HIP W PEL IF DONE RT 2V, 10/19/2019, 10:22. [facility], CR, XR FEMUR RT MIN 2V, 11/19/2019, 8:41. [facility], CR, XR HIP W PEL IF DONE RT 2V, 10/19/2019, 11:34. FINDINGS: Bones: Right hip arthroplasty hardware is seen. The arthroplasty hardware is unchanged in configuration and appearance compared to the prior examination. No findings of hardware failure or hardware loosening are seen. No fractures or dislocations can be seen. Moderate degenerative change is seen the contralateral left hip. Note is made of osteitis pubis, which is not considered to be frankly abnormal in a woman of this age. Soft tissues: The visualized bowel gas pattern is normal. No suspicious soft tissue calcifications. IMPRESSION: No acute abnormality is seen by plain film. Unremarkable right hip arthroplasty. Dictated by: Cheko Barahona M.D. on 11/19/2019 at 8:01 Approved by: Cheko Barahona M.D. on 11/19/2019 at 8:03 Extremity x-ray #2: Radiologist's Impression: [address] [address] XRay Report Signed Patient: Vonnie Conklin MMR#: [id number] : 6Acct:[id number] Age/Sex: 64 / FDate of Service: 11/19/19 Loc: ED Accession Number: [id number] Procedure: XR femur RT min 2V Ordering Provider: Bill Haro D.O. PROCEDURE: XR FEMUR RT MIN 2V INDICATIONS: felt/heard a snap TECHNIQUE: 2 views of the femur were acquired. COMPARISON: [facility], CR, XR HIP W PEL IF DONE RT 2V, 11/19/2019, 8:41. [facility], CR, XR HIP W PEL IF DONE RT 2V, 10/19/2019, 11:34. [facility], CR, XR HIP W PEL IF DONE RT 2V, 10/19/2019, 10:22. FINDINGS: Bones: No fractures or dislocations. No suspicious bony lesions. Right hip arthroplasty hardware is seen. No findings of hardware failure or hardware loosening are seen. Soft tissues: No suspicious soft tissue calcifications or masses. Atherosclerotic calcification is noted. IMPRESSION: Normal plain films, without findings of hardware failure, fractures, or dislocations. Dictated by: Cheko Barahona M.D. on 11/19/2019 at 8:03 Approved by: Cheko Barahona M.D. on 11/19/2019 at 8:04 MDM Narrative Medical decision making narrative: No fractures on the x-rays. Neurovascularly intact. Able to reproduce the pain by palpating both hamstrings on her right lower extremity. I do suspect this is the cause of her symptoms. Informed her that she could continue all of the postoperative instructions given to her by her surgeon. Hold on further workup for now. Patient was given return precautions and follow-up instructions. She expressed understanding and agreement plan. Discharge Plan Departure Patient Disposition: Home Clinical Impression: Acute leg pain Qualifiers: Laterality: right Qualified Code(s): M79.604 - Pain in right leg Hamstring injury Qualifiers: Encounter type: initial encounter Laterality: right Qualified Code(s): S76.301A - Unspecified injury of muscle, fascia and tendon of the posterior muscle group at thigh level, right thigh, initial encounter Instructions: How To Perform RICE (Rest, Ice, Compress, Elevate) Activity Restrictions/Additional Instructions: There were no fractures on the x-ray. You can continue to follow all of the postoperative instructions given to you by your orthopedic surgeon. You can walk on your leg. Contact your primary provider for follow-up. Return to the emergency department for any new or worsening symptoms Prescriptions: No Action albuterol sulfate 90 mcg/actuation HFA aerosol inhaler 1 puff INHALATION Q4-6H PRN (Reason: shortness of breath or wheezing) Qty: 8 RF: 1 lisinopril 10 mg tablet 5 mg PO BID Qty: 90 RF: 3 warfarin [Coumadin] 2.5 mg tablet 2.5 mg PO DAILY Qty: 90 RF: 1 alendronate [Fosamax] 70 mg tablet 70 mg PO QWEEK Qty: 14 RF: 5 lorazepam 1 mg tablet See Rx Instructions .ROUTE .COMPLEX Qty: 90 RF: 1 cyclobenzaprine 10 mg tablet See Rx Instructions .ROUTE .COMPLEX Qty: 40 RF: 5 oxycodone-acetaminophen 5-325 mg tablet 1 - 2 tab PO Q6H PRN (Reason: pain) Qty: 40 RF: 0 atenolol 50 mg tablet 50 mg PO BID Qty: 180 RF: 3 epinephrine [EpiPen 2-Shane] 0.3 mg/0.3 mL auto-injector 0.3 mg IM SEE INSTRUCTIONS Qty: 1 RF: 3 citalopram 20 mg tablet 40 mg PO DAILY Qty: 180 RF: 3 aspirin 81 mg Tablet,Delayed Release (Dr/Ec) 81 mg PO DAILY RF: 0 enoxaparin [Lovenox] 60 mg/0.6 mL syringe 60 mg SUBCUT Q12H Qty: 2.4 RF: 0 rosuvastatin [Crestor] 40 mg tablet 40 mg PO BEDTIME RF: 0 Referrals: Gideon Maddox MD [Primary Care Provider] -
== END 2019-11-19 09:34 | disposition home or self-care (01) ==
PROVIDERS: Emergency Provider Emergency Medicine; Family Provider Orthopaedic Surgery; PCP Family Medicine
DX: S76.801A Unspecified injury of other specified muscles, fascia and tendons at thigh level, right thigh, initial encounter (principal); X50.9XXA Other and unspecified overexertion or strenuous movements or postures, initial encounter; Y93.01 Activity, walking, marching and hiking; Z96.641 Presence of right artificial hip joint
CPT/HCPCS: 73502; 73552; 99281; 99283

== ENCOUNTER 2019-12-16 09:02 | Emergency (ER) | payer OTHER, MEDICAID, SELFPAY ==
[2019-10-19 12:05] VITALS: BMI 22.5
[2019-12-16 09:20] VITALS: BP 151/96; PULSE 108; RESP 16; TEMP 36.2; O2SAT 97
--- NOTE | 2019-12-16 09:25 | ED.EPISTAXIS ---
HPI - Epistaxis General Chief complaint: Nasal Problem Stated complaint: bloody nose x3 hours on Warfarin Time Seen by Provider: 12/16/19 09:14 History of Present Illness HPI Narrative: CC: Nose Bleed HPI: The patient is a 64-year-old female with a history of aortic valve replacement on Coumadin anticoagulation. The patient woke up this morning at approximately 7:00 a.m. in the morning with a nose bleed primarily out of her left naris. She has had some blood down the posterior pharynx. She admits to having hypertension but denies being diabetic or having a heart attack. She has had congestive heart failure and COPD. She denies any fall or injury. Her last nosebleed was approximately 1 week ago which was a small bleed that stopped on its own. She periodically smoke cigarettes rarely drinks alcohol but does not use any marijuana. She denies any headache or facial pain. The bleeding did not stop so she came into the emergency department. Related Data Home Medications Medication Instructions Recorded Confirmed aspirin 81 mg PO DAILY 10/11/19 12/01/19 rosuvastatin [Crestor] 40 mg PO BEDTIME 10/16/19 12/01/19 Previous Rx's Medication Instructions Recorded albuterol sulfate 90 mcg/actuation 1 puff INHALATION Q4-6H PRN #8 gram 12/22/18 aerosol inhaler lisinopril 10 mg tablet 5 mg PO BID #90 tab 02/14/19 alendronate 70 mg tablet 70 mg PO QWEEK #14 tab 05/01/19 citalopram 20 mg tablet 40 mg PO DAILY #180 tab 09/13/19 atenolol 50 mg tablet 50 mg PO BID #180 tab 11/13/19 warfarin 2.5 mg tablet 2.5 mg PO DAILY #90 tab 11/20/19 cyclobenzaprine 10 mg tablet See Rx Instructions .ROUTE 11/27/19 .COMPLEX #40 tab epinephrine 0.3 mg/0.3 mL See Rx Instructions .ROUTE 12/01/19 injection, auto-injector .COMPLEX #2 each lorazepam 1 mg tablet See Rx Instructions .ROUTE 12/12/19 .COMPLEX #90 tablet oxycodone-acetaminophen 7.5 mg-325 1 tab PO Q6H PRN #60 tab 12/12/19 mg tablet Allergies Allergy/AdvReac Type Severity Reaction Status Date / Time venom-honey bee Allergy Severe anaphlaxs Verified 12/16/19 09:55 [BEE VENOM (HONEY BEE)] nickel Allergy Intermediate Rash Verified 12/16/19 09:55 Review of Systems Review of Systems Narrative: REVIEW OF SYSTEMS: CONSTITUTIONAL: No fever chills or sweats NEUROLOGICAL: No headache numbness tingling paresthesias and seizures or paresis EENT: Nose bleed on Coumadin. 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) Scabies (Resolved ~2015) Status post aortic valve replacement (Chronic) Surgical History Anesthesia (Resolved) History of aortic valve replacement (05/18/11) History of esophagogastroduodenoscopy (EGD) (Acute ~2019) Hx of tonsillectomy (Acute) Family History Father Cancer Mother Heart disease Hypertension High cholesterol Social History household members: significant other Smoking Status: Former smoker alcohol intake: current substance use type: does not use Smoking Status: Former smoker alcohol intake frequency: 0-2 drinks per day Substance Use Type: does not use Exam Narrative Exam Narrative: PHYSICAL EXAM: CONSTITUTIONAL: Awake, Alert, Oriented, Coherent, Cooperative in NAD. Patient is holding her nose. She is bleeding out of both nares but primarily out of the left naris. There is blood in the posterior pharynx HEAD: AT/NC EENT: PERRL, FROM of eyes, no discharge, MOUTH:Oral mucosa is moist and pink, posterior pharynx is without erythema or exudate. Blood in the posterior pharynx from her nosebleed NECK: Supple, no obvious JVD, Trachea is midline without stridor, no palpable LN. SPINE: Palpationof the cervical, Thoracic, Lumbar or Sacral spine reveals no gross deformity or tenderness. No CVA tenderness. THORAX: No deformity, retractions, chest wall tenderness. LUNGS: Clear, symmetrical breath sounds without respiratory distress. HEART: Normal heart tones, regular rhythm and rate without murmur. ABDOMEN: Soft, non-tender, normal bowel sounds without guarding, rebound, rigidity or palpable mass. SKIN: No rash, bruising, petechiae or purpura. NEURO: Awake, alert, oriented, conversive, cranial nerves II-XII are symmetrical , moves all 4 extremities and is ambulatory. Initial Vital Signs Initial Vital Signs: Vital Signs Temperature 97.1 F L 12/16/19 09:20 Pulse Rate 108 H 12/16/19 09:20 Respiratory Rate 16 12/16/19 09:20 Blood Pressure 151/96 H 12/16/19 09:20 Pulse Oximetry 97 12/16/19 09:20 Course Course Course Narrative: 0930: Both nares were sprayed with Afrin. 0940 the patient is still bleeding. Will pack the nose with a rhinorocket. 0945 2 cc of 4% topical lidocaine was injected into the patient's left naris for and topical anesthesia. A rhino rocket soaked in Afrin and 4% topical lidocaine was inserted into the left naris and inflated to stop the bleeding. The bleeding appeared to stop. Laboratory chemistries INR and protime hemoglobin remain pending. 1040: No active bleeding no blood in the posterior pharynx patient tolerating the rhino rocket. The patient's hemoglobin was 11.4 hematocrit 33.4 protime 29.9 seconds INR 2.6. INR is therapeutic the patient was informed to hold tonemile's Coumadin order and she will be discharged home leave in the rhino rocket in place for 48 72 hours the patient needs to be recheck in 48-72 hours return if she has worsening pain discomfort or continued bleeding. She is to follow-up with Dr. Phan ENT. Orders Ordered: Discontinued Medications Lidocaine HCl (Lidocaine Hcl) 20 ml TOP NOW ONE Stop: 12/16/19 09:25 Last Admin: 12/16/19 09:34 Dose: 20 ml Documented by: ADRIAN Oxymetazoline HCl (Afrin) 2 sprays NASAL NOW ONE Stop: 12/16/19 09:15 Last Admin: 12/16/19 09:33 Dose: 2 sprays Documented by: ADRIAN Vital Signs Vital signs: Vital Signs - 8 hr 12/16/19 09:20 Temperature 97.1 F L Pulse Rate 108 H Respiratory Rate 16 Blood Pressure 151/96 H Pulse Oximetry 97 MDM - Epistaxis Lab Data Result diagrams: 12/16/19 09:39 Labs: Lab Results 12/16/19 12/16/19 Range/Units 09:39 09:39 WBC 5.7 (4.5-11.0) X10^3/uL RBC 3.33 L (4.0-5.2) X10^6/uL Hgb 11.4 L (12.0-16.0) g/dL Hct 33.4 L (36-46) % MCV 100.2 H (80-100) fL MCH 34.1 H (26-34) PG MCHC 34.0 (30-36) % RDW 14.9 H (11.6-14.8) % Plt Count 255 (150-400) X10^3/uL Neut % (Auto) 79.1 H (50-75) % Lymph % (Auto) 9.1 L (25-40) % Charlotte % (Auto) 10.2 (3-14) % Eos % (Auto) 0.9 L (2-4) % Baso % (Auto) 0.7 (0-2) % Neut # (Auto) 4500 (7045-3378) /uL Lymph # (Auto) 500 L (2765-1400) /uL Charlotte # (Auto) 600 (0-900) /uL Eos # (Auto) 100 (0-450) /uL Baso # (Auto) 0 (0-100) /uL PT 29.9 H (10.1-12.7) SECONDS INR 2.6 H (0.9-1.3) Discharge Plan Departure Patient Disposition: Home Clinical Impression: Epistaxis Discharge Date/Time: 12/16/19 11:18 Instructions: DI for Nosebleed Activity Restrictions/Additional Instructions: 1. Hold tonight's dose of Coumadin., resume your Coumadin tomorrow. 2. Leave the rhino rocket in place for the next 48-72 hours. If you develop trouble with a rhino rocket with increased pain or discomfort return to the emergency department. If you start bleeding around it return to the emergency department. If you develop any fever chills or sweats return to the emergency department. If he develops troubles breathing 3. Follow-up with your primary care physician and be re-evaluated in the next 48-72 hours. 4. You can follow-up with the ENT physician Dr. Phan. Prescriptions: No Action albuterol sulfate 90 mcg/actuation HFA aerosol inhaler 1 puff INHALATION Q4-6H PRN (Reason: shortness of breath or wheezing) Qty: 8 RF: 1 lisinopril 10 mg tablet 5 mg PO BID Qty: 90 RF: 3 alendronate [Fosamax] 70 mg tablet 70 mg PO QWEEK Qty: 14 RF: 5 atenolol 50 mg tablet 50 mg PO BID Qty: 180 RF: 3 warfarin [Coumadin] 2.5 mg tablet 2.5 mg PO DAILY Qty: 90 RF: 1 cyclobenzaprine 10 mg tablet See Rx Instructions .ROUTE .COMPLEX Qty: 40 RF: 5 epinephrine 0.3 mg/0.3 mL auto-injector See Rx Instructions .ROUTE .COMPLEX Qty: 2 RF: 4 oxycodone-acetaminophen 7.5-325 mg tablet 1 tab PO Q6H PRN (Reason: pain) Qty: 60 RF: 0 lorazepam 1 mg tablet See Rx Instructions .ROUTE .COMPLEX Qty: 90 RF: 1 citalopram 20 mg tablet 40 mg PO DAILY Qty: 180 RF: 3 aspirin 81 mg Tablet,Delayed Release (Dr/Ec) 81 mg PO DAILY RF: 0 rosuvastatin [Crestor] 40 mg tablet 40 mg PO BEDTIME RF: 0 Referrals: Gideon Maddox MD [Primary Care Provider] - Izaiah Phan MD [Physician] - (left nares epistaxis, anterior on coumadin, therapeutic INR)
[2019-12-16] MEDS: OXYMETAZOLINE NASAL SPRAY 30 ML 2 SPRAYS NASAL (09:33)
[2019-12-16] MEDS: LIDOCAINE 4% SOLN 50 ML 20 ML TOP (09:34)
[2019-12-16 09:44] LABS: Add Manual Diff / Slide Review NO; Basophils Absolute Auto 0 /uL (0-100); Basophils Percent Auto 0.7 % (0-2); Eosinophils Absolute Auto 100 /uL (0-450); Eosinophils Percent Auto 0.9 % (2-4); Hematocrit 33.4 % (36-46); Hemoglobin 11.4 g/dL (12.0-16.0); Lymphocytes Absolute Auto 500 /uL (1100-4500); Lymphocytes Percent Auto 9.1 % (25-40); Mean Corpuscular Hemoglobin 34.1 PG (26-34); Mean Corpuscular Volume 100.2 fL (80-100); Monocytes Absolute Auto 600 /uL (0-900); Monocytes Percent Auto 10.2 % (3-14); Neutrophils Absolute Auto 4500 /uL (1500-7000); Neutrophils Percent Auto 79.1 % (50-75); Platelet Count 255 X10^3/uL (150-400); Red Blood Cell Count 3.33 X10^6/uL (4.0-5.2); Red Cell Distribution Width 14.9 % (11.6-14.8); White Blood Cell Count 5.7 X10^3/uL (4.5-11.0)
[2019-12-16 09:50] LABS: INR 2.6 (0.9-1.3); Prothrombin Time 29.9 SECONDS (10.1-12.7)
[2019-12-16 11:01] VITALS: PULSE 98; RESP 16; O2SAT 98
[2019-12-16 11:17] VITALS: BP 111/70; PULSE 80; RESP 16; O2SAT 98
== END 2019-12-16 11:18 | disposition home or self-care (01) ==
PROVIDERS: Emergency Provider Emergency Medicine; Family Provider Orthopaedic Surgery; PCP Family Medicine
DX: R04.0 Epistaxis (principal); Z79.01 Long term (current) use of anticoagulants
CPT/HCPCS: 30903; 36415; 85025; 85610; 99282; 99283

== ENCOUNTER 2019-12-17 07:54 | Emergency (ER) | payer OTHER, MEDICAID, SELFPAY ==
[2019-10-19 12:05] VITALS: BMI 22.5
[2019-12-17 08:09] VITALS: BP 164/83; PULSE 103; RESP 16; TEMP 36.4; O2SAT 98; BMI 23.3
--- NOTE | 2019-12-17 08:37 | ED_ITS ---
HPI - Recheck/Abnormal Lab/Rx General Chief Complaint: Recheck/Abnormal Lab/Rx Stated Complaint: puffy eyes/pain/swollen face Source: patient Mode of arrival: Family Vehicle Limitations: no limitations History of Present Illness HPI narrative: CC: puffy eyes HPI: The patient is a 64-year-old female who presented yesterday with a nose bleed while on Coumadin. Her INR was therapeutic. The patient had an anterior nosebleed. Rhino rocket was inserted. The patient today comes into the emergency department because she complains that her left side of her face is swollen and tender with a headache. The bleeding has stopped. She has had no fever chills or sweats nausea or vomiting. She has had no change in vision. The patient is arm demanding that the rhino rocket be removed. Today it is appears to be uncomfortable. Related Data Home Medications Medication Instructions Recorded Confirmed aspirin 81 mg PO DAILY 10/11/19 12/01/19 rosuvastatin [Crestor] 40 mg PO BEDTIME 10/16/19 12/01/19 Previous Rx's Medication Instructions Recorded albuterol sulfate 90 mcg/actuation 1 puff INHALATION Q4-6H PRN #8 gram 12/22/18 aerosol inhaler lisinopril 10 mg tablet 5 mg PO BID #90 tab 02/14/19 alendronate 70 mg tablet 70 mg PO QWEEK #14 tab 05/01/19 citalopram 20 mg tablet 40 mg PO DAILY #180 tab 09/13/19 atenolol 50 mg tablet 50 mg PO BID #180 tab 11/13/19 warfarin 2.5 mg tablet 2.5 mg PO DAILY #90 tab 11/20/19 cyclobenzaprine 10 mg tablet See Rx Instructions .ROUTE 11/27/19 .COMPLEX #40 tab epinephrine 0.3 mg/0.3 mL See Rx Instructions .ROUTE 12/01/19 injection, auto-injector .COMPLEX #2 each lorazepam 1 mg tablet See Rx Instructions .ROUTE 12/12/19 .COMPLEX #90 tablet oxycodone-acetaminophen 7.5 mg-325 1 tab PO Q6H PRN #60 tab 12/12/19 mg tablet amoxicillin-pot clavulanate 1 tab PO Q12H #10 tab 12/17/19 [Augmentin] Allergies Allergy/AdvReac Type Severity Reaction Status Date / Time venom-honey bee Allergy Severe anaphlaxs Verified 12/16/19 09:55 [BEE VENOM (HONEY BEE)] nickel Allergy Intermediate Rash Verified 12/16/19 09:55 Review of Systems Review of Systems Narrative: Her review of systems were all negative except for those mentioned in the history of present illness. Patient History Social History household members: significant other Smoking Status: Former smoker alcohol intake: current substance use type: does not use Smoking Status: Former smoker alcohol intake frequency: 0-2 drinks per day Substance Use Type: does not use Exam Narrative Exam Narrative: PHYSICAL EXAM: CONSTITUTIONAL: Awake, Alert, Oriented, Coherent, Cooperative in NAD. Does not appear toxic or ill. HEAD: AT/NC EENT: PERRL, FROM of eyes, no discharge, no nystagmus. There is no significant periorbital soft tissue swelling erythema or warmth. The patient has full range of motion of her eyes. There is no bulbar or palpebral conjunctival injection. The patient has no significant appreciable swelling of her face. She is tender to palpation over her lateral nose and maxillary sinus. There is no facial asymmetry. There is no active bleeding from her nose. NOSE:No epistaxis or nasal drainage MOUTH:Oral mucosa is moist and pink, posterior pharynx is without erythema,r exudate or bleeding.. NECK: Supple, no obvious JVD, Trachea is midline without stridor, no palpable LN. LUNGS: Clear, symmetrical breath sounds without respiratory distress. HEART: Normal heart tones, regular rhythm and rate without murmur. ABDOMEN: Soft, non-tender, normal bowel sounds without guarding, rebound, rigidity or palpable mass. NEURO: Awake, alert, oriented, conversive, cranial nerves II-XII are symmetrical , moves all 4 extremities and is ambulatory. Initial Vital Signs Initial Vital Signs: Vital Signs Temperature 97.6 F 12/17/19 08:09 Pulse Rate 103 H 12/17/19 08:09 Respiratory Rate 16 12/17/19 08:09 Blood Pressure 164/83 H 12/17/19 08:09 Pulse Oximetry 98 12/17/19 08:09 Course Orders Ordered: Discontinued Medications Acetaminophen (Tylenol) 975 mg PO NOW ONE Stop: 12/17/19 08:56 Last Admin: 12/17/19 09:25 Dose: 975 mg Documented by: ASHLEY Amoxicillin/Clavulanate Potassium (Augmentin 875-125 Mg) 1 tab PO NOW ONE Stop: 12/17/19 08:56 Last Admin: 12/17/19 09:25 Dose: 1 tab Documented by: ASHLEY Vital Signs Vital signs: Vital Signs - 8 hr 12/17/19 08:09 Temperature 97.6 F Pulse Rate 103 H Respiratory Rate 16 Blood Pressure 164/83 H Pulse Oximetry 98 Discharge Plan Departure Patient Disposition: Home Clinical Impression: Facial pain, Sinus pain, Tenderness over maxillary sinus Discharge Date/Time: 12/17/19 10:05 Instructions: DI for Sinusitis Activity Restrictions/Additional Instructions: 1. If your nose starts to bleed again, take a cotton ball and roll it into a cigar shape, coated with a very thin film of Vaseline and as instructed place that against your nasal septum and with a screwing motion screw the Contin p lugged straight to the back of your nose and not upwards as much as she can and fill the anterior nares all the way to the anterior edge of your nares. Hold it for 60 minutes to help stop the bleeding. Leave it in place as long as tolerated. If you are bleeding around it or profuse bleeding you need to return to the emergency department. If you develop dizziness lightheadedness you need to return to the emergency department. Normal bleeding stops in 20 minutes but while you are on Coumadin we have you hold it for 2-3 times at that time. And the bleeding should stop. If it does not you need to return to the emergency department. 2. Since you are on Coumadin you need to take Tylenol for your pain and discomfort, 500 mg every 4 hours or 1 g every 6 hours. 3. Sometimes the rhino rockets and nasal packing obstructs the sinus drainage and people developed mild sinusitis and facial pain. Take the Augmentin as prescribed for the next 5 days. 4. Follow-up with your primary care physician to be re-evaluated in 48-72 hours if not improved. Prescriptions: New amoxicillin-pot clavulanate [Augmentin] 875-125 mg tablet 1 tab PO Q12H Qty: 10 RF: 0 No Action albuterol sulfate 90 mcg/actuation HFA aerosol inhaler 1 puff INHALATION Q4-6H PRN (Reason: shortness of breath or wheezing) Qty: 8 RF: 1 lisinopril 10 mg tablet 5 mg PO BID Qty: 90 RF: 3 alendronate [Fosamax] 70 mg tablet 70 mg PO QWEEK Qty: 14 RF: 5 atenolol 50 mg tablet 50 mg PO BID Qty: 180 RF: 3 warfarin [Coumadin] 2.5 mg tablet 2.5 mg PO DAILY Qty: 90 RF: 1 cyclobenzaprine 10 mg tablet See Rx Instructions .ROUTE .COMPLEX Qty: 40 RF: 5 epinephrine 0.3 mg/0.3 mL auto-injector See Rx Instructions .ROUTE .COMPLEX Qty: 2 RF: 4 oxycodone-acetaminophen 7.5-325 mg tablet 1 tab PO Q6H PRN (Reason: pain) Qty: 60 RF: 0 lorazepam 1 mg tablet See Rx Instructions .ROUTE .COMPLEX Qty: 90 RF: 1 citalopram 20 mg tablet 40 mg PO DAILY Qty: 180 RF: 3 aspirin 81 mg Tablet,Delayed Release (Dr/Ec) 81 mg PO DAILY RF: 0 rosuvastatin [Crestor] 40 mg tablet 40 mg PO BEDTIME RF: 0 Referrals: Gideon Maddox MD [Primary Care Provider] -
--- NOTE | 2019-12-17 08:56 | PC.NURSE ---
Dr. Covarrubias just took Rhino rocket out. will watch patient and then ambulate her.
[2019-12-17] MEDS: ACETAMINOPHEN 325 MG TABLET 975 MG PO (09:25)
[2019-12-17] MEDS: AMOXICILLIN/CLAV 875/125 MG 1 TAB PO (09:25)
[2019-12-17 10:04] VITALS: BP 151/107; PULSE 107; RESP 16; O2SAT 98
[2019-12-17 10:05] VITALS: BP 151/107; PULSE 107; RESP 18; O2SAT 98
== END 2019-12-17 10:05 | disposition home or self-care (01) ==
PROVIDERS: Emergency Provider Emergency Medicine; Family Provider Orthopaedic Surgery; PCP Family Medicine
DX: J01.90 Acute sinusitis, unspecified (principal); Z87.891 Personal history of nicotine dependence
CPT/HCPCS: 99283

== ENCOUNTER 2020-04-11 12:20 | Inpatient (IN) | payer MEDICAID, OTHER, SELFPAY ==
[2020-04-10 12:34] VITALS: BMI 22.5
[2020-04-11] VITALS (17 sets, daily range): BP systolic 103–143; BP diastolic 60–95; PULSE 86–119; RESP 18–35; TEMP 36.3–37.4; O2SAT 92–99; BMI 21.7
--- NOTE | 2020-04-11 13:23 | DI.CT.S_ITS ---
PROCEDURE: CT ABDOMEN PELVIS W CON INDICATIONS: RLQ pain TECHNIQUE: After the administration of intravenous contrast, 5 mm thick sections acquired from the diaphragm to the symphysis. 5 mm coronal and sagittal reformats were acquired. For radiation dose reduction, the following was used: automated exposure control, adjustment of mA and/or kV according to patient size. COMPARISON: None. FINDINGS: Image quality: Excellent. ABDOMEN: Lung bases: Lung bases are clear. Heart size is normal. Small hiatal hernia. Solid organs: Liver is normal in size and enhancement. Gallbladder is not significantly distended. Suspect for phrygian cap versus gallstone. Biliary system is non dilated. Pancreas enhances normally. Spleen is normal in size and enhancement. No adrenal nodules. Kidneys demonstrate normal size and enhancement, without hydronephrosis. Peritoneum and bowel: Appendix is dilated measuring up to 1.2 cm, (4/24). The appendiceal wall is thickened. There is moderate periappendiceal fat stranding. There is trace free fluid. No extraluminal gas is seen. Right lower quadrant ileum demonstrating mild thickening without dilatation. No small bowel obstruction. Somewhat prominent stool in the colon. No ascites. Nodes and vessels: No retroperitoneal or mesenteric adenopathy by size criteria. Aorta and inferior vena cava are normal in size. Moderate calcified atherosclerotic plaque. Miscellaneous: No ventral hernias. PELVIS: Genitourinary: Bladder is unremarkable. Uterus is unremarkable. No free fluid in the pelvis. Miscellaneous: No inguinal hernias or adenopathy. Bones: No suspicious bony lesions. Right hip total arthroplasty. No vertebral body compression fractures. Mild anterior listhesis of L4 on L5. Thoracolumbar spine Schmorl's nodes. IMPRESSION: Acute appendicitis, moderate severity. No rupture demonstrated. Trace reactive fluid. Dictated by: Jose Reynolds M.D. on 04/11/2020 at 13:39 Approved by: Jose Reynolds M.D. on 04/11/2020 at 13:47
--- NOTE | 2020-04-11 13:36 | ED_ITS ---
HPI - Abdominal Pain <Dee MoreiraITALIA - Last Filed: 04/11/20 19:42> General Chief Complaint: Abdominal Pain Stated Complaint: right side abdominal pain Time Seen by Provider: 04/11/20 13:10 Source: patient Mode of arrival: Ambulatory Limitations: no limitations History of Present Illness HPI narrative: 65yo female who has a history of aortic valve replacement, currently taking warfarin, and right-sided hip replacement, presents to the ED for right-sided abdominal pain over the past week. Patient states she was seen in the clinic and referred to the ED due to worsening pain. Patient denies any fevers, chills, nausea, vomiting, diarrhea, chest pain, shortness of breath, or any other concerns. She denies any history of abdominal issues or surgeries. Report was taken from clinic from, HALINA Wetzel. Related Data Home Medications Medication Instructions Recorded Confirmed aspirin 81 mg PO DAILY 10/11/19 04/11/20 Previous Rx's Medication Instructions Recorded lisinopril 10 mg tablet 5 mg PO BID #90 tab 02/14/19 alendronate 70 mg tablet 70 mg PO QWEEK #14 tab 05/01/19 citalopram 20 mg tablet 40 mg PO DAILY #180 tab 09/13/19 atenolol 50 mg tablet 50 mg PO BID #180 tab 11/13/19 warfarin 2.5 mg tablet 2.5 mg PO DAILY #90 tab 11/20/19 epinephrine 0.3 mg/0.3 mL See Rx Instructions .ROUTE 12/01/19 injection, auto-injector .COMPLEX #2 each rosuvastatin 40 mg tablet 40 mg PO BEDTIME #90 tab 02/15/20 cefuroxime axetil 500 mg tablet 500 mg PO BID #28 tab 02/21/20 lorazepam 1 mg tablet See Rx Instructions .ROUTE 02/21/20 .COMPLEX #90 tablet cyclobenzaprine 10 mg tablet See Rx Instructions .ROUTE 03/05/20 .COMPLEX #40 tab albuterol sulfate 90 mcg/actuation 1 puff INHALATION Q4-6H PRN #8 gram 03/11/20 aerosol inhaler bupropion HCl 150 mg tablet,12 hr 150 mg PO QAM #30 each 03/12/20 sustained-release oxycodone-acetaminophen 7.5 mg-325 See Rx Instructions .ROUTE 04/03/20 mg tablet .COMPLEX #60 tablet Allergies Allergy/AdvReac Type Severity Reaction Status Date / Time venom-honey bee Allergy Severe anaphlaxs Verified 04/11/20 11:21 [BEE VENOM (HONEY BEE)] nickel Allergy Intermediate Rash Verified 04/11/20 11:21 Review of Systems <ITALIA Field - Last Filed: 04/11/20 19:42> Review of Systems Narrative: REVIEW OF SYSTEMS: GENERAL: Denies fever. HENT: No head trauma. EYES: No loss of vision, double vision, eye pain, or irritation. CARDIOVASCULAR: No chest pain. RESPIRATORY: No shortness of breath or cough. GASTROINTESTINAL: Complains of abdominal pain, see HPI GENITOURINARY: No flank pain, urinary incontinence, hesitancy, frequency, or dysuria. [No vaginal discharge or dyspareunia. MUSCULOSKELETAL: No pain, weakness, or trauma. INTEGUMENTARY: No rash, lesions, or pruritus. NEURO: No numbness or tingling. PSYCH: No behavior or mood changes. 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) Scabies (Resolved ~2015) Status post aortic valve replacement (Chronic ~05/2011) Surgical History Anesthesia (Resolved) History of aortic valve replacement (05/18/11) History of esophagogastroduodenoscopy (EGD) (Acute ~2019) Hx of tonsillectomy (Acute) Family History Father Cancer Mother Heart disease Hypertension High cholesterol Social History household members: significant other Smoking Status: Former smoker alcohol intake: current substance use type: does not use Smoking Status: Former smoker alcohol intake frequency: 0-2 drinks per day Substance Use Type: does not use Exam <ITALIA Field - Last Filed: 04/11/20 19:42> Initial Vital Signs Initial Vital Signs: Vital Signs Blood Pressure 103/73 04/11/20 13:01 PHYSICAL EXAMINATION: GENERAL: Well groomed, alert, and cooperative. Answers questions promptly and appropriately. Vital signs noted. HENT: Normocephalic, atraumatic. Hearing intact. Oral mucosa is pink and moist. EYES: Conjunctiva pink, sclera white, no periorbital swelling. CARDIOVASCULAR: S1 and S2 sounds normal. Regular rate and rhythm, no murmurs, clicks, or bruits. No pedal edema. RESPIRATORY: Normal respiratory rate, trachea midline, airway patent. No stridor, nasal flaring or accessory muscle use. Lungs are clear in all ernst without wheeze, rhonchi, or crackles. GASTROINTESTINAL: Bowel sounds normoactive. Abdomen is soft, right lower quadrant and left upper quadrant abdominal tenderness. No organomegaly, no palpable masses. GENITALURINARY: No flank tenderness. MUSCULOSKELETAL: Normal gait and coordination. Equal tone and mass bilaterally. EXTREMITIES: CMS intact, no pedal edema. SKIN: Warm, dry, soft, appropriate color for ethnicity. No lesions, rashes, or wounds to visualized areas. NEURO: Alert and Oriented X 3. Good coordination. No ataxia, or sensory deficits, or cognitive issues. PSYCH: Appropriate affect and mood. <Med Reyes MD - Last Filed: 04/13/20 07:52> Initial Vital Signs Initial Vital Signs: Vital Signs Blood Pressure 103/73 04/11/20 13:01 Course <ITALIA Field - Last Filed: 04/11/20 19:42> Course Course Narrative: Initially, patient denies any pain medication. A few hours later, patient requesting pain medication. Patient given morphine and ondansetron which improved pain. Orders Ordered: Acetaminophen (Tylenol) 650 mg PO Q6HR ANGELINA Last Admin: 04/13/20 05:19 Dose: 650 mg Documented by: Admin: 04/13/20 00:10 Dose: 650 mg Documented by: Admin: 04/12/20 16:59 Dose: 650 mg Documented by: Admin: 04/12/20 12:49 Dose: 650 mg Documented by: Admin: 04/12/20 05:39 Dose: 650 mg Documented by: Admin: 04/11/20 23:53 Dose: 650 mg Documented by: Admin: 04/11/20 19:45 Dose: 650 mg Documented by: MING Albuterol (Ventolin) 2.5 mg INH [id number] PRN PRN Reason: Shortness Of Breath Atenolol (Tenormin) 50 mg PO BID [facility] Last Admin: 04/12/20 20:30 Dose: 50 mg Documented by: Admin: 04/12/20 09:03 Dose: 50 mg Documented by: Admin: 04/11/20 19:46 Dose: 50 mg Documented by: MING Bupropion HCl (Wellbutrin Sr) 150 mg PO DAILY [facility] Citalopram Hydrobromide (Celexa) 40 mg PO DAILY [facility] Last Admin: 04/12/20 09:01 Dose: 40 mg Documented by: NEELIMA Sodium Chloride (Normal Saline 0.9%) 1,000 mls @ 100 mls/hr IV CONT [facility] Last Admin: 04/13/20 02:03 Dose: 100 mls/hr Documented by: Infusion: 04/13/20 00:41 Dose: 100 mls/hr Documented by: Admin: 04/12/20 14:41 Dose: 100 mls/hr Documented by: Infusion: 04/12/20 13:02 Dose: 100 mls/hr Documented by: Admin: 04/12/20 03:02 Dose: 100 mls/hr Documented by: Infusion: 04/12/20 03:02 Dose: 100 mls/hr Documented by: Infusion: 04/11/20 19:30 Dose: 100 mls/hr Documented by: Infusion: 04/11/20 19:14 Dose: 0 mls/hr Documented by: Admin: 04/11/20 18:35 Dose: 100 mls/hr Documented by: ASHLEY Piperacillin/Tazobactam/Dextrose (Zosyn) 3.375 gm in 50 mls @ 100 mls/hr IV Q8H [facility] Last Infusion: 04/13/20 00:45 Dose: 0 mls/hr Documented by: Admin: 04/13/20 00:10 Dose: 100 mls/hr Documented by: Infusion: 04/12/20 17:29 Dose: 100 mls/hr Documented by: Admin: 04/12/20 16:58 Dose: 100 mls/hr Documented by: Infusion: 04/12/20 12:49 Dose: 0 mls/hr Documented by: Admin: 04/12/20 09:01 Dose: 100 mls/hr Documented by: Infusion: 04/12/20 01:10 Dose: 0 mls/hr Documented by: Admin: 04/12/20 00:38 Dose: 100 mls/hr Documented by: Admin: 04/11/20 19:34 Dose: Not Given Documented by: MING Naloxone HCl (Narcan) 0.2 mg IV Q2MIN PRN PRN Reason: Opiate Reversal Ondansetron HCl (Zofran) 4 mg IV Q8HR PRN PRN Reason: Nausea And Vomiting Oxycodone HCl (Percolone) 5 mg PO Q6HR PRN PRN Reason: Pain, Moderate (4-6) Last Admin: 04/13/20 05:19 Dose: 5 mg Documented by: Admin: 04/12/20 20:33 Dose: 5 mg Documented by: Admin: 04/11/20 19:45 Dose: 5 mg Documented by: MING Rosuvastatin Calcium (Crestor) 40 mg PO BEDTIME [facility] Last Admin: 04/12/20 20:30 Dose: 40 mg Documented by: SWAPNA Discontinued Medications Sodium Chloride (Normal Saline 0.9%) 1,000 mls @ 1,000 mls/hr IV BOLUS ONE Stop: 04/11/20 16:18 Last Infusion: 04/11/20 18:34 Dose: 0 mls/hr Documented by: Admin: 04/11/20 15:47 Dose: 1,000 mls/hr Documented by: ASHLEY Piperacillin/Tazobactam/Dextrose (Zosyn) 3.375 gm in 50 mls @ 100 mls/hr IV NOW ONE Stop: 04/11/20 15:58 Last Infusion: 04/11/20 16:21 Dose: 0 mls/hr Documented by: Admin: 04/11/20 15:47 Dose: 100 mls/hr Documented by: ASHLEY Phytonadione 5 mg/ Dextrose 50.5 mls @ 101 mls/hr IV NOW ONE Stop: 04/12/20 19:44 Last Admin: 04/12/20 19:30 Dose: 101 mls/hr Documented by: SWAPNA Morphine Sulfate (Morphine) 4 mg IV NOW ONE Stop: 04/11/20 17:09 Last Admin: 04/11/20 17:26 Dose: 4 mg Documented by: ASHLEY Ondansetron HCl (Zofran) 4 mg IV NOW ONE Stop: 04/11/20 17:09 Last Admin: 04/11/20 17:46 Dose: 4 mg Documented by: ASHLEY Phytonadione (Vitamin K) 1 mg IM NOW ONE Stop: 04/11/20 17:32 Last Admin: 04/11/20 18:34 Dose: 1 mg Documented by: ASHLEY Phytonadione (Vitamin K) 1 mg IM NOW ONE Stop: 04/12/20 08:24 Last Admin: 04/12/20 09:01 Dose: 1 mg Documented by: NEELIMA Phytonadione (Vitamin K1) 5 mg SUBCUT PRN PRN PRN Reason: if INR > 2.2 Stop: 04/12/20 23:00 Consultations Consultation #1: 1600: I spoke with Dr. Larios who presented to the emergency department to evaluate patient. Request admit to medicine with surgical consult. 1628: I spoke to Dr. Alicea, who requests admit to surgery with medicine consult. 1635: Dr. Larios accepts. Vital Signs Vital signs: Vital Signs - 8 hr 04/11/20 13:01 04/11/20 13:02 04/11/20 13:05 Temperature 99.3 F Pulse Rate 110 H 97 H Respiratory Rate 18 Blood Pressure 103/73 103/73 Pulse Oximetry 99 97 04/11/20 15:13 04/11/20 15:30 Temperature Pulse Rate 106 H 119 H Respiratory Rate 19 20 Blood Pressure 139/82 139/89 Pulse Oximetry 98 99 <Med Reyes MD - Last Filed: 04/13/20 07:52> Orders Ordered: Acetaminophen (Tylenol) 650 mg PO Q6HR [facility] Last Admin: 04/13/20 05:19 Dose: 650 mg Documented by: Admin: 04/13/20 00:10 Dose: 650 mg Documented by: Admin: 04/12/20 16:59 Dose: 650 mg Documented by: Admin: 04/12/20 12:49 Dose: 650 mg Documented by: Admin: 04/12/20 05:39 Dose: 650 mg Documented by: Admin: 04/11/20 23:53 Dose: 650 mg Documented by: Admin: 04/11/20 19:45 Dose: 650 mg Documented by: MING Albuterol (Ventolin) 2.5 mg INH [id number] PRN PRN Reason: Shortness Of Breath Atenolol (Tenormin) 50 mg PO BID [facility] Last Admin: 04/12/20 20:30 Dose: 50 mg Documented by: Admin: 04/12/20 09:03 Dose: 50 mg Documented by: Admin: 04/11/20 19:46 Dose: 50 mg Documented by: MING Bupropion HCl (Wellbutrin Sr) 150 mg PO DAILY [facility] Citalopram Hydrobromide (Celexa) 40 mg PO DAILY [facility] Last Admin: 04/12/20 09:01 Dose: 40 mg Documented by: NEELIMA Sodium Chloride (Normal Saline 0.9%) 1,000 mls @ 100 mls/hr IV CONT [facility] Last Admin: 04/13/20 02:03 Dose: 100 mls/hr Documented by: Infusion: 04/13/20 00:41 Dose: 100 mls/hr Documented by: Admin: 04/12/20 14:41 Dose: 100 mls/hr Documented by: Infusion: 04/12/20 13:02 Dose: 100 mls/hr Documented by: Admin: 04/12/20 03:02 Dose: 100 mls/hr Documented by: Infusion: 04/12/20 03:02 Dose: 100 mls/hr Documented by: Infusion: 04/11/20 19:30 Dose: 100 mls/hr Documented by: Infusion: 04/11/20 19:14 Dose: 0 mls/hr Documented by: Admin: 04/11/20 18:35 Dose: 100 mls/hr Documented by: ASHLEY Piperacillin/Tazobactam/Dextrose (Zosyn) 3.375 gm in 50 mls @ 100 mls/hr IV Q8H [facility] Last Infusion: 04/13/20 00:45 Dose: 0 mls/hr Documented by: Admin: 04/13/20 00:10 Dose: 100 mls/hr Documented by: Infusion: 04/12/20 17:29 Dose: 100 mls/hr Documented by: Admin: 04/12/20 16:58 Dose: 100 mls/hr Documented by: Infusion: 04/12/20 12:49 Dose: 0 mls/hr Documented by: Admin: 04/12/20 09:01 Dose: 100 mls/hr Documented by: Infusion: 04/12/20 01:10 Dose: 0 mls/hr Documented by: Admin: 04/12/20 00:38 Dose: 100 mls/hr Documented by: Admin: 04/11/20 19:34 Dose: Not Given Documented by: MING Naloxone HCl (Narcan) 0.2 mg IV Q2MIN PRN PRN Reason: Opiate Reversal Ondansetron HCl (Zofran) 4 mg IV Q8HR PRN PRN Reason: Nausea And Vomiting Oxycodone HCl (Percolone) 5 mg PO Q6HR PRN PRN Reason: Pain, Moderate (4-6) Last Admin: 04/13/20 05:19 Dose: 5 mg Documented by: Admin: 04/12/20 20:33 Dose: 5 mg Documented by: Admin: 04/11/20 19:45 Dose: 5 mg Documented by: MING Rosuvastatin Calcium (Crestor) 40 mg PO BEDTIME [facility] Last Admin: 04/12/20 20:30 Dose: 40 mg Documented by: SWAPNA Discontinued Medications Sodium Chloride (Normal Saline 0.9%) 1,000 mls @ 1,000 mls/hr IV BOLUS ONE Stop: 04/11/20 16:18 Last Infusion: 04/11/20 18:34 Dose: 0 mls/hr Documented by: Admin: 04/11/20 15:47 Dose: 1,000 mls/hr Documented by: ASHLEY Piperacillin/Tazobactam/Dextrose (Zosyn) 3.375 gm in 50 mls @ 100 mls/hr IV NOW ONE Stop: 04/11/20 15:58 Last Infusion: 04/11/20 16:21 Dose: 0 mls/hr Documented by: Admin: 04/11/20 15:47 Dose: 100 mls/hr Documented by: ASHLEY Phytonadione 5 mg/ Dextrose 50.5 mls @ 101 mls/hr IV NOW ONE Stop: 04/12/20 19:44 Last Admin: 04/12/20 19:30 Dose: 101 mls/hr Documented by: SWAPNA Morphine Sulfate (Morphine) 4 mg IV NOW ONE Stop: 04/11/20 17:09 Last Admin: 04/11/20 17:26 Dose: 4 mg Documented by: ASHLEY Ondansetron HCl (Zofran) 4 mg IV NOW ONE Stop: 04/11/20 17:09 Last Admin: 04/11/20 17:46 Dose: 4 mg Documented by: ASHLEY Phytonadione (Vitamin K) 1 mg IM NOW ONE Stop: 04/11/20 17:32 Last Admin: 04/11/20 18:34 Dose: 1 mg Documented by: ASHLEY Phytonadione (Vitamin K) 1 mg IM NOW ONE Stop: 04/12/20 08:24 Last Admin: 04/12/20 09:01 Dose: 1 mg Documented by: NEELIMA Phytonadione (Vitamin K1) 5 mg SUBCUT PRN PRN PRN Reason: if INR > 2.2 Stop: 04/12/20 23:00 Vital Signs Vital signs: Vital Signs - 8 hr 04/11/20 13:01 04/11/20 13:02 04/11/20 13:05 Temperature 99.3 F Pulse Rate 110 H 97 H Respiratory Rate 18 Blood Pressure 103/73 103/73 Pulse Oximetry 99 97 04/11/20 15:13 04/11/20 15:30 Temperature Pulse Rate 106 H 119 H Respiratory Rate 19 20 Blood Pressure 139/82 139/89 Pulse Oximetry 98 99 MDM - Abdominal Pain <ITALIA Field - Last Filed: 04/11/20 19:42> Medical Records Attestation: I reviewed the patient's medical records. Lab Data Attestation: I reviewed the patient's lab results. Result diagrams: 04/13/20 05:05 04/13/20 05:05 Labs: Lab Results 04/11/20 04/11/20 04/11/20 Range/Units 14:00 14:00 14:00 WBC 9.8 (4.5-11.0) X10^3/uL RBC 3.43 L (4.0-5.2) X10^6/uL Hgb 11.1 L (12.0-16.0) g/dL Hct 33.8 L (36-46) % MCV 98.7 (80-100) fL MCH 32.5 (26-34) PG MCHC 33.0 (30-36) % RDW 16.0 H (11.6-14.8) % Plt Count 190 (150-400) X10^3/uL Neut % (Auto) 79.1 H (50-75) % Lymph % (Auto) 8.3 L (25-40) % [place] % (Auto) 11.8 (3-14) % Eos % (Auto) 0.3 L (2-4) % Baso % (Auto) 0.5 (0-2) % Neut # (Auto) 7700 H (2721-8080) /uL Lymph # (Auto) 800 L (2338-7110) /uL [place] # (Auto) 1200 H (0-900) /uL Eos # (Auto) 0 (0-450) /uL Baso # (Auto) 0 (0-100) /uL PT 41.8 H (10.1-12.7) SECONDS INR 3.7 H (0.9-1.3) APTT 38 H (26.4-36.2) SECONDS Sodium 134 L (137-145) mmol/L Potassium 4.1 (3.4-5.1) mmol/L Chloride 99 (98-107) mmol/L Carbon Dioxide 26 (22-32) mmol/L BUN 12 (7-17) mg/dL Creatinine 0.78 (0.52-1.04) mg/dL Estimated GFR > 60.0 (>60) mL/min BUN/Creatinine Ratio 15.4 (6-22) Glucose 93 (80-110) mg/dL Calcium 9.1 (8.4-10.2) mg/dL Total Bilirubin 0.7 (0.2-1.3) mg/dL AST 31 (14-36) IU/L ALT 20 (<35) IU/L Alkaline Phosphatase 89 (38-126) U/L Total Protein 8.0 (6.3-8.2) g/dL Albumin 4.3 (3.5-5.0) g/dL Globulin 3.7 (1.7-4.1) g/dL Albumin/Globulin Ratio 1.2 (1.0-2.8) Lipase 115 (23-300) U/L Imaging Data CT scan - abdomen/pelvis: Radiologist's Impression: [address] [address] [address] Scan Report Signed Patient: Vonnie Conklin MMR#: [id number] : 6Acct:[id number] Age/Sex: 65 / FDate of Service: 04/11/20 Loc: ED Accession Number: [id number] Procedure: CT abdomen pelvis w con Ordering Provider: Dee Moreira PROCEDURE: CT ABDOMEN PELVIS W CON INDICATIONS: RLQ pain TECHNIQUE: After the administration of intravenous contrast, 5 mm thick sections acquired from the diaphragm to the symphysis. 5 mm coronal and sagittal reformats were acquired. For radiation dose reduction, the following was used: automated exposure control, adjustment of mA and/or kV according to patient size. COMPARISON: None. FINDINGS: Image quality: Excellent. ABDOMEN: Lung bases: Lung bases are clear. Heart size is normal. Small hiatal hernia. Solid organs: Liver is normal in size and enhancement. Gallbladder is not significantly distended. Suspect for phrygian cap versus gallstone. Biliary system is non dilated. Pancreas enhances normally. Spleen is normal in size and enhancement. No adrenal nodules. Kidneys demonstrate normal size and enhancement, without hydronephrosis. Peritoneum and bowel: Appendix is dilated measuring up to 1.2 cm, (11/30). The appendiceal wall is thickened. There is moderate periappendiceal fat stranding. There is trace free fluid. No extraluminal gas is seen. Right lower quadrant ileum demonstrating mild thickening without dilatation. No small bowel obstruction. Somewhat prominent stool in the colon. No ascites. Nodes and vessels: No retroperitoneal or mesenteric adenopathy by size criteria. Aorta and inferior vena cava are normal in size. Moderate calcified atherosclerotic plaque. Miscellaneous: No ventral hernias. PELVIS: Genitourinary: Bladder is unremarkable. Uterus is unremarkable. No free fluid in the pelvis. Miscellaneous: No inguinal hernias or adenopathy. Bones: No suspicious bony lesions. Right hip total arthroplasty. No vertebral body compression fractures. Mild anterior listhesis of L4 on L5. Thoracolumbar spine Schmorl's nodes. IMPRESSION: Acute appendicitis, moderate severity. No rupture demonstrated. Trace reactive fluid. Dictated by: Jose Reynolds M.D. on 04/11/2020 at 13:39 Approved by: Jose Reynolds M.D. on 04/11/2020 at 13:47 ECG Data Interpretation: 1523: AFib, rate 119, QTC 506. No ST elevation or depression, no T-wave inversion. Some artifact noted in V5 and V6. Discussed this with Dr. Reyes who agrees that this does not appear to be ST depressions. RBBB present. Findings are similar to EKG present on 05/11/11. EKG also viewed y Dr. Reyes. MDM Narrative Medical decision making narrative: 65-year-old female with history of aortic valve replacement and AFib, presents emergency department for right lower quadrant pain over the past week. History and examination concerning for appendicitis, CT was ordered which shows acute appendicitis. Patient is hemodynamically stable, initially without an elevated heart rate, her rate has increased over the past few hours in the emergency department stay but did not show under signs of sepsis such as a fever. Fluid was given and antibiotics were given after consult with Dr. Larios. Patient was admitted to surgery for further care and evaluation. Patient agreed to admission. <Med Reyes MD - Last Filed: 04/13/20 07:52> Lab Data Labs: Lab Results 04/11/20 04/11/20 04/11/20 Range/Units 14:00 14:00 14:00 WBC 9.8 (4.5-11.0) X10^3/uL RBC 3.43 L (4.0-5.2) X10^6/uL Hgb 11.1 L (12.0-16.0) g/dL Hct 33.8 L (36-46) % MCV 98.7 (80-100) fL MCH 32.5 (26-34) PG MCHC 33.0 (30-36) % RDW 16.0 H (11.6-14.8) % Plt Count 190 (150-400) X10^3/uL Neut % (Auto) 79.1 H (50-75) % Lymph % (Auto) 8.3 L (25-40) % [place] % (Auto) 11.8 (3-14) % Eos % (Auto) 0.3 L (2-4) % Baso % (Auto) 0.5 (0-2) % Neut # (Auto) 7700 H (3158-1520) /uL Lymph # (Auto) 800 L (7463-1408) /uL [place] # (Auto) 1200 H (0-900) /uL Eos # (Auto) 0 (0-450) /uL Baso # (Auto) 0 (0-100) /uL PT 41.8 H (10.1-12.7) SECONDS INR 3.7 H (0.9-1.3) APTT 38 H (26.4-36.2) SECONDS Sodium 134 L (137-145) mmol/L Potassium 4.1 (3.4-5.1) mmol/L Chloride 99 (98-107) mmol/L Carbon Dioxide 26 (22-32) mmol/L BUN 12 (7-17) mg/dL Creatinine 0.78 (0.52-1.04) mg/dL Estimated GFR > 60.0 (>60) mL/min BUN/Creatinine Ratio 15.4 (6-22) Glucose 93 (80-110) mg/dL Calcium 9.1 (8.4-10.2) mg/dL Total Bilirubin 0.7 (0.2-1.3) mg/dL AST 31 (14-36) IU/L ALT 20 (<35) IU/L Alkaline Phosphatase 89 (38-126) U/L Total Protein 8.0 (6.3-8.2) g/dL Albumin 4.3 (3.5-5.0) g/dL Globulin 3.7 (1.7-4.1) g/dL Albumin/Globulin Ratio 1.2 (1.0-2.8) Lipase 115 (23-300) U/L Discharge Plan Departure Patient Disposition: Admitted as Observation Clinical Impression: Acute appendicitis Qualifiers: Acute appendicitis type: with generalized peritonitis Appendicitis gangrene presence: without gangrene Appendicitis perforation presence: with perforation Appendicitis abscess presence: without abscess Qualified Code(s): K35.20 - Acute appendicitis with generalized peritonitis, without abscess Discharge Date/Time: 04/11/20 19:20 Referrals: Gideon Maddox MD [Primary Care Provider] - Admit Date/Time: 04/11/20 15:39 Admit Provider: Maldonado Larios <Med Reyes MD - Last Filed: 04/13/20 07:52> Cosign ED Attending Cosignature Attestation: I was immediately available in the department for consultation. This documentation has been reviewed and I agree with assessment and plan. Supervised by Med Reyes MD
[2020-04-11 14:11] LABS: Add Manual Diff / Slide Review NO; Basophils Absolute Auto 0 /uL (0-100); Basophils Percent Auto 0.5 % (0-2); Eosinophils Absolute Auto 0 /uL (0-450); Eosinophils Percent Auto 0.3 % (2-4); Hematocrit 33.8 % (36-46); Hemoglobin 11.1 g/dL (12.0-16.0); Lymphocytes Absolute Auto 800 /uL (1100-4500); Lymphocytes Percent Auto 8.3 % (25-40); Mean Corpuscular Hemoglobin 32.5 PG (26-34); Mean Corpuscular Volume 98.7 fL (80-100); Monocytes Absolute Auto 1200 /uL (0-900); Monocytes Percent Auto 11.8 % (3-14); Neutrophils Absolute Auto 7700 /uL (1500-7000); Neutrophils Percent Auto 79.1 % (50-75); Platelet Count 190 X10^3/uL (150-400); Red Blood Cell Count 3.43 X10^6/uL (4.0-5.2); White Blood Cell Count 9.8 X10^3/uL (4.5-11.0)
[2020-04-11 14:26] LABS: Alanine Aminotransferase 20 IU/L (<35); Albumin 4.3 g/dL (3.5-5.0); Albumin Globulin Ratio 1.2 (1.0-2.8); Alkaline Phosphatase 89 U/L (38-126); Aspartate Aminotransferase 31 IU/L (14-36); BUN Creatinine Ratio 15.4 (6-22); Bilirubin Total 0.7 mg/dL (0.2-1.3); Blood Urea Nitrogen 12 mg/dL (7-17); Calcium 9.1 mg/dL (8.4-10.2); Carbon Dioxide 26 mmol/L (22-32); Chloride 99 mmol/L (98-107); Estimated Glomerular Filt Rate > 60.0 mL/min (>60); Globulin 3.7 g/dL (1.7-4.1); Glucose 93 mg/dL (80-110); HEMOLYSIS 18 (0-50); Lipase 115 U/L (23-300); Potassium 4.1 mmol/L (3.4-5.1); Sodium 134 mmol/L (137-145)
[2020-04-11 15:39] LABS: INR 3.7 (0.9-1.3); Prothrombin Time 41.8 SECONDS (10.1-12.7)
[2020-04-11 15:42] LABS: PTT Partial Thromboplastin Tim 38 SECONDS (26.4-36.2)
[2020-04-11] MEDS: PIPERACILLIN-TAZO 3.375 GM/50 ML FROZ.PIGGY IV (15:47)
[2020-04-11] MEDS: SODIUM CHLORIDE 0.9% 1,000 ML 1000 ML IV (15:47)
--- NOTE | 2020-04-11 17:13 | PM.HP.1 ---
History of Present Illness History of Present Illness Date Patient Seen: 04/11/20 Time Patient Seen: 17:14 Chief complaint: right side abdominal pain Narrative: 65-year-old female seen in consultation for acute appendicitis. And she has had 5 days of vague abdominal pain today becoming more focused in the right lower quadrant. Associated nausea no emesis or fever. CT demonstrates acute appendicitis trace free fluid no abscess, WBC 10. She received Zosyn in the emergency room. Medical history is significant for mechanical aortic valve replacement, mitral regurgitation, congestive heart failure, atrial fibrillation, substance abuse, COPD. No major abdominal surgical history, remote left inguinal hernia repair. 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) Scabies (Resolved ~2015) Status post aortic valve replacement (Chronic ~05/2011) Surgical History Anesthesia (Resolved) History of aortic valve replacement (05/18/11) History of esophagogastroduodenoscopy (EGD) (Acute ~2019) Hx of tonsillectomy (Acute) Family & Social History Family History Father Cancer Mother Heart disease Hypertension High cholesterol Social History: household members significant other Safety & Behavioral: Feels Safe in Current Yes Environment Been Physically Hurt or No Threatened By a Person Tobacco & Substance use: Smoking Status Former smoker alcohol intake current alcohol intake frequency 0-2 drinks per day Substance Use Type does not use Meds Home Medications and Allergies Home Medications Medication Instructions Recorded Confirmed Type lisinopril 10 mg tablet 5 mg PO BID #90 tab 02/14/19 04/11/20 Rx alendronate 70 mg tablet 70 mg PO QWEEK #14 tab 05/01/19 04/11/20 Rx citalopram 20 mg tablet 40 mg PO DAILY #180 tab 09/13/19 04/11/20 Rx aspirin 81 mg PO DAILY 10/11/19 04/11/20 History atenolol 50 mg tablet 50 mg PO BID #180 tab 11/13/19 04/11/20 Rx warfarin 2.5 mg tablet 2.5 mg PO DAILY #90 tab 11/20/19 04/11/20 Rx epinephrine 0.3 mg/0.3 mL See Rx Instructions .ROUTE 12/01/19 04/11/20 Rx injection, auto-injector .COMPLEX #2 each rosuvastatin 40 mg tablet 40 mg PO BEDTIME #90 tab 02/15/20 04/11/20 Rx cefuroxime axetil 500 mg tablet 500 mg PO BID #28 tab 02/21/20 04/11/20 Rx lorazepam 1 mg tablet See Rx Instructions .ROUTE 02/21/20 04/11/20 Rx .COMPLEX #90 tablet cyclobenzaprine 10 mg tablet See Rx Instructions .ROUTE 03/05/20 04/11/20 Rx .COMPLEX #40 tab albuterol sulfate 90 mcg/actuation 1 puff INHALATION Q4-6H PRN #8 gram 03/11/20 04/11/20 Rx aerosol inhaler bupropion HCl 150 mg tablet,12 hr 150 mg PO QAM #30 each 03/12/20 04/11/20 Rx sustained-release oxycodone-acetaminophen 7.5 mg-325 See Rx Instructions .ROUTE 04/03/20 04/11/20 Rx mg tablet .COMPLEX #60 tablet Allergies Allergy/AdvReac Type Severity Reaction Status Date / Time venom-honey bee Allergy Severe anaphlaxs Verified 04/11/20 11:21 [BEE VENOM (HONEY BEE)] nickel Allergy Intermediate Rash Verified 04/11/20 11:21 Review of Systems Review of Systems Narrative: A 10 point review of systems is negative except as noted in the HPI Exam Vital Signs (past 8 hours): - 04/11/20 13:01 04/11/20 13:02 04/11/20 13:05 Temperature 99.3 F Pulse Rate 110 H 97 H Respiratory Rate 18 Blood Pressure 103/73 103/73 Pulse Oximetry 99 97 04/11/20 15:13 Temperature Pulse Rate 106 H Respiratory Rate 19 Blood Pressure 139/82 Pulse Oximetry 98 Oxygen Delivery Method Room Air Narrative Exam Narrative: General-no acute distress, thin female HEENT-moist mucous membranes, no scleral icterus Neck-supple, no lymphadenopathy Chest- non labored respirations Abdomen-tender right lower quadrant with palpation no douglas peritonitis. Extremities-warm, well perfused Neurological-alert and oriented, no focal deficits Objective Labs Result Diagrams: 04/11/20 14:00 04/11/20 14:00 Labs: Laboratory Results - last 24 hr 04/11/20 04/11/20 04/11/20 14:00 14:00 14:00 WBC 9.8 RBC 3.43 L Hgb 11.1 L Hct 33.8 L MCV 98.7 MCH 32.5 MCHC 33.0 RDW 16.0 H Plt Count 190 Neut % (Auto) 79.1 H Lymph % (Auto) 8.3 L [place] % (Auto) 11.8 Eos % (Auto) 0.3 L Baso % (Auto) 0.5 Neut # (Auto) 7700 H Lymph # (Auto) 800 L [place] # (Auto) 1200 H Eos # (Auto) 0 Baso # (Auto) 0 PT 41.8 H INR 3.7 H APTT 38 H Sodium 134 L Potassium 4.1 Chloride 99 Carbon Dioxide 26 BUN 12 Creatinine 0.78 Estimated GFR > 60.0 BUN/Creatinine Ratio 15.4 Glucose 93 Calcium 9.1 Total Bilirubin 0.7 AST 31 ALT 20 Alkaline Phosphatase 89 Total Protein 8.0 Albumin 4.3 Globulin 3.7 Albumin/Globulin Ratio 1.2 Lipase 115 Assessment & Plan Assessment and plan (1) Acute appendicitis: Qualifiers: Acute appendicitis type: with generalized peritonitis Appendicitis abscess presence: without abscess Appendicitis gangrene presence: without gangrene Appendicitis perforation presence: with perforation Qualified Code(s): K35.20 - Acute appendicitis with generalized peritonitis, without abscess Status: Acute Assessment & Plan narrative: 65-year-old female with COPD,mechanical aortic valve placement admitted to the hospital with acute appendicitis. I reviewed her CT demonstrates acute appendicitis there is no abscess is a small amount of free fluid, WBC 10. She is anticoagulated with warfarin for the mechanical valve INR 3.7 at admission. She will require normalization her INR prior to surgery. Medicine recommendations regarding her anticoagulation are appreciated. -NPO IV fluids -Zosyn -Appendectomy when INR is normal -SCDs
--- NOTE | 2020-04-11 17:17 | PM.CN ---
History of Present Illness Consult details Date Patient Seen: 04/11/20 Time Patient Seen: 17:19 Chief complaint: right side abdominal pain Reason for consult: Medical management Requesting provider: Maldonado Larios Narrative: 65-year-old female with mechanical aortic valve who presented to the [facility] Emergency Room with several days of right-sided lower abdominal pain. She was seen in the clinic and sent to the ER for evaluation. In the ER she is found to have acute appendicitis and was admitted to surgery for surgical intervention. However her vitals and assessment were relatively benign. Patient is chronically anticoagulated with warfarin because of her mechanical aortic valve as well as chronic atrial fibrillation. INR is range is 3.7. I am consulted to help manage her anticoagulation around timing for surgery. At the current time it appears she likely be stable to allow for anticoagulation to be appropriately addressed Meds Home Medications and Allergies Home Medications Medication Instructions Recorded Confirmed Type lisinopril 10 mg tablet 5 mg PO BID #90 tab 02/14/19 04/11/20 Rx alendronate 70 mg tablet 70 mg PO QWEEK #14 tab 05/01/19 04/11/20 Rx citalopram 20 mg tablet 40 mg PO DAILY #180 tab 09/13/19 04/11/20 Rx aspirin 81 mg PO DAILY 10/11/19 04/11/20 History atenolol 50 mg tablet 50 mg PO BID #180 tab 11/13/19 04/11/20 Rx warfarin 2.5 mg tablet 2.5 mg PO DAILY #90 tab 11/20/19 04/11/20 Rx epinephrine 0.3 mg/0.3 mL See Rx Instructions .ROUTE 12/01/19 04/11/20 Rx injection, auto-injector .COMPLEX #2 each rosuvastatin 40 mg tablet 40 mg PO BEDTIME #90 tab 02/15/20 04/11/20 Rx cefuroxime axetil 500 mg tablet 500 mg PO BID #28 tab 02/21/20 04/11/20 Rx lorazepam 1 mg tablet See Rx Instructions .ROUTE 02/21/20 04/11/20 Rx .COMPLEX #90 tablet cyclobenzaprine 10 mg tablet See Rx Instructions .ROUTE 03/05/20 04/11/20 Rx .COMPLEX #40 tab albuterol sulfate 90 mcg/actuation 1 puff INHALATION Q4-6H PRN #8 gram 03/11/20 04/11/20 Rx aerosol inhaler bupropion HCl 150 mg tablet,12 hr 150 mg PO QAM #30 each 03/12/20 04/11/20 Rx sustained-release oxycodone-acetaminophen 7.5 mg-325 See Rx Instructions .ROUTE 04/03/20 04/11/20 Rx mg tablet .COMPLEX #60 tablet Allergies Allergy/AdvReac Type Severity Reaction Status Date / Time venom-honey bee Allergy Severe anaphlaxs Verified 04/11/20 11:21 [BEE VENOM (HONEY BEE)] nickel Allergy Intermediate Rash Verified 04/11/20 11:21 Review of Systems Review of Systems ROS: Yes All systems reviewed with the patient and are negative except as otherwise documented Exam Vital Signs (past 8 hours): - 04/11/20 13:01 04/11/20 13:02 04/11/20 13:05 Temperature 99.3 F Pulse Rate 110 H 97 H Respiratory Rate 18 Blood Pressure 103/73 103/73 Pulse Oximetry 99 97 04/11/20 15:13 Temperature Pulse Rate 106 H Respiratory Rate 19 Blood Pressure 139/82 Pulse Oximetry 98 Oxygen Delivery Method Room Air Objective Imaging CT scan - abdomen: Radiologist's impression: [place] [address] CT Scan Report Signed Patient: Vonnie Conklin [facility]#: [id number] : 6Acct:[id number] Age/Sex: 65 / FDate of Service: 04/11/20 Loc: ED Accession Number: [id number] Procedure: CT abdomen pelvis w con Ordering Provider: Dee Moreira PROCEDURE: CT ABDOMEN PELVIS W CON INDICATIONS: RLQ pain TECHNIQUE: After the administration of intravenous contrast, 5 mm thick sections acquired from the diaphragm to the symphysis. 5 mm coronal and sagittal reformats were acquired. For radiation dose reduction, the following was used: automated exposure control, adjustment of mA and/or kV according to patient size. COMPARISON: None. FINDINGS: Image quality: Excellent. ABDOMEN: Lung bases: Lung bases are clear. Heart size is normal. Small hiatal hernia. Solid organs: Liver is normal in size and enhancement. Gallbladder is not significantly distended. Suspect for phrygian cap versus gallstone. Biliary system is non dilated. Pancreas enhances normally. Spleen is normal in size and enhancement. No adrenal nodules. Kidneys demonstrate normal size and enhancement, without hydronephrosis. Peritoneum and bowel: Appendix is dilated measuring up to 1.2 cm, (/). The appendiceal wall is thickened. There is moderate periappendiceal fat stranding. There is trace free fluid. No extraluminal gas is seen. Right lower quadrant ileum demonstrating mild thickening without dilatation. No small bowel obstruction. Somewhat prominent stool in the colon. No ascites. Nodes and vessels: No retroperitoneal or mesenteric adenopathy by size criteria. Aorta and inferior vena cava are normal in size. Moderate calcified atherosclerotic plaque. Miscellaneous: No ventral hernias. PELVIS: Genitourinary: Bladder is unremarkable. Uterus is unremarkable. No free fluid in the pelvis. Miscellaneous: No inguinal hernias or adenopathy. Bones: No suspicious bony lesions. Right hip total arthroplasty. No vertebral body compression fractures. Mild anterior listhesis of L4 on L5. Thoracolumbar spine Schmorl's nodes. IMPRESSION: Acute appendicitis, moderate severity. No rupture demonstrated. Trace reactive fluid. Labs Result Diagrams: 04/11/20 14:00 04/11/20 14:00 Labs: Laboratory Results - last 24 hr 04/11/20 04/11/20 04/11/20 14:00 14:00 14:00 WBC 9.8 RBC 3.43 L Hgb 11.1 L Hct 33.8 L MCV 98.7 MCH 32.5 MCHC 33.0 RDW 16.0 H Plt Count 190 Neut % (Auto) 79.1 H Lymph % (Auto) 8.3 L [place] % (Auto) 11.8 Eos % (Auto) 0.3 L Baso % (Auto) 0.5 Neut # (Auto) 7700 H Lymph # (Auto) 800 L [place] # (Auto) 1200 H Eos # (Auto) 0 Baso # (Auto) 0 PT 41.8 H INR 3.7 H APTT 38 H Sodium 134 L Potassium 4.1 Chloride 99 Carbon Dioxide 26 BUN 12 Creatinine 0.78 Estimated GFR > 60.0 BUN/Creatinine Ratio 15.4 Glucose 93 Calcium 9.1 Total Bilirubin 0.7 AST 31 ALT 20 Alkaline Phosphatase 89 Total Protein 8.0 Albumin 4.3 Globulin 3.7 Albumin/Globulin Ratio 1.2 Lipase 115 Assessment & Plan Assessment & Plan narrative: 1. Acute appendicitis-surgical intervention as per Dr. Larios. He anticipate she could probably defer and wait on surgery until the or potentially even the 13 of April. She has been admitted and placed on appropriate antibiotic therapy 2. Chronic anticoagulation-patient does need to be bridged with her anticoagulation given her mechanical aortic valve which would place her at high risk to be off her anticoagulation for any extended period of time. I suggest we reverse her warfarin with parental vitamin K, and when INR reaches a lower level say less than 2.5 institute Lovenox therapy at 1.5 milligrams/kilogram q.12 hours. This can be safely discontinued 8 or 10 hours prior to surgery with likely no impact on surgery. Per Dr. Larios he believes this will be an appropriate intervention on within appropriate time frame. Alternately she could be placed on unfractionated heparin drip which can be discontinued at any time, with more rapid resolution of anticoagulation effect. 3. Chronic atrial fibrillation-patient on atenolol orally as well as the anticoagulation of course. She may need some assistance with rate control and I would continue giving her atenolol with small sips of water while waiting for anticoagulation issues to be settled. If need be intermittent IV metoprolol could also be used for rate control and ultimately of course a continuous IV infusion of esmolol or more commonly diltiazem could be employed for rate control as well. Most likely should do just fine with intermittent IV metoprolol, 5 mg Q 4-8 hours depending on response until she is able take orals again more routinely in the perioperative period. 4. Depression-I would also continue patient's citalopram while we await correction of her anticoagulation. The minimal amount of time that she is off this medication would minimize side effects or issues. 5. Patient's other medical problems including her osteoporosis for which she is on Fosamax as well as her hypertension hyperlipidemia can be treated once she has safely undergone surgery. For now her oral medication should be held and they can be resumed postoperatively as per surgery. 6. Chronic opiate dependence-patient chronically is on oxycodone/acetaminophen 7.5/325, receiving 60 of these tablets every month. Her opiate requirements in the perioperative period for pain management will also likely be higher than average because of this. I would rely on use of parental pain medication until she is postop. 7. Patient with history of congestive heart failure although she most recently on echocardiography had normal left ventricular function. She appears to be euvolemic at this time. Monitor fluid volumes in the perioperative period with this history in mind. Dr. Maddox is patient's usual PCP and he will return to be able to follow the patient beginning tomorrow, the 12 of April. He is actually on-call through the long weekend and will see her as well.
[2020-04-11] MEDS: MORPHINE 4 MG/ML INJ IV (17:26)
[2020-04-11] MEDS: ONDANSETRON 4 MG/2 ML INJ IV (17:46)
[2020-04-11 18:13] LABS: COVID19 -Nasal RAPID Negative (Negative)
[2020-04-11] MEDS: PHYTONADIONE 1 MG/0.5 ML SYRINGE IM (18:34)
[2020-04-11] MEDS: SODIUM CHLORIDE 0.9% 1,000 ML 100 ML IV (18:35)
[2020-04-11] MEDS: ACETAMINOPHEN 325 MG TABLET 650 MG PO ×2 (19:45→23:53)
[2020-04-11] MEDS: OXYCODONE IR 5 MG TABLET PO (19:45)
[2020-04-11] MEDS: atenoloL 50 MG TABLET PO (19:46)
--- NOTE | 2020-04-11 20:02 | PC.NURSE ---
Addendum entered by Alycia Arana R.N. 04/11/20 22:15: Resting quietly in bed with eyes closed without signs of distress or discomfort. Original Note: Pt to room [facility] awake, alert, conversant. Unsteady gait with cane use. Bed alarm set and pt instructed not to attempt out of bed without calling for staff assistance. Discussed NPO status with pt and oral swabs were provided. Admits to right lower abdomen pain 5/10. Medicated as per emar. IV fluids infusing as ordered to right antecubital iv site without difficulty.
--- NOTE | 2020-04-11 23:40 | PC.NURSE ---
2341 -Pt had been see in the clinic on 04/11. Medications reviewed and confirmed per clinic note. Pt sleeping, unable at this time to confirm dose last taken. Medication list confirmed as per clinic notes.
[2020-04-12] VITALS (7 sets, daily range): BP systolic 109–134; BP diastolic 63–94; PULSE 78–96; RESP 16–21; TEMP 36.1–36.6; O2SAT 94–100
[2020-04-12] MEDS: PIPERACILLIN-TAZO 3.375 GM/50 ML FROZ.PIGGY IV ×3 (00:38→16:58)
--- NOTE | 2020-04-12 01:00 | PC.NURSE ---
Patient seen and assessed at 0005. Is oriented except to age. Breath sounds diminished throughout with RA sat of 95%. HR irregularly irregular; hx of afib. Denies nausea. BT present and abdomen is soft but tender; denies pain. Has voided and denies dysuria, frequency or urgency. Is able to move self in bed. 1 assist + cane when out of bed due to weakness/unsteadiness and patient has had recent fall. Fall risk score is high and bed alarm is activated.
[2020-04-12] MEDS: SODIUM CHLORIDE 0.9% 1,000 ML 100 ML IV ×2 (03:02→14:41)
[2020-04-12 05:12] LABS: INR 2.7 (0.9-1.3); Prothrombin Time 30.8 SECONDS (10.1-12.7)
[2020-04-12 05:18] LABS: Alanine Aminotransferase 13 IU/L (<35); Albumin 3.1 g/dL (3.5-5.0); Alkaline Phosphatase 64 U/L (38-126); Aspartate Aminotransferase 24 IU/L (14-36); BUN Creatinine Ratio 16.7 (6-22); Bilirubin Total 0.8 mg/dL (0.2-1.3); Blood Urea Nitrogen 13 mg/dL (7-17); Calcium 7.9 mg/dL (8.4-10.2); Carbon Dioxide 25 mmol/L (22-32); Chloride 109 mmol/L (98-107); Estimated Glomerular Filt Rate > 60.0 mL/min (>60); Globulin 3.1 g/dL (1.7-4.1); Glucose 69 mg/dL (80-110); HEMOLYSIS 26 (0-50); Potassium 4.2 mmol/L (3.4-5.1); Sodium 136 mmol/L (137-145); Total Protein 6.2 g/dL (6.3-8.2)
[2020-04-12] MEDS: ACETAMINOPHEN 325 MG TABLET 650 MG PO ×3 (05:39→16:59)
--- NOTE | 2020-04-12 08:28 | P.PN_ITS ---
Subjective Subjective Date Patient Seen: 04/12/20 Time Patient Seen: 08:29 Interval history: Acute appendicitis. Acute appendicitis patient admitted for yesterday through the ER. She she has been sick for a few days. Evaluation was felt that she was not an emergent appendectomy but admitted for same. Issue at hand is her anticoagulation getting her to a appropriate level to add be an appropriate candidate for surgery. Meanwhile patient denies any nausea no fever no chills. No palpitations. Still has pain right lower quadrant but does seem to be a bit better than yesterday. No change in bowel or bladder. Exam Vital Signs (past 8 hours): - 04/12/20 04:40 Temperature 97.8 F Pulse Rate 95 H Respiratory Rate 18 Blood Pressure 109/63 Pulse Oximetry 94 Oxygen Delivery Method Room Air Oxygen Flow Rate 0 Narrative Exam Narrative: Patient is resting quietly in her bed appears to be asleep but easily aroused and awakened and conversant. She appears in no distress. Lungs are entirely clear. Cardiac exam irregular irregular rhythm at approximately 100. She has no edema. Abdominal exam she has decreased bowel sounds. She has moderately tender right lower quadrant there is no rebound no masses Objective Labs Result Diagrams: 04/11/20 14:00 04/12/20 04:30 Labs: Laboratory Results - last 24 hr 04/11/20 04/11/20 04/11/20 14:00 14:00 14:00 WBC 9.8 RBC 3.43 L Hgb 11.1 L Hct 33.8 L MCV 98.7 MCH 32.5 MCHC 33.0 RDW 16.0 H Plt Count 190 Neut % (Auto) 79.1 H Lymph % (Auto) 8.3 L [place] % (Auto) 11.8 Eos % (Auto) 0.3 L Baso % (Auto) 0.5 Neut # (Auto) 7700 H Lymph # (Auto) 800 L [place] # (Auto) 1200 H Eos # (Auto) 0 Baso # (Auto) 0 PT 41.8 H INR 3.7 H APTT 38 H Sodium 134 L Potassium 4.1 Chloride 99 Carbon Dioxide 26 BUN 12 Creatinine 0.78 Estimated GFR > 60.0 BUN/Creatinine Ratio 15.4 Glucose 93 Calcium 9.1 Total Bilirubin 0.7 AST 31 ALT 20 Alkaline Phosphatase 89 Total Protein 8.0 Albumin 4.3 Globulin 3.7 Albumin/Globulin Ratio 1.2 Lipase 115 COVID-19 PCR 04/11/20 04/12/20 04/12/20 17:15 04:30 04:30 WBC RBC Hgb Hct MCV MCH MCHC RDW Plt Count Neut % (Auto) Lymph % (Auto) [place] % (Auto) Eos % (Auto) Baso % (Auto) Neut # (Auto) Lymph # (Auto) [place] # (Auto) Eos # (Auto) Baso # (Auto) PT 30.8 H D INR 2.7 H APTT Sodium 136 L Potassium 4.2 Chloride 109 H Carbon Dioxide 25 BUN 13 Creatinine 0.78 Estimated GFR > 60.0 BUN/Creatinine Ratio 16.7 Glucose 69 L Calcium 7.9 L Total Bilirubin 0.8 AST 24 ALT 13 Alkaline Phosphatase 64 Total Protein 6.2 L Albumin 3.1 L Globulin 3.1 Albumin/Globulin Ratio 1.0 Lipase COVID-19 PCR Negative Labs reviewed as above INR 2.7 Assessment & Plan Assessment & Plan narrative: 1. Acute appendicitis the does not appear to be perforated rupture. Minimal amount of fluid around the appendix. Patient appears clinically stable referral to the appendicitis. She will require appendectomy sometime in the near future appeared 2. Anticoagulation her INR this morning is 2.7 will give another injection 1 mg of vitamin K. unclear exactly what INR would be acceptable to Dr. Larios for a surgical intervention. 3. Continuous telemetry for atrial fibrillation. 4. Pre-existing atrial fib appears adequately control with a heart rate of approximately 100. 5. Postoperatively will receive Lovenox and warfarin INR to be followed as an outpatient at as she has been doing in the past. 6. No evidence for CHF. 7. Hypertension stable Quality VTE Deep Vein Thrombosis/Pulmonary Embolism Present on Admission: No
[2020-04-12] MEDS: CITALOPRAM 20 MG TABLET 40 MG PO (09:01)
[2020-04-12] MEDS: PHYTONADIONE 1 MG/0.5 ML SYRINGE IM (09:01)
[2020-04-12] MEDS: atenoloL 50 MG TABLET PO ×2 (09:03→20:30)
--- NOTE | 2020-04-12 12:28 | PC.NURSE ---
Assess- Patient states that she is comfortable at this time. She does have some r.lower quadrant pain, on palpation of abdomen. Patient took her medication and vit k injection given to her l.deltoid. She will most likely go for her appe after her INR is below 2.7. Patient is comfortable at this time. Due for some po tylenol soon.
--- NOTE | 2020-04-12 13:59 | P.PN_ITS ---
Subjective Subjective Date Patient Seen: 04/12/20 Time Patient Seen: 13:59 Interval history: No acute events overnight. Pt denies nausea, denies fevers. Reports ongoing focal right lower quadrant pain. Exam Vital Signs (past 8 hours): - 04/12/20 08:20 04/12/20 11:22 Temperature 96.9 F L 97.1 F L Pulse Rate 84 78 Respiratory Rate 16 18 Blood Pressure 115/72 109/76 Pulse Oximetry 97 98 Oxygen Delivery Method Room Air Oxygen Flow Rate 0 Narrative Exam Narrative: GENERAL: Alert, comfortable. Appears stated age. Answers questions promptly and appropriately. Vital signs noted. HENT: Normocephalic, atraumatic. Hearing intact. EYES: Conjunctiva pink, sclera white, no periorbital swelling. CARDIOVASCULAR: Regular rate. No pedal edema. RESPIRATORY: Non-tachypneic, breathing comfortably on room air. GASTROINTESTINAL: Abdomen soft and non-distended; focal tenderness to palpation in the right lower quadrant, negative Rovsing sign GENITALURINARY: No flank tenderness. MUSCULOSKELETAL: Equal tone and mass bilaterally. SKIN: Warm, dry, soft, appropriate color for ethnicity. No other lesions, rashes, or wounds. NEURO: Alert and Oriented X 3. No gross sensory deficits, or cognitive issues. PSYCH: Appropriate affect and mood. Objective Labs Result Diagrams: 04/11/20 14:00 04/12/20 04:30 Labs: Laboratory Results - last 24 hr 04/11/20 04/11/20 04/11/20 14:00 14:00 14:00 WBC 9.8 RBC 3.43 L Hgb 11.1 L Hct 33.8 L MCV 98.7 MCH 32.5 MCHC 33.0 RDW 16.0 H Plt Count 190 Neut % (Auto) 79.1 H Lymph % (Auto) 8.3 L [place] % (Auto) 11.8 Eos % (Auto) 0.3 L Baso % (Auto) 0.5 Neut # (Auto) 7700 H Lymph # (Auto) 800 L [place] # (Auto) 1200 H Eos # (Auto) 0 Baso # (Auto) 0 PT 41.8 H INR 3.7 H APTT 38 H Sodium 134 L Potassium 4.1 Chloride 99 Carbon Dioxide 26 BUN 12 Creatinine 0.78 Estimated GFR > 60.0 BUN/Creatinine Ratio 15.4 Glucose 93 Calcium 9.1 Total Bilirubin 0.7 AST 31 ALT 20 Alkaline Phosphatase 89 Total Protein 8.0 Albumin 4.3 Globulin 3.7 Albumin/Globulin Ratio 1.2 Lipase 115 COVID-19 PCR 04/11/20 04/12/20 04/12/20 17:15 04:30 04:30 WBC RBC Hgb Hct MCV MCH MCHC RDW Plt Count Neut % (Auto) Lymph % (Auto) [place] % (Auto) Eos % (Auto) Baso % (Auto) Neut # (Auto) Lymph # (Auto) [place] # (Auto) Eos # (Auto) Baso # (Auto) PT 30.8 H D INR 2.7 H APTT Sodium 136 L Potassium 4.2 Chloride 109 H Carbon Dioxide 25 BUN 13 Creatinine 0.78 Estimated GFR > 60.0 BUN/Creatinine Ratio 16.7 Glucose 69 L Calcium 7.9 L Total Bilirubin 0.8 AST 24 ALT 13 Alkaline Phosphatase 64 Total Protein 6.2 L Albumin 3.1 L Globulin 3.1 Albumin/Globulin Ratio 1.0 Lipase COVID-19 PCR Negative Assessment & Plan Assessment and plan (1) Chronic atrial fibrillation: Status: Acute (2) Mitral regurgitation: Problem details: Moderate severe echo April 2019 Status: Chronic (3) Acute appendicitis: Qualifiers: Acute appendicitis type: with generalized peritonitis Appendicitis abscess presence: without abscess Appendicitis gangrene presence: without gangrene Appendicitis perforation presence: with perforation Qualified Code(s): K35.20 - Acute appendicitis with generalized peritonitis, without abscess Status: Acute (4) shelter current use of anticoagulant therapy: Status: Chronic (5) Status post aortic valve replacement: Problem details: 21mm [place] Status: Chronic Assessment & Plan narrative: This is the 65-year-old woman with a history of anticoagulation on Coumadin, aortic valve replacement with a metal [place] valve, and acute appendicitis. Per the prior recommendations, we will wait for her INR to come down prior to appendectomy. Right now she seems to feel okay, appears nontoxic, and is on antibiotics. Her INR is 2.7. She has received vitamin K. we will plan on appendectomy tomorrow assuming her INR is closer to 1.5 by then. Plan: P.o. clear liquids today NPO after midnight Plan for appendectomy tomorrow Recheck INR in the morning Continue IV Zosyn Encourage ambulation COVID-19 COVID-19 status: Negative Result date/Date tested (Pos, Neg/Pending): 04/11/20 Time Spent With Patient Time with patient: 15-24 minutes Quality VTE Deep Vein Thrombosis/Pulmonary Embolism Present on Admission: No
--- NOTE | 2020-04-12 14:28 | CM.IDA ---
Initial DCP Assessment Note Patient is a 65 yo female, resident of [place]. Patient presents w/severe and persistent abd pain. h/o aortic valve replacement and right sided hip replacement General surgery has been consulted and patient has been tentatively scheduled for an appendectomy tomorrow, as long as INR is in therapeutic range. Met w/patient to introduce role. patient lives w/ SO in [place] and is indp at baseline, uses a cane to assist w/ambulation. patient explains today that she does not foresee any needs from this SHIP MANAGER. SHIP MANAGER will follow closely to address any DC needs or concerns that arise. CARO Lai Discharge Planning/Care Management CM Discharge Assessment Start: 04/12/20 14:25 Freq: Status: Active Protocol: Document 04/12/20 14:26 RODY (Rec: 04/12/20 14:28 RODY [id number]) Discharge Planning Assessment Assigned Assembly Manager CARO French DPOA/Assigned Designee Name Kenneth Jurado, bushra Advance Directives? No History Provided By Patient,Medical Record Prior Living Arrangements House Household Members significant other Type of transporation used prior to Drives own vehicle admit Independent with ADL's Yes Is patient alert and oriented? Yes Barriers to Discharge No Comment Not at this time, patient plans to DC home w/partner for assistance Discharge Plan Home Referrals Initiated None needed Additional Comment At this time Review Status In Process
--- NOTE | 2020-04-12 14:53 | DIET.PN ---
Dietary Progress Note Assessment: 65y F admitted for right sided abdominal pain found to have acute appendicitis awaiting anticoagulation reversal before heading to OR. Pt is on clear liquid diet. Pts weight hx vacillates between 49-65kg since 2017 per [facility] records with weight gain of ~5kg during start of pandemic and is coming down now to prepandemic range. Pt would do well to receive ONS Ensure after procedure as BMI on low/normal side. HT: 167.6cm WT: 61kg UBW: 49-65kg BMI: 21.7 Interventions: Recc ONS Ensure daily during hospital stay Diet Order: clears awaiting OR
[2020-04-12 18:36] LABS: Prothrombin Time 22.3 SECONDS (10.1-12.7)
[2020-04-12] MEDS: PHYTONADIONE (VIT K1) 5 MG in DEXTROSE 5 % IN WATER 50 ML 101 ML IV (19:30)
[2020-04-12] MEDS: ROSUVASTATIN 10 MG TABLET 40 MG PO (20:30)
[2020-04-12] MEDS: OXYCODONE IR 5 MG TABLET PO (20:33)
--- NOTE | 2020-04-12 22:43 | PC.NURSE ---
Pt is A and O x 4, VSS. NPO p 0000. INR = 2.0. Pt rated px 4-8/10 this shift, good relief from 5 mg oxycodone. A fib on tele HR irregular, irregular 60-99. Able to sleep and denies nausea.
[2020-04-13] VITALS (19 sets, daily range): BP systolic 101–146; BP diastolic 64–103; PULSE 81–102; RESP 12–20; TEMP 36.3–37.2; O2SAT 94–99; BMI 21.7
--- NOTE | 2020-04-13 | PATH_ITS ---
[facility] Accession Number: [id number] . 01 Material submitted: . appendix - APPENDIX . 01 Clinical history: . RIGHT SIDE ABDOMINAL PAIN . 02 Diagnosis: Appendix, Appendectomy: Acute and gangrenous appendicitis with serositis. MRV 04/18/2020 1347 Local . 02 Electronically signed: . Radha Durand MD, Pathologist NPI- [id number] . 01 Gross description: . Received in formalin, labeled with the patient's name, MRN and appendix, is a 5.1 cm in length by 0.1 cm in diameter intact appendix with an attached 3.7 x 2.0 x 0.8 cm mesoappendix. The serosal surface is li-white with adherent white-li exudate. The appendix is serially sectioned to reveal a pinpoint lumen filled with fecal material. The wall thickness measures up to 0.5 cm. No discrete lesions are identified. Machine Welder sections are submitted as follows: . A1: proximal margin (inked blue) and field marketing representative midsections of appendix. A2: distal tip of appendix, bisected. ([facility] [place]10 [id number]) /MRV 04/17/2020 1338 Local . 02 Pathologist provided ICD-10: K35.20 . 02 CPT . 469434 Performed at: 01 [facility] Located within [facility] [address], [place], [place] [id number] MD Gabe German MD Phone: [phone] Performed at: 02 [facility] [place] [address] [place], [place] [id number] MD Mari Perez MD Phone: [phone]
[2020-04-13] MEDS: ACETAMINOPHEN 325 MG TABLET 650 MG PO ×3 (00:10→18:06)
[2020-04-13] MEDS: PIPERACILLIN-TAZO 3.375 GM/50 ML FROZ.PIGGY IV ×4 (00:10→16:23)
[2020-04-13] MEDS: SODIUM CHLORIDE 0.9% 1,000 ML 100 ML IV ×2 (02:03→12:21)
--- NOTE | 2020-04-13 02:27 | PC.NURSE ---
Addendum entered by Amisha Tarango R.N. 04/13/20 05:22: Patient states RLQ pain is 5/10 and sharp. Is currently NPO so Dr Fontaine contacted as only pain medications ordered are po. states okay to give po pain meds with sips water. Medicated with scheduled Tylenol as well as Oxycodone Original Note: Seen and assessed at 0018. Is alert and oriented. Breath sounds CTA with RA sat of 99%. HR irregular with hx of afib and telemetry reading was afib CVR. Denies nausea. BT hypoactive; abdomen tender to palpation over RLQ. Denies dysuria, frequency or urgency with urination. Moves self in bed. Assisted to bathroom due to weakness; uses cane and 1 assist.; Denies pain. Wearing bilateral calf SCD's. NPO for surgery in a.m. Fall risk score is high and bed alarm is activated.
[2020-04-13] MEDS: OXYCODONE IR 5 MG TABLET PO (05:19)
[2020-04-13 05:46] LABS: Add Manual Diff / Slide Review NO; Basophils Absolute Auto 0 /uL (0-100); Basophils Percent Auto 0.9 % (0-2); Eosinophils Absolute Auto 100 /uL (0-450); Eosinophils Percent Auto 3.1 % (2-4); Hemoglobin 9.9 g/dL (12.0-16.0); INR 1.5 (0.9-1.3); Lymphocytes Absolute Auto 700 /uL (1100-4500); Lymphocytes Percent Auto 15.8 % (25-40); Mean Corpuscular Hemoglobin 32.9 PG (26-34); Mean Corpuscular Volume 99.8 fL (80-100); Monocytes Absolute Auto 700 /uL (0-900); Monocytes Percent Auto 15.1 % (3-14); Neutrophils Absolute Auto 2900 /uL (1500-7000); Neutrophils Percent Auto 65.1 % (50-75); Platelet Count 178 X10^3/uL (150-400); Prothrombin Time 16.9 SECONDS (10.1-12.7); Red Blood Cell Count 3.01 X10^6/uL (4.0-5.2); Red Cell Distribution Width 16.4 % (11.6-14.8); White Blood Cell Count 4.5 X10^3/uL (4.5-11.0)
[2020-04-13 05:52] LABS: BUN Creatinine Ratio 14.3 (6-22); Blood Urea Nitrogen 12 mg/dL (7-17); Calcium 7.8 mg/dL (8.4-10.2); Carbon Dioxide 25 mmol/L (22-32); Chloride 111 mmol/L (98-107); Estimated Glomerular Filt Rate > 60.0 mL/min (>60); Glucose 75 mg/dL (80-110); HEMOLYSIS < 15 (0-50); Potassium 4.2 mmol/L (3.4-5.1); Sodium 139 mmol/L (137-145)
--- NOTE | 2020-04-13 09:12 | P.PN_ITS ---
Subjective Subjective Date Patient Seen: 04/13/20 Time Patient Seen: 09:12 Interval history: Appendicitis Patient continues to have right lower quadrant pain. No nausea no vomiting. He she has had no bowel movement for 3 days. No urinary changes. Medications as she has been getting for pain is been adequate. Exam Vital Signs (past 8 hours): - 04/13/20 04:36 04/13/20 08:07 04/13/20 08:44 Temperature 97.7 F 98.2 F Pulse Rate 83 95 H Respiratory Rate 18 19 Blood Pressure 138/91 H 140/100 H Pulse Oximetry 99 97 97 Oxygen Delivery Method Room Air Oxygen Flow Rate 0 Narrative Exam Narrative: Is resting quietly in hospital bed appears in no distress. He still has fair amount of tenderness in right lower quadrant bowel sounds decrease INR this morning is 1.5 Objective Labs Result Diagrams: 04/13/20 05:05 04/13/20 05:05 Labs: Laboratory Results - last 24 hr 04/12/20 04/13/20 04/13/20 18:18 05:05 05:05 WBC 4.5 D RBC 3.01 L Hgb 9.9 L Hct 30.0 L MCV 99.8 MCH 32.9 MCHC 33.0 RDW 16.4 H Plt Count 178 Neut % (Auto) 65.1 Lymph % (Auto) 15.8 L [place] % (Auto) 15.1 H Eos % (Auto) 3.1 Baso % (Auto) 0.9 Neut # (Auto) 2900 Lymph # (Auto) 700 L [place] # (Auto) 700 Eos # (Auto) 100 Baso # (Auto) 0 PT 22.3 H D 16.9 H D INR 2.0 H 1.5 H Sodium Potassium Chloride Carbon Dioxide BUN Creatinine Estimated GFR BUN/Creatinine Ratio Glucose Calcium 04/13/20 05:05 WBC RBC Hgb Hct MCV MCH MCHC RDW Plt Count Neut % (Auto) Lymph % (Auto) [place] % (Auto) Eos % (Auto) Baso % (Auto) Neut # (Auto) Lymph # (Auto) [place] # (Auto) Eos # (Auto) Baso # (Auto) PT INR Sodium 139 Potassium 4.2 Chloride 111 H Carbon Dioxide 25 BUN 12 Creatinine 0.84 Estimated GFR > 60.0 BUN/Creatinine Ratio 14.3 Glucose 75 L Calcium 7.8 L INR 1.5 noted. Hemoglobin of 9.9 is noted. May need to have further evaluation as an outpatient Assessment & Plan Assessment & Plan narrative: 1. Acute appendicitis anticipating a surgical intervention today tomorrow. 2. Chronic atrial fibrillation. 3. Chronic anticoagulation she she has INR 1.5.. She will be starting on Lovenox and warfarin presumably be on Lovenox for problem bowel weaker so. 4. Remainder medical problems are stable. Quality VTE Deep Vein Thrombosis/Pulmonary Embolism Present on Admission: No
[2020-04-13] MEDS: CITALOPRAM 20 MG TABLET 40 MG PO (09:25)
[2020-04-13] MEDS: buPROPion SR 150 MG TAB PO (09:25)
--- NOTE | 2020-04-13 09:35 | PC.NURSE ---
Day shift: Per Dr Jenkins ([id number])ok to give Pt her morning PO meds.
[2020-04-13] MEDS: atenoloL 50 MG TABLET PO ×2 (09:40→21:31)
--- NOTE | 2020-04-13 10:26 | PM.PREOP ---
Pre-operative Note COVID-19 COVID-19 status: Negative Interval Note History & Physical reviewed/Exam performed by Physician: Yes Changes to H&P: Yes H&P completed within 30 days and has changed as indicated here:: Patient remains diffusely tender but soft. She does have guarding in the right lower abdomen. Will proceed to the operating room. I have discussed the operation with her. I intend to try laparoscopic removal of her appendix. If that is not possible to do safely we will perform an open procedure. Risks of bleeding infection cardiac or lung problems were all discussed with her. Hernia discussed. All questions were answered. Explained to her that she will probably be here several more days at least. INR is 1.5.
--- NOTE | 2020-04-13 14:41 | PC.NURSE ---
Day shift: Pt off AC unit at this time for procedure. extrusion manager made aware (Franny VIZCAINO). Pt off tele and SL.
--- NOTE | 2020-04-13 16:18 | SUR.OPER ---
Supine on padded OR bed, head on pillow, arm padded and tucked at side, legs uncrossed, safety belt at thigh, tape over blanket over lower legs .
[2020-04-13] MEDS: BUPIVACAINE 0.5% (PF) VIAL 30 ML INJ (16:22)
--- NOTE | 2020-04-13 17:23 | P.OP_ITS ---
Operative Date/Time/Diagnoses Date of procedure: 04/13/20 Time of procedure: 17:24 Pre-op diagnosis: Acute appendicitis with probable perforation Post-op diagnosis: same (Acute appendicitis with perforation) Procedure & Clinicians Procedure: Laparoscopic appendectomy Same procedure as scheduled: Yes Indications: Abnormal CT scan with white blood cell count elevation and tenderness right lower quadrant Surgeon: Carlos Eubanks Click Yes if Unassisted: Yes Anesthesia Type: General Operative Notes Findings: It appeared to be an a inflamed appendix with perforation sealed off by surrounding structures. No abscess noted. Closure Type: primary Specimen(s): other (Appendix) Prosthetic devices, grafts, tissues, transplants, or devices: None Applied: catheter (Simmons catheter inserted preop in removed postop) Estimated Blood Loss (mL): 10 Blood products transfused: none Procedure in detail: The patient is placed supine on the operating room table underwent general endotracheal anesthesia. She was prepped and draped in the usual fashion. Local anesthetic was infiltrated beneath the umbilicus and a curvilinear incision was made. It was carried down under direct vision in the peritoneal cavity. Stay sutures of 0 Vicry were placed in the fasci. A 12 mm port was inserted and the abdomen was insufflated. Two additional ports were placed. These were both 5 mm ports. One was placed between the pubis and umbilicus and the other in the left lower quadrant. There is a right lower quadrant had extensive adhesions of the cecum and small bowel to 1 another along with the right tube involved in the inflammatory process. Using principally blunt dissection and some minor sharp dissection the cecum was freed and the appendix identified. Using blunt dissection it was from the attachments to small bowel and fat and the tube. The mesentery was divided using cautery and the base cleared. An 0 PDS loop was placed at the base of the appendix and cinched down. A clamp was placed across the appendix distal to this and using cautery and laparoscopic scissors the appendix was transected. It was immediately placed in a bag without spillage. The bag was removed without difficulty through the umbilical port. the right lower quadrant was irrigated and suctioned free of fluid. The pelvis was copiously irrigated and suctioned free of fluid. There was no ongoing bleeding. There had been minimal blood loss during the dissection operation. The ports were all removed. The stay sutures at the umbilicus were tied and a 2 0 PDS was placed between and higher prior to tying the sutures. The subcu was irrigated all 3 incisions. Skin was closed with 4 0 Vicryl subcuticular stitches in all locations. Local anesthetic had been infiltrated prior to skin closure. Steri-Strips and Band- Aids were applied. Patient tolerated the procedure well. She was extubated and taken recovery room good condition. Complications: none Post-operative Condition: stable Disposition: PACU Plan for aftercare: Back to acute care. Patient will require anticoagulation prior to discharge.
--- NOTE | 2020-04-13 18:01 | SUR.PHASEI ---
pt transferred to acute care floor in stable condition, vss. Bedside report given to CHARIS Rain upon arrival to room. Pt alert and orientated x3 upon arrival to room. Transferred care of pt to AC RN at that time.
[2020-04-13] MEDS: HYDROMORPHONE 0.5 MG INJ IV (18:05)
[2020-04-13] MEDS: LACTATED RINGERS 1,000 ML 84 ML IV (18:06)
[2020-04-13] MEDS: ROSUVASTATIN 10 MG TABLET 40 MG PO (21:30)
[2020-04-13] MEDS: GABAPENTIN 300 MG CAPSULE PO (21:30)
[2020-04-13] MEDS: OXYCODONE/ACETAMINOPHEN 5/325 TABLET 2 TAB PO (21:35)
[2020-04-13] MEDS: ENOXAPARIN 40 MG/0.4 ML SYRINGE SUBCUT (21:43)
--- NOTE | 2020-04-13 22:26 | PC.NURSE ---
Pt returned to unit, sleepy rating pain 8/10. She slept for an hour then tolerated broth, apple juice and tea. She voided qs clear yellow and denied nausea and dizziness.
[2020-04-14] VITALS (9 sets, daily range): BP systolic 99–136; BP diastolic 59–100; PULSE 74–109; RESP 14–20; TEMP 36.2–36.8; O2SAT 96–99
[2020-04-14] MEDS: ACETAMINOPHEN 325 MG TABLET 650 MG PO ×2 (00:21→06:01)
[2020-04-14] MEDS: PIPERACILLIN-TAZO 3.375 GM/50 ML FROZ.PIGGY IV ×3 (00:22→15:56)
[2020-04-14 05:32] LABS: Add Manual Diff / Slide Review NO; Basophils Absolute Auto 0 /uL (0-100); Basophils Percent Auto 0.2 % (0-2); Eosinophils Absolute Auto 0 /uL (0-450); Hematocrit 33.3 % (36-46); Hemoglobin 10.8 g/dL (12.0-16.0); Lymphocytes Absolute Auto 600 /uL (1100-4500); Lymphocytes Percent Auto 12.6 % (25-40); Mean Corpuscular HGB Conc 32.3 % (30-36); Monocytes Absolute Auto 400 /uL (0-900); Monocytes Percent Auto 9.1 % (3-14); Neutrophils Absolute Auto 3600 /uL (1500-7000); Neutrophils Percent Auto 78.1 % (50-75); Platelet Count 201 X10^3/uL (150-400); Red Blood Cell Count 3.37 X10^6/uL (4.0-5.2); Red Cell Distribution Width 16.1 % (11.6-14.8); White Blood Cell Count 4.6 X10^3/uL (4.5-11.0)
[2020-04-14 05:37] LABS: INR 1.2 (0.9-1.3); Prothrombin Time 14.1 SECONDS (10.1-12.7)
[2020-04-14 05:45] LABS: BUN Creatinine Ratio 12.3 (6-22); Blood Urea Nitrogen 10 mg/dL (7-17); Calcium 8.2 mg/dL (8.4-10.2); Carbon Dioxide 24 mmol/L (22-32); Chloride 106 mmol/L (98-107); Estimated Glomerular Filt Rate > 60.0 mL/min (>60); Glucose 193 mg/dL (80-110); HEMOLYSIS < 15 (0-50); Potassium 4.4 mmol/L (3.4-5.1); Sodium 134 mmol/L (137-145)
[2020-04-14] MEDS: LACTATED RINGERS 1,000 ML 84 ML IV ×2 (06:03→19:14)
[2020-04-14 06:19] LABS: Procalcitonin < 0.05 ng/mL (<0.5)
[2020-04-14] MEDS: GABAPENTIN 300 MG CAPSULE PO ×2 (07:46→20:29)
[2020-04-14] MEDS: atenoloL 50 MG TABLET PO ×2 (07:46→20:29)
[2020-04-14] MEDS: buPROPion SR 150 MG TAB PO (07:46)
[2020-04-14] MEDS: CITALOPRAM 20 MG TABLET 40 MG PO (07:46)
--- NOTE | 2020-04-14 08:56 | P.PN_ITS ---
Subjective Subjective Date Patient Seen: 04/14/20 Time Patient Seen: 08:56 Interval history: Appendicitis. Patient underwent laparoscopic appendectomy he last evening. Apparently it was perforated with but was walled off. There is no apparent intraperitoneal spre ad. Patient tolerated procedure well with minimal blood loss. This morning she has he had eating her clear liquid breakfast she has lived a teary-eyed because she found on is her has less than here live because of his COPD. She also relates that she was seen by the worked in clinic over [place] and if she may well of had recurrent scabies. Apparently not symptomatic at this time. She normally takes oxycodone/Tylenol 7.5325 twice a day. Hospital does not have some 0.5 so will give her 1 or 2 of the 5s Exam Vital Signs (past 8 hours): - 04/14/20 05:16 04/14/20 08:10 Temperature 97.1 F L 98.2 F Pulse Rate 90 100 H Respiratory Rate 18 18 Blood Pressure 135/91 H 136/85 Pulse Oximetry 98 99 Oxygen Delivery Method Room Air Oxygen Flow Rate 0 Narrative Exam Narrative: Facial bit teary-eyed eating her breakfast but in no distress abdomen is soft. Heart regular rhythm no murmur gallop lungs are clear Objective Labs Result Diagrams: 04/14/20 04:55 04/14/20 04:55 Labs: Laboratory Results - last 24 hr 04/14/20 04/14/20 04/14/20 04:55 04:55 04:55 WBC 4.6 RBC 3.37 L Hgb 10.8 L Hct 33.3 L MCV 99.0 MCH 32.0 MCHC 32.3 RDW 16.1 H Plt Count 201 Neut % (Auto) 78.1 H Lymph % (Auto) 12.6 L [place] % (Auto) 9.1 Eos % (Auto) 0.0 L Baso % (Auto) 0.2 Neut # (Auto) 3600 Lymph # (Auto) 600 L [place] # (Auto) 400 Eos # (Auto) 0 Baso # (Auto) 0 PT 14.1 H INR 1.2 Sodium 134 L Potassium 4.4 Chloride 106 Carbon Dioxide 24 BUN 10 Creatinine 0.81 Estimated GFR > 60.0 BUN/Creatinine Ratio 12.3 Glucose 193 H D Calcium 8.2 L Procalcitonin 04/14/20 04:55 WBC RBC Hgb Hct MCV MCH MCHC RDW Plt Count Neut % (Auto) Lymph % (Auto) [place] % (Auto) Eos % (Auto) Baso % (Auto) Neut # (Auto) Lymph # (Auto) [place] # (Auto) Eos # (Auto) Baso # (Auto) PT INR Sodium Potassium Chloride Carbon Dioxide BUN Creatinine Estimated GFR BUN/Creatinine Ratio Glucose Calcium Procalcitonin < 0.05 Labs reviewed from this morning hemoglobin is stable Assessment & Plan Assessment & Plan narrative: 1. Status post appendectomy as per Dr. Eubanks fairly went reasonably well she will remain in the hospital as per surgeon's requirements be discharged home on the Lovenox and the warfarin. 2. Anticoagulation to be again she will be on Lovenox 1 milligram/kilogram twice a day and she will be discharged on 1.5 milligram/kilos once a day. While so resume warfarin 2.5 daily. Daily INRs pending patient has done the Lovenox and warfarin the past as an outpatient as she has some of the same. She will remain on hospital and tells surgeons feel she has of ready for discharge surgically and then the anticoagulation will be addressed as an outpatient. Quality VTE Deep Vein Thrombosis/Pulmonary Embolism Present on Admission: No
[2020-04-14] MEDS: ENOXAPARIN 60 MG/0.6 ML SYRINGE SUBCUT ×2 (10:06→20:29)
[2020-04-14] MEDS: OXYCODONE/ACETAMINOPHEN 5/325 TABLET 2 TAB PO ×2 (13:12→18:14)
--- NOTE | 2020-04-14 15:40 | PM.PNPO.1 ---
Subjective Subjective Date Patient Seen: 04/14/20 Time Patient Seen: 15:40 Interval history: Patient feeling much better today. Has some incisional pain. In general her abdomen feels much better. Exam Vital Signs (past 8 hours): - 04/14/20 08:10 04/14/20 09:15 04/14/20 13:15 Temperature 98.2 F 97.8 F Pulse Rate 100 H 74 89 Respiratory Rate 18 14 Blood Pressure 136/85 99/59 L Pulse Oximetry 99 97 99 Oxygen Delivery Method Room Air Oxygen Flow Rate 0 Narrative Exam Narrative: Band-Aids are intact. No drainage. Abdomen is soft. Less tender. Lungs are clear to auscultation without rales or rhonchi. Heart irregular with a murmur. Objective Labs Result Diagrams: 04/14/20 04:55 04/14/20 04:55 Labs: Laboratory Results - last 24 hr 04/14/20 04/14/20 04/14/20 04:55 04:55 04:55 WBC 4.6 RBC 3.37 L Hgb 10.8 L Hct 33.3 L MCV 99.0 MCH 32.0 MCHC 32.3 RDW 16.1 H Plt Count 201 Neut % (Auto) 78.1 H Lymph % (Auto) 12.6 L [place] % (Auto) 9.1 Eos % (Auto) 0.0 L Baso % (Auto) 0.2 Neut # (Auto) 3600 Lymph # (Auto) 600 L [place] # (Auto) 400 Eos # (Auto) 0 Baso # (Auto) 0 PT 14.1 H INR 1.2 Sodium 134 L Potassium 4.4 Chloride 106 Carbon Dioxide 24 BUN 10 Creatinine 0.81 Estimated GFR > 60.0 BUN/Creatinine Ratio 12.3 Glucose 193 H D Calcium 8.2 L Procalcitonin 04/14/20 04:55 WBC RBC Hgb Hct MCV MCH MCHC RDW Plt Count Neut % (Auto) Lymph % (Auto) [place] % (Auto) Eos % (Auto) Baso % (Auto) Neut # (Auto) Lymph # (Auto) [place] # (Auto) Eos # (Auto) Baso # (Auto) PT INR Sodium Potassium Chloride Carbon Dioxide BUN Creatinine Estimated GFR BUN/Creatinine Ratio Glucose Calcium Procalcitonin < 0.05 Assessment & Plan Post-op Postoperative Procedures: Procedures Operation Date: 04/13/20 12:30 Actual Procedures Side Surgeon p Laparoscopic Appendectomy Not Applicable Carlos Eubanks MD Postoperative day: 1 Postoperative status narrative: Patient doing as expected. Postoperative plan narrative: Continue IV broad-spectrum antibiotics. Check labs. Anticoagulation started again. Quality VTE Deep Vein Thrombosis/Pulmonary Embolism Present on Admission: No
[2020-04-14] MEDS: WARFARIN 5 MG TABLET 2.5 MG PO (17:02)
[2020-04-14] MEDS: SODIUM CHLORIDE 0.9% FLUSH 10 ML IV (19:14)
[2020-04-14] MEDS: ROSUVASTATIN 10 MG TABLET 40 MG PO (20:28)
[2020-04-14] MEDS: HYDROMORPHONE 0.5 MG INJ IV (21:50)
--- NOTE | 2020-04-14 22:36 | PC.NURSE ---
small amount of bleeding noted from middle dressing after pt bath. bandage reinforced with gauze and tape.
[2020-04-15] MEDS: PIPERACILLIN-TAZO 3.375 GM/50 ML FROZ.PIGGY IV ×3 (00:39→17:15)
[2020-04-15 03:37] VITALS: BP 147/77; PULSE 88; RESP 20; TEMP 36.4; O2SAT 97
[2020-04-15 05:12] LABS: INR 1.4 (0.9-1.3); Prothrombin Time 15.5 SECONDS (10.1-12.7)
[2020-04-15 05:19] LABS: BUN Creatinine Ratio 8.8 (6-22); Blood Urea Nitrogen 8 mg/dL (7-17); Calcium 8.3 mg/dL (8.4-10.2); Carbon Dioxide 30 mmol/L (22-32); Chloride 108 mmol/L (98-107); Estimated Glomerular Filt Rate > 60.0 mL/min (>60); Glucose 103 mg/dL (80-110); HEMOLYSIS < 15 (0-50); Sodium 140 mmol/L (137-145)
[2020-04-15 05:22] LABS: Add Manual Diff / Slide Review NO; Basophils Absolute Auto 0 /uL (0-100); Basophils Percent Auto 0.5 % (0-2); Eosinophils Absolute Auto 0 /uL (0-450); Eosinophils Percent Auto 0.3 % (2-4); Hematocrit 31.1 % (36-46); Hemoglobin 10.4 g/dL (12.0-16.0); Lymphocytes Absolute Auto 1200 /uL (1100-4500); Lymphocytes Percent Auto 22.1 % (25-40); Mean Corpuscular HGB Conc 33.3 % (30-36); Mean Corpuscular Hemoglobin 32.9 PG (26-34); Mean Corpuscular Volume 98.7 fL (80-100); Monocytes Absolute Auto 900 /uL (0-900); Monocytes Percent Auto 16.2 % (3-14); Neutrophils Absolute Auto 3400 /uL (1500-7000); Neutrophils Percent Auto 60.9 % (50-75); Platelet Count 183 X10^3/uL (150-400); Red Blood Cell Count 3.15 X10^6/uL (4.0-5.2); White Blood Cell Count 5.5 X10^3/uL (4.5-11.0)
--- NOTE | 2020-04-15 06:09 | PC.NURSE ---
Declined pain medication all shift, no C/O nausea. Passing flatus when got up & used the BSC @ 0335. Patient finally was able to sleep now. She was watching TV until 0330, will cont. POC & monitor.
[2020-04-15] MEDS: OXYCODONE/ACETAMINOPHEN 5/325 TABLET 2 TAB PO ×2 (06:30→12:50)
[2020-04-15 07:45] VITALS: BP 137/97; PULSE 92; RESP 16; TEMP 36.1; O2SAT 98
[2020-04-15] MEDS: LACTATED RINGERS 1,000 ML 84 ML IV (08:06)
[2020-04-15] MEDS: buPROPion SR 150 MG TAB PO (08:07)
[2020-04-15] MEDS: CITALOPRAM 20 MG TABLET 40 MG PO (08:07)
[2020-04-15] MEDS: GABAPENTIN 300 MG CAPSULE PO ×2 (08:07→20:50)
[2020-04-15] MEDS: SODIUM CHLORIDE 0.9% FLUSH 10 ML IV ×2 (08:08→20:51)
[2020-04-15] MEDS: atenoloL 50 MG TABLET PO ×2 (08:16→20:51)
[2020-04-15] MEDS: ENOXAPARIN 60 MG/0.6 ML SYRINGE SUBCUT ×2 (08:16→20:50)
--- NOTE | 2020-04-15 09:17 | P.PN_ITS ---
Subjective Subjective Date Patient Seen: 04/15/20 Time Patient Seen: 09:18 Interval history: Appendicitis. Patient is postop day 2. Status post laparoscopic appendectomy. Having some pain but being controlled with her pain medication. Apparently had some bleeding in 1 of the incisions in her mid abdomen minimally so however. Eating clear liquids well request advanced diet will discuss with surgeon when he rides. Normal urine period and no bowel movement but is passing gas. Her main complaint is her itching she shows she has chronic scabies she has seen multiple doctors for this and it is unclear whether not she does indeed have chronic scabies or not. She does have chronic itching so I will prescribe some Periactin she does not respond hydroxyzine she is receiving Lovenox twice a day and resume her warfarin a 2.5 mg daily Exam Vital Signs (past 8 hours): - 04/15/20 03:37 04/15/20 07:45 Temperature 97.6 F 97.0 F L Pulse Rate 88 92 H Respiratory Rate 20 16 Blood Pressure 147/77 H 137/97 H Pulse Oximetry 97 98 Oxygen Delivery Method Room Air Oxygen Flow Rate 0 Narrative Exam Narrative: She is lying quietly in hospital bed appears in no distress her usual talkative self. Lungs are clear heart has an irregular regular rhythm. Abdominal exam decreased bowel sounds minimal tenderness she has bleeding in the cause midline Skin shows scabs scattered around on her legs arms abdomen unclear whether not these are actually is secondary to scabies are secondary to self-induced scratching will treat her itch with Periactin however Objective Labs Result Diagrams: 04/15/20 04:44 04/15/20 04:44 Labs: Laboratory Results - last 24 hr 04/15/20 04/15/20 04/15/20 04:44 04:44 04:44 WBC 5.5 RBC 3.15 L Hgb 10.4 L Hct 31.1 L MCV 98.7 MCH 32.9 MCHC 33.3 RDW 16.0 H Plt Count 183 Neut % (Auto) 60.9 Lymph % (Auto) 22.1 L [place] % (Auto) 16.2 H Eos % (Auto) 0.3 L Baso % (Auto) 0.5 Neut # (Auto) 3400 Lymph # (Auto) 1200 [place] # (Auto) 900 Eos # (Auto) 0 Baso # (Auto) 0 PT 15.5 H INR 1.4 H Sodium 140 Potassium 4.0 Chloride 108 H Carbon Dioxide 30 BUN 8 Creatinine 0.91 Estimated GFR > 60.0 BUN/Creatinine Ratio 8.8 Glucose 103 Calcium 8.3 L CBC is unremarkable INR 1.4 Assessment & Plan Assessment & Plan narrative: 1. Postop day 2. Laparoscopic appendectomy stable. Presumably can advance diet. Pending evaluation by surgeon. Did suggest staff that she get at outside the hospital room in ambulate up and down the hallway. 2. Anticoagulation has resumed as stated above Lovenox until her INR gets over 2 and then to be discontinued. This may well take approximately a year week of her Lovenox. Patient has done this in the past so she is comfortable same. 3. Her chronic itching and dermatitis is questionable. As stated will prescribe Periactin. Medically she can be discharged and have all this done as an outpatient Quality VTE Deep Vein Thrombosis/Pulmonary Embolism Present on Admission: No
--- NOTE | 2020-04-15 09:49 | PC.NURSE ---
Day shift: Per conversation w/ Dr Maddox Pt ambulated in the halls of entire AC unit w/ SUMEET Hernandez this AM. She tolerated well. Pt janina in bed. Call light in reach.
[2020-04-15] MEDS: CYPROHEPTADINE HCL 4 MG TABLET PO (10:20)
[2020-04-15 11:00] VITALS: BP 114/76; PULSE 66; RESP 16; TEMP 36.3; O2SAT 97
[2020-04-15 12:33] VITALS: PULSE 79; RESP 18; O2SAT 96
--- NOTE | 2020-04-15 13:56 | P.PN_ITS ---
Subjective Subjective Date Patient Seen: 04/15/20 Time Patient Seen: 13:00 Interval history: The patient is post laparoscopic appendectomy. She does not feel well she says all over. Just feels kind of vaguely ill. Passing some gas. No bowel movement. Has been taking p.o. liquids. Not ambulating a great deal. Exam Vital Signs (past 8 hours): - 04/15/20 07:45 04/15/20 11:00 Temperature 97.0 F L 97.4 F L Pulse Rate 92 H 66 Respiratory Rate 16 16 Blood Pressure 137/97 H 114/76 Pulse Oximetry 98 97 Oxygen Delivery Method Room Air Oxygen Flow Rate 0 Narrative Exam Narrative: Lungs decreased breath sounds in the bases. Could have a little better effort. Heart irregular with a loud systolic click from her artificial valve. Abdomen is flat soft. She has some oozing from her umbilical incision(the patient stated she got in the shower was scrubbing vigorously in for got that she had an incision and began to bleed.) Objective Labs Result Diagrams: 04/15/20 04:44 04/15/20 04:44 Labs: Laboratory Results - last 24 hr 04/15/20 04/15/20 04/15/20 04:44 04:44 04:44 WBC 5.5 RBC 3.15 L Hgb 10.4 L Hct 31.1 L MCV 98.7 MCH 32.9 MCHC 33.3 RDW 16.0 H Plt Count 183 Neut % (Auto) 60.9 Lymph % (Auto) 22.1 L [place] % (Auto) 16.2 H Eos % (Auto) 0.3 L Baso % (Auto) 0.5 Neut # (Auto) 3400 Lymph # (Auto) 1200 [place] # (Auto) 900 Eos # (Auto) 0 Baso # (Auto) 0 PT 15.5 H INR 1.4 H Sodium 140 Potassium 4.0 Chloride 108 H Carbon Dioxide 30 BUN 8 Creatinine 0.91 Estimated GFR > 60.0 BUN/Creatinine Ratio 8.8 Glucose 103 Calcium 8.3 L Assessment & Plan Post-op Postoperative Procedures: Procedures Operation Date: 04/13/20 12:30 Actual Procedures Side Surgeon p Laparoscopic Appendectomy Not Applicable Carlos Eubanks MD Postoperative status: doing well Postoperative status narrative: Doing well. White blood cell count is normal with a normal diff and her procalcitonin is normal. Postoperative plan narrative: She has been started on her anticoagulation. Will train her to give herself Lovenox shots. To clock suppository to see if we can get her intestines functioning. Advance her diet. If diet tolerated Probable discharge in the morning. Quality VTE Deep Vein Thrombosis/Pulmonary Embolism Present on Admission: No
[2020-04-15] MEDS: BISACODYL 10 MG SUPP PR (14:04)
[2020-04-15 15:31] VITALS: BP 122/93; PULSE 82; RESP 18; TEMP 36.3; O2SAT 96
[2020-04-15] MEDS: WARFARIN 5 MG TABLET 2.5 MG PO (17:23)
[2020-04-15 20:00] VITALS: BP 112/73; PULSE 84; RESP 19; TEMP 36.3; O2SAT 97
[2020-04-15] MEDS: LORazepam 1 MG TABLET 2 MG PO (20:50)
[2020-04-15] MEDS: ROSUVASTATIN 10 MG TABLET 40 MG PO (20:50)
[2020-04-16] MEDS: SODIUM CHLORIDE 0.9% FLUSH 10 ML IV ×2 (00:18→07:53)
[2020-04-16] MEDS: PIPERACILLIN-TAZO 3.375 GM/50 ML FROZ.PIGGY IV ×2 (00:18→07:52)
[2020-04-16 00:22] VITALS: BP 102/64; PULSE 73; RESP 16; TEMP 36.7; O2SAT 96
--- NOTE | 2020-04-16 01:55 | PC.NURSE ---
Seen and assessed at 0027. Is alert and oriented. Breath sounds diminished but CTA with RA sat of 96%. HR irregularly irregular with rate in 70's; has hx of afib. Denies nausea. BT present and abdomen is soft but tender and distended. Declines pain medication but agreeable to ice pack for comfort. Denies dysuria, frequency or urgency with urination. Able to move self in bed. Uses cane or walker and 1 assist when out of bed. Agreeable to having bilateral calf SCD's applied at this time. Fall risk score is high and bed alarm is activated.
[2020-04-16 05:25] LABS: Prothrombin Time 22.4 SECONDS (10.1-12.7)
[2020-04-16 05:27] LABS: Add Manual Diff / Slide Review NO; Basophils Absolute Auto 0 /uL (0-100); Basophils Percent Auto 0.9 % (0-2); Eosinophils Absolute Auto 100 /uL (0-450); Eosinophils Percent Auto 2.3 % (2-4); Hematocrit 32.4 % (36-46); Hemoglobin 10.7 g/dL (12.0-16.0); Lymphocytes Absolute Auto 1300 /uL (1100-4500); Mean Corpuscular HGB Conc 32.9 % (30-36); Mean Corpuscular Hemoglobin 32.8 PG (26-34); Mean Corpuscular Volume 99.5 fL (80-100); Monocytes Absolute Auto 900 /uL (0-900); Monocytes Percent Auto 17.8 % (3-14); Neutrophils Absolute Auto 2900 /uL (1500-7000); Platelet Count 189 X10^3/uL (150-400); Red Blood Cell Count 3.26 X10^6/uL (4.0-5.2); Red Cell Distribution Width 16.6 % (11.6-14.8); White Blood Cell Count 5.2 X10^3/uL (4.5-11.0)
[2020-04-16 05:33] LABS: BUN Creatinine Ratio 6.3 (6-22); Blood Urea Nitrogen 6 mg/dL (7-17); Calcium 8.8 mg/dL (8.4-10.2); Carbon Dioxide 34 mmol/L (22-32); Chloride 105 mmol/L (98-107); Estimated Glomerular Filt Rate 59.2 mL/min (>60); Glucose 87 mg/dL (80-110); HEMOLYSIS < 15 (0-50); Potassium 3.8 mmol/L (3.4-5.1); Sodium 140 mmol/L (137-145)
[2020-04-16 05:50] VITALS: BP 127/72; PULSE 89; RESP 16; TEMP 36.7; O2SAT 94
[2020-04-16] MEDS: GABAPENTIN 300 MG CAPSULE PO (07:52)
[2020-04-16] MEDS: CITALOPRAM 20 MG TABLET 40 MG PO (07:52)
[2020-04-16] MEDS: OXYCODONE/ACETAMINOPHEN 5/325 TABLET 2 TAB PO ×2 (07:52→13:56)
[2020-04-16] MEDS: buPROPion SR 150 MG TAB PO (07:52)
[2020-04-16] MEDS: atenoloL 50 MG TABLET PO (07:53)
[2020-04-16 08:00] VITALS: BP 137/89; PULSE 108; RESP 20; TEMP 36.6; O2SAT 98
--- NOTE | 2020-04-16 08:07 | PM.PN.1 ---
Subjective Subjective Date Patient Seen: 04/16/20 Time Patient Seen: 08:07 Interval history: Appendicitis Patient doing well eating normal food. Apparently has had 2 bowel movements. Normal urination. Has ambulated in the [place] and done reasonably well. Concerned about the midline abdominal incision blood little bit yesterday and is somewhat uncomfortable but otherwise really having minimal amount abdominal pain. Exam Vital Signs (past 8 hours): - 04/16/20 00:22 04/16/20 05:50 Temperature 98.0 F 98.0 F Pulse Rate 73 89 Respiratory Rate 16 16 Blood Pressure 102/64 127/72 Pulse Oximetry 96 94 Oxygen Delivery Method Room Air Oxygen Flow Rate 0 Narrative Exam Narrative: Sitting upright in bedside chair appears in no distress conversant pleasant. Abdominal exam and incisions are covered up bandages in his no bleeding. Minimal tenderness around the abdomen. Lungs clear heart irregular irregular rhythm Objective Labs Result Diagrams: 04/16/20 05:00 04/16/20 05:00 Labs: Laboratory Results - last 24 hr 04/16/20 04/16/20 04/16/20 05:00 05:00 05:00 WBC 5.2 RBC 3.26 L Hgb 10.7 L Hct 32.4 L MCV 99.5 MCH 32.8 MCHC 32.9 RDW 16.6 H Plt Count 189 Neut % (Auto) 55.0 Lymph % (Auto) 24.0 L [place] % (Auto) 17.8 H Eos % (Auto) 2.3 Baso % (Auto) 0.9 Neut # (Auto) 2900 Lymph # (Auto) 1300 [place] # (Auto) 900 Eos # (Auto) 100 Baso # (Auto) 0 PT 22.4 H D INR 2.0 H Sodium 140 Potassium 3.8 Chloride 105 Carbon Dioxide 34 H BUN 6 L Creatinine 0.95 Estimated GFR 59.2 L BUN/Creatinine Ratio 6.3 Glucose 87 Calcium 8.8 INR today of 2.0 Assessment & Plan Assessment & Plan narrative: 1. 3 day postop laparoscopic appendectomy. Patient doing well. Minimal bleeding from the abdominal incisions. Patient had bowel movement is ambulatory. Anticipate being discharged later today by the surgeon. 2. Anticoagulation obviously doing well. We will keep her on Lovenox 1.5 mg per kg once a day. Additionally her maintenance warfarin 2.5 mg daily. She will be seen in the office on in 2 days to get a INR. 4. Presumably discontinue the Lovenox at that time 3. Chronic pain program. Will resume her baseline program of 7.5/325 twice a day. Continue with lorazepam 1 mg twice a day for sleep and for itching sometimes takes an extra night. 4. I will see her back in the office in 2 weeks for follow-up of the above Quality VTE Deep Vein Thrombosis/Pulmonary Embolism Present on Admission: No
[2020-04-16] MEDS: ENOXAPARIN 60 MG/0.6 ML SYRINGE SUBCUT (10:27)
[2020-04-16 12:00] VITALS: BP 120/72; PULSE 103; RESP 19; TEMP 36.6; O2SAT 98
--- NOTE | 2020-04-16 14:59 | PC.NURSE ---
Addendum entered by Radha Pearl R.N. 04/16/20 15:02: Patient administered her own lovenox injection with proper technique. Original Note: Patient alert, oriented rates pain to abd 6/10 given two tabs of percocet. Tolerating general diet without nausea. Indep in room and ambulating in [place] way.
--- NOTE | 2020-04-16 15:05 | PM.DS.1 ---
History of Present Illness History of Present Illness Date Patient Seen: 04/16/20 Time Patient Seen: 15:06 Chief complaint: right side abdominal pain Narrative: The patient is a woman admitted with abdominal pain especially in the right lower quadrant common elevated white blood cell count and a CT scan consistent with acute appendicitis. Discharge Providers Provider Date of admission: 04/11/20 15:39 Discharge Date: 04/16/20 Primary care physician: Gideon Maddox MD Consults: 04/11/20 19:32 Consult to Dietitian, Adult Routine Comment: Reason For Exam: weight loss/alcohol use/abuse 04/13/20 17:48 Consult to Discharge Planning Routine Comment: Discharge provider: Carlos Eubanks MD Summary Hospital Course Discharge Diagnosis: Perforated appendicitis acute COPD chronic Artificial aortic heart valve metallic Chronic anticoagulation with Coumadin Hypertension chronic Chronic back pain treated with Percocet Elevated cholesterol treated with medication Chronic atrial fibrillation heart rate controlled with metoprolol Chronic depression treated with medication Narcotic dependence due to pain medication for chronic back pain Hospital Course: The patient's anticoagulation was corrected with vitamin K. once nearly normal she was taken to the operating room where she underwent laparoscopic appendectomy for acute appendicitis. She was given broad-spectrum antibiotics(Zosyn) pre and postop. She was started back on Lovenox and Coumadin to keep her anticoagulated due to her a hate fib and her metallic heart valve. She was discharged tolerating a diet to follow up in the office. Given her normal white blood cell count, normal temperature, and procalcitonin within normal limits I decided not to continue oral antibiotics. She will follow up in the office. She is to follow up for a PT with Dr. Amanda blue. Exam Vital Signs (past 8 hours): - 04/16/20 08:00 04/16/20 12:00 Temperature 97.9 F 97.9 F Pulse Rate 108 H 103 H Respiratory Rate 20 19 Blood Pressure 137/89 120/72 Pulse Oximetry 98 98 Oxygen Delivery Method Room Air Oxygen Flow Rate 0 Narrative Exam Narrative: Cooperative no apparent distress. Lungs are clear to auscultation. Abdomen is soft. Wounds are fine except little bit of oozing from the umbilical incision. I removed the clot from it and Steri-Strips impacted this morning and there has been no further bleeding. Objective Labs Result Diagrams: 04/16/20 05:00 04/16/20 05:00 Labs: Laboratory Results - last 24 hr 04/16/20 04/16/20 04/16/20 05:00 05:00 05:00 WBC 5.2 RBC 3.26 L Hgb 10.7 L Hct 32.4 L MCV 99.5 MCH 32.8 MCHC 32.9 RDW 16.6 H Plt Count 189 Neut % (Auto) 55.0 Lymph % (Auto) 24.0 L [place] % (Auto) 17.8 H Eos % (Auto) 2.3 Baso % (Auto) 0.9 Neut # (Auto) 2900 Lymph # (Auto) 1300 [place] # (Auto) 900 Eos # (Auto) 100 Baso # (Auto) 0 PT 22.4 H D INR 2.0 H Sodium 140 Potassium 3.8 Chloride 105 Carbon Dioxide 34 H BUN 6 L Creatinine 0.95 Estimated GFR 59.2 L BUN/Creatinine Ratio 6.3 Glucose 87 Calcium 8.8 Discharge Plan Discharge Plan Patient Disposition: Home Discharge comment: INR at [facility] . appt w conl 2 weeks Discharge orders & Medications Prescriptions: New enoxaparin [Lovenox] 100 mg/mL syringe 90 mg SUBCUT DAILY Qty: 5 RF: 1 Continued lisinopril 10 mg tablet 5 mg PO BID Qty: 90 RF: 3 alendronate [Fosamax] 70 mg tablet 70 mg PO QWEEK Qty: 14 RF: 5 atenolol 50 mg tablet 50 mg PO BID Qty: 180 RF: 3 warfarin [Coumadin] 2.5 mg tablet 2.5 mg PO DAILY Qty: 90 RF: 1 epinephrine 0.3 mg/0.3 mL auto-injector See Rx Instructions .ROUTE .COMPLEX Qty: 2 RF: 4 rosuvastatin [Crestor] 40 mg tablet 40 mg PO BEDTIME Qty: 90 RF: 1 cyclobenzaprine 10 mg tablet See Rx Instructions .ROUTE .COMPLEX Qty: 40 RF: 4 albuterol sulfate 90 mcg/actuation HFA aerosol inhaler 1 puff INHALATION Q4-6H PRN (Reason: shortness of breath or wheezing) Qty: 8 RF: 1 bupropion HCl [Wellbutrin SR] 150 mg tablet sustained-release 12 hr 150 mg PO QAM Qty: 30 RF: 2 oxycodone-acetaminophen 7.5-325 mg tablet See Rx Instructions .ROUTE .COMPLEX Qty: 60 RF: 0 lorazepam 1 mg tablet See Rx Instructions .ROUTE .COMPLEX Qty: 90 RF: 1 citalopram 20 mg tablet 40 mg PO DAILY Qty: 180 RF: 3 Discontinued cefuroxime axetil 500 mg tablet 500 mg PO BID Qty: 28 RF: 0 aspirin 81 mg Tablet,Delayed Release (Dr/Ec) 81 mg PO DAILY RF: 0 Follow up/Referrals: Gideon Maddox MD [Primary Care Provider] - (appt:04/18 @ 9:00 with procedure nurse amy @ [facility] for pt/inr appt:04/30 @ 4:[address] maddox please arrive 15 minutes prior to scheduled appointment) Carlos Eubanks MD [Physician] - 04/24/20 11:00 am (If you need to reach a doctor regarding her operation please call my office. If it is closed listen to the entire message and at the end you will be connected the page feeder switchboard operator who will call the doctor on-call for our practice.) Discharge Health Status Multidrug resistant organism: No MDRO Diet/Activity/Treatments Diet: Diet as Tolerated Activity: Do not lift over 10 lb or strain for the next 4 weeks. You may walk. No other exercise. You may remove the Band-Aids they remain tomorrow and get a shower. Leave the tape under the Band-Aids alone. Let it fall off on its own. If you develop any oozing at her umbilical incision apply pressure dressing. Do not drive into you are pain-free off medication. Skin/Wound/Dressing Care Report to your healthcare provider any signs of infection, such as:: chills, fever, night sweats, increased pain, unusual drainage and unusual redness Visit Report/Discharge Packet Instructions: DI for an Appendectomy Visit Report Forms: Patient Portal/API, Stroke Signs & Symptoms Discharge Data Primary Care Provider: Gideon Maddox Quality VTE Deep Vein Thrombosis/Pulmonary Embolism Present on Admission: No
[2020-04-16 16:00] VITALS: BP 122/85; PULSE 103; RESP 18; TEMP 36.2
[2020-04-16] MEDS: ENOXAPARIN 30 MG/0.3 ML SYRINGE SUBCUT (16:10)
[2020-04-16] MEDS: WARFARIN 5 MG TABLET 2.5 MG PO (16:10)
--- NOTE | 2020-04-16 16:25 | PC.NURSE ---
Addendum entered by Laurence Franz R.N. 04/16/20 18:08: Drsg at umbilicus with small amt of shadow drainage. Old cover site removed, had 1 folded 2x2 underneath mostly saturated with red sero-sanguinous drainage. Site cleaned, two 2x2 gauze drsgs placed flat with new coversite. I gave additional surgical site & blood thinning medication teaching, extra coversite provided in case drsg gets saturated again. I told her to notify surgeon's office if she has to replace coversite more than once, or has increased bleeding. She agrees to this plan. Patient's S.O.'s brother here to pick up attendant patient, I wheeled pt and all of her belongings to ER entrance,patient driven away in private car. Original Note: DC note: DC orders written by Dr Eubanks. All DC paperwork explained to patient, DC teaching given. New prescription for Lovenox explained. She has hard copy of rx but [facility] closed early, she said she can pick up attendant the prescriptions tomorrow as she has other refills waiting for me. She has had teaching on injections & denies needing further teaching. Lovenox and Coumadin both given prior to discharge. 2 IV's removed, pressure drsgs applied. Abd drsgs are all CDI. Patient called her S.O. who is on her way to hospital now, bringing clothes for her to wear home. Patient requesting to eat dinner before she leaves hospital. Denies other questions or concerns at this point.
== END 2020-04-16 18:00 | disposition home or self-care (01) | DRG 342 ==
LOC: ED 15:35 → AC 15:40
PROVIDERS: Internal Medicine; Specialist; Admitting Provider Surgery; Emergency Provider Nurse Practitioner; Family Provider Orthopaedic Surgery; PCP Family Medicine; Referring Provider Nurse Practitioner; Visit Provider Surgery
PROC: 0DTJ4ZZ Resection of Appendix, Percutaneous Endoscopic Approach (ICD-10-PCS; CPT 44970; principal; 2020-04-13 12:30)
DX: K35.20 Acute appendicitis with generalized peritonitis, without abscess (principal); I48.20 Chronic atrial fibrillation, unspecified; F11.20 Opioid dependence, uncomplicated; J44.9 Chronic obstructive pulmonary disease, unspecified; I10 Essential (primary) hypertension; E78.2 Mixed hyperlipidemia; F32.9 Major depressive disorder, single episode, unspecified; M81.0 Age-related osteoporosis without current pathological fracture; G89.29 Other chronic pain; I34.0 Nonrheumatic mitral (valve) insufficiency; Z95.2 Presence of prosthetic heart valve; Z79.01 Long term (current) use of anticoagulants; Z11.59 Encounter for screening for other viral diseases; Z87.891 Personal history of nicotine dependence
CPT/HCPCS: 36415; 36592; 44970; 74177; 80048; 80053; 83690; 84145; 85025; 85610; 85730; 87635; 93005; 94760; 96361; 96365; 99232; 99233; 99254; 99284; J0330; J1100; J1170; J1650; J2270; J2405; J2543; J2704; J3010; J3430; Q9967

== ENCOUNTER → 2020-07-09 14:41 | Outpatient (CLI) | payer OTHER, MEDICAID, SELFPAY ==
[2020-04-16 08:28] VITALS: BMI 21.7
--- NOTE | 2020-07-09 | DI.ECHO.S_ITS ---
[facility]---------+ [facility] +---------+ : : [address] : [place] : : : : [id number] : : : : Phone: [phone]+ Echocardiogram Report + + :Name: JUDY CELESTE Study Date: 07/09/2020 Height: 66 in : :[facility] Weight: 140 lb : : Gender: Female BSA: 1.7 m2 : :: 1955 Age: 65 yrs BP: 137/105 mmHg: :Reason For Study: VALVULAR INSUFFICIENCY : :Ordering Physician: MARK, : :BELLA Performed By: Sandra Bansal : :Referring: BELLA FLORES : + + Interpretation Summary The left ventricle is normal in size and wall thickness. Left ventricular ejection fraction is estimated to be 60 +/- 5%. There has been no significant change in LVEF since the previous exam. The right ventricle is normal size. Right ventricular systolic function is mildly reduced. There is moderate to severe mitral regurgitation. The mitral regurgitant jet is eccentrically directed. Compared to the prior echo study, there has been no change in the severity of mitral regurgitation. There is a mechanical aortic valve. The prosthetic aortic valve is well-seated. There is probable normal prosthetic aortic valve function. There is moderate tricuspid regurgitation. Compared to the prior echo exam, there has been no change in TR severity. The right ventricular systolic pressure is estimated to be at least 63 mmHg based on an estimated right atrial pressure of 3 mm Hg. Compared to the prior echo exam, there has been an increase in the severity of pulmonary hypertension. Procedure: A two-dimensional transthoracic echocardiogram with color flow and Doppler was performed. The study quality was technically adequate. Comparison is made with the echocardiogram of 04/26/2019. The patient was in atrial fibrillation with heart rates between 84-117 bpm during the exam. Left Ventricle: The left ventricle is normal in size and wall thickness. There is no thrombus. Left ventricular ejection fraction is estimated to be 60 +/- 5%. There has been no significant change since the previous exam. There are no focal wall motion abnormalities. Diastolic function could not be accurately assessed due to atrial fibrillation. E/E' med: 13.4. Right Ventricle: The right ventricle is normal size. Right ventricular systolic function is mildly reduced. Atria: The left atrium is severely dilated. Both atria have remained unchanged in size since the prior echo exam. The right atrium is severely dilated. There is no Doppler evidence for an interatrial shunt. Mitral Valve: The mitral valve leaflets are mildly calcified. There is mild mitral annular calcification. There is a flat closure plane of the the mitral valve leaflets. There is moderate to severe mitral regurgitation. The mitral regurgitant jet is eccentrically directed. Compared to the prior echo study, there has been no change in the severity of mitral regurgitation. Aortic Valve: There is a mechanical aortic valve. The prosthetic aortic valve is well-seated. There is probable normal prosthetic aortic valve function. There is trace aortic regurgitation. Tricuspid Valve: The tricuspid valve is normal. There is moderate tricuspid regurgitation. The right ventricular systolic pressure is estimated to be at least 63 mmHg based on an estimated right atrial pressure of 3 mm Hg. Compared to the prior echo exam, there has been no change in TR severity. Compared to the prior echo exam, there has been an increase in the severity of pulmonary hypertension. Pulmonic Valve: The pulmonic valve is not well visualized. Great Vessels: The aortic root is not well visualized. The ascending aorta could not be visualized. The IVC is of normal diameter and collapses greater than 50% with a sniff. This suggests a low right atrial pressure of 3 mm Hg. Pericardium/ Pleura There is no pericardial effusion. There is no pleural effusion. MMode/2D Measurements & Calculations LVIDd: 4.4 cm LVOT diam: 1.9 cm LVIDs: 3.3 cm FS: 23.8 % EPSS: 1.5 cm IVSd: 0.93 cm LVPWd: 0.87 cm LV ledbetter. diameter/BSA (cm/m^2): 2.5 LV sys. diameter/BSA (cm/m^2): 1.9 LA A2 area: 31.6 cm2 RA long axis: 6.2 cm LA A4 area: 26.0 cm2 RA area: 24.5 cm2 LA length (vol): 6.9 cm RA vol: 83.1 ml LA vol: 100.5 ml RA : 48.4 ml/m2 LA vol index: 58.5 ml/m2 IVC diam: 1.4 cm RVD1 (basal): 3.7 cm TAPSE: 1.7 cm Doppler Measurements & Calculations Ao V2 max: 135.2 cm/sec LVOT Max Jose: 79.9 cm/sec Ao V2 mean: 86.5 cm/sec LV V1 max P.6 mmHg Ao max P.3 mmHg LV V1 VTI: 13.2 cm Ao mean P.6 mmHg GEOVANNY(I,D): 2.0 cm2 Ao V2 VTI: 17.9 cm GEOVANNY(V,D): 1.6 cm2 sev ratio: 0.74 GEOVANNY indexed to BSA (cm^2/m^2): 1.2 MV E max jose: 111.3 cm/sec TR max jose: 386.5 cm/sec MV A max jose: 1.1 cm/sec TR max P.8 mmHg MV E/A: 103.2 PA V2 max: 51.5 cm/sec Med Peak E' Jose: 8.3 cm/sec PA V2 mean: 33.0 cm/sec E/E' med: 13.4 PA mean P.52 mmHg Lat Peak E' Jose: 12.8 cm/sec PA pr(Accel): 40.5 mmHg E/E' lat: 8.7 E/e' average: 11.1 MV dec time: 0.14 sec MR ERO: 0.41 cm2 MR PISA: 5.5 cm2 SV(LVOT): 36.2 ml MR flow rate: 231.2 cm3/sec MR PISA radius: 0.93 cm Reading Physician:04:24 PM
== END ==
PROVIDERS: Family Provider Orthopaedic Surgery; PCP Family Medicine; Referring Provider Internal Medicine Cardiovascular Disease; Visit Provider Internal Medicine Cardiovascular Disease
DX: I08.1 Rheumatic disorders of both mitral and tricuspid valves (principal); Z95.2 Presence of prosthetic heart valve
CPT/HCPCS: 93306

== ENCOUNTER → 2020-07-15 09:18 | Outpatient (CLI) | payer OTHER, MEDICAID, SELFPAY ==
[2020-04-16 08:28] VITALS: BMI 21.7
[2020-07-15 12:10] LABS: Alanine Aminotransferase 23 IU/L (<35); Albumin 4.1 g/dL (3.5-5.0); Albumin Globulin Ratio 1.2 (1.0-2.8); Alkaline Phosphatase 81 U/L (38-126); Aspartate Aminotransferase 43 IU/L (14-36); BUN Creatinine Ratio 19.1 (6-22); Bilirubin Total 0.6 mg/dL (0.2-1.3); Blood Urea Nitrogen 18 mg/dL (7-17); Calcium 9.4 mg/dL (8.4-10.2); Carbon Dioxide 31 mmol/L (22-32); Chloride 104 mmol/L (98-107); Cholesterol 154 mg/dL (140-199); Globulin 3.3 g/dL (1.7-4.1); Glucose 92 mg/dL (80-110); HDL Cholesterol 48 mg/dL (40-60); HEMOLYSIS < 15 (0-50); LDL Cholesterol Calculated 85 mg/dL (<100); Sodium 138 mmol/L (137-145); Total Protein 7.4 g/dL (6.3-8.2); Triglycerides 103 mg/dL (35-150)
== END ==
PROVIDERS: Family Provider Orthopaedic Surgery; PCP Family Medicine; Referring Provider Internal Medicine Cardiovascular Disease; Visit Provider Internal Medicine Cardiovascular Disease
DX: E78.5 Hyperlipidemia, unspecified (principal)
CPT/HCPCS: 36415; 80053; 80061

== ENCOUNTER → 2020-07-18 11:41 | Outpatient (CLI) | payer OTHER, MEDICAID, SELFPAY ==
[2020-04-16 08:28] VITALS: BMI 21.7
[2020-07-18 12:18] LABS: Rheumatoid Factor < 8.6 IU/mL (<12.0)
[2020-07-20 14:36] LABS: ANA Screen, IFA Negative (.)
== END ==
PROVIDERS: Family Provider Orthopaedic Surgery; PCP Family Medicine; Referring Provider Family Medicine; Visit Provider Internal Medicine Cardiovascular Disease
DX: I27.21 Secondary pulmonary arterial hypertension (principal)
CPT/HCPCS: 36415; 86038; 86430

== ENCOUNTER → 2021-07-22 10:58 | Outpatient (CLI) | payer MEDICARE, MEDICAID, SELFPAY ==
[2021-05-13 11:44] VITALS: BMI 21.7
[2021-07-22 12:38] LABS: Alanine Aminotransferase 33 IU/L (<35); Albumin 4.3 g/dL (3.5-5.0); Albumin Globulin Ratio 1.5 (1.0-2.8); Alkaline Phosphatase 69 U/L (38-126); Aspartate Aminotransferase 42 IU/L (14-36); Bilirubin Total 0.3 mg/dL (0.2-1.3); Blood Urea Nitrogen 36 mg/dL (7-17); Calcium 9.4 mg/dL (8.4-10.2); Carbon Dioxide 26 mmol/L (22-32); Chloride 102 mmol/L (98-107); Cholesterol 176 mg/dL (140-199); Estimated Glomerular Filt Rate 43.4 mL/min (>60); Globulin 2.9 g/dL (1.7-4.1); Glucose 89 mg/dL (80-110); HDL Cholesterol 53 mg/dL (40-60); HEMOLYSIS < 15 (0-50); LDL Cholesterol Calculated 104 mg/dL (<100); Sodium 134 mmol/L (137-145); Total Protein 7.2 g/dL (6.3-8.2); Triglycerides 96 mg/dL (35-150)
[2021-07-22 13:02] LABS: Potassium 5.5 mmol/L (3.4-5.1)
== END ==
PROVIDERS: Family Provider Orthopaedic Surgery; PCP Family Medicine; Referring Provider Internal Medicine Cardiovascular Disease; Visit Provider Internal Medicine Cardiovascular Disease
DX: E78.5 Hyperlipidemia, unspecified (principal); I48.20 Chronic atrial fibrillation, unspecified
CPT/HCPCS: 36415; 80053; 80061

== ENCOUNTER → 2023-11-17 12:50 | Outpatient (CLI) | payer MEDICARE, MEDICAID, SELFPAY ==
[2021-05-13 11:44] VITALS: BMI 21.7
[2023-11-17 14:19] LABS: Prothrombin Time 94.5 SECONDS (9.4-12.5)
[2023-11-17 14:40] LABS: INR 8.1 (0.9-1.3)
== END ==
LOC: LAB 12:57
PROVIDERS: Family Provider Orthopaedic Surgery; PCP Family Medicine; Referring Provider Nurse Practitioner; Visit Provider Nurse Practitioner
DX: I48.20 Chronic atrial fibrillation, unspecified (principal); Z95.2 Presence of prosthetic heart valve; Z51.81 Encounter for therapeutic drug level monitoring; Z79.01 Long term (current) use of anticoagulants
CPT/HCPCS: 36415; 85610

== ENCOUNTER → 2023-12-29 15:37 | Outpatient (CLI) | payer MEDICARE, MEDICAID, SELFPAY ==
[2021-05-13 11:44] VITALS: BMI 21.7
== END ==
PROVIDERS: Family Provider Orthopaedic Surgery; PCP Family Medicine; Visit Provider Physician Assistant Surgical
DX: S81.801A Unspecified open wound, right lower leg, initial encounter (principal)
CPT/HCPCS: 87070; 87075; 87205

== ENCOUNTER → 2024-01-31 17:03 | Outpatient (CLI) | payer MEDICARE, MEDICAID, SELFPAY ==
[2021-05-13 11:44] VITALS: BMI 21.7
== END ==
PROVIDERS: Family Provider Orthopaedic Surgery; PCP Family Medicine; Visit Provider Nurse Practitioner Family
DX: S81.801A Unspecified open wound, right lower leg, initial encounter (principal)
CPT/HCPCS: 87070; 87075; 87205

== ENCOUNTER → 2024-02-25 13:34 | Outpatient (CLI) | payer MEDICARE, MEDICAID, SELFPAY ==
[2021-05-13 11:44] VITALS: BMI 21.7
== END ==
LOC: WC 13:36
PROVIDERS: Family Provider Orthopaedic Surgery; PCP Family Medicine; Referring Provider Nurse Practitioner Family; Visit Provider Surgery
DX: L29.9 Pruritus, unspecified (principal); R73.03 Prediabetes; I10 Essential (primary) hypertension; Z87.891 Personal history of nicotine dependence
CPT/HCPCS: 99203; 99212

== ENCOUNTER → 2024-03-15 07:31 | Outpatient (CLI) | payer MEDICARE, MEDICAID, SELFPAY ==
[2021-05-13 11:44] VITALS: BMI 21.7
--- NOTE | 2024-03-15 07:33 | DI.RAD.S_ITS ---
PROCEDURE: XR CHEST 2V INDICATIONS: Cough TECHNIQUE: 2 views of the chest were acquired. COMPARISON: [facility], , CHEST 1 VIEW, 05/15/2017, 9:31. FINDINGS: Surgical changes and devices: Median sternotomy wires and prosthetic heart valve are seen. Lungs and pleura: Linear atelectasis versus small infiltrate in left upper lung field is seen. No pleural effusions or pneumothorax. Mediastinum: Mediastinal contours are normal. Heart size is normal. Bones and chest wall: No suspicious bony abnormalities. Soft tissues appear unremarkable. IMPRESSION: Possible small infiltrate versus atelectasis in left upper lobe. Right lung is clear. No pleural effusion or pneumothorax. Dictated by: Abraham Clements M.D. on 03/15/2024 at 13:53 Approved by: Abraham Clements M.D. on 03/15/2024 at 13:54
== END ==
PROVIDERS: Family Provider Orthopaedic Surgery; PCP Family Medicine; Referring Provider Nurse Practitioner Family; Visit Provider Nurse Practitioner Family
DX: R05.9 Cough, unspecified (principal)
CPT/HCPCS: 71046

== ENCOUNTER 2024-03-20 08:29 | Emergency (ER) | payer MEDICARE, MEDICAID, SELFPAY ==
[2021-05-13 11:44] VITALS: BMI 21.7
[2024-03-20 08:46] VITALS: BP 102/66; PULSE 79; RESP 16; TEMP 36.4; O2SAT 99; BMI 18.8
--- NOTE | 2024-03-20 08:52 | ED_ITS ---
HPI - Extremity Injury (Upper) General Chief Complaint: Extremity Injury, Upper Stated Complaint: back pain/rt shoulder pain Time Seen by Provider: 03/20/24 08:45 History of Present Illness HPI narrative: Patient is a 68-year-old female history of alcohol abuse atrial fibrillation chronic opiate use chronic right shoulder thoracic pain and neuropathy. Presenting today with right shoulder pain. She continues to have some numbness tingling down her right arm she can reproduce it pointing in 1 specific spot in her back. She feels like right hand might be a little bit weaker but she has not dropping things it might be worse over last 1 week but it has been chronic. Her goal is to ultimately get off opiates. It does not appear that she has had MRI of her spine or her shoulder since 2019 which did show multi level foraminal stenosis Related Data Home Medications Medication Instructions Recorded Confirmed acetaminophen 300 mg-codeine 30 mg 1 tab PO BID PRN 03/15/24 03/15/24 tablet baclofen 10 mg tablet 10 mg PO 3XD 03/15/24 03/15/24 duloxetine 30 mg capsule,delayed 30 mg PO DAILY 03/15/24 03/15/24 release ezetimibe 10 mg tablet 10 mg PO DAILY 03/15/24 03/15/24 fluticasone propionate 230 2 puff inhalation BID 03/15/24 03/15/24 mcg-salmeterol 21 mcg/actuation HFA inhaler (Advair HFA) furosemide 20 mg tablet 20 mg PO BID 03/15/24 03/15/24 gabapentin 300 mg capsule mg PO 03/15/24 03/15/24 ketoconazole 2 % shampoo topical 03/15/24 03/15/24 levothyroxine 50 mcg tablet 50 mcg PO DAILY 03/15/24 03/15/24 magnesium oxide 400 mg (241.3 mg 400 mg PO DAILY 03/15/24 03/15/24 magnesium) tablet methocarbamol 500 mg tablet mg PO 03/15/24 03/15/24 metoprolol succinate 50 mg mg PO 03/15/24 03/15/24 tablet,extended release 24 hr midodrine 10 mg tablet 10 mg PO 3XD 03/15/24 03/15/24 mirtazapine 15 mg tablet 15 mg PO ONCE PM 03/15/24 03/15/24 terbinafine HCl 1 % topical cream applic topical BID 03/15/24 03/15/24 triamcinolone acetonide 0.1 % 1 applic topical 03/15/24 03/15/24 topical ointment warfarin 2 mg tablet mg PO 03/15/24 03/15/24 Previous Rx's Medication Instructions Recorded lisinopril 10 mg tablet 5 mg (1/2 x 10 mg) PO BID #90 tabs 02/14/19 citalopram 20 mg tablet 40 mg (2 x 20 mg) PO DAILY #180 09/13/19 tabs albuterol sulfate 90 mcg/actuation 1 puff inhalation Q4-6H PRN 03/11/20 aerosol inhaler shortness of breath or wheezing #8 grams hydroxyzine pamoate 25 mg capsule 25 mg PO QID PRN itching #120 caps 04/30/20 warfarin 2.5 mg tablet 2.5 mg PO DAILY #90 tabs 05/28/20 alendronate 70 mg tablet (Fosamax) 70 mg PO QWEEK #12 tabs 07/10/20 epinephrine 0.3 mg/0.3 mL See Rx Instructions .Route 07/23/20 injection, auto-injector .COMPLEX #2 ea triamcinolone acetonide 0.5 % 1 applic topical BID #15 grams 07/23/20 topical ointment permethrin 5 % topical cream See Rx Instructions .Route 08/14/20 .COMPLEX #60 grams rosuvastatin 40 mg tablet See Rx Instructions .Route 09/03/20 .COMPLEX #90 tabs atenolol 50 mg tablet 50 mg PO BID #180 tabs 09/19/20 nicotine (polacrilex) 2 mg buccal 2 mg buccal Q8H PRN nicotine 10/11/20 lozenge (Stop Smoking Aid) cravings #72 ea lorazepam 2 mg tablet 2 mg PO BID PRN anxiety #60 tabs 10/24/20 cyclobenzaprine 10 mg tablet See Rx Instructions .Route 12/03/20 .COMPLEX #40 tabs oxycodone-acetaminophen 5 mg-325 See Rx Instructions .Route 12/30/20 mg tablet .COMPLEX #60 tabs amoxicillin 875 mg-potassium 1 tab PO BID #14 tabs 03/15/24 clavulanate 125 mg tablet benzonatate 200 mg capsule 200 mg PO BID PRN cough #28 caps 03/15/24 Allergies Allergy/AdvReac Type Severity Reaction Status Date / Time venom-honey bee Allergy Severe anaphlaxs Verified 03/15/24 07:13 [BEE VENOM (HONEY BEE)] nickel Allergy Intermediate Rash Verified 03/15/24 07:13 Patient History Medical History Encounter for smoking cessation counseling Cranial somatic dysfunction Chronic bilateral thoracic back pain Cervical somatic dysfunction Thoracic region somatic dysfunction Segmental and somatic dysfunction of abdomen and other regions Sacral region somatic dysfunction Pelvic somatic dysfunction Lumbar region somatic dysfunction Chronic atrial fibrillation Mitral regurgitation H/O alcohol abuse Acute appendicitis Depression COPD (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 disease) skilled nursing current use of anticoagulant therapy History of esophageal stricture Osteoporosis Low back pain Scabies (~2015) Heart failure (~05/18/11) Mixed hyperlipidemia (02/04/17) 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) Status post aortic valve replacement (~05/2011) Esophageal stricture Surgical History History of total right hip arthroplasty History of esophagogastroduodenoscopy (EGD) (~2019) Hx of tonsillectomy Anesthesia History of aortic valve replacement (05/18/11) Family History Father Cancer Mother Heart disease Hypertension High cholesterol Social History household members: significant other Smoking Status: Current every day smoker alcohol intake: current substance use type: does not use Smoking Status: Current every day smoker alcohol intake frequency: 0-2 drinks per day Substance Use Type: does not use Exam Initial Vital Signs Initial Vital Signs: Vital Signs Temperature 97.6 F 03/20/24 08:46 Pulse Rate 79 03/20/24 08:46 Respiratory Rate 16 03/20/24 08:46 Blood Pressure 102/66 03/20/24 08:46 Pulse Oximetry 99 03/20/24 08:46 Oxygen Delivery Method Room Air 03/20/24 08:46 GENERAL: Well-appearing, well-nourished and in no acute distress. CARDIOVASCULAR: peripheral pulses in tact, cap refill <2 sec RESPIRATORY: No respiratory distress, speaks in full sentences without difficulty EXTREMITIES: Normal range of motion, no clubbing or edema. 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 Normal gait and speech. SKIN: Warm, dry, no petechiae, no rashes or lesions. Course Vital Signs Vital signs: Vital Signs - 8 hr 03/20/24 08:46 Temperature 97.6 F Pulse Rate 79 Respiratory Rate 16 Blood Pressure 102/66 Pulse Oximetry 99 Oxygen Delivery Method Room Air MDM - Extremity Injury (Upper) MDM Narrative Medical decision making narrative: Patient 68-year-old female presenting today of chronic ongoing right shoulder and neuropathy pain. She has not had an MRI since 2019 symptoms seem to be getting worse. PCP with switching her over to Suboxone rather than opiates. She would rather just get off the medication and figure out what is wrong which seems reasonable. Recommend she see ortho or her primary for MRI order it has not emergent today it has been chronic and ongoing. She has an appointment upcoming with PCP this week. Discharge Plan Departure Patient Disposition: Home Clinical Impression: Chronic pain in right shoulder Activity Restrictions/Additional Instructions: *You have been diagnosed with chronic right shoulder pain *What to do: At this time I do think it time you need MRI of your shoulder and of your cervical/thoracic spine. Your primary care provider can order this or you may need referral to orthopedic and they can order this as well You may wear your sling as needed but please be sure to take arm out of sling and move regularly *Continue to take medications as directed *Follow up with your primary care provider in 2-3 days or call [phone] *Return to ER if you should have increasing right hand weakness dropping things numbness tingling or any new, worsening or concerning symptoms Prescriptions: No Action metoprolol succinate 50 mg tablet extended release 24 hr PO methocarbamol 500 mg tablet PO acetaminophen-codeine 300-30 mg tablet 1 tab PO BID PRN ketoconazole 2 % shampoo topical duloxetine 30 mg capsule,delayed release(DR/EC) 30 mg PO DAILY levothyroxine 50 mcg tablet 50 mcg PO DAILY warfarin 2 mg tablet PO furosemide 20 mg tablet 20 mg PO BID magnesium oxide 400 mg (241.3 mg magnesium) tablet 400 mg PO DAILY ezetimibe 10 mg tablet 10 mg PO DAILY terbinafine HCl 1 % cream topical BID triamcinolone acetonide 0.1 % ointment 1 applic topical midodrine 10 mg tablet 10 mg PO 3XD fluticasone propion-salmeterol [Advair HFA] 230-21 mcg/actuation HFA aerosol inhaler 2 puff inhalation BID mirtazapine 15 mg tablet 15 mg PO ONCE PM gabapentin 300 mg capsule PO baclofen 10 mg tablet 10 mg PO 3XD amoxicillin-pot clavulanate 875-125 mg tablet 1 tab PO BID Qty: 14 0RF benzonatate 200 mg capsule 200 mg PO BID PRN (Reason: cough) Qty: 28 0RF lisinopril 10 mg tablet 5 mg PO BID Qty: 90 3RF albuterol sulfate 90 mcg/actuation HFA aerosol inhaler 1 puff INHALATION Q4-6H PRN (Reason: shortness of breath or wheezing) Qty: 8 1RF Patient Comments: hasn't used since she quit smoking alendronate [Fosamax] 70 mg tablet 70 mg PO QWEEK Qty: 12 3RF Rx Instructions: Every Wednesday triamcinolone acetonide 0.5 % ointment 1 applic TOP BID Qty: 15 5RF epinephrine 0.3 mg/0.3 mL auto-injector See Rx Instructions .ROUTE .COMPLEX Qty: 2 4RF Dose Instruction: INJECT ONE AUTO-DOSE OF EPINEPHRINE INTO THIGH IF STUNG BY A BEE. Rx Instructions: INJECT ONE AUTO-DOSE OF EPINEPHRINE INTO THIGH IF STUNG BY A BEE. rosuvastatin 40 mg tablet See Rx Instructions .ROUTE .COMPLEX Qty: 90 0RF Dose Instruction: TAKE 1 TABLET BY MOUTH AT BEDTIME Rx Instructions: TAKE 1 TABLET BY MOUTH AT BEDTIME atenolol 50 mg tablet 50 mg PO BID Qty: 180 3RF lorazepam 2 mg tablet 2 mg PO BID PRN (Reason: anxiety) Qty: 60 0RF cyclobenzaprine 10 mg tablet See Rx Instructions .ROUTE .COMPLEX Qty: 40 0RF Dose Instruction: TAKE 1/2 TO 1 TABLET BY MOUTH UP TO 3 TIMES DAILY FOR MUSCLE SPASMS. MUST LAST 14 DAYS Rx Instructions: TAKE 1/2 TO 1 TABLET BY MOUTH UP TO 3 TIMES DAILY FOR MUSCLE SPASMS. No further refill. Must establish with new pcp. oxycodone-acetaminophen 5-325 mg tablet See Rx Instructions .ROUTE .COMPLEX Qty: 60 0RF Dose Instruction: TAKE ONE TABLET BY MOUTH EVERY EIGHT HOURS NEEDED FOR PAIN. Rx Instructions: TAKE ONE TABLET BY MOUTH EVERY EIGHT HOURS NEEDED FOR PAIN. hydroxyzine pamoate 25 mg capsule 25 mg PO QID PRN (Reason: itching) Qty: 120 3RF warfarin 2.5 mg tablet 2.5 mg PO DAILY Qty: 90 3RF Rx Instructions: Take one tablet daily or as directed. permethrin 5 % cream See Rx Instructions .ROUTE .COMPLEX Qty: 60 1RF Dose Instruction: APPLY TO SKIN FROM HAIRLINE TO TOES AND WASH OFF 8-10 HOURS LATER. REPEAT IN 1 WEEK IF NEEDED Rx Instructions: APPLY TO SKIN FROM HAIRLINE TO TOES AND WASH OFF 8-10 HOURS LATER. REPEAT IN 1 WEEK IF NEEDED nicotine (polacrilex) [Stop Smoking Aid] 2 mg lozenge 2 mg buccal Q8H PRN (Reason: nicotine cravings) Qty: 72 11RF citalopram 20 mg tablet 40 mg PO DAILY Qty: 180 3RF Referrals: Onesimo Rivas DO [Primary Care Provider] - Stand Alone Forms: Patient Portal/API
== END 2024-03-20 09:05 | disposition home or self-care (01) ==
PROVIDERS: Emergency Provider Emergency Medicine; Family Provider Orthopaedic Surgery; PCP Family Medicine
DX: M25.511 Pain in right shoulder (principal); Z79.899 Other long term (current) drug therapy
CPT/HCPCS: 99281

== ENCOUNTER → 2024-04-11 07:30 | Outpatient (CLI) | payer MEDICARE, MEDICAID, SELFPAY ==
[2021-05-13 11:44] VITALS: BMI 21.7
== END ==
PROVIDERS: Family Provider Orthopaedic Surgery; PCP Nurse Practitioner; Visit Provider Nurse Practitioner Family
DX: T14.8XXA Other injury of unspecified body region, initial encounter (principal); L08.9 Local infection of the skin and subcutaneous tissue, unspecified
CPT/HCPCS: 87070; 87205

== ENCOUNTER → 2024-04-12 14:15 | Outpatient (CLI) | payer MEDICARE, MEDICAID, SELFPAY ==
[2021-05-13 11:44] VITALS: BMI 21.7
--- NOTE | 2024-04-12 14:17 | DI.RAD.S_ITS ---
PROCEDURE: XR TOE RT MIN 2V INDICATIONS: Chronic skin infection TECHNIQUE: 3 views of the 5th toe(s) acquired. COMPARISON: None. FINDINGS: Bones: No fractures or dislocations. No suspicious bony lesions. Soft tissues: No suspicious soft tissue densities. IMPRESSION: No acute bony abnormality. Dictated by: Patrick Washington M.D. on 04/12/2024 at 16:57 Approved by: Patrick Washington M.D. on 04/12/2024 at 17:00
== END ==
LOC: RAD 14:17
PROVIDERS: Family Provider Orthopaedic Surgery; PCP Nurse Practitioner; Referring Provider Nurse Practitioner Family; Visit Provider Nurse Practitioner Family
DX: L08.9 Local infection of the skin and subcutaneous tissue, unspecified (principal)
CPT/HCPCS: 73660

== ENCOUNTER → 2024-04-18 12:49 | Outpatient (CLI) | payer MEDICARE, MEDICAID, SELFPAY ==
[2021-05-13 11:44] VITALS: BMI 21.7
--- NOTE | 2024-04-18 12:50 | DI.MRI.S_ITS ---
PROCEDURE: MR SHOULDER RT WO CON INDICATIONS: ROTATOR CUFF TEAR OR RUPTURE OF RT SHOULDER TECHNIQUE: Noncontrast oblique coronal T2 fast spin echo with fat saturation, oblique sagittal T1 spin echo and T2 fast spin echo with fat saturation, axial T1 spin echo and T2 fast spin echo with fat saturation through the shoulder. COMPARISON: None. FINDINGS: Image quality: Excellent. Rotator cuff: Mild T2 signal elevation diffusely throughout the supraspinatus and infraspinatus tendons at the humeral insertion sites extending the musculotendinous junctions, indicating tendinopathy. High-grade intrasubstance and articular surface tearing of the posterior supraspinatus tendon at the humeral insertion site measuring 8 mm. Full-thickness tearing of the mid subscapularis tendon at the humeral insertion site. Infraspinatus and teres minor tendons are intact. No rotator cuff atrophy. Bones and bursae: No bone marrow contusions or fractures. Mild glenohumeral and moderate acromioclavicular joint degeneration. The acromion demonstrates conventional anatomy, without an os acromiale. No pathologic subacromial-subdeltoid or subcoracoid bursal fluid is present. Capsule and soft tissues: Labrum is grossly intact. Medial dislocation of the biceps. The rotator interval appears normal, without fibrosis. The coracohumeral ligament is normal in thickness. IMPRESSION: 1. Supraspinatus and infraspinatus tendinopathy. 2. High-grade tearing of the supraspinatus tendon. 3. Full-thickness tearing of the mid subscapularis tendon. 4. Biceps tendon dislocation. 5. Acromioclavicular and glenohumeral joint osteoarthritis. Dictated by: Devika Quinteros M.D. on 04/18/2024 at 16:14 Approved by: Devika Quinteros M.D. on 04/18/2024 at 16:38
== END ==
PROVIDERS: Family Provider Orthopaedic Surgery; PCP Nurse Practitioner; Referring Provider Orthopaedic Surgery; Visit Provider Orthopaedic Surgery
DX: M75.111 Incomplete rotator cuff tear or rupture of right shoulder, not specified as traumatic (principal); M19.011 Primary osteoarthritis, right shoulder
CPT/HCPCS: 73221

== ENCOUNTER → 2024-08-16 14:29 | Outpatient (CLI) | payer MEDICARE, MEDICAID, SELFPAY ==
[2021-05-13 11:44] VITALS: BMI 21.7
[2024-08-16 15:25] LABS: Add Manual Diff / Slide Review NO; Basophils Absolute Auto 100 /uL (0-100); Basophils Percent Auto 1.2 % (0-2); Eosinophils Absolute Auto 300 /uL (0-450); Eosinophils Percent Auto 6.2 % (2-4); Hematocrit 37.2 % (36-46); Hemoglobin 12.5 g/dL (12.0-16.0); Lymphocytes Absolute Auto 1000 /uL (1100-4500); Lymphocytes Percent Auto 21.6 % (25-40); Mean Corpuscular HGB Conc 33.5 % (30-36); Mean Corpuscular Hemoglobin 35.8 PG (26-34); Mean Corpuscular Volume 106.8 fL (80-100); Monocytes Absolute Auto 700 /uL (0-900); Monocytes Percent Auto 14.3 % (3-14); Neutrophils Absolute Auto 2600 /uL (1500-7000); Neutrophils Percent Auto 56.7 % (50-75); Platelet Count 246 X10^3/uL (150-400); Red Blood Cell Count 3.48 X10^6/uL (4.0-5.2); Red Cell Distribution Width 14.3 % (11.6-14.8); White Blood Cell Count 4.6 X10^3/uL (4.5-11.0)
[2024-08-16 15:55] LABS: Alanine Aminotransferase 13 IU/L (<35); Albumin 4.1 g/dL (3.5-5.0); Albumin Globulin Ratio 1.4 (1.0-2.8); Alkaline Phosphatase 110 U/L (38-126); Aspartate Aminotransferase 30 IU/L (14-36); BUN Creatinine Ratio 20.6 (6-22); Bilirubin Total 0.6 mg/dL (0.2-1.3); Blood Urea Nitrogen 21 mg/dL (7-17); Calcium 9.6 mg/dL (8.4-10.2); Carbon Dioxide 37 mmol/L (22-32); Chloride 96 mmol/L (98-107); Estimated Glomerular Filt Rate 60 mL/min (>60); Glucose 96 mg/dL (80-110); HEMOLYSIS < 15 (0-50); Potassium 4.7 mmol/L (3.4-5.1); Sodium 136 mmol/L (137-145); Total Protein 7.1 g/dL (6.3-8.2)
[2024-08-16 15:56] LABS: Iron 51 ug/dL (37-170)
[2024-08-16 16:29] LABS: Ferritin 36 ng/mL (11-264)
== END ==
PROVIDERS: Family Provider Orthopaedic Surgery; PCP Nurse Practitioner; Referring Provider Physician Assistant; Visit Provider Physician Assistant
DX: L29.9 Pruritus, unspecified (principal); L85.3 Xerosis cutis
CPT/HCPCS: 36415; 80053; 82728; 83540; 85025

== ENCOUNTER 2024-10-13 17:55 | Emergency (ER) | payer MEDICARE, MEDICAID, SELFPAY ==
[2021-05-13 11:44] VITALS: BMI 21.7
[2024-10-13] VITALS (18 sets, daily range): BP systolic 120–184; BP diastolic 65–110; PULSE 63–76; RESP 15–24; TEMP 36.4; O2SAT 91–98; BMI 19.3
--- NOTE | 2024-10-13 17:57 | EKG_ITS ---
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
--- NOTE | 2024-10-13 17:57 | DI.RAD.S_ITS ---
PROCEDURE: XR CHEST 1V INDICATIONS: chest pain TECHNIQUE: One view of the chest was acquired. COMPARISON: [facility], CR, XR CHEST 2V, 03/15/2024, 7:40. FINDINGS: Surgical changes and devices: Sternotomy wires are present. Prosthetic heart valve is noted. Neck surgical clips. Lungs and pleura: Lungs are clear. No pleural effusions or pneumothorax. Mediastinum: Mediastinal contours appear normal. Heart size is normal. Bones and chest wall: No suspicious bony lesions. Overlying soft tissues appear unremarkable. Old healed left-sided rib fractures. IMPRESSION: No acute cardiopulmonary abnormality is seen. Approved by: Collin Pierson M.D. on 10/13/2024 at 19:09
--- NOTE | 2024-10-13 18:08 | ED.GENADULT ---
HPI - General Adult General Chief complaint: Chest Pain Stated complaint: HBP 174/100, feels like having a heart attack Time Seen by Provider: 10/13/24 18:00 History of Present Illness HPI narrative: 69-year-old female with no known history of coronary artery disease, status post mechanical aortic valve replacement 2010 [place] for which she takes chronic warfarin anticoagulation, also has history of chronic atrial fibrillation diagnosed about the same time as her valve replacement, followed by electronic warfare technician in [place] Dr. Adrian, saw nurse practitioner yesterday in clinic who did EKG, unclear timing of last echocardiogram but scheduled for next echo November 2024 next month, noted to have increased blood pressure, advised to decrease her midodrine dose half, but took her regular dose today. Awoke this morning with left anterior chest pressure sensation, no associated diaphoresis or nausea, no weakness, no syncope or near-syncope symptoms. No pain in either arm, back, scapula, neck. No pain in legs. Her blood pressure this morning was 168/112, she took her boyfriend's single nitroglycerin and had some decreased chest pain and blood pressure thereafter. Still having chest discomfort on arrival. She has not recall any cardiac stress testing subsequent to her aortic valve replacement. Related Data Home Medications Medication Instructions Recorded Confirmed acetaminophen 300 mg-codeine 30 mg 1 tab PO BID PRN 03/15/24 09/29/24 tablet duloxetine 30 mg capsule,delayed 30 mg PO DAILY 03/15/24 09/29/24 release ezetimibe 10 mg tablet 10 mg PO DAILY 03/15/24 09/29/24 fluticasone propionate 230 2 puff inhalation BID 03/15/24 09/29/24 mcg-salmeterol 21 mcg/actuation HFA inhaler (Advair HFA) furosemide 20 mg tablet 20 mg PO BID 03/15/24 09/29/24 gabapentin 300 mg capsule mg PO 03/15/24 09/29/24 ketoconazole 2 % shampoo topical 03/15/24 09/29/24 levothyroxine 50 mcg tablet 50 mcg PO DAILY 03/15/24 09/29/24 magnesium oxide 400 mg (241.3 mg 400 mg PO DAILY 03/15/24 09/29/24 magnesium) tablet methocarbamol 500 mg tablet mg PO 03/15/24 09/29/24 metoprolol succinate 50 mg mg PO 03/15/24 09/29/24 tablet,extended release 24 hr midodrine 10 mg tablet 10 mg PO 3XD 03/15/24 09/29/24 mirtazapine 15 mg tablet 15 mg PO ONCE PM 03/15/24 09/29/24 terbinafine HCl 1 % topical cream applic topical BID 03/15/24 09/29/24 triamcinolone acetonide 0.1 % 1 applic topical 03/15/24 09/29/24 topical ointment warfarin 2 mg tablet mg PO 03/15/24 09/29/24 adapalene 0.1 % topical gel topical QPM 04/11/24 09/29/24 (Differin) buprenorphine 2 mg-naloxone 0.5 mg 1 tab sublingual BID PRN 04/11/24 09/29/24 sublingual tablet tizanidine 2 mg tablet 2 mg PO 3XD 04/11/24 09/29/24 Previous Rx's Medication Instructions Recorded lisinopril 10 mg tablet 5 mg (1/2 x 10 mg) PO BID #90 tabs 02/14/19 citalopram 20 mg tablet 40 mg (2 x 20 mg) PO DAILY #180 09/13/19 tabs albuterol sulfate 90 mcg/actuation 1 puff inhalation Q4-6H PRN 03/11/20 aerosol inhaler shortness of breath or wheezing #8 grams hydroxyzine pamoate 25 mg capsule 25 mg PO QID PRN itching #120 caps 04/30/20 warfarin 2.5 mg tablet 2.5 mg PO DAILY #90 tabs 05/28/20 alendronate 70 mg tablet (Fosamax) 70 mg PO QWEEK #12 tabs 07/10/20 epinephrine 0.3 mg/0.3 mL See Rx Instructions .Route 07/23/20 injection, auto-injector .COMPLEX #2 ea triamcinolone acetonide 0.5 % 1 applic topical BID #15 grams 07/23/20 topical ointment permethrin 5 % topical cream See Rx Instructions .Route 08/14/20 .COMPLEX #60 grams rosuvastatin 40 mg tablet See Rx Instructions .Route 09/03/20 .COMPLEX #90 tabs atenolol 50 mg tablet 50 mg PO BID #180 tabs 09/19/20 nicotine (polacrilex) 2 mg buccal 2 mg buccal Q8H PRN nicotine 10/11/20 lozenge (Stop Smoking Aid) cravings #72 ea lorazepam 2 mg tablet 2 mg PO BID PRN anxiety #60 tabs 10/24/20 cyclobenzaprine 10 mg tablet See Rx Instructions .Route 12/03/20 .COMPLEX #40 tabs oxycodone-acetaminophen 5 mg-325 See Rx Instructions .Route 12/30/20 mg tablet .COMPLEX #60 tabs mupirocin 2 % topical ointment 1 applic topical TID #15 grams 04/11/24 fluticasone propionate 50 1 spray intranasal Q12H #16 grams 09/29/24 mcg/actuation nasal spray,suspension (Flonase Allergy Relief) Allergies Allergy/AdvReac Type Severity Reaction Status Date / Time venom-honey bee Allergy Severe anaphlaxs Verified 10/13/24 18:23 [BEE VENOM (HONEY BEE)] nickel Allergy Intermediate Rash Verified 10/13/24 18:23 Patient History Medical History Encounter for smoking cessation counseling Cranial somatic dysfunction Chronic bilateral thoracic back pain Cervical somatic dysfunction Thoracic region somatic dysfunction Segmental and somatic dysfunction of abdomen and other regions Sacral region somatic dysfunction Pelvic somatic dysfunction Lumbar region somatic dysfunction Chronic atrial fibrillation Mitral regurgitation H/O alcohol abuse Acute appendicitis Depression COPD (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 disease) MCC current use of anticoagulant therapy History of esophageal stricture Osteoporosis Low back pain Scabies (~2015) Heart failure (~05/18/11) Mixed hyperlipidemia (02/04/17) 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) Status post aortic valve replacement (~05/2011) Esophageal stricture Surgical History History of total right hip arthroplasty History of esophagogastroduodenoscopy (EGD) (~2019) Hx of tonsillectomy Anesthesia History of aortic valve replacement (05/18/11) Family History Father Cancer Mother Heart disease Hypertension High cholesterol Social History household members: significant other Smoking Status: Current every day smoker alcohol intake: current substance use type: does not use Smoking Status: Current every day smoker alcohol intake frequency: 0-2 drinks per day Exam Narrative Exam Narrative: GENERAL: Well-developed patient, in mild distress. HEAD: Atraumatic. Normocephalic. EYES: Pupils equal round and reactive. Extraocular motions intact. No scleral icterus. No injection or drainage. ENT: Nose without bleeding, purulent drainage. Throat without erythema, tonsillar hypertrophy or exudate. Airway patent. NECK: Trachea midline. Non tender CARDIOVASCULAR: Regular rate and rhythm without murmurs, gallops, or rubs. RESPIRATORY: Clear to auscultation. Breath sounds equal bilaterally. No wheezes, rales, or rhonchi. GASTROINTESTINAL: Abdomen soft, non-tender, nondistended. EXTREMITIES: No edema or joint tenderness. BACK: Nontender without deformity or crepitance. No flank tenderness. NEURO: AOx3. Motor functions grossly nonfocal SKIN: No rash or erythema of visible areas Initial Vital Signs Initial Vital Signs: Vital Signs Pulse Rate 74 10/13/24 18:02 Blood Pressure 184/110 H 10/13/24 18:02 Pulse Oximetry 97 10/13/24 18:02 Course Orders Ordered: ED Orders 10/13/24 20:55 EKG-12 Lead Stat Discontinued Medications Aspirin (Aspirin 81 Mg Chew Tab) 324 mg PO NOW ONE Stop: 10/13/24 17:58 Last Admin: 10/13/24 18:21 Dose: 324 mg Documented By: JAMILAH Morphine Sulfate (Morphine 4 Mg/Ml Inj) 4 mg IV NOW ONE Stop: 10/13/24 19:37 Last Admin: 10/13/24 19:41 Dose: 4 mg Documented By: WILLIAM Morphine Sulfate (Morphine 2 Mg/Ml Inj) 2 mg IV Q15MIN ANGELINA Stop: 10/17/24 19:46 Nitroglycerin (Nitroglycerin 0.4 Mg Sl Tab) 0.4 mg SL [id number] PRN PRN Reason: Chest Pain Last Admin: 10/13/24 18:58 Dose: 0.4 mg Documented By: Admin: 10/13/24 18:39 Dose: 0.4 mg Documented By: Admin: 10/13/24 18:21 Dose: 0.4 mg Documented By: JAMILAH Ondansetron HCl (Ondansetron 4 Mg/2 Ml Inj) 4 mg IV NOW ONE Stop: 10/13/24 19:37 Last Admin: 10/13/24 19:41 Dose: 4 mg Documented By: WILLIAM Vital Signs Vital signs: Vital Signs - 8 hr 10/13/24 20:00 10/13/24 20:00 10/13/24 20:30 Pulse Rate 67 Respiratory Rate Blood Pressure 138/83 120/65 Pulse Oximetry 98 Oxygen Delivery Method 10/13/24 20:30 10/13/24 21:00 10/13/24 21:00 Pulse Rate 68 68 Respiratory Rate 20 Blood Pressure 123/78 Pulse Oximetry 97 98 Oxygen Delivery Method Room Air Room Air 10/13/24 21:30 Pulse Rate 65 Respiratory Rate 18 Blood Pressure 129/73 Pulse Oximetry 98 Oxygen Delivery Method Room Air Medical Decision Making Lab Data Lab results reviewed: Yes I reviewed the patient's lab results. Lab results narrative: White blood cell count 6100, hemoglobin 14, platelets adequate. Glucose 101. Unremarkable electrolytes and serum carbon dioxide. Normal renal function. INR 5.5 elevated on warfarin. T bili 1.4, ALT 43 slight elevations. Alkaline phosphatase and AST normal. Lipase slight elevation. BNP 8610. Troponin negative/unmeasurable x2 interval sets. 10/13/24 18:10 10/13/24 18:10 Labs: Lab Results 10/13/24 10/13/24 10/13/24 Range/Units 18:10 18:13 19:55 WBC 6.1 (4.5-11.0) X10^3/uL RBC 3.93 L (4.0-5.2) X10^6/uL Hgb 14.0 (12.0-16.0) g/dL Hct 41.7 (36-46) % MCV 106.1 H (80-100) fL MCH 35.6 H (26-34) PG MCHC 33.6 (30-36) % RDW 16.2 H (11.6-14.8) % Plt Count 292 (150-400) X10^3/uL Neut % (Auto) 57.2 (50-75) % Lymph % (Auto) 22.5 L (25-40) % [place] % (Auto) 16.0 H (3-14) % Eos % (Auto) 2.8 (2-4) % Baso % (Auto) 1.5 (0-2) % Neut # (Auto) 3500 (9015-9976) /uL Lymph # (Auto) 1400 (2325-6680) /uL [place] # (Auto) 1000 H (0-900) /uL Eos # (Auto) 200 (0-450) /uL Baso # (Auto) 100 (0-100) /uL PT 59.1 H (9.4-12.5) SECONDS INR 5.5 H* (0.9-1.3) APTT 58 H (25.1-36.5) SECONDS Sodium 138 (137-145) mmol/L Potassium 4.3 (3.4-5.1) mmol/L Chloride 100 (98-107) mmol/L Carbon Dioxide 31 (22-32) mmol/L BUN 14 (7-17) mg/dL Creatinine 0.77 (0.52-1.04) mg/dL Estimated GFR > 60 (>60) mL/min BUN/Creatinine Ratio 18.2 (6-22) Glucose 101 (80-110) mg/dL Calcium 9.2 (8.4-10.2) mg/dL Magnesium 1.6 (1.6-2.3) mg/dL Total Bilirubin 1.4 H (0.2-1.3) mg/dL AST 43 H (14-36) IU/L ALT 23 (<35) IU/L Alkaline Phosphatase 97 (38-126) U/L Total Creatine Kinase 35 (30-135) U/L Troponin I < 0.012 < 0.012 (0.01-0.034) ng/mL NT-Pro-B Natriuret Pep 8610 H (<125) pg/mL Total Protein 7.1 (6.3-8.2) g/dL Albumin 4.1 (3.5-5.0) g/dL Globulin 3.0 (1.7-4.1) g/dL Albumin/Globulin Ratio 1.4 (1.0-2.8) Lipase 339 H (23-300) U/L ECG Data Attestation: I personally reviewed and interpreted this ECG as follows: Interpretation: 1802, Atrial fibrillation with ventricular response rate 77, no obvious ST segment elevation or depression changes. QRS 88, QTC 463. 2109, atrial fibrillation with ventricular response rate 66, movement artifact noted, nonspecific ST changes. No obvious ST segment elevation or depression changes. QRS 86, QTC 494. MDM Narrative Medical decision making narrative: 69-year-old female with history of chronic atrial fibrillation, 2010 mechanical aortic valve replacement, mitral regurgitation on problem list, no known CAD, with chest pressure this morning, elevated blood pressure, took boyfriend's nitroglycerin single dose with some decreased chest discomfort, elevated blood pressure on arrival here still having chest discomfort she characterized as 7/10 intensity. EKG shows atrial fibrillation without obvious ischemic changes. Sublingual nitroglycerin trial. Chest x-ray unremarkable. Troponin negative. Electrolytes unremarkable. We will repeat interval troponin. Initial labs: White blood cell count 6100, hemoglobin 14, platelets adequate. Glucose 101. Unremarkable electrolytes and serum carbon dioxide. Normal renal function. INR 5.5 elevated on warfarin. T bili 1.4, ALT 43 slight elevations. Alkaline phosphatase and AST normal. Lipase slight elevation. BNP 8610. Serial nitroglycerin x3, some reduction in blood pressure, some reduction and chest pain but still having chest pain. IV morphine, pain resolved. Second troponin also negative/unmeasurable. We will contact Cardiology regarding disposition plan. Patient is pain-free after nitroglycerin and morphine dose. Denies shortness of breath. Case discussed with Dr. Luis E ravi cover Cardiology Counts include 234 beds at the [facility], advises outpatient treatment for now, consider increased dose of her metoprolol from 1 tablet daily to 1-1/2 tablets daily. Resume previous dose if she becomes dizzy or shortness of breath on this increased dose. Dr. Kimbrough reported he would relay information to her electronic warfare technician Dr. Adrian. Follow up on Wednesday. Hopefully she will be contacted, or advised to contact her cardiology office Dr. Adrian on Wednesday. Return precautions otherwise over the weekend. Home with family. Patient also made aware of elevated INR 5.5, history of mechanical aortic valve, goal anticoagulation INR 2.5-3.5. No signs and symptoms of active bleeding. Patient had been advised by anticoagulation clinic to hold today's dose, we will ask to hold tomorrow's dose as well, take Sundays dose and recheck with anticoagulation clinic advised on Wednesday. Discharge Plan Departure Patient Disposition: Home Clinical Impression: Chest pain, History of mechanical aortic valve replacement, Over-anticoagulated Activity Restrictions/Additional Instructions: Ms Conklin, Atif reported history of aortic valve replacement mechanical type, having been on chronic warfarin anticoagulation through anticoagulation Clinic, with recent elevated INR yesterday for noted in clinic, advised to hold your dose for today. INR today also elevated 5.5, hold your dose tomorrow as well, take your Wednesday dose, recheck with anticoagulation clinic on Wednesday morning. You had chest discomfort, EKG and blood testing not suggestive of heart attack at this time. Your electronic warfare technician Dr. Adrian not available, but case discussed with cross cover electronic warfare technician Counts include 234 beds at the [facility] Dr. Kimbrough. He recommended increased dose of your beta-lali metoprolol. You take 1-1/2 tablets in the morning and 1 in the evening. Increase the evening dose to 1-1/2 as well for now. He thought that you would be contacted on Wednesday. He will relay information to Dr. Adrian by e-mail. Consider contacting the office of your electronic warfare technician Dr. Adrian on Wednesday as well, to determine next step close follow up. Cross cover electronic warfare technician thought you can go home today with increased dose of metoprolol as above. Return to this/nearest emergency department for any change worsening symptoms or any concerns prior. Thank you for allowing our team to evaluate you today. Prescriptions: No Action metoprolol succinate 50 mg tablet extended release 24 hr PO methocarbamol 500 mg tablet PO acetaminophen-codeine 300-30 mg tablet 1 tab PO BID PRN ketoconazole 2 % shampoo topical duloxetine 30 mg capsule,delayed release(DR/EC) 30 mg PO DAILY levothyroxine 50 mcg tablet 50 mcg PO DAILY warfarin 2 mg tablet PO furosemide 20 mg tablet 20 mg PO BID magnesium oxide 400 mg (241.3 mg magnesium) tablet 400 mg PO DAILY ezetimibe 10 mg tablet 10 mg PO DAILY terbinafine HCl 1 % cream topical BID triamcinolone acetonide 0.1 % ointment 1 applic topical midodrine 10 mg tablet 10 mg PO 3XD fluticasone propion-salmeterol [Advair HFA] 230-21 mcg/actuation HFA aerosol inhaler 2 puff inhalation BID mirtazapine 15 mg tablet 15 mg PO ONCE PM gabapentin 300 mg capsule PO fluticasone propionate [Flonase Allergy Relief] 50 mcg/actuation spray,suspension 1 spray intranasal Q12H Qty: 16 0RF Rx Instructions: administer into each nostril buprenorphine-naloxone 2-0.5 mg tablet, sublingual 1 tab sublingual BID PRN tizanidine 2 mg tablet 2 mg PO 3XD adapalene [Differin] 0.1 % gel topical QPM mupirocin 2 % ointment 1 applic topical TID Qty: 15 0RF lisinopril 10 mg tablet 5 mg PO BID Qty: 90 3RF albuterol sulfate 90 mcg/actuation HFA aerosol inhaler 1 puff INHALATION Q4-6H PRN (Reason: shortness of breath or wheezing) Qty: 8 1RF Patient Comments: hasn't used since she quit smoking alendronate [Fosamax] 70 mg tablet 70 mg PO QWEEK Qty: 12 3RF Rx Instructions: Every Wednesday triamcinolone acetonide 0.5 % ointment 1 applic TOP BID Qty: 15 5RF epinephrine 0.3 mg/0.3 mL auto-injector See Rx Instructions .ROUTE .COMPLEX Qty: 2 4RF Dose Instruction: INJECT ONE AUTO-DOSE OF EPINEPHRINE INTO THIGH IF STUNG BY A BEE. Rx Instructions: INJECT ONE AUTO-DOSE OF EPINEPHRINE INTO THIGH IF STUNG BY A BEE. rosuvastatin 40 mg tablet See Rx Instructions .ROUTE .COMPLEX Qty: 90 0RF Dose Instruction: TAKE 1 TABLET BY MOUTH AT BEDTIME Rx Instructions: TAKE 1 TABLET BY MOUTH AT BEDTIME atenolol 50 mg tablet 50 mg PO BID Qty: 180 3RF lorazepam 2 mg tablet 2 mg PO BID PRN (Reason: anxiety) Qty: 60 0RF cyclobenzaprine 10 mg tablet See Rx Instructions .ROUTE .COMPLEX Qty: 40 0RF Dose Instruction: TAKE 1/2 TO 1 TABLET BY MOUTH UP TO 3 TIMES DAILY FOR MUSCLE SPASMS. MUST LAST 14 DAYS Rx Instructions: TAKE 1/2 TO 1 TABLET BY MOUTH UP TO 3 TIMES DAILY FOR MUSCLE SPASMS. No further refill. Must establish with new pcp. oxycodone-acetaminophen 5-325 mg tablet See Rx Instructions .ROUTE .COMPLEX Qty: 60 0RF Dose Instruction: TAKE ONE TABLET BY MOUTH EVERY EIGHT HOURS NEEDED FOR PAIN. Rx Instructions: TAKE ONE TABLET BY MOUTH EVERY EIGHT HOURS NEEDED FOR PAIN. hydroxyzine pamoate 25 mg capsule 25 mg PO QID PRN (Reason: itching) Qty: 120 3RF warfarin 2.5 mg tablet 2.5 mg PO DAILY Qty: 90 3RF Rx Instructions: Take one tablet daily or as directed. permethrin 5 % cream See Rx Instructions .ROUTE .COMPLEX Qty: 60 1RF Dose Instruction: APPLY TO SKIN FROM HAIRLINE TO TOES AND WASH OFF 8-10 HOURS LATER. REPEAT IN 1 WEEK IF NEEDED Rx Instructions: APPLY TO SKIN FROM HAIRLINE TO TOES AND WASH OFF 8-10 HOURS LATER. REPEAT IN 1 WEEK IF NEEDED nicotine (polacrilex) [Stop Smoking Aid] 2 mg lozenge 2 mg buccal Q8H PRN (Reason: nicotine cravings) Qty: 72 11RF citalopram 20 mg tablet 40 mg PO DAILY Qty: 180 3RF Referrals: Geovanny Garcia ARNP [Primary Care Provider] - Stand Alone Forms: Patient Portal/API/Survey
[2024-10-13] MEDS: NITROGLYCERIN 0.4 MG SL TAB SL ×3 (18:21→18:58)
[2024-10-13] MEDS: ASPIRIN 81 MG CHEW TAB 324 MG PO (18:21)
[2024-10-13 18:24] LABS: Add Manual Diff / Slide Review NO; Basophils Absolute Auto 100 /uL (0-100); Basophils Percent Auto 1.5 % (0-2); Eosinophils Absolute Auto 200 /uL (0-450); Eosinophils Percent Auto 2.8 % (2-4); Hematocrit 41.7 % (36-46); Lymphocytes Absolute Auto 1400 /uL (1100-4500); Lymphocytes Percent Auto 22.5 % (25-40); Mean Corpuscular HGB Conc 33.6 % (30-36); Mean Corpuscular Hemoglobin 35.6 PG (26-34); Mean Corpuscular Volume 106.1 fL (80-100); Monocytes Absolute Auto 1000 /uL (0-900); Neutrophils Absolute Auto 3500 /uL (1500-7000); Neutrophils Percent Auto 57.2 % (50-75); Platelet Count 292 X10^3/uL (150-400); Red Blood Cell Count 3.93 X10^6/uL (4.0-5.2); Red Cell Distribution Width 16.2 % (11.6-14.8); White Blood Cell Count 6.1 X10^3/uL (4.5-11.0)
[2024-10-13 18:29] LABS: Prothrombin Time 59.1 SECONDS (9.4-12.5)
[2024-10-13 18:32] LABS: PTT Partial Thromboplastin Tim 58 SECONDS (25.1-36.5)
[2024-10-13 18:33] LABS: INR 5.5 (0.9-1.3)
[2024-10-13 19:11] LABS: Alanine Aminotransferase 23 IU/L (<35); Albumin 4.1 g/dL (3.5-5.0); Albumin Globulin Ratio 1.4 (1.0-2.8); Alkaline Phosphatase 97 U/L (38-126); Aspartate Aminotransferase 43 IU/L (14-36); BUN Creatinine Ratio 18.2 (6-22); Bilirubin Total 1.4 mg/dL (0.2-1.3); Blood Urea Nitrogen 14 mg/dL (7-17); Calcium 9.2 mg/dL (8.4-10.2); Carbon Dioxide 31 mmol/L (22-32); Chloride 100 mmol/L (98-107); Creatine Kinase 35 U/L (30-135); Estimated Glomerular Filt Rate > 60 mL/min (>60); Glucose 101 mg/dL (80-110); HEMOLYSIS < 15 (0-50); Potassium 4.3 mmol/L (3.4-5.1); Sodium 138 mmol/L (137-145); Total Protein 7.1 g/dL (6.3-8.2)
[2024-10-13 19:12] LABS: Lipase 339 U/L (23-300); Magnesium 1.6 mg/dL (1.6-2.3)
[2024-10-13 19:23] LABS: NT-proBNP (BNP-Adult 18+) 8610 pg/mL (<125); Troponin I < 0.012 ng/mL (0.01-0.034)
[2024-10-13] MEDS: MORPHINE 4 MG/ML INJ IV (19:41)
[2024-10-13] MEDS: ONDANSETRON 4 MG/2 ML INJ IV (19:41)
[2024-10-13 20:25] LABS: Troponin I < 0.012 ng/mL (0.01-0.034)
--- NOTE | 2024-10-13 20:55 | EKG_ITS ---
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
== END 2024-10-13 21:45 | disposition home or self-care (01) ==
PROVIDERS: Emergency Provider Emergency Medicine; Family Provider Orthopaedic Surgery; PCP Nurse Practitioner
DX: R07.9 Chest pain, unspecified (principal); F17.210 Nicotine dependence, cigarettes, uncomplicated; Z95.2 Presence of prosthetic heart valve; Z79.01 Long term (current) use of anticoagulants; I10 Essential (primary) hypertension; I48.91 Unspecified atrial fibrillation
CPT/HCPCS: 36415; 71045; 80053; 82550; 83690; 83735; 83880; 84484; 85025; 85610; 85730; 93005; 96374; 96375; 99284; J2270; J2405

== ENCOUNTER 2024-10-18 14:14 | Emergency (ER) | payer MEDICARE, MEDICAID, SELFPAY ==
[2021-05-13 11:44] VITALS: BMI 21.7
[2024-10-18] VITALS (18 sets, daily range): BP systolic 118–190; BP diastolic 73–104; PULSE 64–84; RESP 13–24; TEMP 37; O2SAT 93–98; BMI 18.8
--- NOTE | 2024-10-18 14:23 | DI.RAD.S_ITS ---
PROCEDURE: XR CHEST 1V INDICATIONS: chest pain TECHNIQUE: One view of the chest was acquired. COMPARISON: [facility], CR, XR CHEST 1V, 10/13/2024, 18:13. FINDINGS: Surgical changes and devices: Median sternotomy wires and surgical clips are seen. Lungs and pleura: Lungs are clear. No pleural effusions or pneumothorax. Mediastinum: Mediastinal contours appear normal. Heart size is normal. Bones and chest wall: No suspicious bony lesions. Overlying soft tissues appear unremarkable. IMPRESSION: No acute cardiopulmonary pathology. Dictated by: Abraham Clements M.D. on 10/18/2024 at 15:13 Approved by: Abraham Clements M.D. on 10/18/2024 at 15:18
--- NOTE | 2024-10-18 14:23 | EKG_ITS ---
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
--- NOTE | 2024-10-18 14:35 | PC.NURSE ---
IV installed by Martín Rosas RN
[2024-10-18 14:48] LABS: INR 3.5 (0.9-1.3); Prothrombin Time 38.8 SECONDS (9.4-12.5)
[2024-10-18 14:50] LABS: PTT Partial Thromboplastin Tim 52 SECONDS (25.1-36.5)
[2024-10-18 14:52] LABS: Alanine Aminotransferase 19 IU/L (<35); Albumin 4.3 g/dL (3.5-5.0); Albumin Globulin Ratio 1.2 (1.0-2.8); Alkaline Phosphatase 88 U/L (38-126); Aspartate Aminotransferase 42 IU/L (14-36); BUN Creatinine Ratio 18.8 (6-22); Bilirubin Total 1.5 mg/dL (0.2-1.3); Blood Urea Nitrogen 15 mg/dL (7-17); Calcium 9.4 mg/dL (8.4-10.2); Carbon Dioxide 28 mmol/L (22-32); Chloride 102 mmol/L (98-107); Creatine Kinase 35 U/L (30-135); Estimated Glomerular Filt Rate > 60 mL/min (>60); Globulin 3.5 g/dL (1.7-4.1); Glucose 121 mg/dL (80-110); HEMOLYSIS 35 (0-50); Lipase 148 U/L (23-300); Magnesium 1.7 mg/dL (1.6-2.3); Potassium 4.5 mmol/L (3.4-5.1); Sodium 138 mmol/L (137-145); Total Protein 7.8 g/dL (6.3-8.2)
[2024-10-18 15:04] LABS: Add Manual Diff / Slide Review NO; Basophils Absolute Auto 200 /uL (0-100); Basophils Percent Auto 3.1 % (0-2); Eosinophils Absolute Auto 200 /uL (0-450); Eosinophils Percent Auto 2.4 % (2-4); Hemoglobin 13.1 g/dL (12.0-16.0); Lymphocytes Absolute Auto 700 /uL (1100-4500); Lymphocytes Percent Auto 10.4 % (25-40); Mean Corpuscular HGB Conc 33.5 % (30-36); Mean Corpuscular Hemoglobin 35.2 PG (26-34); Mean Corpuscular Volume 104.9 fL (80-100); Monocytes Absolute Auto 700 /uL (0-900); Monocytes Percent Auto 10.2 % (3-14); NT-proBNP (BNP-Adult 18+) 7590 pg/mL (<125); Neutrophils Absolute Auto 4900 /uL (1500-7000); Neutrophils Percent Auto 73.9 % (50-75); Platelet Count 230 X10^3/uL (150-400); Red Blood Cell Count 3.71 X10^6/uL (4.0-5.2); Red Cell Distribution Width 15.9 % (11.6-14.8); Troponin I < 0.012 ng/mL (0.01-0.034); White Blood Cell Count 6.6 X10^3/uL (4.5-11.0)
--- NOTE | 2024-10-18 16:47 | EKG_ITS ---
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
[2024-10-18 17:17] LABS: Troponin I < 0.012 ng/mL (0.01-0.034)
--- NOTE | 2024-10-18 19:44 | ED_ITS ---
HPI - Chest Pain General Chief Complaint: Chest Pain Stated Complaint: Afib, high bp Time Seen by Provider: 10/18/24 19:44 Source: patient, RN notes reviewed and old records reviewed Mode of arrival: Ambulatory Limitations: no limitations History of Present Illness HPI narrative: 69-year-old female history of mechanical aortic valve replacement in 2010, hypotension on midodrine, chronic atrial fibrillation warfarin. Patient presents with complaint of elevated blood pressure, states she has had some chest discomfort and shortness of breath. Rubs little bit headache. States it has been for the last day. States her blood pressures has been elevated at home was improved Wednesday and Wednesday and then increase Wednesday and Wednesday. Patient has continued to take her midodrine she states she was decreased from 10-5 mg t.i.d. last week as well as had her metoprolol increased from 75 mg extended release in the morning and 50 mg extended release in the evening to 75 mg extended release b.i.d.. She did take her major twin at noon but has not taken any this evening. She was not had her evening metoprolol dose. Patient states no fevers or chills, no chest pain currently, no current shortness of breath. No nausea or vomiting. No new swelling in extremities, no other GI or urinary symptoms. Describes little bit of mild headache. She expresses a lot of frustration that her blood pressure is high. She does seem to understand that midodrine elevates her blood pressure which has been continuing to take it. Patient has a reported allergies to venom and nickel. Related Data Home Medications Medication Instructions Recorded Confirmed acetaminophen 300 mg-codeine 30 mg 1 tab PO BID PRN 03/15/24 09/29/24 tablet duloxetine 30 mg capsule,delayed 30 mg PO DAILY 03/15/24 09/29/24 release ezetimibe 10 mg tablet 10 mg PO DAILY 03/15/24 09/29/24 fluticasone propionate 230 2 puff inhalation BID 03/15/24 09/29/24 mcg-salmeterol 21 mcg/actuation HFA inhaler (Advair HFA) furosemide 20 mg tablet 20 mg PO BID 03/15/24 09/29/24 gabapentin 300 mg capsule mg PO 03/15/24 09/29/24 ketoconazole 2 % shampoo topical 03/15/24 09/29/24 levothyroxine 50 mcg tablet 50 mcg PO DAILY 03/15/24 09/29/24 magnesium oxide 400 mg (241.3 mg 400 mg PO DAILY 03/15/24 09/29/24 magnesium) tablet methocarbamol 500 mg tablet mg PO 03/15/24 09/29/24 metoprolol succinate 50 mg mg PO 03/15/24 09/29/24 tablet,extended release 24 hr midodrine 10 mg tablet 10 mg PO 3XD 03/15/24 09/29/24 mirtazapine 15 mg tablet 15 mg PO ONCE PM 03/15/24 09/29/24 terbinafine HCl 1 % topical cream applic topical BID 03/15/24 09/29/24 triamcinolone acetonide 0.1 % 1 applic topical 03/15/24 09/29/24 topical ointment warfarin 2 mg tablet mg PO 03/15/24 09/29/24 adapalene 0.1 % topical gel topical QPM 04/11/24 09/29/24 (Differin) buprenorphine 2 mg-naloxone 0.5 mg 1 tab sublingual BID PRN 04/11/24 09/29/24 sublingual tablet tizanidine 2 mg tablet 2 mg PO 3XD 04/11/24 09/29/24 Previous Rx's Medication Instructions Recorded lisinopril 10 mg tablet 5 mg (1/2 x 10 mg) PO BID #90 tabs 02/14/19 citalopram 20 mg tablet 40 mg (2 x 20 mg) PO DAILY #180 09/13/19 tabs albuterol sulfate 90 mcg/actuation 1 puff inhalation Q4-6H PRN 03/11/20 aerosol inhaler shortness of breath or wheezing #8 grams hydroxyzine pamoate 25 mg capsule 25 mg PO QID PRN itching #120 caps 04/30/20 warfarin 2.5 mg tablet 2.5 mg PO DAILY #90 tabs 05/28/20 alendronate 70 mg tablet (Fosamax) 70 mg PO QWEEK #12 tabs 07/10/20 epinephrine 0.3 mg/0.3 mL See Rx Instructions .Route 07/23/20 injection, auto-injector .COMPLEX #2 ea triamcinolone acetonide 0.5 % 1 applic topical BID #15 grams 07/23/20 topical ointment permethrin 5 % topical cream See Rx Instructions .Route 08/14/20 .COMPLEX #60 grams rosuvastatin 40 mg tablet See Rx Instructions .Route 09/03/20 .COMPLEX #90 tabs atenolol 50 mg tablet 50 mg PO BID #180 tabs 09/19/20 nicotine (polacrilex) 2 mg buccal 2 mg buccal Q8H PRN nicotine 10/11/20 lozenge (Stop Smoking Aid) cravings #72 ea lorazepam 2 mg tablet 2 mg PO BID PRN anxiety #60 tabs 10/24/20 cyclobenzaprine 10 mg tablet See Rx Instructions .Route 12/03/20 .COMPLEX #40 tabs oxycodone-acetaminophen 5 mg-325 See Rx Instructions .Route 12/30/20 mg tablet .COMPLEX #60 tabs mupirocin 2 % topical ointment 1 applic topical TID #15 grams 04/11/24 fluticasone propionate 50 1 spray intranasal Q12H #16 grams 09/29/24 mcg/actuation nasal spray,suspension (Flonase Allergy Relief) Allergies Allergy/AdvReac Type Severity Reaction Status Date / Time venom-honey bee Allergy Severe anaphlaxs Verified 10/13/24 18:23 [BEE VENOM (HONEY BEE)] nickel Allergy Intermediate Rash Verified 10/13/24 18:23 Review of Systems Review of Systems ROS Unobtainable: All systems reviewed & are unremarkable except as noted in HPI and below Patient History Medical History Encounter for smoking cessation counseling Cranial somatic dysfunction Chronic bilateral thoracic back pain Cervical somatic dysfunction Thoracic region somatic dysfunction Segmental and somatic dysfunction of abdomen and other regions Sacral region somatic dysfunction Pelvic somatic dysfunction Lumbar region somatic dysfunction Chronic atrial fibrillation Mitral regurgitation H/O alcohol abuse Acute appendicitis Depression COPD (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 disease) 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 History of esophageal stricture Osteoporosis Low back pain Scabies (~2015) Heart failure (~05/18/11) Mixed hyperlipidemia (02/04/17) 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) Status post aortic valve replacement (~05/2011) Esophageal stricture Surgical History History of total right hip arthroplasty History of esophagogastroduodenoscopy (EGD) (~2019) Hx of tonsillectomy Anesthesia History of aortic valve replacement (05/18/11) Family History Father Cancer Mother Heart disease Hypertension High cholesterol Social History household members: significant other Smoking Status: Current every day smoker alcohol intake: current substance use type: does not use Smoking Status: Current every day smoker tobacco type: cigarettes alcohol intake frequency: 0-2 drinks per day Exam Narrative Exam Narrative: GENERAL: Alert and oriented x three, mild distress. HEENT: Head normocephalic, atraumatic, EOMI, pupils reactive, face symmetric, moist mucous membranes NECK: Supple, full range of motion CARDIOVASCULAR: Regular rate and rhythm without murmurs, rubs or gallops. RESPIRATORY: Breath sounds equal bilaterally, no wheezes rales or rhonchi. ABDOMEN: Soft, nontender. Normoactive bowel sounds all 4 quadrants. No guarding or rebound, rigidity, no mass : No CVA tenderness EXTREMITIES: Normal range of motion, no clubbing or edema. Neurovascularly intact NEUROLOGICAL: Cranial nerves II through XII grossly intact. Moving all extremities SKIN: Warm, dry, no petechiae, no rashes or lesions. Initial Vital Signs Initial Vital Signs: Vital Signs Temperature 98.6 F 10/18/24 14:18 Pulse Rate 71 10/18/24 14:18 Respiratory Rate 20 10/18/24 14:18 Blood Pressure 164/92 H 10/18/24 14:18 Pulse Oximetry 97 10/18/24 14:18 Oxygen Delivery Method Room Air 10/18/24 14:18 Course Orders Ordered: ED Orders 10/18/24 20:05 CT head/brain wo con Stat Discontinued Medications Aspirin (Aspirin 81 Mg Chew Tab) 324 mg PO NOW ONE Stop: 10/18/24 14:24 Last Admin: 10/18/24 20:23 Dose: Not Given Documented By: JAMILAH Metoprolol Succinate (Metoprolol Er 25 Mg Tablet) 75 mg PO DAILY ANGELINA Last Admin: 10/18/24 20:11 Dose: 75 mg Documented By: JAMILAH Vital Signs Vital signs: Vital Signs - 8 hr 10/18/24 20:11 10/18/24 20:22 10/18/24 20:30 Pulse Rate 72 70 73 Respiratory Rate 15 18 Blood Pressure 164/104 H 173/103 H 190/90 H Pulse Oximetry Oxygen Delivery Method 10/18/24 20:45 10/18/24 21:00 10/18/24 21:15 Pulse Rate 72 74 74 Respiratory Rate 13 14 23 Blood Pressure 187/95 H 174/87 H 158/82 H Pulse Oximetry 97 Oxygen Delivery Method Room Air 10/18/24 21:30 10/18/24 21:45 Pulse Rate 74 70 Respiratory Rate 24 22 Blood Pressure 141/78 H 118/73 Pulse Oximetry 98 Oxygen Delivery Method Room Air MDM - Chest Pain Lab Data 10/18/24 14:33 10/18/24 14:33 Labs: Lab Results 10/18/24 10/18/24 Range/Units 14:33 16:42 WBC 6.6 (4.5-11.0) X10^3/uL RBC 3.71 L (4.0-5.2) X10^6/uL Hgb 13.1 (12.0-16.0) g/dL Hct 39.0 (36-46) % MCV 104.9 H (80-100) fL MCH 35.2 H (26-34) PG MCHC 33.5 (30-36) % RDW 15.9 H (11.6-14.8) % Plt Count 230 (150-400) X10^3/uL Neut % (Auto) 73.9 (50-75) % Lymph % (Auto) 10.4 L (25-40) % [place] % (Auto) 10.2 (3-14) % Eos % (Auto) 2.4 (2-4) % Baso % (Auto) 3.1 H (0-2) % Neut # (Auto) 4900 (5201-9654) /uL Lymph # (Auto) 700 L (7840-4033) /uL [place] # (Auto) 700 (0-900) /uL Eos # (Auto) 200 (0-450) /uL Baso # (Auto) 200 H (0-100) /uL PT 38.8 H D (9.4-12.5) SECONDS INR 3.5 H (0.9-1.3) APTT 52 H (25.1-36.5) SECONDS Sodium 138 (137-145) mmol/L Potassium 4.5 (3.4-5.1) mmol/L Chloride 102 (98-107) mmol/L Carbon Dioxide 28 (22-32) mmol/L BUN 15 (7-17) mg/dL Creatinine 0.80 (0.52-1.04) mg/dL Estimated GFR > 60 (>60) mL/min BUN/Creatinine Ratio 18.8 (6-22) Glucose 121 H (80-110) mg/dL Calcium 9.4 (8.4-10.2) mg/dL Magnesium 1.7 (1.6-2.3) mg/dL Total Bilirubin 1.5 H (0.2-1.3) mg/dL AST 42 H (14-36) IU/L ALT 19 (<35) IU/L Alkaline Phosphatase 88 (38-126) U/L Total Creatine Kinase 35 (30-135) U/L Troponin I < 0.012 < 0.012 (0.01-0.034) ng/mL NT-Pro-B Natriuret Pep 7590 H (<125) pg/mL Total Protein 7.8 (6.3-8.2) g/dL Albumin 4.3 (3.5-5.0) g/dL Globulin 3.5 (1.7-4.1) g/dL Albumin/Globulin Ratio 1.2 (1.0-2.8) Lipase 148 D (23-300) U/L ECG Data Attestation: I personally reviewed and interpreted this ECG as follows: Prior ECG tracings: available for review Interpretation: EKG 1. AFib rate of 73 QRS 80 QTC of 474, patient has some T-wave changes in 1 and 2 inverted V1 V2 some depression in lateral leads appears similar. Patient has prior from 10/13/2024 which also appears similar in ST segment changes no new or dynamic changes appreciated. EKG 2. AFib rate of 60, QRS 88 QTC of 482, no acute ST elevation, appears similar to earlier today. MDM Narrative Medical decision making narrative: 69-year-old lady known chronic atrial fibrillation anticoagulated on warfarin presents with complaint of chest pain, shortness of breath and that her blood pressure is high. After discussion sounds like she was taking her midodrine regularly was recently decreased secondary to hypertension from 10mg to TID to 5mg TID. Patient has not had her evening medications we will hold her midodrine and give her normal metoprolol dose which is 75 mg extended release. Labs show normal white count, hemoglobin and platelets. Macrocytosis for the past 2 or 3 months. INR today is 3.5 slightly supratherapeutic. Electrolytes are appropriate BUN creatinine is normal glucose is 121 bilirubin is 1.5 AST is 42 ALT is 19 alk-phos is 88 troponins less than 0.012 with a repeat of less than 0.012 [place] of 7590. Patient has prior from earlier in October that was 8610 EKG shows AFib rate controlled does have some ST changes but appears similar to prior from 10/13/2024. Chest x-ray shows no acute change Head CT no acute abnormality, area of encephalomalacia new from 2020 seen and right high medial parietal lobe. Discussed with patient continue her metoprolol 75 mg twice daily but I would have her hold her midodrine if her blood pressure is elevated. If she is getting significant low she can restarted at 5 mg t.i.d. Discharge Plan Departure Patient Disposition: Home Clinical Impression: Hypertension, CHF (congestive heart failure) Activity Restrictions/Additional Instructions: Follow up with your physician for recheck. If your blood pressure is elevated do not take your midodrine this medication is to elevate your blood pressure. Continue with your metoprolol 75 mg twice daily. Your INR today is 3.5 I would hold your warfarin dose tomorrow and restart it the following day. Please return if you have new or worsening symptoms, new chest pain or shortness of breath, vomiting, new weakness numbness or tingling difficulty with movement, rapidly worsening headaches or other new or concerning changes. Prescriptions: No Action metoprolol succinate 50 mg tablet extended release 24 hr PO methocarbamol 500 mg tablet PO acetaminophen-codeine 300-30 mg tablet 1 tab PO BID PRN ketoconazole 2 % shampoo topical duloxetine 30 mg capsule,delayed release(DR/EC) 30 mg PO DAILY levothyroxine 50 mcg tablet 50 mcg PO DAILY warfarin 2 mg tablet PO furosemide 20 mg tablet 20 mg PO BID magnesium oxide 400 mg (241.3 mg magnesium) tablet 400 mg PO DAILY ezetimibe 10 mg tablet 10 mg PO DAILY terbinafine HCl 1 % cream topical BID triamcinolone acetonide 0.1 % ointment 1 applic topical midodrine 10 mg tablet 10 mg PO 3XD fluticasone propion-salmeterol [Advair HFA] 230-21 mcg/actuation HFA aerosol inhaler 2 puff inhalation BID mirtazapine 15 mg tablet 15 mg PO ONCE PM gabapentin 300 mg capsule PO fluticasone propionate [Flonase Allergy Relief] 50 mcg/actuation spray,suspension 1 spray intranasal Q12H Qty: 16 0RF Rx Instructions: administer into each nostril buprenorphine-naloxone 2-0.5 mg tablet, sublingual 1 tab sublingual BID PRN tizanidine 2 mg tablet 2 mg PO 3XD adapalene [Differin] 0.1 % gel topical QPM mupirocin 2 % ointment 1 applic topical TID Qty: 15 0RF lisinopril 10 mg tablet 5 mg PO BID Qty: 90 3RF albuterol sulfate 90 mcg/actuation HFA aerosol inhaler 1 puff INHALATION Q4-6H PRN (Reason: shortness of breath or wheezing) Qty: 8 1RF Patient Comments: hasn't used since she quit smoking alendronate [Fosamax] 70 mg tablet 70 mg PO QWEEK Qty: 12 3RF Rx Instructions: Every Wednesday triamcinolone acetonide 0.5 % ointment 1 applic TOP BID Qty: 15 5RF epinephrine 0.3 mg/0.3 mL auto-injector See Rx Instructions .ROUTE .COMPLEX Qty: 2 4RF Dose Instruction: INJECT ONE AUTO-DOSE OF EPINEPHRINE INTO THIGH IF STUNG BY A BEE. Rx Instructions: INJECT ONE AUTO-DOSE OF EPINEPHRINE INTO THIGH IF STUNG BY A BEE. rosuvastatin 40 mg tablet See Rx Instructions .ROUTE .COMPLEX Qty: 90 0RF Dose Instruction: TAKE 1 TABLET BY MOUTH AT BEDTIME Rx Instructions: TAKE 1 TABLET BY MOUTH AT BEDTIME atenolol 50 mg tablet 50 mg PO BID Qty: 180 3RF lorazepam 2 mg tablet 2 mg PO BID PRN (Reason: anxiety) Qty: 60 0RF cyclobenzaprine 10 mg tablet See Rx Instructions .ROUTE .COMPLEX Qty: 40 0RF Dose Instruction: TAKE 1/2 TO 1 TABLET BY MOUTH UP TO 3 TIMES DAILY FOR MUSCLE SPASMS. MUST LAST 14 DAYS Rx Instructions: TAKE 1/2 TO 1 TABLET BY MOUTH UP TO 3 TIMES DAILY FOR MUSCLE SPASMS. No further refill. Must establish with new pcp. oxycodone-acetaminophen 5-325 mg tablet See Rx Instructions .ROUTE .COMPLEX Qty: 60 0RF Dose Instruction: TAKE ONE TABLET BY MOUTH EVERY EIGHT HOURS NEEDED FOR PAIN. Rx Instructions: TAKE ONE TABLET BY MOUTH EVERY EIGHT HOURS NEEDED FOR PAIN. hydroxyzine pamoate 25 mg capsule 25 mg PO QID PRN (Reason: itching) Qty: 120 3RF warfarin 2.5 mg tablet 2.5 mg PO DAILY Qty: 90 3RF Rx Instructions: Take one tablet daily or as directed. permethrin 5 % cream See Rx Instructions .ROUTE .COMPLEX Qty: 60 1RF Dose Instruction: APPLY TO SKIN FROM HAIRLINE TO TOES AND WASH OFF 8-10 HOURS LATER. REPEAT IN 1 WEEK IF NEEDED Rx Instructions: APPLY TO SKIN FROM HAIRLINE TO TOES AND WASH OFF 8-10 HOURS LATER. REPEAT IN 1 WEEK IF NEEDED nicotine (polacrilex) [Stop Smoking Aid] 2 mg lozenge 2 mg buccal Q8H PRN (Reason: nicotine cravings) Qty: 72 11RF citalopram 20 mg tablet 40 mg PO DAILY Qty: 180 3RF Referrals: Geovanny Garcia ARNP [Primary Care Provider] - Stand Alone Forms: Patient Portal/API/Survey
--- NOTE | 2024-10-18 20:05 | DI.CT.S_ITS ---
PROCEDURE: CT HEAD/BRAIN WO CON INDICATIONS: htn, mera TECHNIQUE: Noncontrast 4.5 mm thick angled axial sections acquired from the foramen magnum to the vertex, with coronal and sagittal reformats. For radiation dose reduction, the following was used: automated exposure control, adjustment of mA and/or kV according to patient size. COMPARISON: [facility], CT, CT HEAD WITHOUT CONTRAST, 03/08/2021, 15:07. FINDINGS: Image quality: Diagnostic CSF spaces: Basal cisterns are patent. Lateral ventricles are symmetric. Volume: Vascular calcifications. Periventricular white matter disease is commonly seen with chronic microangiopathy. Volume loss is present. These findings are mild Brain: No acute hemorrhage. No significant loss of davidson-white differentiation. There is area encephalomalacia in the medial high parietal lobe on the right. Craniofacial structures: No significant paranasal sinus opacity. IMPRESSION: No definite acute abnormality. Area of encephalomalacia however is new from 2020, seen in the right high medial parietal lobe. If there is high concern for acute parenchymal pathology, consider further evaluation with MRI. Dictated by: Partha Tatum M.D. on 10/18/2024 at 20:37 Approved by: Partha Tatum M.D. on 10/18/2024 at 20:39
[2024-10-18] MEDS: METOPROLOL ER 25 MG TABLET 75 MG PO (20:11)
== END 2024-10-18 22:03 | disposition home or self-care (01) ==
PROVIDERS: Emergency Medicine; Emergency Provider Emergency Medicine; Family Provider Orthopaedic Surgery; PCP Nurse Practitioner
DX: I10 Essential (primary) hypertension (principal); I50.9 Heart failure, unspecified; R07.9 Chest pain, unspecified; R06.02 Shortness of breath; R51.9 Headache, unspecified
CPT/HCPCS: 36415; 70450; 71045; 80053; 82550; 83690; 83735; 83880; 84484; 85025; 85610; 85730; 93005; 99284

== ENCOUNTER → 2024-10-27 12:21 | Outpatient (CLI) | payer MEDICARE, MEDICAID, SELFPAY ==
[2021-05-13 11:44] VITALS: BMI 21.7
--- NOTE | 2024-10-27 12:23 | DI.RAD.S_ITS ---
PROCEDURE: XR DEXA AXIAL SKELETON INDICATIONS: Screening/OSTEOPOROSIS SCREEN COMPARISON: [facility], , XR DEXA AXIAL SKELETON, 03/09/2018, 9:56. [facility], , DEXA AXIAL SKELETON, 09/12/2015, 10:21. FINDINGS: Lumbar Spine: Bone mineral density 0.661 g/cm2, T score -2.3, unchanged. Left Femoral Neck: Bone mineral density 0.581 g/cm2, T score -2.4. Left Hip: Bone mineral density 0.661 g/cm2, T score -2.3, unchanged. Fracture Risk Calculation (when applicable): Prior fracture and smoking history noted 10-year fracture risk of a major osteoporotic fracture 19 percent and of a hip fracture 6.7 percent. (T score greater or equal to -1.0 to: NORMAL) (T score from -1.1 to -2.4: OSTEOPENIA) (T score less than or equal to -2.5: OSTEOPOROSIS) IMPRESSION: Osteoporosis, statistically unchanged. Follow-up guidelines as follows: Osteoporosis: Consider a repeat DEXA and Vertebral Fracture Assessment (VFA) exam in 2 years or sooner if medically necessary, to reassess this patient's status. Osteopenia: Consider a repeat DEXA in 2-3 years to reassess this patient's status, or if there is a new clinical indication. Normal: Consider a repeat DEXA in 5 years or sooner, or if there is a new clinical indication. All treatment decisions require clinical judgment and consideration of individual patient factors, including patient preferences, comorbidities, previous drug use, risk factors not captured in the FRAX model (e.g., frailty, falls, vitamin D deficiency, increased bone turnover, interval significant decline in bone density ) and possible under- or over-estimation of fracture risk by FRAX. In addition, the NOF Guide recommends that FDA-approved medical therapies be considered in postmenopausal women and men age >= 50 years with a: * Hip or vertebral (clinical or morphometric) fracture * T-score of <=-2.5 at the spine or hip * Ten-year fracture probability by FRAX of >= 3% for hip fracture or >=20% for major osteoporotic fracture. Dictated by: Patrick Washington M.D. on 10/27/2024 at 14:18 Approved by: Patrick Washington M.D. on 10/27/2024 at 14:19
--- NOTE | 2024-10-27 12:23 | DI.MG.S_ITS ---
MM screening mammo BI: 10/27/2024. BI-RADS: 2 CLINICAL: 69-year old female for bilateral screening mammogram. Tyrer-Cuzick lifetime risk of 2.0%. No personal or first-degree family history of breast cancer. PRIOR EXAMS Outside priors 03/10/2023 10/31/2018, 08/25/2017, 08/21/2015. MAMMOGRAPHY TECHNIQUE: 2D and 3D (tomosynthesis) digital mammographic views obtained, with additional images as needed for full coverage. Current study was also evaluated with a Computer Aided Detection (CAD) system. DENSITY B. There are scattered areas of fibroglandular density. MAMMOGRAPHY FINDINGS Bilateral: Typically-benign vascular calcifications noted. No significant change from comparison. IMPRESSION: * No evidence of malignancy with benign findings. RECOMMENDATIONS Bilateral * Annual screening mammography. OVERALL ASSESSMENT CATEGORY BI-RADS-2: Benign. The [employer] recommends annual screening mammography beginning at age 40 for women with average risk of breast cancer. ELECTRONICALLY SIGNED: Collin Pierson M.D. on 10/27/2024 at 02:18:54 PM PT Interpreting Station ID: [id number]
== END ==
PROVIDERS: Family Provider Orthopaedic Surgery; PCP Nurse Practitioner; Referring Provider Nurse Practitioner; Visit Provider Nurse Practitioner
DX: M81.0 Age-related osteoporosis without current pathological fracture (principal); Z12.31 Encounter for screening mammogram for malignant neoplasm of breast; R92.1 Mammographic calcification found on diagnostic imaging of breast; Z78.0 Asymptomatic menopausal state
CPT/HCPCS: 77063; 77067; 77080

== ENCOUNTER 2024-11-19 12:08 | Emergency (ER) | payer MEDICARE, MEDICAID, SELFPAY ==
[2021-05-13 11:44] VITALS: BMI 21.7
[2024-11-19] VITALS (10 sets, daily range): BP systolic 95–137; BP diastolic 54–85; PULSE 64–72; RESP 16–18; TEMP 36.8; O2SAT 90–99; BMI 18.0
--- NOTE | 2024-11-19 12:26 | DI.CT.S_ITS ---
PROCEDURE: CT HEAD/BRAIN WO CON INDICATIONS: Fall with head strike on warfrin TECHNIQUE: Noncontrast 4.5 mm thick angled axial sections acquired from the foramen magnum to the vertex, with coronal and sagittal reformats. For radiation dose reduction, the following was used: automated exposure control, adjustment of mA and/or kV according to patient size. COMPARISON: [facility], CT, CT HEAD WITHOUT CONTRAST, 03/08/2021, 15:07. [facility], CT, CT ANGIO HEAD AND NECK, 05/07/2021, 14:56. [facility], CT, CT CERVICAL SPINE WO CON, 11/19/2024, 12:34. [facility], CT, CT HEAD/BRAIN WO CON, 10/18/2024, 20:09. FINDINGS: Image quality: Streak artifact can be seen through the skull base. CSF spaces: Basal cisterns are patent. No extra-axial fluid collections. The ventricles are symmetric in size and shape. Brain: No intracranial bleeds or masses. There is cerebral volume loss for age, with resultant ventricular and sulcal prominence. There are periventricular and deep white matter chronic small vessel ischemic changes. Prior encephalomalacia can be seen within the superior medial frontal lobe, stable There is intracranial internal carotid artery atherosclerosis. Skull and face: Calvarium and visualized facial bones appear intact, without suspicious lesions. Sinuses: Moderate mucosal thickening can be seen within the left maxillary sinus. Minimal mucosal thickening can be seen elsewhere within the paranasal sinuses. No abnormal fluid is seen within the mastoid air cells. IMPRESSION: No acute intracranial hemorrhage is seen. No acute intracranial pathology. Stable prior mild encephalomalacia seen involving the superior medial right parietal lobe. Additional findings: Focal left maxillary sinus disease Dictated by: Cheko Barahona M.D. on 11/19/2024 at 11:59 Approved by: Cheko Barahona M.D. on 11/19/2024 at 12:00
--- NOTE | 2024-11-19 12:27 | DI.CT.S_ITS ---
PROCEDURE: CT CERVICAL SPINE WO CON INDICATIONS: fall with head strike on warfrin TECHNIQUE: Noncontrast 3 mm thick sections acquired from the skull base to the T4 level. Sagittal and coronal reformats were then constructed. For radiation dose reduction, the following was used: automated exposure control, adjustment of mA and/or kV according to patient size. COMPARISON: [facility], CT, CT HEAD/BRAIN WO CON, 11/19/2024, 12:34. [facility], CT, CT CHEST WITHOUT CONTRAST, 03/27/2024, 9:44. FINDINGS: Image quality: This examination is somewhat limited by quantum mottle artifact. Bones: No fractures or dislocations. Visualized superior ribs are intact. There is moderate disc space narrowing at C3-C4, with moderate to severe disc space narrowing at C4-C5, C5-C6, and C6-C7. There is mild anterolisthesis at C2-C3 and C3-C4, with minimal anterolisthesis at C4-C5. Minimal retrolisthesis can be seen at C5-C6 and C6-C7. Multiple levels of significant facet hypertrophy can be seen, with degrees of fusion on both sides. Sternotomy wires are partially seen. Soft tissues: Prevertebral soft tissues are normal in thickness. No paravertebral hematomas. No apical pneumothoraces. Atherosclerotic calcification is noted. Persistent, poorly defined opacity can be seen within the left upper lobe. IMPRESSION: No displaced fracture or traumatic subluxation. Multiple levels of significant cervical spine degenerative change can be seen, which are worst inferiorly. Left upper lobe poorly defined opacity partially seen, which has been previously attributed to scarring/posttreatment changes. Dictated by: Cheko Barahona M.D. on 11/19/2024 at 11:55 Approved by: Cheko Barahona M.D. on 11/19/2024 at 11:58
--- NOTE | 2024-11-19 12:32 | PC.NURSE ---
This RN called modified trauma at 12:19pm
--- NOTE | 2024-11-19 12:55 | ED.FALL ---
HPI - Fall General Chief Complaint: Trauma Stated Complaint: takes thinners passed out hit head T-1 Time Seen by Provider: 11/19/24 12:26 Source: patient Mode of arrival: Ambulatory History of Present Illness HPI Narrative: 69-year-old female history of mechanical aortic valve replacement in 2010 and history of atrial fibrillation on Coumadin had a mechanical fall on Wednesday tripping over a power cord fell and landed on cement briefly passed out but came to. Patient reports her left eye looks it is blood shot and she starting to have worsening headache, since then but no nausea or vomiting, blurred vision, chest pain, shortness of breath or gait instability. Other than what is stated 14 point review of system is negative Related Data Home Medications Medication Instructions Recorded Confirmed acetaminophen 300 mg-codeine 30 mg 1 tab PO BID PRN 03/15/24 09/29/24 tablet duloxetine 30 mg capsule,delayed 30 mg PO DAILY 03/15/24 09/29/24 release ezetimibe 10 mg tablet 10 mg PO DAILY 03/15/24 09/29/24 fluticasone propionate 230 2 puff inhalation BID 03/15/24 09/29/24 mcg-salmeterol 21 mcg/actuation HFA inhaler (Advair HFA) furosemide 20 mg tablet 20 mg PO BID 03/15/24 09/29/24 gabapentin 300 mg capsule mg PO 03/15/24 09/29/24 ketoconazole 2 % shampoo topical 03/15/24 09/29/24 levothyroxine 50 mcg tablet 50 mcg PO DAILY 03/15/24 09/29/24 magnesium oxide 400 mg (241.3 mg 400 mg PO DAILY 03/15/24 09/29/24 magnesium) tablet methocarbamol 500 mg tablet mg PO 03/15/24 09/29/24 metoprolol succinate 50 mg mg PO 03/15/24 09/29/24 tablet,extended release 24 hr midodrine 10 mg tablet 10 mg PO 3XD 03/15/24 09/29/24 mirtazapine 15 mg tablet 15 mg PO ONCE PM 03/15/24 09/29/24 terbinafine HCl 1 % topical cream applic topical BID 03/15/24 09/29/24 triamcinolone acetonide 0.1 % 1 applic topical 03/15/24 09/29/24 topical ointment warfarin 2 mg tablet mg PO 03/15/24 09/29/24 adapalene 0.1 % topical gel topical QPM 04/11/24 09/29/24 (Differin) buprenorphine 2 mg-naloxone 0.5 mg 1 tab sublingual BID PRN 04/11/24 09/29/24 sublingual tablet tizanidine 2 mg tablet 2 mg PO 3XD 04/11/24 09/29/24 Previous Rx's Medication Instructions Recorded lisinopril 10 mg tablet 5 mg (1/2 x 10 mg) PO BID #90 tabs 02/14/19 citalopram 20 mg tablet 40 mg (2 x 20 mg) PO DAILY #180 09/13/19 tabs albuterol sulfate 90 mcg/actuation 1 puff inhalation Q4-6H PRN 03/11/20 aerosol inhaler shortness of breath or wheezing #8 grams hydroxyzine pamoate 25 mg capsule 25 mg PO QID PRN itching #120 caps 04/30/20 warfarin 2.5 mg tablet 2.5 mg PO DAILY #90 tabs 05/28/20 alendronate 70 mg tablet (Fosamax) 70 mg PO QWEEK #12 tabs 07/10/20 epinephrine 0.3 mg/0.3 mL See Rx Instructions .Route 07/23/20 injection, auto-injector .COMPLEX #2 ea triamcinolone acetonide 0.5 % 1 applic topical BID #15 grams 07/23/20 topical ointment permethrin 5 % topical cream See Rx Instructions .Route 08/14/20 .COMPLEX #60 grams rosuvastatin 40 mg tablet See Rx Instructions .Route 09/03/20 .COMPLEX #90 tabs atenolol 50 mg tablet 50 mg PO BID #180 tabs 09/19/20 nicotine (polacrilex) 2 mg buccal 2 mg buccal Q8H PRN nicotine 10/11/20 lozenge (Stop Smoking Aid) cravings #72 ea lorazepam 2 mg tablet 2 mg PO BID PRN anxiety #60 tabs 10/24/20 cyclobenzaprine 10 mg tablet See Rx Instructions .Route 12/03/20 .COMPLEX #40 tabs oxycodone-acetaminophen 5 mg-325 See Rx Instructions .Route 12/30/20 mg tablet .COMPLEX #60 tabs mupirocin 2 % topical ointment 1 applic topical TID #15 grams 04/11/24 fluticasone propionate 50 1 spray intranasal Q12H #16 grams 09/29/24 mcg/actuation nasal spray,suspension (Flonase Allergy Relief) Allergies Allergy/AdvReac Type Severity Reaction Status Date / Time venom-honey bee Allergy Severe anaphlaxs Verified 10/13/24 18:23 [BEE VENOM (HONEY BEE)] nickel Allergy Intermediate Rash Verified 10/13/24 18:23 Review of Systems Review of Systems ROS Unobtainable: All systems reviewed & are unremarkable except as noted in HPI and below Patient History Medical History Encounter for smoking cessation counseling Cranial somatic dysfunction Chronic bilateral thoracic back pain Cervical somatic dysfunction Thoracic region somatic dysfunction Segmental and somatic dysfunction of abdomen and other regions Sacral region somatic dysfunction Pelvic somatic dysfunction Lumbar region somatic dysfunction Chronic atrial fibrillation Mitral regurgitation H/O alcohol abuse Acute appendicitis Depression COPD (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 History of esophageal stricture Osteoporosis Low back pain Scabies (~2015) Heart failure (~05/18/11) Mixed hyperlipidemia (02/04/17) 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 Well-developed patient, in mild distress. HEAD: Atraumatic. Normocephalic. EYES: Pupils equal round and reactive. Extraocular motions intact. No scleral icterus. L eye injection or drainage. ENT: Nose without bleeding, purulent drainage. Throat without erythema, tonsillar hypertrophy or exudate. Airway patent. NECK: Trachea midline. Non tender CARDIOVASCULAR: Regular rate and rhythm without murmurs, gallops, or rubs. RESPIRATORY: Clear to auscultation. Breath sounds equal bilaterally. No wheezes, rales, or rhonchi. GASTROINTESTINAL: Abdomen soft, non-tender, nondistended. EXTREMITIES: No edema or joint tenderness. BACK: Nontender without deformity or crepitance. No flank tenderness. NEURO: AOx3. SKIN: No rash or erythema of visible areas Initial Vital Signs Initial Vital Signs: Vital Signs Temperature 98.2 F 11/19/24 12:11 Pulse Rate 70 11/19/24 12:11 Respiratory Rate 18 11/19/24 12:11 Blood Pressure 111/61 11/19/24 12:11 Pulse Oximetry 98 11/19/24 12:11 Oxygen Delivery Method Room Air 11/19/24 12:11 Course Orders Ordered: ED Orders 11/19/24 12:26 CT head/brain wo con Stat 11/19/24 12:27 CT cervical spine wo con Stat 11/19/24 13:18 Complete Blood Count AUTO DIFF Stat Comprehensive Metabolic Panel Stat Lactate (Lactic Acid) Stat PTT Partial Thromboplastin Johnathon Stat Prothrombin Time INR Stat Type and Screen Stat Discontinued Medications Acetaminophen (Acetaminophen 325 Mg Tablet) 650 mg PO NOW ONE Stop: 11/19/24 14:16 Last Admin: 11/19/24 14:19 Dose: 650 mg Documented By: AI Vital Signs Vital signs: Vital Signs - 8 hr 11/19/24 12:11 11/19/24 12:22 11/19/24 12:33 Temperature 98.2 F Pulse Rate 70 72 Respiratory Rate 18 Blood Pressure 111/61 Pulse Oximetry 98 98 90 L Oxygen Delivery Method Room Air 11/19/24 12:54 11/19/24 12:54 11/19/24 13:00 Temperature Pulse Rate 68 68 Respiratory Rate Blood Pressure 95/54 L Pulse Oximetry 98 99 Oxygen Delivery Method 11/19/24 13:00 11/19/24 13:30 11/19/24 13:31 Temperature Pulse Rate 64 69 Respiratory Rate Blood Pressure 111/63 Pulse Oximetry 98 98 Oxygen Delivery Method 11/19/24 13:31 11/19/24 14:00 11/19/24 14:00 Temperature Pulse Rate 72 Respiratory Rate Blood Pressure 137/85 129/75 Pulse Oximetry 99 Oxygen Delivery Method MDM - Fall Lab Data 11/19/24 13:18 11/19/24 13:18 Labs: Lab Results 11/19/24 Range/Units 13:18 WBC 4.8 (4.5-11.0) X10^3/uL RBC 3.51 L (4.0-5.2) X10^6/uL Hgb 12.3 (12.0-16.0) g/dL Hct 37.1 (36-46) % MCV 105.6 H (80-100) fL MCH 34.9 H (26-34) PG MCHC 33.1 (30-36) % RDW 15.9 H (11.6-14.8) % Plt Count 178 (150-400) X10^3/uL Neut % (Auto) 61.8 (50-75) % Lymph % (Auto) 19.3 L (25-40) % [place] % (Auto) 13.2 (3-14) % Eos % (Auto) 4.9 H (2-4) % Baso % (Auto) 0.8 (0-2) % Neut # (Auto) 3000 (0544-4311) /uL Lymph # (Auto) 900 L (6452-9171) /uL [place] # (Auto) 600 (0-900) /uL Eos # (Auto) 200 (0-450) /uL Baso # (Auto) 0 (0-100) /uL PT 59.0 H (9.4-12.5) SECONDS INR 5.4 H* (0.9-1.3) APTT 54 H (25.1-36.5) SECONDS Sodium 139 (137-145) mmol/L Potassium 4.9 (3.4-5.1) mmol/L Chloride 105 (98-107) mmol/L Carbon Dioxide 26 (22-32) mmol/L BUN 30 H (7-17) mg/dL Creatinine 1.11 H (0.52-1.04) mg/dL Estimated GFR 54 L (>60) mL/min BUN/Creatinine Ratio 27.0 H (6-22) Glucose 106 (80-110) mg/dL Lactate 1.5 (0.7-2.1) mmol/L Calcium 9.1 (8.4-10.2) mg/dL Total Bilirubin 0.6 (0.2-1.3) mg/dL AST 32 (14-36) IU/L ALT 18 (<35) IU/L Alkaline Phosphatase 85 (38-126) U/L Total Protein 7.1 (6.3-8.2) g/dL Albumin 4.1 (3.5-5.0) g/dL Globulin 3.0 (1.7-4.1) g/dL Albumin/Globulin Ratio 1.4 (1.0-2.8) Blood Type A Positive Antibody Screen Negative Imaging Data CT scan - head: Radiologist's Impression: [address] [address] [address] Scan Report Signed Patient: Vonnie Conklin MR#: [id number] : 1955 Acct:[id number] Age/Sex: 69 / F Date of Service: 11/19/24 Loc: ED Accession Number: [id number] Procedure: CT head/brain wo con Ordering Provider: Kelvin Gomez D.O. PROCEDURE: CT HEAD/BRAIN WO CON INDICATIONS: Fall with head strike on warfrin TECHNIQUE: Noncontrast 4.5 mm thick angled axial sections acquired from the foramen magnum to the vertex, with coronal and sagittal reformats. For radiation dose reduction, the following was used: automated exposure control, adjustment of mA and/or kV according to patient size. COMPARISON: [facility], CT, CT HEAD WITHOUT CONTRAST, 03/08/2021, 15:07. [facility], CT, CT ANGIO HEAD AND NECK, 05/07/2021, 14:56. [facility], CT, CT CERVICAL SPINE WO CON, 11/19/2024, 12:34. [facility], CT, CT HEAD/BRAIN WO CON, 10/18/2024, 20:09. FINDINGS: Image quality: Streak artifact can be seen through the skull base. CSF spaces: Basal cisterns are patent. No extra-axial fluid collections. The ventricles are symmetric in size and shape. Brain: No intracranial bleeds or masses. There is cerebral volume loss for age, with resultant ventricular and sulcal prominence. There are periventricular and deep white matter chronic small vessel ischemic changes. Prior encephalomalacia can be seen within the superior medial frontal lobe, stable There is intracranial internal carotid artery atherosclerosis. Skull and face: Calvarium and visualized facial bones appear intact, without suspicious lesions. Sinuses: Moderate mucosal thickening can be seen within the left maxillary sinus. Minimal mucosal thickening can be seen elsewhere within the paranasal sinuses. No abnormal fluid is seen within the mastoid air cells. IMPRESSION: No acute intracranial hemorrhage is seen. No acute intracranial pathology. Stable prior mild encephalomalacia seen involving the superior medial right parietal lobe. [address] [address] [address] Scan Report Signed Patient: Vonnie Conklin MR#: [id number] : 1955 Acct:[id number] Age/Sex: 69 / F Date of Service: 11/19/24 Loc: ED Accession Number: [id number] Procedure: CT cervical spine wo con Ordering Provider: Kelvin Gomez D.O. PROCEDURE: CT CERVICAL SPINE WO CON INDICATIONS: fall with head strike on warfrin TECHNIQUE: Noncontrast 3 mm thick sections acquired from the skull base to the T4 level. Sagittal and coronal reformats were then constructed. For radiation dose reduction, the following was used: automated exposure control, adjustment of mA and/or kV according to patient size. COMPARISON: [facility], CT, CT HEAD/BRAIN WO CON, 11/19/2024, 12:34. [facility], CT, CT CHEST WITHOUT CONTRAST, 03/27/2024, 9:44. FINDINGS: Image quality: This examination is somewhat limited by quantum mottle artifact. Bones: No fractures or dislocations. Visualized superior ribs are intact. There is moderate disc space narrowing at C3-C4, with moderate to severe disc space narrowing at C4-C5, C5-C6, and C6-C7. There is mild anterolisthesis at C2-C3 and C3-C4, with minimal anterolisthesis at C4-C5. Minimal retrolisthesis can be seen at C5-C6 and C6-C7. Multiple levels of significant facet hypertrophy can be seen, with degrees of fusion on both sides. Sternotomy wires are partially seen. Soft tissues: Prevertebral soft tissues are normal in thickness. No paravertebral hematomas. No apical pneumothoraces. Atherosclerotic calcification is noted. Persistent, poorly defined opacity can be seen within the left upper lobe. IMPRESSION: No displaced fracture or traumatic subluxation. Multiple levels of significant cervical spine degenerative change can be seen, which are worst inferiorly. Left upper lobe poorly defined opacity partially seen, which has been previously attributed to scarring/posttreatment changes. MDM Narrative Medical decision making narrative: All lab work and CT scan reviewed including vital signs nurse triage note medication list previous ER visits and previous imaging modality. Differential diagnosis includes closed head injury epidural hemorrhage subarachnoid hemorrhage fracture dislocation contusion supra therapeutic INR. Patient will hold off on Coumadin for 2 days and restart and follow up with PCP this week. GCS of 15 nonfocal neuro exam alert oriented x4 no gait instability on discharge. Discharge Plan Departure Patient Disposition: Home Clinical Impression: Supratherapeutic INR Fall Qualifiers: Encounter type: initial encounter Qualified Code(s): W19.XXXA - Unspecified fall, initial encounter CHI (closed head injury) Qualifiers: Encounter type: initial encounter Qualified Code(s): S09.90XA - Unspecified injury of head, initial encounter Activity Restrictions/Additional Instructions: Return with new or worsening symptoms. Hold off on taking Coumadin for 2 days and then recheck INR and follow up PCP on Wednesday or Wednesday. Prescriptions: No Action metoprolol succinate 50 mg tablet extended release 24 hr PO methocarbamol 500 mg tablet PO acetaminophen-codeine 300-30 mg tablet 1 tab PO BID PRN ketoconazole 2 % shampoo topical duloxetine 30 mg capsule,delayed release(DR/EC) 30 mg PO DAILY levothyroxine 50 mcg tablet 50 mcg PO DAILY warfarin 2 mg tablet PO furosemide 20 mg tablet 20 mg PO BID magnesium oxide 400 mg (241.3 mg magnesium) tablet 400 mg PO DAILY ezetimibe 10 mg tablet 10 mg PO DAILY terbinafine HCl 1 % cream topical BID triamcinolone acetonide 0.1 % ointment 1 applic topical midodrine 10 mg tablet 10 mg PO 3XD fluticasone propion-salmeterol [Advair HFA] 230-21 mcg/actuation HFA aerosol inhaler 2 puff inhalation BID mirtazapine 15 mg tablet 15 mg PO ONCE PM gabapentin 300 mg capsule PO fluticasone propionate [Flonase Allergy Relief] 50 mcg/actuation spray,suspension 1 spray intranasal Q12H Qty: 16 0RF Rx Instructions: administer into each nostril buprenorphine-naloxone 2-0.5 mg tablet, sublingual 1 tab sublingual BID PRN tizanidine 2 mg tablet 2 mg PO 3XD adapalene [Differin] 0.1 % gel topical QPM mupirocin 2 % ointment 1 applic topical TID Qty: 15 0RF lisinopril 10 mg tablet 5 mg PO BID Qty: 90 3RF albuterol sulfate 90 mcg/actuation HFA aerosol inhaler 1 puff INHALATION Q4-6H PRN (Reason: shortness of breath or wheezing) Qty: 8 1RF Patient Comments: hasn't used since she quit smoking alendronate [Fosamax] 70 mg tablet 70 mg PO QWEEK Qty: 12 3RF Rx Instructions: Every Wednesday triamcinolone acetonide 0.5 % ointment 1 applic TOP BID Qty: 15 5RF epinephrine 0.3 mg/0.3 mL auto-injector See Rx Instructions .ROUTE .COMPLEX Qty: 2 4RF Dose Instruction: INJECT ONE AUTO-DOSE OF EPINEPHRINE INTO THIGH IF STUNG BY A BEE. Rx Instructions: INJECT ONE AUTO-DOSE OF EPINEPHRINE INTO THIGH IF STUNG BY A BEE. rosuvastatin 40 mg tablet See Rx Instructions .ROUTE .COMPLEX Qty: 90 0RF Dose Instruction: TAKE 1 TABLET BY MOUTH AT BEDTIME Rx Instructions: TAKE 1 TABLET BY MOUTH AT BEDTIME atenolol 50 mg tablet 50 mg PO BID Qty: 180 3RF lorazepam 2 mg tablet 2 mg PO BID PRN (Reason: anxiety) Qty: 60 0RF cyclobenzaprine 10 mg tablet See Rx Instructions .ROUTE .COMPLEX Qty: 40 0RF Dose Instruction: TAKE 1/2 TO 1 TABLET BY MOUTH UP TO 3 TIMES DAILY FOR MUSCLE SPASMS. MUST LAST 14 DAYS Rx Instructions: TAKE 1/2 TO 1 TABLET BY MOUTH UP TO 3 TIMES DAILY FOR MUSCLE SPASMS. No further refill. Must establish with new pcp. oxycodone-acetaminophen 5-325 mg tablet See Rx Instructions .ROUTE .COMPLEX Qty: 60 0RF Dose Instruction: TAKE ONE TABLET BY MOUTH EVERY EIGHT HOURS NEEDED FOR PAIN. Rx Instructions: TAKE ONE TABLET BY MOUTH EVERY EIGHT HOURS NEEDED FOR PAIN. hydroxyzine pamoate 25 mg capsule 25 mg PO QID PRN (Reason: itching) Qty: 120 3RF warfarin 2.5 mg tablet 2.5 mg PO DAILY Qty: 90 3RF Rx Instructions: Take one tablet daily or as directed. permethrin 5 % cream See Rx Instructions .ROUTE .COMPLEX Qty: 60 1RF Dose Instruction: APPLY TO SKIN FROM HAIRLINE TO TOES AND WASH OFF 8-10 HOURS LATER. REPEAT IN 1 WEEK IF NEEDED Rx Instructions: APPLY TO SKIN FROM HAIRLINE TO TOES AND WASH OFF 8-10 HOURS LATER. REPEAT IN 1 WEEK IF NEEDED nicotine (polacrilex) [Stop Smoking Aid] 2 mg lozenge 2 mg buccal Q8H PRN (Reason: nicotine cravings) Qty: 72 11RF citalopram 20 mg tablet 40 mg PO DAILY Qty: 180 3RF Referrals: Geovanny Garcia ARNP [Primary Care Provider] - Stand Alone Forms: Patient Portal/API/Survey
[2024-11-19 13:38] LABS: Add Manual Diff / Slide Review NO; Basophils Absolute Auto 0 /uL (0-100); Basophils Percent Auto 0.8 % (0-2); Eosinophils Absolute Auto 200 /uL (0-450); Eosinophils Percent Auto 4.9 % (2-4); Hematocrit 37.1 % (36-46); Hemoglobin 12.3 g/dL (12.0-16.0); Lymphocytes Absolute Auto 900 /uL (1100-4500); Lymphocytes Percent Auto 19.3 % (25-40); Mean Corpuscular HGB Conc 33.1 % (30-36); Mean Corpuscular Hemoglobin 34.9 PG (26-34); Mean Corpuscular Volume 105.6 fL (80-100); Monocytes Absolute Auto 600 /uL (0-900); Monocytes Percent Auto 13.2 % (3-14); Neutrophils Absolute Auto 3000 /uL (1500-7000); Neutrophils Percent Auto 61.8 % (50-75); Platelet Count 178 X10^3/uL (150-400); Red Blood Cell Count 3.51 X10^6/uL (4.0-5.2); Red Cell Distribution Width 15.9 % (11.6-14.8); White Blood Cell Count 4.8 X10^3/uL (4.5-11.0)
[2024-11-19 13:40] LABS: Lactate (Lactic Acid) 1.5 mmol/L (0.7-2.1); PTT Partial Thromboplastin Tim 54 SECONDS (25.1-36.5)
[2024-11-19 13:41] LABS: Alanine Aminotransferase 18 IU/L (<35); Albumin 4.1 g/dL (3.5-5.0); Albumin Globulin Ratio 1.4 (1.0-2.8); Alkaline Phosphatase 85 U/L (38-126); Aspartate Aminotransferase 32 IU/L (14-36); Bilirubin Total 0.6 mg/dL (0.2-1.3); Blood Urea Nitrogen 30 mg/dL (7-17); Calcium 9.1 mg/dL (8.4-10.2); Carbon Dioxide 26 mmol/L (22-32); Chloride 105 mmol/L (98-107); Estimated Glomerular Filt Rate 54 mL/min (>60); Glucose 106 mg/dL (80-110); HEMOLYSIS < 15 (0-50); Potassium 4.9 mmol/L (3.4-5.1); Sodium 139 mmol/L (137-145); Total Protein 7.1 g/dL (6.3-8.2)
[2024-11-19 13:50] LABS: INR 5.4 (0.9-1.3)
[2024-11-19] MEDS: ACETAMINOPHEN 325 MG TABLET 650 MG PO (14:19)
== END 2024-11-19 14:47 | disposition home or self-care (01) ==
PROVIDERS: Emergency Provider Family Medicine; Family Provider Orthopaedic Surgery; PCP Nurse Practitioner
DX: S09.90XA Unspecified injury of head, initial encounter (principal); Z95.2 Presence of prosthetic heart valve; I48.91 Unspecified atrial fibrillation; Z79.01 Long term (current) use of anticoagulants; W01.0XXA Fall on same level from slipping, tripping and stumbling without subsequent striking against object, initial encounter; R79.1 Abnormal coagulation profile
CPT/HCPCS: 70450; 72125; 80053; 83605; 85025; 85610; 85730; 86850; 86900; 86901; 99284

== ENCOUNTER → 2025-01-16 07:41 | Outpatient (CLI) | payer MEDICARE, MEDICAID, SELFPAY ==
[2021-05-13 11:44] VITALS: BMI 21.7
--- NOTE | 2025-01-16 07:42 | DI.US.S_ITS ---
PROCEDURE: US CAROTID DOPPLER BI INDICATIONS: carotid stenosis TECHNIQUE: Color and pulse Doppler interrogation was performed of both carotid systems, with image documentation and velocity measurements. COMPARISON: None. FINDINGS: Stenosis calculations are based on SRU (Society of Radiologists in Ultrasound) criteria. Right side: Brachial blood pressure: 160/92 mm Hg. Common carotid artery peak systolic velocity: 31 cm/sec. Internal carotid artery peak systolic velocity: 95 cm/sec. Internal carotid artery end diastolic velocity: 38 cm/sec. External carotid artery peak systolic velocity: 26 cm/sec. ICA/CCA peak systolic ratio: 3.1 . Bradley scale imaging description: Calcified plaque Percent internal carotid artery stenosis: Mild less than 50%. Vertebral artery: Flow direction is antegrade. Left side: Brachial blood pressure: 151/94 mm Hg. Common carotid artery peak systolic velocity: 37 cm/sec. Internal carotid artery peak systolic velocity: 75 cm/sec. Internal carotid artery end diastolic velocity: 30 cm/sec. External carotid artery peak systolic velocity: 22 cm/sec. ICA/CCA peak systolic ratio: 2.0 . Bradley scale imaging description: Calcified plaque Percent internal carotid artery stenosis: Mild less than 50% . Vertebral artery: Flow direction is antegrade. Suspicious 1.6 centimeter nodule noted in the right thyroid. IMPRESSION: 1. In the right carotid artery, there is mild less than 50% stenosis based on peak systolic velocity criteria. 2. In the left carotid artery, there is mild less than 50% stenosis based on peak systolic velocity criteria. 3. Antegrade vertebral arteries. 4. Hypertension at the time of imaging. 5. Suspicious 1.6 centimeter right thyroid nodule. Recommend nonemergent thyroid ultrasound to exclude neoplastic process Dictated by: Kristina Thomas MD, PhD on 01/16/2025 at 10:46 Approved by: Kristina Thomas MD, PhD on 01/16/2025 at 10:48
== END ==
PROVIDERS: Family Provider Orthopaedic Surgery; PCP Nurse Practitioner; Referring Provider Surgery; Visit Provider Surgery
DX: I65.23 Occlusion and stenosis of bilateral carotid arteries (principal); R03.0 Elevated blood-pressure reading, without diagnosis of hypertension; E04.1 Nontoxic single thyroid nodule
CPT/HCPCS: 93880

== ENCOUNTER → 2025-01-31 17:49 | Outpatient (CLI) | payer MEDICARE, MEDICAID, SELFPAY ==
[2021-05-13 11:44] VITALS: BMI 21.7
== END ==
PROVIDERS: Family Provider Orthopaedic Surgery; PCP Nurse Practitioner; Visit Provider Chiropractor
DX: J02.9 Acute pharyngitis, unspecified (principal)
CPT/HCPCS: 87070

== ENCOUNTER → 2025-02-14 11:38 | Outpatient (CLI) | payer MEDICARE, MEDICAID, SELFPAY ==
[2021-05-13 11:44] VITALS: BMI 21.7
--- NOTE | 2025-02-14 11:40 | DI.CT.S_ITS ---
PROCEDURE: CT CHEST WO CON INDICATIONS: Lung nodule TECHNIQUE: Noncontrast 5 mm thick sections acquired from the pulmonary apices to the posterior costophrenic angles. 1 mm lung window, 5 mm thick coronal and sagittal and 7 mm axial MIP reformats were then acquired. For radiation dose reduction, the following was used: automated exposure control, adjustment of mA and/or kV according to patient size. COMPARISON: [facility], CT, CT LOW DOSE LUNG CA SCREENING, 10/07/2020, 13:22. [facility], CT, CT CHEST WO CON, 03/27/2024, 9:44. [facility], CT, CT CHEST WO CON, 10/20/2024, 12:48. FINDINGS: Image quality: Diagnostic. Lower Neck: No enlarged lymph nodes. Thyroid: No thyroid nodules which require sonographic follow up, per consensus guidelines. Axillae: No enlarged lymph nodes. Chest Wall: Unremarkable. Bones: No suspicious osseous lesion. Prior left-sided rib fractures. Post median sternotomy. Lungs and Pleura: No pneumothorax or pleural effusions. Platelike opacity in the left upper lobe is unchanged since at least 03/27/2024. Most likely post treatment scarring. -Left lower lobe pulmonary nodule measuring 0.6 cm, (3/120), not significantly changed. -Left lower lobe pulmonary nodule measuring 0.5 cm, (3/190), more prominent. -Right upper lobe juxta fissural opacity is resolved. Heart: Heart size is enlarged. Aortic and mitral valves. No pericardial effusion. Thoracic Vessels: The aorta and pulmonary arteries demonstrate normal size. Mediastinum and Marjorie: No enlarged lymph nodes. Esophagus: No wall thickening. No hiatal hernia. Upper Abdomen: Visualized upper abdomen solid organs and bowel loops appear normal. IMPRESSION: 1. No new or enlarging pulmonary nodules. 2. Left upper lobe scarring is unchanged. 3. Small left lower lobe pulmonary nodules measuring up to 0.6 cm are not significantly changed. -Recommend continued imaging surveillance. 4. No adenopathy. Dictated by: Jose Reynolds M.D. on 02/28/2025 at 11:39 Approved by: Jose Reynolds M.D. on 02/28/2025 at 11:54
== END ==
PROVIDERS: Family Provider Orthopaedic Surgery; PCP Nurse Practitioner; Referring Provider Radiology Radiation Oncology; Visit Provider Radiology Radiation Oncology
DX: C34.12 Malignant neoplasm of upper lobe, left bronchus or lung (principal); I51.7 Cardiomegaly; R91.8 Other nonspecific abnormal finding of lung field
CPT/HCPCS: 71250

== ENCOUNTER → 2025-02-26 09:50 | Outpatient (CLI) | payer MEDICARE, MEDICAID, SELFPAY ==
[2021-05-13 11:44] VITALS: BMI 21.7
[2025-02-26 10:23] LABS: Add Manual Diff / Slide Review NO; Hematocrit 40.0 % (36-46); Hemoglobin 13.5 g/dL (12.0-16.0); Lymphocytes Absolute Auto 900 /uL (1100-4500); Mean Corpuscular HGB Conc 33.8 % (30-36); Mean Corpuscular Hemoglobin 35.1 PG (26-34); Mean Corpuscular Volume 103.8 fL (80-100); Platelet Count 206 X10^3/uL (150-400)
[2025-02-26 10:55] LABS: Cholesterol 210 mg/dL (140-199); HDL Cholesterol 60 mg/dL (40-60); Triglycerides 171 mg/dL (35-150)
[2025-02-26 11:09] LABS: Free T4, Direct Thyroxine 1.04 ng/dL (0.78-2.19)
[2025-02-26 11:23] LABS: Thyroid Stimulating Hormone 12.9 uIU/mL (0.47-4.68)
== END ==
PROVIDERS: Family Provider Orthopaedic Surgery; PCP Nurse Practitioner; Referring Provider Nurse Practitioner; Visit Provider Nurse Practitioner
DX: E03.9 Hypothyroidism, unspecified (principal); E78.5 Hyperlipidemia, unspecified; I70.211 Atherosclerosis of native arteries of extremities with intermittent claudication, right leg
CPT/HCPCS: 36415; 80061; 84439; 84443; 85025

== ENCOUNTER → 2025-05-01 14:28 | Outpatient (CLI) | payer MEDICARE, MEDICAID, SELFPAY ==
[2021-05-13 11:44] VITALS: BMI 21.7
[2025-05-01 14:58] LABS: PTT Partial Thromboplastin Tim 69 SECONDS (25.1-36.5)
[2025-05-01 15:20] LABS: Prothrombin Time 126.8 SECONDS (9.4-12.5)
[2025-05-01 15:27] LABS: INR 12.0 (0.9-1.3)
== END ==
PROVIDERS: Family Provider Orthopaedic Surgery; PCP Nurse Practitioner; Referring Provider Nurse Practitioner; Visit Provider Nurse Practitioner
DX: I48.20 Chronic atrial fibrillation, unspecified (principal); Z51.81 Encounter for therapeutic drug level monitoring; Z79.01 Long term (current) use of anticoagulants; Z95.2 Presence of prosthetic heart valve
CPT/HCPCS: 36415; 85610; 85730

== ENCOUNTER 2025-05-05 16:51 | Emergency (ER) | payer MEDICARE, MEDICAID, SELFPAY ==
[2021-05-13 11:44] VITALS: BMI 21.7
[2025-05-05 16:52] VITALS: BP 122/74; PULSE 102; RESP 14; TEMP 37; O2SAT 97; BMI 18.8
--- NOTE | 2025-05-05 17:07 | ED.EXTPRO ---
HPI - Extremity Problem General Chief complaint: Extremity Problem,Nontraumatic Stated complaint: post op, Rt hand pain Time Seen by Provider: 05/05/25 16:55 Source: patient Mode of arrival: Ambulatory History of Present Illness HPI Narrative: 70-year-old woman who had surgery on her right thumb approximately 3 weeks ago and is concerned that it is infected. She is worried that it is more swollen today. Two weeks ago she had stitches taken out and she thought there was purulent discharge at that time. She is in a splint currently in place, she has noticed no discharge, still has Steri-Strips in place notices some minor bruising in the palmar surface of the thumb and the volar aspect of the wrist. She remains concerned that the wound is infected. Related Data Home Medications ?Medication ?Instructions ?Recorded ?Confirmed acetaminophen 300 mg-codeine 30 mg 1 tab PO BID PRN 03/15/24 03/06/25 tablet duloxetine 30 mg capsule,delayed 30 mg PO DAILY 03/15/24 03/06/25 release ezetimibe 10 mg tablet 10 mg PO DAILY 03/15/24 03/06/25 fluticasone propionate 230 2 puff inhalation BID 03/15/24 03/06/25 mcg-salmeterol 21 mcg/actuation HFA inhaler (Advair HFA) furosemide 20 mg tablet 20 mg PO BID 03/15/24 03/06/25 gabapentin 300 mg capsule mg PO 03/15/24 03/06/25 ketoconazole 2 % shampoo topical 03/15/24 03/06/25 levothyroxine 50 mcg tablet 50 mcg PO DAILY 03/15/24 03/06/25 magnesium oxide 400 mg (241.3 mg 400 mg PO DAILY 03/15/24 03/06/25 magnesium) tablet methocarbamol 500 mg tablet mg PO 03/15/24 03/06/25 metoprolol succinate 50 mg mg PO 03/15/24 03/06/25 tablet,extended release 24 hr midodrine 10 mg tablet 10 mg PO 3XD 03/15/24 03/06/25 mirtazapine 15 mg tablet 15 mg PO ONCE PM 03/15/24 03/06/25 terbinafine HCl 1 % topical cream applic topical BID 03/15/24 03/06/25 triamcinolone acetonide 0.1 % 1 applic topical 03/15/24 03/06/25 topical ointment warfarin 2 mg tablet mg PO 03/15/24 03/06/25 adapalene 0.1 % topical gel topical QPM 04/11/24 03/06/25 (Differin) buprenorphine 2 mg-naloxone 0.5 mg 1 tab sublingual BID PRN 04/11/24 03/06/25 sublingual tablet tizanidine 2 mg tablet 2 mg PO 3XD 04/11/24 03/06/25 Previous Rx's ?Medication ?Instructions ?Recorded lisinopril 10 mg tablet 5 mg (1/2 x 10 mg) PO BID #90 tabs 02/14/19 citalopram 20 mg tablet 40 mg (2 x 20 mg) PO DAILY #180 09/13/19 tabs albuterol sulfate 90 mcg/actuation 1 puff inhalation Q4-6H PRN 03/11/20 aerosol inhaler shortness of breath or wheezing #8 grams hydroxyzine pamoate 25 mg capsule 25 mg PO QID PRN itching #120 caps 04/30/20 warfarin 2.5 mg tablet 2.5 mg PO DAILY #90 tabs 05/28/20 alendronate 70 mg tablet (Fosamax) 70 mg PO QWEEK #12 tabs 07/10/20 epinephrine 0.3 mg/0.3 mL See Rx Instructions .Route 07/23/20 injection, auto-injector .COMPLEX #2 ea triamcinolone acetonide 0.5 % 1 applic topical BID #15 grams 07/23/20 topical ointment permethrin 5 % topical cream See Rx Instructions .Route 08/14/20 .COMPLEX #60 grams rosuvastatin 40 mg tablet See Rx Instructions .Route 09/03/20 .COMPLEX #90 tabs atenolol 50 mg tablet 50 mg PO BID #180 tabs 09/19/20 nicotine (polacrilex) 2 mg buccal 2 mg buccal Q8H PRN nicotine 10/11/20 lozenge (Stop Smoking Aid) cravings #72 ea lorazepam 2 mg tablet 2 mg PO BID PRN anxiety #60 tabs 10/24/20 cyclobenzaprine 10 mg tablet See Rx Instructions .Route 12/03/20 .COMPLEX #40 tabs oxycodone-acetaminophen 5 mg-325 See Rx Instructions .Route 12/30/20 mg tablet .COMPLEX #60 tabs mupirocin 2 % topical ointment 1 applic topical TID #15 grams 04/11/24 fluticasone propionate 50 1 spray intranasal Q12H #16 grams 09/29/24 mcg/actuation nasal spray,suspension (Flonase Allergy Relief) fluticasone fur. 200 mcg-umeclid 1 inh inhalation DAILY #60 ea 01/02/25 62.5 mcg-vilant 25 mcg inhalat.powder (Trelegy Ellipta) Allergies Allergy/AdvReac Type Severity Reaction Status Date / Time venom-honey bee (BEE VENOM Allergy Severe anaphlaxs Verified 05/05/25 16:57 (HONEY BEE)) nickel Allergy Intermediate Rash Verified 05/05/25 16:57 Patient History Medical History Encounter for smoking cessation counseling Cranial somatic dysfunction Chronic bilateral thoracic back pain Cervical somatic dysfunction Thoracic region somatic dysfunction Segmental and somatic dysfunction of abdomen and other regions Sacral region somatic dysfunction Pelvic somatic dysfunction Lumbar region somatic dysfunction Chronic atrial fibrillation Mitral regurgitation H/O alcohol abuse Acute appendicitis Depression COPD (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 disease) detention current use of anticoagulant therapy History of esophageal stricture Osteoporosis Low back pain Scabies (~2015) Heart failure (~05/18/11) Mixed hyperlipidemia (02/04/17) 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) Status post aortic valve replacement (~05/2011) Esophageal stricture Surgical History History of total right hip arthroplasty History of esophagogastroduodenoscopy (EGD) (~2019) Hx of tonsillectomy Anesthesia History of aortic valve replacement (05/18/11) Family History Father Cancer Mother Heart disease Hypertension High cholesterol Social History household members: significant other Smoking Status: Current some day smoker alcohol intake: current substance use type: does not use Smoking Status: Current some day smoker tobacco type: cigarettes alcohol intake frequency: 0-2 drinks per day Exam Initial Vital Signs Initial Vital Signs: Vital Signs Temperature 98.6 F 05/05/25 16:52 Pulse Rate 102 H 05/05/25 16:52 Respiratory Rate 14 05/05/25 16:52 Blood Pressure 122/74 05/05/25 16:52 Pulse Oximetry 97 05/05/25 16:52 Oxygen Delivery Method Room Air 05/05/25 16:52 General: Alert appropriate in no acute distress Respiratory: Able to speak in full sentences, no obvious respiratory distress Skin: No obvious rashes, warm and dry Neurologic: Grossly intact no obvious asymmetries or abnormalities Psych: appropriate insight and affect, cooperative Extremity: Right wrist splint is removed. The suture site over the base of the thumb is healing nicely periods clean Steri-Strips are in place. There is minor swelling through the thenar eminence, bruising that seems appropriate for her stage of healing. No tenderness with compression of her forearm. She is neurovascularly intact. There is no evidence at all of infection on clinical exam Course Vital Signs Vital signs: Vital Signs - 8 hr 05/05/25 16:52 Temperature 98.6 F Pulse Rate 102 H Respiratory Rate 14 Blood Pressure 122/74 Pulse Oximetry 97 Oxygen Delivery Method Room Air MDM - Extremity (Nontraumatic) MDM Narrative Medical decision making narrative: 70-year-old woman 3 weeks postop right thumb surgery concerned that the wound is infected. Her primary concern was purulent discharge 2 weeks ago when the nurse remove the sutures. At this point there is no discharge, appears to be healing beautifully. No evidence of deep tissue infection, she is neurovascularly intact. There is no indication for additional workup or imaging studies. Reassurance is given and she is safe for discharge Discharge Plan Departure Patient Disposition: Home Clinical Impression: Encounter for post surgical wound check Activity Restrictions/Additional Instructions: Thank you for coming in I appreciate your concern for an infection developing at the side of your recent thumb surgery. Today the wound appears to be healing absolutely appropriately. There does not appear to be excess redness, discharge, smell. The Steri-Strips are in place and are quite clean. You have a small amount of swelling and bruising as would be expected 3 weeks after your surgery. I believe that you are healing absolutely normally. There is nothing else that needs to be done in the emergency department today If you find that you are having more problems please do schedule an appointment with your hand surgeon Prescriptions: No Action metoprolol succinate 50 mg tablet extended release 24 hr PO methocarbamol 500 mg tablet PO acetaminophen-codeine 300-30 mg tablet 1 tab PO BID PRN ketoconazole 2 % shampoo topical duloxetine 30 mg capsule,delayed release(DR/EC) 30 mg PO DAILY levothyroxine 50 mcg tablet 50 mcg PO DAILY warfarin 2 mg tablet PO furosemide 20 mg tablet 20 mg PO BID magnesium oxide 400 mg (241.3 mg magnesium) tablet 400 mg PO DAILY ezetimibe 10 mg tablet 10 mg PO DAILY terbinafine HCl 1 % cream topical BID triamcinolone acetonide 0.1 % ointment 1 applic topical midodrine 10 mg tablet 10 mg PO 3XD fluticasone propion-salmeterol [Advair HFA] 230-21 mcg/actuation HFA aerosol inhaler 2 puff inhalation BID mirtazapine 15 mg tablet 15 mg PO ONCE PM gabapentin 300 mg capsule PO fluticasone propionate [Flonase Allergy Relief] 50 mcg/actuation spray,suspension 1 spray intranasal Q12H Qty: 16 0RF Rx Instructions: administer into each nostril buprenorphine-naloxone 2-0.5 mg tablet, sublingual 1 tab sublingual BID PRN tizanidine 2 mg tablet 2 mg PO 3XD adapalene [Differin] 0.1 % gel topical QPM mupirocin 2 % ointment 1 applic topical TID Qty: 15 0RF lisinopril 10 mg tablet 5 mg PO BID Qty: 90 3RF albuterol sulfate 90 mcg/actuation HFA aerosol inhaler 1 puff INHALATION Q4-6H PRN (Reason: shortness of breath or wheezing) Qty: 8 1RF Patient Comments: hasn't used since she quit smoking alendronate [Fosamax] 70 mg tablet 70 mg PO QWEEK Qty: 12 3RF Rx Instructions: Every Wednesday triamcinolone acetonide 0.5 % ointment 1 applic TOP BID Qty: 15 5RF epinephrine 0.3 mg/0.3 mL auto-injector See Rx Instructions .ROUTE .COMPLEX Qty: 2 4RF Dose Instruction: INJECT ONE AUTO-DOSE OF EPINEPHRINE INTO THIGH IF STUNG BY A BEE. Rx Instructions: INJECT ONE AUTO-DOSE OF EPINEPHRINE INTO THIGH IF STUNG BY A BEE. rosuvastatin 40 mg tablet See Rx Instructions .ROUTE .COMPLEX Qty: 90 0RF Dose Instruction: TAKE 1 TABLET BY MOUTH AT BEDTIME Rx Instructions: TAKE 1 TABLET BY MOUTH AT BEDTIME atenolol 50 mg tablet 50 mg PO BID Qty: 180 3RF lorazepam 2 mg tablet 2 mg PO BID PRN (Reason: anxiety) Qty: 60 0RF cyclobenzaprine 10 mg tablet See Rx Instructions .ROUTE .COMPLEX Qty: 40 0RF Dose Instruction: TAKE 1/2 TO 1 TABLET BY MOUTH UP TO 3 TIMES DAILY FOR MUSCLE SPASMS. MUST LAST 14 DAYS Rx Instructions: TAKE 1/2 TO 1 TABLET BY MOUTH UP TO 3 TIMES DAILY FOR MUSCLE SPASMS. No further refill. Must establish with new pcp. oxycodone-acetaminophen 5-325 mg tablet See Rx Instructions .ROUTE .COMPLEX Qty: 60 0RF Dose Instruction: TAKE ONE TABLET BY MOUTH EVERY EIGHT HOURS NEEDED FOR PAIN. Rx Instructions: TAKE ONE TABLET BY MOUTH EVERY EIGHT HOURS NEEDED FOR PAIN. hydroxyzine pamoate 25 mg capsule 25 mg PO QID PRN (Reason: itching) Qty: 120 3RF warfarin 2.5 mg tablet 2.5 mg PO DAILY Qty: 90 3RF Rx Instructions: Take one tablet daily or as directed. permethrin 5 % cream See Rx Instructions .ROUTE .COMPLEX Qty: 60 1RF Dose Instruction: APPLY TO SKIN FROM HAIRLINE TO TOES AND WASH OFF 8-10 HOURS LATER. REPEAT IN 1 WEEK IF NEEDED Rx Instructions: APPLY TO SKIN FROM HAIRLINE TO TOES AND WASH OFF 8-10 HOURS LATER. REPEAT IN 1 WEEK IF NEEDED nicotine (polacrilex) [Stop Smoking Aid] 2 mg lozenge 2 mg buccal Q8H PRN (Reason: nicotine cravings) Qty: 72 11RF citalopram 20 mg tablet 40 mg PO DAILY Qty: 180 3RF Trelegy Ellipta 200-62.5-25 mcg blister with device 1 inh inhalation DAILY Qty: 60 11RF Rx Instructions: rinse mouth with water, gargle and spit after each use Referrals: Geovanny Garcia ARNP [Primary Care Provider, Family Practice] Stand Alone Forms: Patient Portal/API
== END 2025-05-05 17:14 | disposition home or self-care (01) ==
PROVIDERS: Emergency Provider Emergency Medicine; Family Provider Orthopaedic Surgery; PCP Nurse Practitioner
DX: Z48.00 Encounter for change or removal of nonsurgical wound dressing (principal)
CPT/HCPCS: 99281

== ENCOUNTER → 2025-06-01 14:26 | Outpatient (CLI) | payer MEDICARE, MEDICAID, SELFPAY ==
[2021-05-13 11:44] VITALS: BMI 21.7
[2025-06-01 14:53] LABS: Prothrombin Time 56.0 SECONDS (9.4-12.5)
[2025-06-01 15:49] LABS: INR 5.2 (0.9-1.3)
== END ==
PROVIDERS: Family Provider Orthopaedic Surgery; PCP Nurse Practitioner; Referring Provider Pharmacist; Visit Provider Pharmacist
DX: Z51.81 Encounter for therapeutic drug level monitoring (principal)
CPT/HCPCS: 36415; 85610

== ENCOUNTER 2025-07-04 18:13 | Emergency (ER) | payer MEDICARE, MEDICAID, SELFPAY ==
[2021-05-13 11:44] VITALS: BMI 21.7
[2025-07-04] VITALS (10 sets, daily range): BP systolic 119–165; BP diastolic 73–97; PULSE 60–76; RESP 16; TEMP 36.6; O2SAT 84–99; BMI 18.3
--- NOTE | 2025-07-04 18:43 | EKG_ITS ---
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
--- NOTE | 2025-07-04 18:43 | DI.RAD.S_ITS ---
PROCEDURE: XR CHEST 1V INDICATIONS: Chest Pain TECHNIQUE: One view of the chest was acquired. COMPARISON: [facility], CT, CT CHEST WO CON, 02/14/2025, 11:46. [facility], CR, XR CHEST 1V, 10/18/2024, 14:33. FINDINGS: Surgical changes and devices: Midline sternotomy, mitral clips. Lungs and pleura: Left upper lobe scarring as before. No acute infiltrates. No pleural effusions or pneumothorax. Mediastinum: Mediastinal contours appear normal. Heart size is enlarged, unchanged. Bones and chest wall: No suspicious bony lesions. Overlying soft tissues appear unremarkable. IMPRESSION: Chronic scarring, left upper lobe. No acute infiltrates. Unchanged cardiomegaly. Dictated by: Phil Gonzalez M.D. on 07/04/2025 at 19:23 Approved by: Phil Gonzalez M.D. on 07/04/2025 at 19:24
[2025-07-04 19:22] LABS: Add Manual Diff / Slide Review NO; Hematocrit 34.7 % (36-46); Hemoglobin 11.6 g/dL (12.0-16.0); Lymphocytes Absolute Auto 1200 /uL (1100-4500); Mean Corpuscular HGB Conc 33.3 % (30-36); Mean Corpuscular Hemoglobin 35.6 PG (26-34); Mean Corpuscular Volume 106.7 fL (80-100); Platelet Count 228 X10^3/uL (150-400)
[2025-07-04 19:28] LABS: INR 1.8 (0.9-1.3); Prothrombin Time 19.9 SECONDS (9.4-12.5)
[2025-07-04 19:31] LABS: PTT Partial Thromboplastin Tim 33 SECONDS (25.1-36.5)
[2025-07-04 20:31] LABS: Alanine Aminotransferase 28 IU/L (<35); Albumin 4.2 g/dL (3.5-5.0); Albumin Globulin Ratio 1.4 (1.0-2.8); Alkaline Phosphatase 93 U/L (38-126); Blood Urea Nitrogen 21 mg/dL (7-17); Calcium 9.6 mg/dL (8.4-10.2); Carbon Dioxide 31 mmol/L (22-32); Chloride 100 mmol/L (98-107); Creatine Kinase 28 U/L (30-135); Estimated Glomerular Filt Rate 57 mL/min (>60); Globulin 3.0 g/dL (1.7-4.1); Glucose 103 mg/dL (70-99); HEMOLYSIS < 15 (0-50); Lipase 305 U/L (23-300); Magnesium 1.8 mg/dL (1.6-2.3); Potassium 3.8 mmol/L (3.4-5.1); Sodium 138 mmol/L (137-145); Total Protein 7.2 g/dL (6.3-8.2)
[2025-07-04 20:43] LABS: NT-proBNP (BNP-Adult 18+) 8750 pg/mL (<125); Troponin I 0.019 ng/mL (0.01-0.034)
[2025-07-04] MEDS: FUROSEMIDE 40 MG/4 ML VIAL IV (21:20)
--- NOTE | 2025-07-04 22:24 | ED.GENADULT ---
HPI - General Adult General Chief complaint: Shortness of Breath/Dyspnea Stated complaint: High bp /sob Time Seen by Provider: 07/04/25 20:12 History of Present Illness HPI narrative: 70-year-old female reports history of congestive heart failure off of her Lasix recent days, history of atrial fibrillation still taking her metoprolol, history of COPD former smoker quit 6 months ago, no home oxygen, feels more shortness of breath over the last month, intermittent chest discomfort for the last 1 month. Denies fevers chills. Has home inhaler. Related Data Home Medications ?Medication ?Instructions ?Recorded ?Confirmed acetaminophen 300 mg-codeine 30 mg 1 tab PO BID PRN 03/15/24 03/06/25 tablet duloxetine 30 mg capsule,delayed 30 mg PO DAILY 03/15/24 03/06/25 release ezetimibe 10 mg tablet 10 mg PO DAILY 03/15/24 03/06/25 fluticasone propionate 230 2 puff inhalation BID 03/15/24 03/06/25 mcg-salmeterol 21 mcg/actuation HFA inhaler (Advair HFA) furosemide 20 mg tablet 20 mg PO BID 03/15/24 03/06/25 gabapentin 300 mg capsule mg PO 03/15/24 03/06/25 ketoconazole 2 % shampoo topical 03/15/24 03/06/25 levothyroxine 50 mcg tablet 50 mcg PO DAILY 03/15/24 03/06/25 magnesium oxide 400 mg (241.3 mg 400 mg PO DAILY 03/15/24 03/06/25 magnesium) tablet methocarbamol 500 mg tablet mg PO 03/15/24 03/06/25 metoprolol succinate 50 mg mg PO 03/15/24 03/06/25 tablet,extended release 24 hr midodrine 10 mg tablet 10 mg PO 3XD 03/15/24 03/06/25 mirtazapine 15 mg tablet 15 mg PO ONCE PM 03/15/24 03/06/25 terbinafine HCl 1 % topical cream applic topical BID 03/15/24 03/06/25 triamcinolone acetonide 0.1 % 1 applic topical 03/15/24 03/06/25 topical ointment warfarin 2 mg tablet mg PO 03/15/24 03/06/25 adapalene 0.1 % topical gel topical QPM 04/11/24 03/06/25 (Differin) buprenorphine 2 mg-naloxone 0.5 mg 1 tab sublingual BID PRN 04/11/24 03/06/25 sublingual tablet tizanidine 2 mg tablet 2 mg PO 3XD 04/11/24 03/06/25 Previous Rx's ?Medication ?Instructions ?Recorded lisinopril 10 mg tablet 5 mg (1/2 x 10 mg) PO BID #90 tabs 02/14/19 citalopram 20 mg tablet 40 mg (2 x 20 mg) PO DAILY #180 09/13/19 tabs albuterol sulfate 90 mcg/actuation 1 puff inhalation Q4-6H PRN 03/11/20 aerosol inhaler shortness of breath or wheezing #8 grams hydroxyzine pamoate 25 mg capsule 25 mg PO QID PRN itching #120 caps 04/30/20 warfarin 2.5 mg tablet 2.5 mg PO DAILY #90 tabs 05/28/20 alendronate 70 mg tablet (Fosamax) 70 mg PO QWEEK #12 tabs 07/10/20 epinephrine 0.3 mg/0.3 mL See Rx Instructions .Route 07/23/20 injection, auto-injector .COMPLEX #2 ea triamcinolone acetonide 0.5 % 1 applic topical BID #15 grams 07/23/20 topical ointment permethrin 5 % topical cream See Rx Instructions .Route 08/14/20 .COMPLEX #60 grams rosuvastatin 40 mg tablet See Rx Instructions .Route 09/03/20 .COMPLEX #90 tabs atenolol 50 mg tablet 50 mg PO BID #180 tabs 09/19/20 nicotine (polacrilex) 2 mg buccal 2 mg buccal Q8H PRN nicotine 10/11/20 lozenge (Stop Smoking Aid) cravings #72 ea lorazepam 2 mg tablet 2 mg PO BID PRN anxiety #60 tabs 10/24/20 cyclobenzaprine 10 mg tablet See Rx Instructions .Route 12/03/20 .COMPLEX #40 tabs oxycodone-acetaminophen 5 mg-325 See Rx Instructions .Route 12/30/20 mg tablet .COMPLEX #60 tabs mupirocin 2 % topical ointment 1 applic topical TID #15 grams 04/11/24 fluticasone propionate 50 1 spray intranasal Q12H #16 grams 09/29/24 mcg/actuation nasal spray,suspension (Flonase Allergy Relief) fluticasone fur. 200 mcg-umeclid 1 inh inhalation DAILY #60 ea 01/02/25 62.5 mcg-vilant 25 mcg inhalat.powder (Trelegy Ellipta) Allergies Allergy/AdvReac Type Severity Reaction Status Date / Time venom-honey bee (BEE VENOM Allergy Severe anaphlaxs Verified 05/05/25 16:57 (HONEY BEE)) nickel Allergy Intermediate Rash Verified 05/05/25 16:57 Patient History Medical History Encounter for smoking cessation counseling Cranial somatic dysfunction Chronic bilateral thoracic back pain Cervical somatic dysfunction Thoracic region somatic dysfunction Segmental and somatic dysfunction of abdomen and other regions Sacral region somatic dysfunction Pelvic somatic dysfunction Lumbar region somatic dysfunction Chronic atrial fibrillation Mitral regurgitation H/O alcohol abuse Acute appendicitis Depression COPD (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 disease) USP current use of anticoagulant therapy History of esophageal stricture Osteoporosis Low back pain Scabies (~2015) Heart failure (~05/18/11) Mixed hyperlipidemia (02/04/17) 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 HEAD: Atraumatic. Normocephalic. EYES: Pupils equal round and reactive. Extraocular motions intact. No scleral icterus. No injection or drainage. ENT: Nose without bleeding, purulent drainage. Throat without erythema, tonsillar hypertrophy or exudate. Airway patent. NECK: Trachea midline. Non tender CARDIOVASCULAR: Regular rate and rhythm without murmurs, gallops, or rubs. RESPIRATORY: Clear to auscultation. Breath sounds equal bilaterally. No wheezes, rales, or rhonchi. GASTROINTESTINAL: Abdomen soft, non-tender, nondistended. EXTREMITIES: No edema or joint tenderness. Well-healed lower abdominal groin area scar from recent surgery. BACK: Nontender without deformity or crepitance. No flank tenderness. NEURO: AOx3. Motor functions grossly nonfocal. SKIN: No rash or erythema of visible areas Initial Vital Signs Initial Vital Signs: Vital Signs Temperature 97.8 F 07/04/25 18:37 Pulse Rate 71 07/04/25 18:37 Respiratory Rate 16 07/04/25 18:37 Blood Pressure 165/97 H 07/04/25 18:37 Pulse Oximetry 98 07/04/25 18:37 Oxygen Delivery Method Room Air 07/04/25 18:37 Scores HEART Score Heart Score history: Slightly Suspicious Heart Score EKG: Normal Heart Score Age: > or = 65 years old Heart Score risk factors: No known risk factors Heart Score troponin: < or = to normal limit Heart Score Total: 2 Course Orders Ordered: ED Orders 07/04/25 22:46 CT abdomen pelvis w con Stat CT angio chest PE protocol Stat Discontinued Medications Albuterol (Albuterol Hfa Prepack) 1 box MISC DIRECTED ONE Stop: 07/04/25 22:39 Last Admin: 07/04/25 22:46 Dose: 1 box Documented By: RIKKI Furosemide (Furosemide 40 Mg/4 Ml Vial) 40 mg IV NOW ONE Stop: 07/04/25 20:57 Last Admin: 07/04/25 21:20 Dose: 40 mg Documented By: RIKKI Vital Signs Vital signs: Vital Signs - 8 hr 07/04/25 23:30 07/05/25 00:00 Pulse Rate 60 60 Pulse Oximetry 98 95 Medical Decision Making Lab Data Lab results reviewed: Yes I reviewed the patient's lab results. Lab results narrative: White blood cell count 6400, hemoglobin 11.6, platelets adequate. Glucose 103. Renal function, serum CO2, electrolytes normal. Slight AST elevation, other liver functions normal. Lipase 305 slight elevation. Initial troponin 0.019 measurable but low. BNP 8750 elevated, similarly elevated in the past. 07/04/25 19:11 07/04/25 19:11 Labs: Lab Results 07/04/25 07/04/25 Range/Units 19:11 22:03 WBC 6.4 (4.5-11.0) X10^3/uL RBC 3.25 L (4.0-5.2) X10^6/uL Hgb 11.6 L (12.0-16.0) g/dL Hct 34.7 L (36-46) % MCV 106.7 H (80-100) fL MCH 35.6 H (26-34) PG MCHC 33.3 (30-36) % RDW 15.9 H (11.6-14.8) % Plt Count 228 (150-400) X10^3/uL Neut % (Auto) 64.1 (50-75) % Lymph % (Auto) 19.2 L (25-40) % Burnet % (Auto) 14.0 (3-14) % Eos % (Auto) 1.5 L (2-4) % Baso % (Auto) 1.2 (0-2) % Neut # (Auto) 4100 (1014-6539) /uL Lymph # (Auto) 1200 (1049-5550) /uL Burnet # (Auto) 900 (0-900) /uL Eos # (Auto) 100 (0-450) /uL Baso # (Auto) 100 (0-100) /uL PT 19.9 H (9.4-12.5) SECONDS INR 1.8 H (0.9-1.3) APTT 33 (25.1-36.5) SECONDS D-Dimer 1109 H (<500) ng/ml Sodium 138 (137-145) mmol/L Potassium 3.8 (3.4-5.1) mmol/L Chloride 100 (98-107) mmol/L Carbon Dioxide 31 (22-32) mmol/L BUN 21 H (7-17) mg/dL Creatinine 1.06 H (0.52-1.04) mg/dL Estimated GFR 57 L (>60) mL/min BUN/Creatinine Ratio 19.8 (6-22) Glucose 103 H (70-99) mg/dL Calcium 9.6 (8.4-10.2) mg/dL Magnesium 1.8 (1.6-2.3) mg/dL Total Bilirubin 0.8 (0.2-1.3) mg/dL AST 67 H (14-36) IU/L ALT 28 (<35) IU/L Alkaline Phosphatase 93 (38-126) U/L Total Creatine Kinase 28 L (30-135) U/L Troponin I 0.019 0.019 (0.01-0.034) ng/mL NT-Pro-B Natriuret Pep 8750 H (<125) pg/mL Total Protein 7.2 (6.3-8.2) g/dL Albumin 4.2 (3.5-5.0) g/dL Globulin 3.0 (1.7-4.1) g/dL Albumin/Globulin Ratio 1.4 (1.0-2.8) Lipase 305 H (23-300) U/L Imaging Data Chest x-ray: Radiologist's Impression: [address] [address] XRay Report Signed Patient: Vonnie Conklin MR#: [id number] : 1955 Acct:[id number] Age/Sex: 70 / F Date of Service: 07/04/25 Loc: ED Accession Number: [id number] Procedure: XR chest 1V Ordering Provider: Chris Casas MD PROCEDURE: XR CHEST 1V INDICATIONS: Chest Pain TECHNIQUE: One view of the chest was acquired. COMPARISON: [facility], CT, CT CHEST WO CON, 02/14/2025, 11:46. [facility], CR, XR CHEST 1V, 10/18/2024, 14:33. FINDINGS: Surgical changes and devices: Midline sternotomy, mitral clips. Lungs and pleura: Left upper lobe scarring as before. No acute infiltrates. No pleural effusions or pneumothorax. Mediastinum: Mediastinal contours appear normal. Heart size is enlarged, unchanged. Bones and chest wall: No suspicious bony lesions. Overlying soft tissues appear unremarkable. IMPRESSION: Chronic scarring, left upper lobe. No acute infiltrates. Unchanged cardiomegaly. Dictated by: Phil Gonzalez M.D. on 07/04/2025 at 19:23 Approved by: Phil Gonzalez M.D. on 07/04/2025 at 19:24 ECG Data Attestation: I personally reviewed and interpreted this ECG as follows: Interpretation: 1848, atrial fibrillation with ventricular response rate 75, right bundle branch block incomplete. QRS 92, QTC 464. MDM Narrative Medical decision making narrative: 70-year-old female with history of atrial fibrillation, COPD, no home oxygen, CHF, home inhalers, former smoker, had stopped Lasix recently, reduced dose of metoprolol per Cardiology as well, having increased shortness of breath for the last 1 month, intermittent chest discomfort. Screening EKG shows known atrial fibrillation without fast VR. Chest x-ray and labs pending. Heart score = 2 EKG shows atrial fibrillation with ventricular response rate 75, incomplete right bundle branch block. Chest x-ray shows chronic scarring left upper lobe, stable cardiomegaly, no infiltrates. See radiology report. Lab data: White blood cell count 6400, hemoglobin 11.6, platelets adequate. Glucose 103. Renal function, serum CO2, electrolytes normal. Slight AST elevation, other liver functions normal. Lipase 305 slight elevation. Initial troponin 0.019 measurable but low. BNP 8750 elevated, similarly elevated in the past. Elevated BNP noted, as has been in the past comparison values, recent cessation Lasix per Cardiology, we will give IV Lasix dose for now. D-dimer 1100 elevated, renal function adequate. CTA chest ordered, with IV only contrast CT abdomen and pelvis imaging. CTA chest no acute PE, with some artifact limiting evaluation small emboli, no large central emboli. Unchanged pulmonary nodules. Soft tissue nodule right posterior thyroid unchanged from prior study. See radiology report. CT abdomen and pelvis. No acute intra-abdominal or pelvic process. Possible right inguinal small seroma described, consider biopsy. See radiology report. Interval repeat troponin 0.019 also measurable and quite low/unchanged. IV Lasix. Incidental findings of thyroid nodule and pulmonary nodules discussed with patient, follow up as outpatient for these findings. Patient had recent groin surgery, small inguinal seroma. Patient feels improved, we would like to go home. Discharged home per patient request. Further workup as an outpatient for now. Discharge Plan Departure Patient Disposition: Home Clinical Impression: Chest pain, Chronic shortness of breath, COPD (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 disease), Congestive heart failure, Lung nodules, Thyroid nodule, Inguinal fluid collection Activity Restrictions/Additional Instructions: History of congestive heart failure, former smoker recently stopped, history of COPD lung disease. Recent chest discomfort and shortness of breath. Chest x-ray showed no obvious pneumonia. Elevated BNP, similar to previous measured values, consistent with someone who with known congestive heart failure, IV Lasix dose given. CT angiogram of the chest showed no blood clots to the lungs 2 large vessels, artifact limited evaluation of the peripheral small vessels. No acute intra abdominal process on CT abdomen and pelvis. EKG and serial blood testing not suggestive of heart attack at this time. Further evaluation of cardiopulmonary complaints as an outpatient for now. Incidental imaging findings: Thyroid nodule noted, needs further follow up as an outpatient. Lung nodules noted, stable from previous evaluations, further follow up as an outpatient. Right inguinal groin area fluid collection of uncertain cause, could be localized seroma benign fluid collection, might need eventual biopsy if persistent/increasing, further evaluation as an outpatient for now. Prescriptions: No Action metoprolol succinate 50 mg tablet extended release 24 hr PO methocarbamol 500 mg tablet PO acetaminophen-codeine 300-30 mg tablet 1 tab PO BID PRN ketoconazole 2 % shampoo topical duloxetine 30 mg capsule,delayed release(DR/EC) 30 mg PO DAILY levothyroxine 50 mcg tablet 50 mcg PO DAILY warfarin 2 mg tablet PO furosemide 20 mg tablet 20 mg PO BID magnesium oxide 400 mg (241.3 mg magnesium) tablet 400 mg PO DAILY ezetimibe 10 mg tablet 10 mg PO DAILY terbinafine HCl 1 % cream topical BID triamcinolone acetonide 0.1 % ointment 1 applic topical midodrine 10 mg tablet 10 mg PO 3XD fluticasone propion-salmeterol [Advair HFA] 230-21 mcg/actuation HFA aerosol inhaler 2 puff inhalation BID mirtazapine 15 mg tablet 15 mg PO ONCE PM gabapentin 300 mg capsule PO fluticasone propionate [Flonase Allergy Relief] 50 mcg/actuation spray,suspension 1 spray intranasal Q12H Qty: 16 0RF Rx Instructions: administer into each nostril buprenorphine-naloxone 2-0.5 mg tablet, sublingual 1 tab sublingual BID PRN tizanidine 2 mg tablet 2 mg PO 3XD adapalene [Differin] 0.1 % gel topical QPM mupirocin 2 % ointment 1 applic topical TID Qty: 15 0RF lisinopril 10 mg tablet 5 mg PO BID Qty: 90 3RF albuterol sulfate 90 mcg/actuation HFA aerosol inhaler 1 puff INHALATION Q4-6H PRN (Reason: shortness of breath or wheezing) Qty: 8 1RF Patient Comments: hasn't used since she quit smoking alendronate [Fosamax] 70 mg tablet 70 mg PO QWEEK Qty: 12 3RF Rx Instructions: Every Wednesday triamcinolone acetonide 0.5 % ointment 1 applic TOP BID Qty: 15 5RF epinephrine 0.3 mg/0.3 mL auto-injector See Rx Instructions .ROUTE .COMPLEX Qty: 2 4RF Dose Instruction: INJECT ONE AUTO-DOSE OF EPINEPHRINE INTO THIGH IF STUNG BY A BEE. Rx Instructions: INJECT ONE AUTO-DOSE OF EPINEPHRINE INTO THIGH IF STUNG BY A BEE. rosuvastatin 40 mg tablet See Rx Instructions .ROUTE .COMPLEX Qty: 90 0RF Dose Instruction: TAKE 1 TABLET BY MOUTH AT BEDTIME Rx Instructions: TAKE 1 TABLET BY MOUTH AT BEDTIME atenolol 50 mg tablet 50 mg PO BID Qty: 180 3RF lorazepam 2 mg tablet 2 mg PO BID PRN (Reason: anxiety) Qty: 60 0RF cyclobenzaprine 10 mg tablet See Rx Instructions .ROUTE .COMPLEX Qty: 40 0RF Dose Instruction: TAKE 1/2 TO 1 TABLET BY MOUTH UP TO 3 TIMES DAILY FOR MUSCLE SPASMS. MUST LAST 14 DAYS Rx Instructions: TAKE 1/2 TO 1 TABLET BY MOUTH UP TO 3 TIMES DAILY FOR MUSCLE SPASMS. No further refill. Must establish with new pcp. oxycodone-acetaminophen 5-325 mg tablet See Rx Instructions .ROUTE .COMPLEX Qty: 60 0RF Dose Instruction: TAKE ONE TABLET BY MOUTH EVERY EIGHT HOURS NEEDED FOR PAIN. Rx Instructions: TAKE ONE TABLET BY MOUTH EVERY EIGHT HOURS NEEDED FOR PAIN. hydroxyzine pamoate 25 mg capsule 25 mg PO QID PRN (Reason: itching) Qty: 120 3RF warfarin 2.5 mg tablet 2.5 mg PO DAILY Qty: 90 3RF Rx Instructions: Take one tablet daily or as directed. permethrin 5 % cream See Rx Instructions .ROUTE .COMPLEX Qty: 60 1RF Dose Instruction: APPLY TO SKIN FROM HAIRLINE TO TOES AND WASH OFF 8-10 HOURS LATER. REPEAT IN 1 WEEK IF NEEDED Rx Instructions: APPLY TO SKIN FROM HAIRLINE TO TOES AND WASH OFF 8-10 HOURS LATER. REPEAT IN 1 WEEK IF NEEDED nicotine (polacrilex) [Stop Smoking Aid] 2 mg lozenge 2 mg buccal Q8H PRN (Reason: nicotine cravings) Qty: 72 11RF citalopram 20 mg tablet 40 mg PO DAILY Qty: 180 3RF Trelegy Ellipta 200-62.5-25 mcg blister with device 1 inh inhalation DAILY Qty: 60 11RF Rx Instructions: rinse mouth with water, gargle and spit after each use Referrals: Geovanny Garcia ARNP [Primary Care Provider, Family Practice] Stand Alone Forms: Patient Portal/API
[2025-07-04] MEDS: ALBUTEROL HFA PREPACK 1 BOX MISC (22:46)
--- NOTE | 2025-07-04 22:46 | DI.CT.S_ITS ---
PROCEDURE: CT ANGIO CHEST PE PROTOCOL INDICATIONS: Shortness of breath, history of lung cancer, D-dimer positiv TECHNIQUE: After the administration of intravenous contrast, 2 mm thick sections acquired from the pulmonary apices to the posterior costophrenic angles. 3-dimensional maximum intensity projection (MIP) coronal and sagittal reformats were then acquired through the thorax. For radiation dose reduction, the following was used: automated exposure control, adjustment of mA and/or kV according to patient size. COMPARISON: [facility], CT, CT CHEST WO CON, 02/14/2025, 11:46. [facility], CR, XR CHEST 1V, 07/04/2025, 19:00. FINDINGS: Image quality: Diagnostic. Pulmonary arteries: Pulmonary arteries are slightly enlarged measuring 3.2 cm and demonstrate no intraluminal filling defects to suggest central pulmonary embolism. Artifact is present within the right main pulmonary artery. Areas of artifact also extend into segmental branches on the right. Lower Neck: No enlarged lymph nodes. Thyroid: Calcifications are present within the thyroid gland on the right, unchanged. Soft tissue nodule measuring 8 mm is present immediately posterior to the right thyroid lobe, unchanged. Axillae: No enlarged lymph nodes. Chest Wall: Unremarkable. Bones: Unremarkable. Lungs and Pleura: No pneumothorax or pleural effusions. 6 mm left lower lobe nodule series 5, image 122, unchanged. 3 mm left lower lobe nodule series 5, image 192, unchanged. Platelike opacity in the left upper lobe is unchanged. Heart: Heart size is enlarged. No pericardial effusion. Thoracic Vessels: No aortic aneurysm. Mediastinum and Marjorie: No enlarged lymph nodes. Esophagus: No wall thickening. Mild hiatal hernia. Upper Abdomen: Visualized upper abdomen solid organs and bowel loops appear normal. IMPRESSION: No central pulmonary embolism. Artifact is present within the right main pulmonary artery extending to segmental branches. Areas of small emboli within these regions cannot be definitively excluded as they are not well visualized. Unchanged pulmonary nodules. Soft tissue nodule posterior to the inferior right thyroid lobe, unchanged. This could represent an exophytic thyroid nodule. Parathyroid adenoma cannot be excluded and recommend clinical correlation. Thyroid ultrasound may be obtained on a nonemergent basis as clinically indicated. Dictated by: Laura Diaz M.D. on 07/04/2025 at 23:37 Approved by: Laura Diaz M.D. on 07/04/2025 at 23:42
--- NOTE | 2025-07-04 22:46 | DI.CT.S_ITS ---
PROCEDURE: CT ABDOMEN PELVIS W CON INDICATIONS: CP, dimer+ TECHNIQUE: After the administration of intravenous contrast, axial sections acquired from the lung bases to the pubic symphysis. Coronal and sagittal reformats were performed. For radiation dose reduction, the following was used: automated exposure control, adjustment of mA and/or kV according to patient size. COMPARISON: CT, CT ABDOMEN PELVIS W CON, 04/11/2020, 14:30. Images are unable to be retrieved at time of exam. Only report is available for comparison. FINDINGS: Image quality: Portions of the lower pelvis are suboptimally evaluated secondary to metallic streak artifact from hip arthroplasty. Lower Chest: Heart is enlarged. ABDOMEN: Liver: No solid mass. Steatosis. Gallbladder: Removed. Biliary ducts: No biliary dilation. Pancreas: No ductal dilation. Spleen: Size is within normal limits. Adrenal Glands: No adrenal nodules. Kidneys and Ureters: No hydronephrosis. No solid mass. No complex renal cystic lesion which requires follow up. Stomach and Bowel: Normal colonic caliber, without significant wall thickening. Peritoneum: No abnormal intraperitoneal fluid. No free air. Ventral Wall: No significant ventral hernia. Abdominal Nodes: No retroperitoneal or mesenteric adenopathy by size criteria. Vessels: Aorta and inferior vena cava are normal in size. Prominent atherosclerotic calcifications are present within the aorta. PELVIS: Pelvic Organs: Unremarkable. Bladder: No bladder wall thickening, accounting for underdistention. Pelvic Nodes: No enlarged lymph nodes. Miscellaneous: No inguinal hernias are seen. 3.5 x 2.8 cm low-attenuation focus within the right inguinal region. Hounsfield units measure 16. No prior images for comparison. Bones: No aggressive osseous abnormality. Right hip arthroplasty. IMPRESSION: No acute intra-abdominal or pelvic process. Low-attenuation focus within the right inguinal region with Hounsfield units suggestive of fluid. Etiology is uncertain. This may represent traumatic or iatrogenic seroma. Images from 2019 are not available for review. Recommend clinical correlation and as indicated further evaluation with FNA or biopsy may be obtained. Dictated by: Laura Diaz M.D. on 07/04/2025 at 23:42 Approved by: Laura Diaz M.D. on 07/04/2025 at 23:48
[2025-07-04 22:52] LABS: Troponin I 0.019 ng/mL (0.01-0.034)
[2025-07-05] VITALS: PULSE 60; O2SAT 95
== END 2025-07-05 00:10 | disposition home or self-care (01) ==
PROVIDERS: Emergency Provider Emergency Medicine; Family Provider Orthopaedic Surgery; PCP Nurse Practitioner
DX: R07.9 Chest pain, unspecified (principal); R06.02 Shortness of breath; J44.9 Chronic obstructive pulmonary disease, unspecified; I50.9 Heart failure, unspecified; I48.91 Unspecified atrial fibrillation; R91.8 Other nonspecific abnormal finding of lung field; E04.1 Nontoxic single thyroid nodule; Z87.891 Personal history of nicotine dependence
CPT/HCPCS: 36415; 71045; 71275; 74177; 80053; 82550; 83690; 83735; 83880; 84484; 85025; 85379; 85610; 85730; 93005; 96374; 99284; J1938; Q9967

== ENCOUNTER → 2025-07-06 11:06 | Outpatient (CLI) | payer MEDICARE, MEDICAID, SELFPAY ==
[2021-05-13 11:44] VITALS: BMI 21.7
[2025-07-06 12:23] LABS: Add Manual Diff / Slide Review NO; Hematocrit 38.1 % (36-46); Hemoglobin 12.8 g/dL (12.0-16.0); Lymphocytes Absolute Auto 900 /uL (1100-4500); Mean Corpuscular HGB Conc 33.6 % (30-36); Mean Corpuscular Hemoglobin 35.5 PG (26-34); Mean Corpuscular Volume 105.6 fL (80-100); Platelet Count 227 X10^3/uL (150-400)
[2025-07-06 12:37] LABS: INR 1.8 (0.9-1.3); Prothrombin Time 20.6 SECONDS (9.4-12.5)
[2025-07-06 12:42] LABS: Alanine Aminotransferase 21 IU/L (<35); Albumin 4.1 g/dL (3.5-5.0); Albumin Globulin Ratio 1.4 (1.0-2.8); Alkaline Phosphatase 89 U/L (38-126); Calcium 9.3 mg/dL (8.4-10.2); Carbon Dioxide 32 mmol/L (22-32); Chloride 98 mmol/L (98-107); Cholesterol 237 mg/dL (140-199); Globulin 2.9 g/dL (1.7-4.1); Glucose 142 mg/dL (70-99); HDL Cholesterol 63 mg/dL (40-60); HEMOLYSIS < 15 (0-50); Potassium 4.0 mmol/L (3.4-5.1); Sodium 137 mmol/L (137-145); Total Protein 7.0 g/dL (6.3-8.2); Triglycerides 209 mg/dL (35-150)
[2025-07-06 12:47] LABS: Blood Urea Nitrogen 19 mg/dL (7-17); Estimated Glomerular Filt Rate 54 mL/min (>60)
[2025-07-06 13:12] LABS: TSH w/ Reflex to FT4 8.21 uIU/mL (0.47-4.68)
[2025-07-06 13:38] LABS: Free T4, Direct Thyroxine 0.99 ng/dL (0.78-2.19)
== END ==
PROVIDERS: Family Provider Orthopaedic Surgery; PCP Nurse Practitioner; Referring Provider Nurse Practitioner; Visit Provider Nurse Practitioner
DX: R42 Dizziness and giddiness (principal); R79.1 Abnormal coagulation profile; E78.5 Hyperlipidemia, unspecified; I10 Essential (primary) hypertension
CPT/HCPCS: 80053; 80061; 84439; 84443; 85025; 85610

== ENCOUNTER → 2025-07-19 11:00 | Outpatient (CLI) | payer MEDICARE, MEDICAID, SELFPAY ==
[2021-05-13 11:44] VITALS: BMI 21.7
--- NOTE | 2025-07-19 11:02 | DI.CT.S_ITS ---
PROCEDURE: CT CHEST WO CON INDICATIONS: MALIGNANT NEOPLASM OF UPPER LOBE TECHNIQUE: Noncontrast 5 mm thick sections acquired from the pulmonary apices to the posterior costophrenic angles. 1 mm lung window, 5 mm thick coronal and sagittal and 7 mm axial MIP reformats were then acquired. For radiation dose reduction, the following was used: automated exposure control, adjustment of mA and/or kV according to patient size. COMPARISON: [facility], CT, CT ANGIO CHEST PE PROTOCOL, 07/04/2025, 22:48.[facility], CT, CT CHEST WO CON, 02/14/2025, 11:46. FINDINGS: Image quality: Diagnostic. Lower Neck: No enlarged lymph nodes. Thyroid: Calcified thyroid nodules. Left thyroid lobe appears absent. Axillae: No enlarged lymph nodes. Chest Wall: Unremarkable. Bones: Degenerative changes. Prior left-sided rib fractures.. Lungs and Pleura: No pneumothorax or pleural effusions. Stable platelike opacity in the left upper lobe, likely post treatment scarring. New area of linear atelectasis versus scarring within the lingula (3/183). Stable left lower lobe pulmonary nodules measuring 6-7 mm (3/132) and 4 mm (3/202). Medial right lower lobe nodules appear more pronounced measuring up to 5 mm (3/159). Heart: Heart size is enlarged. No pericardial effusion. Thoracic Vessels: Main pulmonary artery is dilated at 3.6 cm. Dense arterial calcifications are present. Mediastinum and Marjorie: No enlarged lymph nodes. Esophagus: No wall thickening. No hiatal hernia. Upper Abdomen: Visualized upper abdomen solid organs and bowel loops appear normal. IMPRESSION: 1. Scattered pulmonary nodules as described above, left lower lobe nodules are similar while right lower lobe nodules appear more pronounced. Recommend three-month follow-up chest CT. New area of scarring versus atelectasis in the lingula can also be reassessed on short-term follow-up. 2. Dilated main pulmonary artery at 3.6 cm. Suggestive of pulmonary hypertension. 3. Please see above for additional findings. Dictated by: Ronald Estevez M.D. on 07/21/2025 at 14:06 Approved by: Ronald Estevez M.D. on 07/21/2025 at 14:14
== END ==
PROVIDERS: Family Provider Orthopaedic Surgery; PCP Nurse Practitioner; Referring Provider Radiology Radiation Oncology; Visit Provider Radiology Radiation Oncology
DX: C34.12 Malignant neoplasm of upper lobe, left bronchus or lung (principal); I51.7 Cardiomegaly; R91.8 Other nonspecific abnormal finding of lung field
CPT/HCPCS: 71250